=== PATIENT | female | born 1995 | race Caucasian/White ===

== ENCOUNTER 2023-06-28 09:59 | Outpatient (OUT) | payer MEDICAID, SELFPAY ==
[2023-06-28 10:36] LABS: HCG Quantitative <1 mIU/mL
== END 2023-06-28 10:00 | disposition home or self-care (01) ==
LOC: LAB 10:03
PROVIDERS: Visit Provider Obstetrics & Gynecology
DX: N92.6 Irregular menstruation, unspecified (principal)
CPT/HCPCS: 36415; 84702

== ENCOUNTER 2023-07-07 07:45 | Outpatient (OUT) | payer MEDICAID, SELFPAY ==
--- NOTE | 2023-07-07 07:49 | US_ITS ---
The [address] [address] Patient Name: KEVEN GUTIERREZ MRN: [id number] date: 1995 Sex: F Assigned Patient Location: [place] Current Patient Location: Accession/Order Number: [id number] Exam Date: 07/07/2023 08:00 Report Date: 07/07/2023 09:12 At the request of: MUKESH OLIVARES Procedure: US pelvis w/ transvaginal EXAMINATION: US pelvis w/ transvaginal HISTORY: Pelvic Pain In Female R10.2 COMPARISON: No relevant comparison available. TECHNIQUE: Transabdominal and/or transvaginal sonographic examination was performed as indicated by examination type. FINDINGS: UTERUS: Normal size and appearance. Uterus size: 8.1 x 4.4 x 4.0 cm ENDOMETRIUM: 3 mm hyperechoic focus within fundal aspect endometrium, likely dystrophic calcification. Otherwise normal thickness and echogenicity of endometrium. Endometrial thickness: 9 mm RIGHT OVARY: Contains a 2.5 cm benign-appearing cyst. Duplex Doppler demonstrates normal waveform and flow; resistive index 0.6. Ovary size: 4.5 x 2.7 x 2.4 cm LEFT OVARY: Normal size and appearance. Duplex Doppler demonstrates normal waveform and flow; resistive index 0.6. Ovary size: 2.9 x 2.4 x 2.2 cm CUL-DE-SAC: Unremarkable. No significant free fluid. BLADDER: Unremarkable. OTHER: None. US/US pelvis w/ transvaginal IMPRESSION: 1. The right ovary contains a 2.5 cm benign-appearing cysts which may contribute to patient's symptoms. No other acute or suspicious findings. Electronically authenticated by: CAROLYN SOW Date: 07/07/2023 09:12
== END 2023-07-07 07:46 | disposition home or self-care (01) ==
LOC: US 07:45
PROVIDERS: Visit Provider Obstetrics & Gynecology
DX: R10.2 Pelvic and perineal pain (principal); N83.201 Unspecified ovarian cyst, right side
CPT/HCPCS: 76830; 76856

== ENCOUNTER 2023-08-16 20:43 | Outpatient (REF) | payer MEDICAID, SELFPAY ==
[2023-08-25 22:06] LABS: Age Gdln ACOG Testing Note (.); HPV Aptima Negative (Negative); IGP, rfx Aptima HPV ASCU Note (.)
== END 2023-08-16 20:44 | disposition home or self-care (01) ==
LOC: LAB 20:43
PROVIDERS: Visit Provider Physician Assistant
DX: Z12.4 Encounter for screening for malignant neoplasm of cervix (principal)
CPT/HCPCS: G0145

== ENCOUNTER 2023-09-07 10:32 | Outpatient (OUT) | payer MEDICAID, SELFPAY ==
--- NOTE | 2023-09-07 10:43 | US_ITS ---
[address] [address] Patient Name: KEVEN GUTIERREZ MRN: [id number] date: 1995 Sex: F Assigned Patient Location: [place] Current Patient Location: Accession/Order Number: [id number] Exam Date: 09/07/2023 10:44 Report Date: 09/08/2023 10:04 At the request of: MUKESH OLIVARES Procedure: US OB transvaginal EXAMINATION: US OB transvaginal HISTORY: Missed Menses N92.6 COMPARISON: No relevant comparison available. FINDINGS: Roblero intrauterine gestation Gestational sac: 1.74 cm, 6 weeks 1 day CRL: 4.8 mm, 6 weeks 1 day Yolk sac: 1.4 mm Heart rate: 113 beats minute Cervix: Closed 3.8 cm The uterus is normal, anteverted The ovaries are normal. Right corpus luteal cyst Clinical age: Unknown Ultrasound age: 6 weeks 1 day Ultrasound GET: 05/01/2024 US/US OB transvaginal IMPRESSION: Viable roblero intrauterine gestation measuring 6 weeks 1 day Electronically authenticated by: SHAHEEN RAMOS Date: 09/08/2023 10:04
== END 2023-09-07 10:33 | disposition home or self-care (01) ==
LOC: US 10:33
PROVIDERS: Visit Provider Obstetrics & Gynecology
DX: Z34.91 Encounter for supervision of normal pregnancy, unspecified, first trimester (principal); Z3A.01 Less than 8 weeks gestation of pregnancy
CPT/HCPCS: 36415; 76817; 84702

== ENCOUNTER 2023-10-20 10:15 | Outpatient (OUT) | payer MEDICAID, SELFPAY ==
[2023-10-20 11:11] LABS: HCG Quantitative 21 mIU/mL
== END 2023-10-20 10:16 | disposition home or self-care (01) ==
LOC: LAB 10:18
PROVIDERS: Visit Provider Obstetrics & Gynecology
DX: N92.6 Irregular menstruation, unspecified (principal); O03.9 Complete or unspecified spontaneous abortion without complication
CPT/HCPCS: 36415; 84702

== ENCOUNTER 2023-10-27 10:10 | Outpatient (RCR) | payer MEDICAID, SELFPAY ==
[2023-10-27 12:33] LABS: HCG Quantitative 10 mIU/mL
[2023-11-01 13:16] LABS: HCG Quantitative 6 mIU/mL
== END 2023-11-20 08:03 | disposition home or self-care (01) ==
LOC: LAB 10:10
PROVIDERS: Visit Provider Obstetrics & Gynecology
DX: O03.9 Complete or unspecified spontaneous abortion without complication (principal); N92.6 Irregular menstruation, unspecified
CPT/HCPCS: 36415; 84702

== ENCOUNTER 2024-01-06 10:56 | Outpatient (OUT) | payer MEDICAID, SELFPAY ==
--- NOTE | 2024-01-06 10:58 | US_ITS ---
The [address] [address] Patient Name: KEVEN GUTIERREZ MRN: [id number] date: 1995 Sex: F Assigned Patient Location: [place] Current Patient Location: Accession/Order Number: [id number] Exam Date: 01/06/2024 11:18 Report Date: 01/06/2024 12:38 At the request of: MUKESH OLIVARES Procedure: US pelvis w/ transvaginal EXAMINATION: US pelvis w/ transvaginal HISTORY: pelvic pain in female R10.2 COMPARISON: Ultrasound pelvis 07/07/2023 TECHNIQUE: Transabdominal and/or transvaginal sonographic examination was performed as indicated by examination type. FINDINGS: UTERUS: Normal size and appearance. Uterus size: 7.1 x 4.2 x 5.0 cm ENDOMETRIUM: Normal homogeneous appearance. Endometrial thickness: 4 mm RIGHT OVARY: Contains a 4.3 cm anechoic, thin-walled, benign-appearing cyst. Duplex Doppler demonstrates normal waveform and flow; resistive index 0.68. Ovary size: 4.3 x 3.6 x 4.6 cm LEFT OVARY: Normal size and appearance. Duplex Doppler demonstrates normal waveform and flow; resistive index 0.48. Ovary size: 2.3 x 1.1 x 2.4 cm CUL-DE-SAC: Unremarkable. No significant free fluid. BLADDER: Unremarkable. OTHER: None. US/US pelvis w/ transvaginal IMPRESSION: 1. Right ovary contains a large 4.3 cm benign-appearing cyst. This is larger than seen on patient's 07/07/2023 study and may represent enlargement of previously seen cyst or a new cyst since that time. Consider follow-up ultrasound evaluation in 6 weeks to document regression. Electronically authenticated by: CAROLYN SOW Date: 01/06/2024 12:38
--- OUTSIDE RECORDS SUMMARY | 2024-01-06 11:14 | XMS_ITS | CCD ---
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 Glucose [Mass/Vol] 78 mg/dL Normal 70-100 [facility] Comment on above: Result Comment: [facility] [place] Glucose Reference Range is dependent on time and content of last meal. Glucose of more than 200 mg/dL in a nonstressed, ambulatory subject supports the diagnosis of Diabetes Mellitus. ADA recommended reference range Performed By: #### C BC, TSH3 wRFLX, A1C WTH eA, LIPID, CMP #### [facility] [address] [place] [address] [place] Potassium [Moles/Vol] 4.2 mmol/L Normal 3.5-5.1 [facility] Comment on above: Performed By: #### C BC, TSH3 wRFLX, A1C WTH eA, LIPID, CMP #### [facility] [address] [place] [address] [place] Protein [Mass/Vol] 6.6 g/dL Normal 6.4-8.9 [facility] Comment on above: Performed By: #### C BC, TSH3 wRFLX, A1C WTH eA, LIPID, CMP #### [facility] [address] [place] [address] [place] Sodium [Moles/Vol] 141 mmol/L Normal 136-145 [facility] Comment on above: Performed By: #### C BC, TSH3 wRFLX, A1C WTH eA, LIPID, CMP #### [facility] [address] [place] [address] [place] Urea nitrogen [Mass/Vol] 21 mg/dL Normal 7-25 [facility] Comment on above: Performed By: #### C BC, TSH3 wRFLX, A1C WTH eA, LIPID, CMP #### [facility] [address] [place] [address] [place] Creatinine [Mass/volume] in Serum or PlasmaOrdered By: Elean Gudimella on 10-17-2023 Creatinine [Mass/Vol] 0.66 mg/dL 0.60-1.20 [facility] Eosinophils Auto (Bld) [#/Vo l]Ordered By: Elena Gudimella on 10-17-2023 Eosinophils (Bld) [#/Vol] 0.1 10*3/uL 0.0-0.45 [facility] Eosinophils/100 WBC Auto (Bl d)Ordered By: Elena Burger on 10-17-2023 Eosinophils/100 WBC (Bld) 2.8 % . [facility] Erythrocyte distribution wid th Auto (RBC) [Ratio]Ordered By: Elenajason Brownmichelle on 10-17-2023 Erythrocyte distribution width (RBC) [Ratio] 13.3 % 11.9-15.3 [facility] Globulin Calc (S) [Mass/Vol] Ordered By: Elena Brownmichelle on 10-17-2023 Globulin (S) [Mass/Vol] 2.1 g/dL [facility] Glucose [Mass/volume] in Ser um or PlasmaOrdered By: Elena Gumichelle on 10-17-2023 Glucose [Mass/Vol] 78 mg/dL 70-100 [facility] Comment on above: ADA recommended refe rence rangeRandom Glucose Reference Range is dependent on time and content of last meal. Glucose of more than 200 mg/dL in a nonstressed, ambulatory subject supports the diagnosis of Diabetes Mellitus. Hematocrit Auto (Bld) [Volum e fraction]Ordered By: Elenajason Brown on 10-17-2023 Hematocrit (Bld) [Volume fraction] 37.1 % 34.0-46.4 [facility] Hemoglobin [Mass/volume] in BloodOrdered By: Elena Malcom on 10-17-2023 Hemoglobin (Bld) [Mass/Vol] 12.1 g/dL 11.8-15.4 [facility] Leukocytes [#/volume] correc addie for nucleated erythrocytes in Blood by Automated counOrdered By: Kevinmichelle on 10-17-2023 WBC corrected for nucl RBC Auto (Bld) [#/Vol] 5.3 10*3/uL 3.8-11.6 [facility] Lipid Panelon 10-17-2023 Cholesterol [Mass/Vol] 155 mg/dL Normal 140-200 [facility] Comment on above: Result Comment: Chol less than 200 mg/dl low risk Chol 201-239 mg/dl borderline risk Chol 240 mg/dl and greater high risk Performed By: #### C BC, TSH3 wRFLX, A1C WTH eA, LIPID, CMP #### [facility] [address] [place] [address] [place] Cholesterol in HDL [Mass/Vol] 77 mg/dL Normal 23-92 [facility] Comment on above: Result Comment: HDL CHOL ATP-III CLASSIFICATION Cardiovascular Risk HDL > or equal to 60 mg/dL LOW HDL < 40 mg/dL HIGH Performed By: #### C BC, TSH3 wRFLX, A1C WTH eA, LIPID, CMP #### [facility] [address] [place] [address] [place] Cholesterol.total/[place] sterol in HDL [Mass ratio] 2.0 {ratio} Normal <5.0 [facility] Comment on above: Performed By: #### C BC, TSH3 wRFLX, A1C WTH eA, LIPID, CMP #### [facility] [address] LDL Cholesterol,Calculated 72 mg/dL Normal 0-100 [facility] Comment on above: Result Comment: LDL ATP III CLASSIFICATION LDL less than 100 mg/dL Optimal LDL 100-129 mg/dL Near or above optimal LDL 130-159 mg/dL Borderline high LDL 160-189 mg/dL High LDL greater than 189 mg/dL Very high Performed By: #### C BC, TSH3 wRFLX, A1C WTH eA, LIPID, CMP #### [facility] [address] [place] [id number] [place] Triglyceride w/Reflex 31 mg/dL Normal 0-149 [facility] Comment on above: Result Comment: TRIG ATP III CLASSIFICATION TRIG less than 150 mg/dL Normal TRIG 150-199 mg/dL Borderline high TRIG 200-500 mg/dL High TRIG greater than 500 mg/dL Very high Standard traceable to the Center for Disease Conrtrol and Prevention (CDC) test method. Performed By: #### C BC, TSH3 wRFLX, A1C WTH eA, LIPID, CMP #### [facility] [address] [place] [id number] [place] VLDL CHOLESTEROL 6 mg/dL Normal [facility] Comment on above: Performed By: #### C BC, TSH3 wRFLX, A1C WTH eA, LIPID, CMP #### [facility] [address] Lymphocytes Auto (Bld) [#/Vo l]Ordered By: Elena Gudimella on 10-17-2023 Lymphocytes (Bld) [#/Vol] 1.6 10*3/uL 1.00-4.8 [facility] Lymphocytes/100 WBC Auto (Bl d)Ordered By: Elena Gudimella on 10-17-2023 Lymphocytes/100 WBC (Bld) 30.9 % . [facility] MCH Auto (RBC) [Entitic mass ]Ordered By: Elena Gudimella on 10-17-2023 MCH (RBC) [Entitic mass] 27.7 pg 24.7-34.3 [facility] MCHC Auto (RBC) [Mass/Vol]Or dered By: Elena Gudimella on 10-17-2023 MCHC (RBC) [Mass/Vol] 32.7 g/dL 32.0-35.0 [facility] MCV Auto (RBC) [Entitic vol] Ordered By: Elena Gudimella on 10-17-2023 MCV (RBC) [Entitic vol] 84.6 fL 80-100 [facility] Monocytes Auto (Bld) [#/Vol] Ordered By: Elena Gudimella on 10-17-2023 Monocytes (Bld) [#/Vol] 0.4 10*3/uL 0.0-0.8 [facility] Monocytes/100 WBC Auto (Bld) Ordered By: Elena Gudimella on 10-17-2023 Monocytes/100 WBC (Bld) 7.8 % . [facility] Neutrophils Auto (Bld) [#/Vo l]Ordered By: Elena Gudimella on 10-17-2023 Neutrophils (Bld) [#/Vol] 3.1 10*3/uL 1.8-7.7 [facility] Neutrophils/100 WBC Auto (Bl d)Ordered By: Elena Gudimella on 10-17-2023 Neutrophils/100 WBC (Bld) 58.0 % . [facility] No Panel InformationOrdered By: Elena Gudimella on 10-17-2023 Estimated GFR (CKD-EPI) > 60.0 mL/Min [facility] Creatinine Clearance (Chem N/A [facility] Nucleated erythrocytes [Pres ence] in Blood by Automated countOrdered By: Elena Gudimella on 10-17-2023 Nucleated RBC Auto Ql (Bld) 0.1 /100{WBC} 0-0.5 [facility] Platelet mean volume Auto (B ld) [Entitic vol]Ordered By: Elena Gudimella on 10-17-2023 Platelet mean volume (Bld) [Entitic vol] 9.5 fL 6.3-10.7 [facility] Platelets Auto (Bld) [#/Vol] Ordered By: Elena Gudimella on 10-17-2023 Platelets (Bld) [#/Vol] 146 10*3/uL 150-450 [facility] Potassium [Moles/volume] in Serum or PlasmaOrdered By: Elena Gudimella on 10-17-2023 Potassium [Moles/Vol] 4.2 mmol/L 3.5-5.1 [facility] Protein [Mass/volume] in Ser um or PlasmaOrdered By: Elena Gudimella on 10-17-2023 Protein [Mass/Vol] 6.6 g/dL 6.4-8.9 [facility] RBC Auto (Bld) [#/Vol]Ordere d By: Elena Gudimella on 10-17-2023 RBC (Bld) [#/Vol] 4.38 10*6/uL 3.60-5.00 [facility] Serum or plasma albumin/glob ulin mass ratioOrdered By: Elena Gudimella on 10-17-2023 Albumin/Globulin [Mass ratio] 2.1 {ratio} [facility] Serum or plasma anion gap de terminationOrdered By: Elena Gudimella on 10-17-2023 Anion gap [Moles/Vol] 10.5 mmol/L 6.0-15.0 [facility] Serum or plasma high density lipoprotein (HDL) cholesterol measurementOrdered By: Elena Gudimella on 11-27-2023 Cholesterol in HDL [Mass/Vol] 77 mg/dL 23-92 [facility] Comment on above: HDL CHOL ATP-III CLA SSIFICATION Cardiovascular RiskHDL > or equal to 60 mg/dL LOWHDL < 40 mg/dL HIGH Serum or plasma total choles terol/high density lipoprotein (HDL) cholesterol mass ratOrdered By: Malcom on 10-17-2023 Cholesterol.total/[place] sterol in HDL [Mass ratio] 2.0 {ratio} <5.0 [facility] Sodium [Moles/volume] in Ser um or PlasmaOrdered By: on 10-17-2023 Sodium [Moles/Vol] 141 mmol/L 136-145 [facility] Thyroid Stim Hormone w/Rflxo n 10-17-2023 Thyroid Stim Hormone w/Rflx 0.68 u[iU]/mL Normal 0.45-5.33 [facility] Comment on above: Result Comment: PERF ORMED BY: [place] [address] PATHOLOGIST RECONDITIONER SERG WARD M.D. Performed By: #### C BC, TSH3 wRFLX, A1C WTH eA, LIPID, CMP #### [address] Thyrotropin [Units/volume] i n Serum or PlasmaOrdered By: on 10-17-2023 TSH Qn 0.68 m[IU]/L 0.45-5.33 [facility] Triglyceride [Mass/volume] i n Serum or PlasmaOrdered By: on 10-17-2023 Triglyceride [Mass/Vol] 31 mg/dL 0-149 [facility] Comment on above: TRIG ATP III CLASSIF ICATIONTRIG less than 150 mg/dL NormalTRIG 150-199 mg/dL Borderline highTRIG 200-500 mg/dL High TRIG greater than 500 mg/dL Very highStandard traceable to the Center for Disease Conrtrol and Prevention (CDC) test method. Urea nitrogen [Mass/volume] in Serum or PlasmaOrdered By: on 10-17-2023 Urea nitrogen [Mass/Vol] 21 mg/dL 7-25 [facility] WBC Auto (Bld) [#/Vol]Ordere d By: Elena Burger on 10-17-2023 WBC (Bld) [#/Vol] 5.3 10*3/uL 3.8-11.6 [facility] Physician Orderon 10-14-2023 Physician Order [id number] Normal [facility] Ambulatory Visit Summaryon 0 05-26-2023 Ambulatory Visit Summary PAULA WHITAKER :1995 Visit Date:05/26/2023 Ambulatory Visit Instructions Your Diagnosis Encounter for annual physical exam Nonsmoker BMI 26.0-26.9,adult Seizures Hypothyroidism, Hypothyroidism Screening for endocrine, metabolic, and immunity disorder Encounter for screening for diseases of the blood and blood-forming organs and certain disorders involving the immune mechanism Encounter for screening for other metabolic disorders Your Care Team Attending Physician - Elena Burger MD Primary Care Physician - Khushboo PENNINGTON MD This Is Your Medications List levothyroxine (levothyroxine 50 mcg (0.05 mg) Tab) Procedures Performed none. Discharge Vitals Heart Rate (Peripheral) 78 Blood Pressure 110/70 Height 157 cm Height 62 in Weight 64.4 kg Weight 141.68 lb BMI 26.13 Medications What How Much When Why Instructions Unchanged levothyroxine (levothyroxine 50 mcg (0.05 mg) Tab) 1 Tablets By Mouth Every day Hypothyroidism on empty stomach Pickup at [facility] Pharmacy Information [facility]: [address], [place] [id number] [phone] Allergies Lexapro (Unknown) Problems Ongoing - Any problem that you are currently receiving treatment for. High risk medications (not anticoagulants) long-term use History of intentional self-harm Hypothyroidism Influenza vaccination declined Overweight Screening for endocrine, metabolic, and immunity disorder Seizures Normal [facility] Family Medicine Office/Clini c Noteon 05-26-2023 Family Medicine Office/Clinic Note Chief Complaint annual physical HPI Staff Pt here for annual physical. 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[place], gets paps done there due at this time last blood work 2020 focal seizures sees neurology every 6 months no seizure in 1 year affects left side of body not on any meds at this time Review of Systems PHQ Score Initial Depression Screen Score: 0 Negative except as above Physical Exam Vitals & Measurements HR: 78(Peripheral) BP: 110/70 SpO2: 95% HT: 62 in HT: 157 cm WT: 64.4 kg WT: 141.68 lb BMI: 26.13 Gen: No acute distress, sitting comfortably in chair Cardio: RRR, no murmur/rubs/gallops Resp: CTAB, no wheezing/rales/rhonchi Psych: Pleasant, normal mood, normal affect Neuro: CN II-XII intact, normal gait Assessment/Plan 1. Encounter for annual physical exam (Z00.00: Encounter for general adult medical examination without abnormal findings) patient to call baggage screener for pap smear CBC, CMP, A1c, lipid panel, TSH ordered Ordered: CBC w/ Auto Diff Comprehensive Metabolic Panel HgbA1c Lipid Panel TSH With T4fr Reflex 2. Hypothyroidism (E03.9: Hypothyroidism, unspecified) cont levothyroxine, refilled today repeat TSH ordered Ordered: levothyroxine, 50 microgram = 1 tab(s), Oral, Daily, on empty stomach, # 90 tab(s), Refills(s) 3, Pharmacy: [facility], 157, cm, 05/26/23 10:09:00 EDT, Height/Length Dosing, 64.4, kg, 05/26/23 10:09:00 EDT, Weight Dosing TSH With T4fr Reflex 3. Seizures (R56.9: Unspecified convulsions) sees neurology, defer mgmt to them 4. Nonsmoker (Z78.9: Other specified health status) stable 5. BMI 26.0-26.9,adult (Z68.26: Body mass index [BMI] 26.0-26.9, adult) The standard range for ages 18 and older is >=18.5 and < 25 kg/m2. Your BMI today was above this range, this falls in the overweight to obese category and there are medical benefits to weight loss. We can offer counselling, referral, and/or medical support in addressing this problem. Your BMI and weight management will be followed at subsequent visits. 6. Screening for endocrine, metabolic, and immunity disorder (Z13.29: Encounter for screening for other suspected endocrine disorder) CBC, CMP, A1c, lipid panel, TSH ordered Ordered: CBC w/ Auto Diff Comprehensive Metabolic Panel HgbA1c Lipid Panel TSH With T4fr Reflex 7. Overweight (E66.3: Overweight) increase whole foods, decrease processed foods exercise at least 2.5 hours weekly Follow-up With When Contact Information Elena Burger MD, FAM, MED In [address] [place] [phone] Business (1) Additional Instructions: Problem List/Past Medical History Ongoing High risk medications (not anticoagulants) long-term use History of intentional self-harm Hypothyroidism Influenza vaccination declined Overweight Screening for endocrine, metabolic, and immunity disorder Seizures Historical No qualifying data Procedure/Surgical History none. Medications levothyroxine 50 mcg (0.05 mg) Tab, 50 mcg= 1 tab(s), Oral, Daily, 3 refills Allergies Lexapro (Unknown) Social History Alcohol - Low Risk, 05/23/2019 Substance Abuse - Denies Substance Abuse, 05/23/2019 Current, Marijuana, IV drug use: No. Drug use interferes with work/home: No. Ready to change: No. Household substance abuse concerns: Yes., 01/23/2020 Tobacco - Denies Tobacco Use, 07/23/2021 Never (less than 100 in lifetime) Tobacco Use:. Never Smokeless Tobacco Use:. Household tobacco concerns: No., 05/26/2023 Family History Bipolar: Mother. Immunizations Vaccine Date Status Comments influenza virus vaccine, inactivated - Not Given Postpone due to refusal influenza virus vaccine, live, trivalent - Not Given Patient Refuses human papillomavirus vaccine 07/15/2009 Recorded human papillomavirus vaccine 10/25/2007 Recorded human papillomavirus vaccine 08/25/2007 Recorded meningococcal conjugate vaccine 08/25/2007 Recorded tetanus toxoid 08/25/2007 Recorded measles/mumps/rubella virus vaccine 03/22/2000 Recorded poliovirus vaccine, inactivated 03/22/2000 Recorded diphtheria/pertussis, acel/tetanus ped 03/22/2000 Recorded measles/mumps/rubella virus vaccine 01/11/1996 Recorded hepatitis B pediatric vaccine 1995 Recorded haemophilus b conj (PRP-OMP) vaccine 1995 Recorded poliovirus vaccine, inactivated 1995 Recorded diphtheria/pertussis, acel/tetanus ped 1995 Recorded hepatitis B pediatric vaccine 1995 Recorded haemophilus b conj (PRP-OMP) vaccine 1995 Recorded poliovirus vaccine, inactivated 1995 Recorded diphtheria/pertussis, acel/tetanus ped 1995 Recorded hepatitis B pediatric vaccine 1995 Recorded haemophilus b conj (PRP-OMP) vaccine 1995 (more content not included)... Normal [facility] Comment on above: Result Comment: Elec tronically Signed By: Elena Burger MD\.br\Date and Time Signed: 05/26/23 11:11 EDT Consultation Noteon 04-03-20 Consultation Note [id number]: 127 Normal [facility] Consultation Noteon 02-03-20 Consultation Note [id number]:1 27 [facility] CBC AUTO DIFFon 09-08-2022 BASO # 0.0 103/ul Normal 0.0-0.1 [facility] Comment on above: Performed By: #### G LU1HR #### [facility] [address] [place] [address] Dr. Christa Han Basophils/100 WBC (Bld) 0.2 % Normal 0.2-2.0 [facility] Comment on above: Performed By: #### G LU1HR #### [facility] [address] [place] [address] [address] Christa Han EO # 0.1 103/ul Normal 0.0-0.7 [facility] Comment on above: Performed By: #### G LU1HR #### [facility] [address] [place] [address] Dr. Christa Han Eosinophils/100 WBC (Bld) 3.0 % Normal 0.9-7.0 [facility] Comment on above: Performed By: #### G LU1HR #### [facility] [address] [place] [address] Dr. Christa Han Erythrocyte distribution width (RBC) [Ratio] 14.1 % Normal 11.0-15.0 [facility] Comment on above: Performed By: #### G LU1HR #### [facility] [address] [place] [address] Dr. Christa Han Hematocrit (Bld) [Volume fraction] 39.2 % Normal 36.0-48.0 [facility] Comment on above: Performed By: #### G LU1HR #### [facility] [address] [place] [address] Dr. Christa Han Hemoglobin (Bld) [Mass/Vol] 12.5 g/dL Normal 12.0-16.0 [facility] Comment on above: Performed By: #### G LU1HR #### [facility] [address] [place] [address] Dr. Christa Han IG # 0.00 10e3/ul Normal 0.00-0.03 [facility] Comment on above: Performed By: #### G LU1HR #### [facility] [address] [place] [address] Dr. Christa Han IG % 0.0 % Normal 0.0-0.5 [facility] Comment on above: Performed By: #### G LU1HR #### [facility] [address] [place] [address] Dr. Christa Han LYMPH # 1.8 103/ul Normal 1.2-3.8 [facility] Comment on above: Performed By: #### G LU1HR #### [facility] [address] [place] [address] Dr. Christa Han Lymphocytes/100 WBC (Bld) 42.0 % Normal 20.5-60.0 [facility] Comment on above: Performed By: #### G LU1HR #### [facility] [address] [place] [address] Dr. Christa Han MANUAL DIFF REQ NO Normal [facility] Comment on above: Performed By: #### G LU1HR #### [facility] [address] [place] [address] Dr. Christa Han MCH (RBC) [Entitic mass] 26.7 pg Normal 26.7-34.0 [facility] Comment on above: Performed By: #### G LU1HR #### [facility] [address] [place] [address] Dr. Christa Han MCHC (RBC) [Mass/Vol] 31.9 g/dL Normal 29.9-35.2 [facility] Comment on above: Performed By: #### G LU1HR #### [facility] [address] [place] [address] Dr. Christa Han MCV (RBC) [Entitic vol] 83.8 fL Normal 81.0-99.0 [facility] Comment on above: Performed By: #### G LU1HR #### [facility] [address] [place] [address] Dr. Christa Han MONO # 0.3 103/ul Normal 0.3-0.8 [facility] Comment on above: Performed By: #### G LU1HR #### [facility] [address] [place] [address] Dr. Christa Han Monocytes/100 WBC (Bld) 7.0 % Normal 1.7-12.0 [facility] Comment on above: Performed By: #### G LU1HR #### [facility] [address] [place] [address] Dr. Christa Han NEUT # 2.1 103/ul Normal 1.4-6.5 [facility] Comment on above: Performed By: #### G LU1HR #### [facility] [address] [place] [address] Dr. Christa Han Neutrophils/100 WBC (Bld) 47.8 % Normal 43.0-75.0 [facility] Comment on above: Performed By: #### G LU1HR #### [facility] [address] [place] [address] Dr. Christa Han Platelet mean volume (Bld) [Entitic vol] 11.7 fL Normal 9.5-13.5 [facility] Comment on above: Performed By: #### G LU1HR #### [facility] [address] [place] [address] Dr. Christa Han PLT 172 103/ul Normal 150-450 [facility] Comment on above: Performed By: #### G LU1HR #### [facility] [address] [address] [address] Christa Han RBC 4.68 106/ul Normal 4.20-5.40 [facility] Comment on above: Performed By: #### G LU1HR #### [facility] [address] [address] [address] Christa Han WBC 4.3 103/ul Normal 4.0-11.0 [facility] Comment on above: Performed By: #### G LU1HR #### [facility] [address] [place] [address] Dr. Christa Han PREG QUANT HCGon 09-08-2022 HCG QUANT 1 mIU/mL Normal [facility] Comment on above: Performed By: #### G LU1HR #### [facility] [address] [place] [address] Dr. Christa Han HCG RANGE SEE BELOW Normal [facility] Comment on above: Result Comment: 5-50 0.2-1 WEEK 50-500 1-2 WEEKS 100-5,000 2-3 WEEKS 500-10,000 3-4 WEEKS 1,000-50,000 4-5 WEEKS 10,000-100,000 5-6 WEEKS 15,000-200,000 6-8 WEEKS 10,000-100,000 2-3 MONTHS Performed By: #### G LU1HR #### [facility] [address] [place] [address] Dr. Christa Han [facility] SARS-CoV-2 (COVID-19) RNA TRISTEN+probe Ql (Unsp spec) Not detected Normal NOT DETECTED [facility] Comment on above: Result Comment: This test is not yet approved or cleared by the [place] FDA. When there are no FDA-approved or cleared tests available, and other criteria are met, FDA can make tests available under an emergency access mechanism called an Emergency Use Authorization (EUA). The EUA for this test is supported by the [place] of Health and Human Service's (HHS's) declaration that circumstances exist to justify the emergency use of in vitro diagnostics for the detection and/or diagnosis of the virus that causes COVID-19. This EUA will remain in effect (meaning this test can be used) for the duration of the COVID-19 declaration justifying emergency of IVDs, unless it is terminated or revoked by FDA (after which the test may no longer be used). When diagnostic testing is negative, the possibility of a false negative should be considered in the context of a patient's recent exposures and the presence of clinical signs and symptoms consistent with SARS-CoV-2. Performed By: #### C [facility] #### [facility] [address] [place] [address] Dr. Christa Han XR KUB 1 VIEWon 08-17-2022 XR KUB 1 VIEW EXAMINATION: XR KUB 1 VIEW HISTORY: Pelvic and perineal pain COMPARISON: 08/29/2022 FINDINGS: BOWEL GAS PATTERN: No abnormal dilation or deviation. Large amount of stool throughout the colon CALCIFICATIONS: None significant. OTHER: IUD identified projected over the left pelvis IMPRESSION: IUD in the pelvis Large amount of stool Electronically authenticated by: SHAHEEN RAMOS Date: 2022-08-17 18:14 Normal [facility] US PELVIS AND TRANSVAGon US PELVIS AND TRANSVAG EXAMINATION: US P AGUSTIN AND TRANSVAG HISTORY: Pelvic and perineal pain for several weeks; 3 months ; IUD COMPARISON: No relevant comparison available. TECHNIQUE: Transabdominal and transvaginal sonographic examination. FINDINGS: UTERUS: Normal size and appearance. Uterus size: 6.4 x 5.1 x 2.9 cm ENDOMETRIUM: Small echogenic focus within the fundal endometrium, likely dystrophic calcification. Normal thickness and homogeneous echotexture of the endometrium. Endometrial thickness: 2 mm RIGHT OVARY: Normal size and appearance. Duplex Doppler demonstrates normal waveform and flow; resistive index 0.5. Ovary size: 3.0 x 2.1 x 2.6 cm LEFT OVARY: Normal size and appearance. Duplex Doppler demonstrates normal waveform and flow; resistive index 0.6. Ovary size: 3.0 x 2.3 x 2.3 cm CUL-DE-SAC: Unremarkable. No significant free fluid. BLADDER: Unremarkable. OTHER: None. IMPRESSION: 1. Normal pelvic ultrasound. 2. No IUD within endometrial cavity. Electronically authenticated by: CAROLYN SOW Date: 2022-07-30 16:54 Normal [facility] PAP ACOG PANEL 2: 21 to 29on 07-12-2022 . . Normal [facility] Comment on above: Performed By: #### G LU1HR #### [facility] [address] [address] [address] Christa Han Age Gdln ACOG Testing - Normal [facility] Comment on above: Performed By: #### G LU1HR #### [facility] [address] [place] [address] Dr. Christa Han DIAGNOSIS: Comment [facility] Comment on above: Result Comment: NEGA TIVE FOR INTRAEPITHELIAL LESION OR MALIGNANCY. CELLULAR CHANGES ASSOCIATED WITH INFLAMMATION ARE PRESENT. PREDOMINANCE OF COCCOBACILLI CONSISTENT WITH SHIFT IN VAGINAL MICHELLE IS PRESENT. THIS SPECIMEN WAS RESCREENED PART OF OUR STATION MECHANIC APPRENTICE PROGRAM. Performed By: #### G LU1HR #### [facility] [address] [place] [address] Dr. Christa Han Methodology: Comment Normal [facility] Comment on above: Result Comment: This liquid based ThinPrep(R) pap test was screened with the use of an image guided system. Performed By: #### G LU1HR #### [facility] [address] [place] [address] Dr. Christa Han Note: Comment Normal [facility] Comment on above: Result Comment: The Pap smear is a screening test designed to aid in the detection of premalignant and malignant conditions of the uterine cervix. It is not a diagnostic procedure and should not be used as the sole means of detecting cervical cancer. Both false-positive and false-negative reports do occur. . Performed By: #### G LU1HR #### [facility] [address] [place] [address] Dr. Christa Han Performed by: Comment Normal [facility] Comment on above: Result Comment: Josseline Koroma, Command And Control Officer (ASCP) Performed By: #### G LU1HR #### [facility] [address] [place] [address] Dr. Christa Han QC reviewed by: Comment Normal [facility] Comment on above: Result Comment: Madhavi Callejas, Command And Control Officer (ASCP) Performed By: #### G LU1HR #### [facility] [address] [place] [address] Dr. Christa Han Reflex Criteria: Comment Normal [facility] Comment on above: Result Comment: The HPV DNA reflex criteria were not met with this specimen result therefore, no HPV testing was performed. . Performed By: #### G LU1HR #### [facility] [address] [place] [address] Dr. Christa Han Specimen adequacy: Comment Normal [facility] Comment on above: Result Comment: Sati sfactory for evaluation. Endocervical and/or squamous metaplastic cells (endocervical component) are present. Performed By: #### G LU1HR #### [facility] [address] [place] [address] Dr. Christa Han CBC AUTO DIFFon 04-28-2022 BASO # 0.0 103/ul Normal 0.0-0.1 [facility] Comment on above: Performed By: #### C BC #### [facility] [address] [place] [address] Dr. Christa Han Basophils/100 WBC (Bld) 0.3 % Normal 0.2-2.0 [facility] Comment on above: Performed By: #### C BC #### [facility] [address] [place] [address] Dr. Christa Han EO # 0.0 103/ul Normal 0.0-0.7 [facility] Comment on above: Performed By: #### C BC #### [facility] [address] [place] [address] Dr. Christa Han Eosinophils/100 WBC (Bld) 0.1 % Critically low 0.9-7.0 [facility] Comment on above: Performed By: #### C BC #### [facility] [address] [place] [address] Dr. Christa Han Erythrocyte distribution width (RBC) [Ratio] 13.5 % Normal 11.0-15.0 [facility] Comment on above: Performed By: #### C BC #### [facility] [address] [place] [address] Dr. Christa Han Hematocrit (Bld) [Volume fraction] 29.3 % Critically low 36.0-48.0 [facility] Comment on above: Performed By: #### C BC #### [facility] [address] [place] [address] Dr. Christa Han Hemoglobin (Bld) [Mass/Vol] 9.7 g/dL Critically low 12.0-16.0 [facility] Comment on above: Performed By: #### C BC #### [facility] [address] [place] [address] Dr. Christa Han IG # 0.09 10e3/ul Critically high 0.00-0.03 [facility] Comment on above: Performed By: #### C BC #### [facility] [address] [place] [address] Dr. Christa Han IG % 0.7 % Critically high 0.0-0.5 [facility] Comment on above: Performed By: #### C BC #### [facility] [address] [place] [address] Dr. Christa Han LYMPH # 1.1 103/ul Critically low 1.2-3.8 [facility] Comment on above: Performed By: #### C BC #### [facility] [address] [place] [address] Dr. Christa Han Lymphocytes/100 WBC (Bld) 8.3 % Critically low 20.5-60.0 [facility] Comment on above: Performed By: #### C BC #### [facility] [address] [place] [address] Dr. Christa Han MANUAL DIFF REQ NO Normal [facility] Comment on above: Performed By: #### C BC #### [facility] [address] [address] [address] Christa Han MCH (RBC) [Entitic mass] 27.6 pg Normal 26.7-34.0 [facility] Comment on above: Performed By: #### C BC #### [facility] [address] [place] [address] Dr. Christa Han MCHC (RBC) [Mass/Vol] 33.1 g/dL Normal 29.9-35.2 [facility] Comment on above: Performed By: #### C BC #### [facility] [address] [place] [address] Dr. Christa Han MCV (RBC) [Entitic vol] 83.2 fL Normal 81.0-99.0 [facility] Comment on above: Performed By: #### C BC #### [facility] [address] [place] [address] Dr. Christa Han MONO # 0.9 103/ul Critically high 0.3-0.8 [facility] Comment on above: Performed By: #### C BC #### [facility] [address] [place] [address] Dr. Christa Han Monocytes/100 WBC (Bld) 6.8 % Normal 1.7-12.0 [facility] Comment on above: Performed By: #### C BC #### [facility] [address] [place] [address] Dr. Christa Han NEUT # 11.5 103/ul Critically high 1.4-6.5 [facility] Comment on above: Performed By: #### C BC #### [facility] [address] [place] [address] Dr. Christa Han Neutrophils/100 WBC (Bld) 83.8 % Critically high 43.0-75.0 [facility] Comment on above: Performed By: #### C BC #### [facility] [address] [place] [address] Dr. Christa Han Platelet mean volume (Bld) [Entitic vol] 10.9 fL Normal 9.5-13.5 [facility] Comment on above: Performed By: #### C BC #### [facility] [address] [address] [address] Christa Han PLT 129 103/ul Critically low 150-450 [facility] Comment on above: Performed By: #### C BC #### [facility] [address] [place] [address] Dr. Christa Han RBC 3.52 106/ul Critically low 4.20-5.40 [facility] Comment on above: Performed By: #### C BC #### [facility] [address] [place] [address] Dr. Christa Han WBC 13.8 103/ul Critically high 4.0-11.0 [facility] Comment on above: Performed By: #### C BC #### [facility] [address] [place] [address] Dr. Christa Han CBC AUTO DIFFon 04-27-2022 BASO # 0.1 103/ul Normal 0.0-0.1 [facility] Comment on above: Performed By: #### C BC #### [facility] [address] [place] [address] Dr. Christa Han Basophils/100 WBC (Bld) 0.5 % Normal 0.2-2.0 [facility] Comment on above: Performed By: #### C BC #### [facility] [address] [place] [address] Dr. Christa Han EO # 0.1 103/ul Normal 0.0-0.7 [facility] Comment on above: Performed By: #### C BC #### [facility] [address] [place] [address] Dr. Christa Han Eosinophils/100 WBC (Bld) 0.8 % Critically low 0.9-7.0 [facility] Comment on above: Performed By: #### C BC #### [facility] [address] [place] [address] Dr. Christa Han Erythrocyte distribution width (RBC) [Ratio] 13.5 % Normal 11.0-15.0 [facility] Comment on above: Performed By: #### C BC #### [facility] [address] [place] [address] Dr. Christa Han Hematocrit (Bld) [Volume fraction] 32.2 % Critically low 36.0-48.0 [facility] Comment on above: Performed By: #### C BC #### [facility] [address] [place] [address] Dr. Christa Han Hemoglobin (Bld) [Mass/Vol] 10.5 g/dL Critically low 12.0-16.0 [facility] Comment on above: Performed By: #### C BC #### [facility] [address] [place] [address] Dr. Christa Han IG # 0.15 10e3/ul Critically high 0.00-0.03 [facility] Comment on above: Performed By: #### C BC #### [facility] [address] [place] [address] Dr. Christa Han IG % 1.6 % Critically high 0.0-0.5 [facility] Comment on above: Performed By: #### C BC #### [facility] [address] [place] [address] Dr. Christa Han LYMPH # 1.8 103/ul Normal 1.2-3.8 [facility] Comment on above: Performed By: #### C BC #### [facility] [address] [place] [address] Dr. Christa Han Lymphocytes/100 WBC (Bld) 18.3 % Critically low 20.5-60.0 [facility] Comment on above: Performed By: #### C BC #### [facility] [address] [place] [address] Dr. Christa Han MANUAL DIFF REQ NO Normal [facility] Comment on above: Performed By: #### C BC #### [facility] [address] [place] [address] Dr. Christa Han MCH (RBC) [Entitic mass] 27.2 pg Normal 26.7-34.0 [facility] Comment on above: Performed By: #### C BC #### [facility] [address] [address] [address] Christa Han MCHC (RBC) [Mass/Vol] 32.6 g/dL Normal 29.9-35.2 [facility] Comment on above: Performed By: #### C BC #### [facility] [address] [address] [address] Christa Han MCV (RBC) [Entitic vol] 83.4 fL Normal 81.0-99.0 [facility] Comment on above: Performed By: #### C BC #### [facility] [address] [address] [address] Christa Han MONO # 0.8 103/ul Normal 0.3-0.8 [facility] Comment on above: Performed By: #### C BC #### [facility] [address] [place] [address] Dr. Christa Han Monocytes/100 WBC (Bld) 7.8 % Normal 1.7-12.0 [facility] Comment on above: Performed By: #### C BC #### [facility] [address] [place] [address] Dr. Chritsa Han NEUT # 6.8 103/ul Critically high 1.4-6.5 [facility] Comment on above: Performed By: #### C BC #### [facility] [address] [place] [address] Dr. Christa Han Neutrophils/100 WBC (Bld) 71.0 % Normal 43.0-75.0 [facility] Comment on above: Performed By: #### C BC #### [facility] [address] [place] [address] Dr. Christa Han Platelet mean volume (Bld) [Entitic vol] 11.4 fL Normal 9.5-13.5 [facility] Comment on above: Performed By: #### C BC #### [facility] [address] [place] [address] Dr. Christa Han PLT 147 103/ul Critically low 150-450 [facility] Comment on above: Performed By: #### C BC #### [facility] [address] [address] [address] Christa Hna RBC 3.86 106/ul Critically low 4.20-5.40 [facility] Comment on above: Performed By: #### C BC #### [facility] [address] [place] [address] Dr. Christa Han WBC 9.6 103/ul Normal 4.0-11.0 [facility] Comment on above: Performed By: #### C BC #### [facility] [address] [place] [address] Dr. Christa Han Covid-19 PCR ([facility])on SARS-CoV-2 (COVID-19) RNA TRISTEN+probe Ql (Unsp spec) Not detected Normal NOT DETECTED [facility] Comment on above: Result Comment: When diagnostic testing is negative, the possibility of a false negative should be considered in the context of a patient's recent exposures and the presence of clinical signs and symptoms consistent with SARS-CoV-2. This test is not yet approved or cleared by the [place] FDA. When there are no FDA-approved or cleared tests available, and other criteria are met, FDA can make tests available under an emergency access mechanism called an Emergency Use Authorization (EUA). The EUA for this test is supported by the [place] of Health and Human Service's declaration that circumstances exist to justify the emergency use of in vitro diagnostics for the detection and/or diagnosis of the virus that causes COVID-19. This EUA will remain in effect for the duration of the COVID-19 declaration justifying emergency of IVDs, unless it is terminated or revoked by the FDA (after which the test may no longer be used). Performed By: #### G LU1HR #### [facility] [address] [place] [address] Dr. Christa Han DRUG SCREEN RAPID (URINE)on 04-27-2022 AMP Negative Normal NEGATIVE [facility] Comment on above: Performed By: #### D RUGRPD #### [facility] [address] [place] [address] Dr. Christa Han BAR Negative Normal NEGATIVE [facility] Comment on above: Performed By: #### D RUGRPD #### [facility] [address] [place] [address] Dr. Christa Han BUP Negative Normal NEGATIVE [facility] Comment on above: Performed By: #### D RUGRPD #### [facility] [address] [place] [address] Dr. Christa Han BZO Negative Normal NEGATIVE [facility] Comment on above: Performed By: #### D RUGRPD #### [facility] [address] [place] [address] Dr. Christa Han SAMMI Negative Normal NEGATIVE [facility] Comment on above: Performed By: #### D RUGRPD #### [facility] [address] [place] [address] Dr. Christa Han CUT-OFFS SEE BELOW Normal [facility] Comment on above: Result Comment: AMP (Amphetamine): 500ng/mL, BAR (Barbituates): 200 ng/mL, BZO (Benzodiazepines): 150 ng/mL, BUP (Buprenorphine): 10 ng/mL, SAMMI (Cocaine): 150 ng/mL, mAMP (Methamphetamine): 500 ng/mL, MTD (Methadone): 200 ng/mL, OPI (Opiates): 100 ng/mL, OXY (Oxycodone): 100 ng/mL, PCP (Phencyclidine): 25 ng/mL, PPX (Propoxyphene): 300 ng/mL, THC (Cannabinoids): 50 ng/mL, TCA (Trycyclic Antidepressants): 300 ng/mL Performed By: #### D RUGRPD #### [facility] [address] [place] [address] Dr. Christa Han DRUG CUT HEADER DRUG CLASS TEST SYST EM CUT-OFF CONCENTRATIONS ARE FOLLOWS: Normal [facility] Comment on above: Performed By: #### D RUGRPD #### [facility] [address] [place] [address] Dr. Christa Han mAMP Negative Normal NEGATIVE [facility] Comment on above: Performed By: #### D RUGRPD #### [facility] [address] [place] [address] Dr. Christa Han MTD Negative Normal NEGATIVE [facility] Comment on above: Performed By: #### D RUGRPD #### [facility] [address] [place] [address] Dr. Christa Han OPI Negative Normal NEGATIVE [facility] Comment on above: Performed By: #### D RUGRPD #### [facility] [address] [address] [address] Christa Han OXY Negative Normal NEGATIVE [facility] Comment on above: Performed By: #### D RUGRPD #### [facility] [address] [place] [address] Dr. Christa Han PCP Negative Normal NEGATIVE [facility] Comment on above: Performed By: #### D RUGRPD #### [facility] [address] [place] [address] Dr. Christa Han PPX Negative Normal NEGATIVE [facility] Comment on above: Performed By: #### D RUGRPD #### [facility] [address] [place] [address] Dr. Christa Han TCA Negative Normal NEGATIVE [facility] Comment on above: Performed By: #### D RUGRPD #### [facility] [address] [place] [address] Dr. Christa Han THC Positive Abnormal NEGATIVE [facility] Comment on above: Performed By: #### D RUGRPD #### [facility] [address] [place] [address] Dr. Christa Han TYPE AND SCREENon 04-27-2022 TYPE AND SCREEN Negative Normal [facility] Comment on above: Performed By: #### C T/NGNA #### [facility] [address] [place] [address] Dr. Christa Han US PREG BIOPHY W NON STRESSo n 04-26-2022 US PREG BIOPHY W NON STRESS EXAMINATION: US PREG BIOPHY W NON STRESS HISTORY: Hypothyroidism COMPARISON: No relevant comparison available. TECHNIQUE: Ultrasound biophysical profile was performed in the radiology department. FINDINGS: BREATHING MOVEMENTS: 2.0 GROSS BODY MOVEMENTS: 2.0 TONE: 2.0 QUALITATIVE AMNIOTIC FLUID VOLUME: 2.0 PRESENTATION: CEPHALIC HEART RATE: 129.8 bpm H.B./min AMNIOTIC FLUID VOLUME: 8.0 cm cm GESTATIONAL AGE: 39 weeks 0 days CONCLUSION: Total biophysical profile score: 8.0 Electronically authenticated by: SHAHEEN RAMOS Date: 2022-04-26 13:34 Normal [facility] US PREG BIOPHY W NON STRESSo n 04-22-2022 US PREG BIOPHY W NON STRESS EXAMINATION: US PREG BIOPHY W NON STRESS HISTORY: Hypothyroidism COMPARISON: Ultrasound biophysical 04/15/2022 TECHNIQUE: Ultrasound biophysical profile was performed. FINDINGS: BREATHING MOVEMENTS: 2.0 GROSS BODY MOVEMENTS: 2.0 TONE: 2.0 QUALITATIVE AMNIOTIC FLUID VOLUME: 2.0 PRESENTATION: Cephalic HEART RATE: 125.6 bpm bpm. AMNIOTIC FLUID VOLUME: 7.3 cm (deepest pocket 2.8 cm) GESTATIONAL AGE: 38 weeks 3 days CONCLUSION: 1. Total biophysical profile score 8.0. 2. Amniotic fluid volume is within normal limits, but approaching the lower limits of normal. Electronically authenticated by: CAROLYN SOW Date: 2022-04-22 17:08 Normal [facility] US PREG GROWTHon 04-22-2022 US PREG GROWTH EXAMINATION: US PREG GROWTH HISTORY: Hypothyroidism COMPARISON: Ultrasound biophysical 04/15/2022 FINDINGS: Heart Rate: 125.6 bpm Number: 1.0 Position: Cephalic Amniotic Fluid Volume: 7.3 cm Maximum Vertical Pocket: 2.8 cm BIOMETRY: BPD: 9.2 cm cm; 37 weeks 2 days; 47% HC: 32.4 cmcm; 36 weeks 4 days; 5% AC: 30.5 cm cm; 34 weeks 3 days; <3% FL: 7.3 cm cm; 37 weeks 3 days;; 29% EFW: 2766.5 grams; 19% FL/AC: 24.0 FL/BPD: 79.5 HC/AC: 1.1 GESTATIONAL AGE: Age by EDC: 38 weeks 3 days GET by EDC: 05/03/2022 Age by US: 36 weeks, 3 days GET by US: 05/17/2022 IMPRESSION: 1. Single live intrauterine with growth detailed above. 2. Amniotic fluid index is within normal limits, approaches the lower limits of normal. 3. Estimated weight is at 19 to percentile. Abdominal circumference is less than 3rd percentile. Electronically authenticated by: CAROLYN SOW Date: 2022-04-22 17:06 Normal [facility] US PREG BIOPHY W NON STRESSo n 04-15-2022 US PREG BIOPHY W NON STRESS EXAMINATION: US PREG BIOPHY W NON STRESS HISTORY: Hypothyroidism COMPARISON: No relevant comparison available. TECHNIQUE: Ultrasound biophysical profile was performed in the radiology department. FINDINGS: BREATHING MOVEMENTS: 2 GROSS BODY MOVEMENTS: 2 TONE: 2 QUALITATIVE AMNIOTIC FLUID VOLUME: 2 PRESENTATION: CEPHALIC HEART RATE: 133.0 bpm H.B./min AMNIOTIC FLUID VOLUME: 9.0 cm cm GESTATIONAL AGE: 37 weeks 3 days CONCLUSION: Total biophysical profile score: 8 Electronically authenticated by: SHAHEEN RAMOS Date: 2022-04-15 14:23 Normal [facility] CHLAMYDIA/GONOCOCCUS TRISTEN ( AB/URINE/PAPon 04-08-2022 Chlamydia trachomatis, TRISTEN Negative Normal Negative [facility] Comment on above: Performed By: #### C T/NGNA #### [facility] [address] [address] [address] Christa Han Neisseria gonorrhoeae, TRISTEN Negative Normal Negative [facility] Comment on above: Performed By: #### C T/NGNA #### [facility] [address] [address] [address] Christa Han US PREG BIOPHY W NON STRESSo n 04-08-2022 US PREG BIOPHY W NON STRESS EXAMINATION: US PREG BIOPHY W NON STRESS HISTORY: Hypothyroidism COMPARISON: Ultrasound biophysical 04/01/2022 TECHNIQUE: Ultrasound biophysical profile was performed. FINDINGS: BREATHING MOVEMENTS: 2.0 GROSS BODY MOVEMENTS: 2.0 TONE: 2.0 QUALITATIVE AMNIOTIC FLUID VOLUME: 2.0 PRESENTATION: Cephalic HEART RATE: 137.8 bpm bpm. AMNIOTIC FLUID VOLUME: 10.1 cm GESTATIONAL AGE: 36 weeks 3 days CONCLUSION: Total biophysical profile score 8.0. Electronically authenticated by: CAROLYN SOW Date: 2022-04-08 14:16 Normal [facility] GROUP B STREP CULTUREon 03-21 S. agalactiae Ag Ql (Unsp spec) Culture Observations: NEGATIVE FOR GROUP B STREPTOCOCCUS. Normal [facility] Comment on above: Performed By: #### C T/NGNA #### [facility] [address] [address] [address] Christa Han US PREG BIOPHY W NON STRESSo n 04-01-2022 US PREG BIOPHY W NON STRESS EXAMINATION: US PREG BIOPHY W NON STRESS HISTORY: Hypothyroidism COMPARISON: Ultrasound biophysical 03/25/2022 TECHNIQUE: Ultrasound biophysical profile was performed. FINDINGS: BREATHING MOVEMENTS: 2.0 GROSS BODY MOVEMENTS: 2.0 TONE: 2.0 QUALITATIVE AMNIOTIC FLUID VOLUME: 2.0 PRESENTATION: Cephalic HEART RATE: 134.3 bpm bpm. AMNIOTIC FLUID VOLUME: 9.0 cm GESTATIONAL AGE: 35 weeks 3 days CONCLUSION: Total biophysical profile score 8.0. Electronically authenticated by: CAROLYN SOW Date: 2022-04-01 13:31 Normal [facility] US PREG AMNIOTIC FLUID VOLUM Kyler 03-29-2022 US PREG AMNIOTIC FLUID VOLUME EXAMINATION: US PREG AMNIOTIC FLUID VOLUME HISTORY: Hypothyroidism COMPARISON: Ultrasound growth 03/25/2022 TECHNIQUE: Limited sonographic examination for amniotic fluid volume FINDINGS: Presentation: Cephalic RAMOS: 8.3 cm (between fifth and 95th percentile) Heart rate: 117 bpm Gestational age: 35 weeks, 0 days GET: 05/03/2022 IMPRESSION: 1. Normal amniotic fluid volume, but near the lower limits of normal (5th percentile is 7.9 cm). Electronically authenticated by: CAROLYN SOW Date: 2022-03-29 13:32 Normal [facility] TSHon 03-25-2022 TSH 1.336 uIU/mL Normal 0.358-3.740 [facility] Comment on above: Performed By: #### G LU1HR #### [facility] [address] [address] [address] Christa Han TSH RANGE SEE BELOW Normal [facility] Comment on above: Result Comment: <0.3 4 UIU/ml HYPERTHYROID 0.34-5.60 UIU/ml EUTHYROID >5.60 UIU/ml HYPOTHYROID Performed By: #### G LU1HR #### [facility] [address] [place] [address] Dr. Christa Han US PREG BIOPHY W NON STRESSo n 03-25-2022 US PREG BIOPHY W NON STRESS EXAMINATION: US PREG BIOPHY W NON STRESS HISTORY: Hypothyroidism EXAMINATION: US PREG BIOPHY W NON STRESS HISTORY: Hypothyroidism COMPARISON: No relevant comparison available. TECHNIQUE: Ultrasound biophysical profile was performed in the radiology department. FINDINGS: BREATHING MOVEMENTS: 2.0 GROSS BODY MOVEMENTS: 2.0 TONE: 2.0 QUALITATIVE AMNIOTIC FLUID VOLUME: 2.0 PRESENTATION: CEPHALIC HEART RATE: 133.0 bpm H.B./min AMNIOTIC FLUID VOLUME: 9.8 cm cm GESTATIONAL AGE: 34 weeks 3 days CONCLUSION: Total biophysical profile score: 8.0 Electronically authenticated by: SHAHEEN RAMOS Date: 2022-03-25 16:41 Normal [facility] US PREG GROWTHon 03-25-2022 US PREG GROWTH EXAMINATION: US PREG GROWTH HISTORY: Hypothyroidism COMPARISON: No relevant comparison available. FINDINGS: Heart Rate: 133.0 bpm Amniotic Fluid Volume: 9.8 cm Number: 1.0 Position: Cephalic presentation, longitudinal lie Maximum Vertical Pocket: 1.0 cm cm 3.6 cm cm 2.7 cm cm 2.5 cm cm BIOMETRY: BPD: 8.3 cm cm; 33 weeks 2 days; 20% HC: 30.3 cmcm; 33 weeks 5 days, 7% AC: 27.6 cm cm; 31 weeks 5 days, less than 3% FL: 6.6 cm cm; 34 weeks 1 days; 32.3 % % EFW: 2044.9 grams, 4 lbs. 8 oz., 9% FL/AC: 24.0 FL/BPD: 79.9 HC/AC: 1.1 GESTATIONAL AGE: Age by EDC: 34 weeks 3 days GET by EDC: 05/03/2022 Age by US: 33 weeks 2 days GET by US: 05/11/2022 IMPRESSION: Abdominal circumference less than the 3rd percentile, otherwise normal interval growth. Electronically authenticated by: SHAHEEN RAMOS Date: 2022-03-25 16:42 Normal [facility] CHLAMYDIA/GONOCOCCUS TRISTEN (SW AB/URINE/PAPon 02-15-2022 Chlamydia trachomatis, TRISTEN Negative Normal Negative [facility] Comment on above: Performed By: #### C T/NGNA #### [facility] [address] [place] [address] Dr. Christa Han Neisseria gonorrhoeae, TRISTEN Negative Normal Negative [facility] Comment on above: Performed By: #### C T/NGNA #### [facility] [address] [place] [address] Dr. Christa Han VAGINITIS/VAGINOSIS DNA PROB Kyler 02-14-2022 Alpa species Negative Normal Negative [facility] Comment on above: Performed By: #### G LU1HR #### [facility] [address] [place] [address] Dr. Christa Han Gardnerella vaginalis Negative Normal Negative [facility] Comment on above: Performed By: #### G LU1HR #### [facility] [address] [place] [address] Dr. Christa Han Trichomonas vaginalis Negative Normal Negative [facility] Comment on above: Performed By: #### G LU1HR #### [facility] [address] [place] [address] Dr. Christa Han GLUCOSE - 1HRon 02-01-2022 Glucose [Mass/Vol] 105 mg/dL Normal 74-106 [facility] Comment on above: Performed By: #### G LU1HR #### [facility] [address] [place] [address] Dr. Christa Han HEMOGRAM AND PLATELon 2021 Hematocrit (Bld) [Volume fraction] 34.4 % Critically low 36.0-48.0 [facility] Comment on above: Performed By: #### C T/NGNA #### [facility] [address] [place] [address] Dr. Christa Han Hemoglobin (Bld) [Mass/Vol] 11.1 g/dL Critically low 12.0-16.0 [facility] Comment on above: Performed By: #### C T/NGNA #### [facility] [address] [place] [address] Dr. Christa Han MCH (RBC) [Entitic mass] 28.2 pg Normal 26.7-34.0 [facility] Comment on above: Performed By: #### C T/NGNA #### [facility] [address] [place] [address] Dr. Christa Han MCHC (RBC) [Mass/Vol] 32.3 g/dL Normal 29.9-35.2 [facility] Comment on above: Performed By: #### C T/NGNA #### [facility] [address] [place] [address] Dr. Christa Han MCV (RBC) [Entitic vol] 87.5 fL Normal 81.0-99.0 [facility] Comment on above: Performed By: #### C T/NGNA #### [facility] [address] [place] [address] Dr. Christa Han PLT 142 103/ul Critically low 150-450 [facility] Comment on above: Performed By: #### C T/NGNA #### [facility] [address] [place] [address] Dr. Christa Han RBC 3.93 106/ul Critically low 4.20-5.40 [facility] Comment on above: Performed By: #### C T/NGNA #### [facility] [address] [place] [address] Dr. Christa Han WBC 9.3 103/ul Normal 4.0-11.0 [facility] Comment on above: Performed By: #### C T/NGNA #### [facility] [address] [place] [address] Dr. Christa Han TSHon 02-01-2022 TSH 1.218 uIU/mL Normal 0.470-4.680 [facility] Comment on above: Performed By: #### T SH #### [facility] [address] [place] [address] Dr. Christa Han TSH RANGE SEE BELOW Normal [facility] Comment on above: Result Comment: <0.3 4 UIU/ml HYPERTHYROID 0.34-5.60 UIU/ml EUTHYROID >5.60 UIU/ml HYPOTHYROID Performed By: #### T SH #### [facility] [address] [place] [address] Dr. Christa Han TSHon 12-02-2021 TSH 0.851 uIU/mL Normal 0.470-4.680 [facility] Comment on above: Performed By: #### T SH #### [facility] [address] [address] [address] Christa Han TSH RANGE SEE BELOW Normal [facility] Comment on above: Result Comment: <0.3 4 UIU/ml HYPERTHYROID 0.34-5.60 UIU/ml EUTHYROID >5.60 UIU/ml HYPOTHYROID Performed By: #### T SH #### [facility] [address] [address] [address] Christa Han LONNY BOX TEST PT SEND OUTo n 11-04-2021 SENT TO REF LAB 11/04/2021 Normal [facility] Comment on above: Performed By: #### N BOX #### [facility] [address] [place] [address] Dr. Christa Han CNOVon 09-08-2021 CNOV Office Visit (EXPLOR ) -------- PAULA WHITAKER ([id number]) 1995 F Date Time Provider Department 09/08/21 5:50 PM ESTELLE SIMS During your visit today, we recorded the following information about you: Temperature Pulse Blood pressure Last Period 98.7 degrees 66/minute 128/58 07/27/21 Estelle Sims APRN.RAIL CAR UNLOADER 09/08/2021 7:10 PM Signed Please follow up with TRADE MARKER as soon as possible Estelle Sims APRN.CNP 09/08/2021 7:52 PM Signed This note was created using NoteWriter. Subjective Paula Whitaker is a 26 year old female. The history is provided by the patient. No manager corporate communications was used. LMP 07/27/2021. Not on control. Took 2 at home tests which were both positives. Would like confirmation. Unplanned , but accepting of results. Good support system. Overall feeling well. No history of previous pregnancies. Review of Systems Constitutional: Negative. Neurological: Negative. Psychiatric/Behavioral: Negative. Objective BP 128/58 (BP Site: Right Arm, BP Position: Sitting, BP Cuff Size: Regular Adult) Pulse 66 Temp 37.1 ?C (98.7 ?F) (Temporal) LMP 07/27/2021 SpO2 100% Physical Exam Vitals and nursing note reviewed. Constitutional: Appearance: Normal appearance. Neurological: General: No focal deficit present. Mental Status: She is alert and oriented to person, place, and time. Psychiatric: Mood and Affect: Mood normal. Behavior: Behavior normal. Assessment and Plan ASSESSMENT/PLAN: 1. Encounter for test, result unknown - ICD9: V72.40, ICD10: Z32.00 - Urine positive - Discussed results with patient - Will f/u with her baggage screener tomorrow. - HCG QUAL UR B/O Estelle Sims APRN.RAIL CAR UNLOADER Referring Provider: SELF [200] Allergies As of Date: 09/08/2021 (No Known Allergies) Date Reviewed: 09/08/2021 Reviewed by: Nanda Campbell Ma - Fully Assessed Reason for Visit: Amenorrhea [276] Cmt: LMP 07/27/2021 Primary Visit Diagnosis:Encounter for test, result unknown [Z32.00] Order(s):HCG QUAL UR B/O [[id number]] Order #: [id number] Prescriptions as of 09/08/2021 - levothyroxine (SYNTHROID) 50 mcg tablet Take 50 mcg by mouth once daily. Problem List As Of Date: 09/08/2021 (None) Other instructions from your clinician: Please follow up with TRADE MARKER as soon as possible Encounter Status:Closed by ESTELLE SIMS on 09/08/21 Normal [facility] No Panel Informationon 09-08 status Positive neg - pos [facility] Quality Check Yes [facility] ALLIED HEALTHon 06-10-2017 ALLIED HEALTH HNO ID: [id number]: Angelo (Opal) Opal BolañosService: RadiologyAuthor Type: TechnicianType: Allied HealthFiled: 06/10/2017 5:11 PMNote Text: Radiology Service Progress NotePATIENT NAME: Paula WhitakerMRN: [id number] OF SERVICE: June 10, 2017TIME: 4:53 PMPATIENT IDENTITY VERIFICATION COMPLETED USING TWO (2) METHODS: Patientconfirmed name verbally and Date of .PATIENT GENDER DATA: Female. status: : NoBreastfeeding status: NO.PATIENT RELEVANT IMPLANT DATA REVIEWED: YesRADIOLOGY DEPARTMENT: MR; Exam(s) Completed: Head: Routine BrainSeizurePERIPHERAL IV DATA: Not applicableSIGNED BY: Magdalena Dodd-Andrea Lagos 2016 4:53 PM [facility] MRI BRAIN WO IVCONon 017 MRI BRAIN WO IVCON * * *Final Report* * *DATE OF EXAM: Jun 10 2017 5:11PM [facility] 0294 - MRI BRAIN WO IVCON / REASON: epilepsy * * * * Physician Interpretation * * * * COMPARISONS: None.HISTORY: Seizures.TECHNIQUE: MRI brain without contrast.RESULT: MRI BRAIN: No structural or anatomical or migrational abnormality is identified with well-maintained gutiérrez-white distinction. Bilateral mesial temporal lobes are symmetrical and normal in their architecture without findings that would suggest mesial temporal lobe sclerosis. Normal sulci, gyri, ventricles, CSF spaces, brain and gutiérrez white. No hemorrhage, acute infarct, mass effect or collections. Normal bones, sinuses, mastoids and skull base. Patent flow voids.IMPRESSION: Normal brain MR.License Inspector: MARIA TERESA Transcribe Date/Time: Jun 10 2017 5:34PDictated by : CHRYSTAL ALAN MDThis examination was interpreted and the report reviewed and electronically signed by: CHRYSTAL ALAN MD on Jun 10 2017 5:38PM EST Normal [facility] Vital Signs Date Time Vital Sign Value Performing Clinician Facility 05-26-2023 10:07-0400 Blood Pressure Location Elena Gudimella [facility] 05-26-2023 10:07-0400 Diastolic blood pressure 70 mm[Hg] Elena Gudimella [facility] 05-26-2023 10:07-0400 Heart rate 78 /min Elena Gudimella [facility] 05-26-2023 10:07-0400 SaO2% (BldA) [Mass fraction] 95 % Elena Gudimella [facility] 05-26-2023 10:07-0400 Systolic blood pressure 110 mm[Hg] Elena Gudimella [facility] 09-01-2022 11:18-0400 Blood Pressure Location Elena Gudimella [facility] 09-01-2022 11:18-0400 Diastolic blood pressure 64 mm[Hg] Elena Gudimella [facility] 09-01-2022 11:18-0400 Heart rate 68 /min Elena Gudimella [facility] 09-01-2022 11:18-0400 SaO2% (BldA) [Mass fraction] 98 % Elena Gudimella [facility] 09-01-2022 11:18-0400 Systolic blood pressure 112 mm[Hg] Elena Gudimella [facility] 06-10-2022 19:32-0400 Body height 160.02 cm [facility] 06-10-2022 19:32-0400 Body temperature 98 [degF] [facility] 06-10-2022 19:32-0400 Body weight 69.53 kg [facility] 06-10-2022 19:32-0400 Diastolic blood pressure 57 mm[Hg] [facility] 06-10-2022 19:32-0400 Heart rate 65 /min [facility] 06-10-2022 19:32-0400 Respiratory rate 16 /min [facility] 06-10-2022 19:32-0400 SaO2% (BldA) [Mass fraction] 99 % [facility] 06-10-2022 19:32-0400 Systolic blood pressure 114 mm[Hg] [facility] 09-08-2021 18:57-0400 Body temperature 98.71 [degF] Estelle Yvantypka TRACTOR MECHANIC HELPER.RAIL CAR UNLOADER Work Phone: [facility] 09-08-2021 18:57-0400 Diastolic blood pressure 58 mm[Hg] Estelle Yvantypka TRACTOR MECHANIC HELPER.RAIL CAR UNLOADER Work Phone: [facility] 09-08-2021 18:57-0400 Heart rate 66 /min Estelle Yvantypka TRACTOR MECHANIC HELPER.RAIL CAR UNLOADER Work Phone: [facility] 09-08-2021 18:57-0400 SaO2% (BldA) [Mass fraction] 100 % Estelle Yvantypbrown TRACTOR MECHANIC HELPER.RAIL CAR UNLOADER Work Phone: [facility] 09-08-2021 18:57-0400 Systolic blood pressure 128 mm[Hg] Estelle Yvantypka TRACTOR MECHANIC HELPER.RAIL CAR UNLOADER Work Phone: [facility] Encounters Encounter Date Encounter Type Care Provider Facility Start: 12-22-2023 End: 12-22-2023 ambulatory MUKESH MARSHALL Not Available Start: 10-20-2023 End: 10-20-2023 ambulatory MUKESH MARSHALL Not Available Start: 10-17-2023 End: 10-17-2023 ambulatory Elena Burger Facility:[facility] Start: 10-17-2023 End: 10-17-2023 ambulatory MD Elena Burger Work Phone: [facility] Work Phone: Start: 10-17-2023 End: 10-17-2023 Patient encounter procedure MD Elena Burger Work Phone: [facility] Work Phone: Start: 05-26-2023 End: 05-27-2023 ambulatory Elena Burger Facility:[facility] Start: 05-26-2023 End: 05-26-2023 Patient encounter procedure Elena Gudimella [facility] Start: 05-26-2023 End: 05-26-2023 Well adult monitoring check done Elena Gudimella [facility] Start: 09-08-2022 Encounter for preprocedural laboratory examination DR MUKESH JONES [facility] Start: 09-08-2022 End: 09-08-[address] MUKESH JONES Facility:[facility] Start: 09-06-2022 End: 09-07-[address] MUKESH JONES Facility:[facility] Start: 09-06-2022 End: 09-07-2022 Encounter for preprocedural laboratory examination DR MUKESH JONES Facility:[facility] Start: 09-01-2022 End: 09-01-2022 Patient encounter procedure Elena Gudimella [facility] Start: 08-17-2022 End: 08-18-[address] MUKESH JONES Facility:[facility] Start: 07-30-2022 End: 07-31-[address] MUKESH JONES Facility:[facility] Start: 07-06-2022 End: 07-06-[address] MUKESH JONES Facility:[facility] Start: 06-10-2022 End: 06-10-2022 Emergency department patient visit [facility] Start: 05-07-2022 End: 05-12-2022 ambulatory NONE LISTED REQUEST Facility:[facility] Start: 05-03-2022 End: 05-03-[address] NONE LISTED REQUEST Facility:[facility] Start: 04-27-2022 End: 04-29-2022 Evaluation and management of inpatient DR NONE LISTED REQUEST Facility:[facility] Start: 04-26-2022 End: 04-26-[address] HIRA RIHC Facility:[facility] Start: 04-22-2022 End: 04-22-[address] MUKESH JONES Facility:[facility] Start: 04-19-2022 End: 04-19-[address] HIRA RICH Facility:[facility] Start: 04-15-2022 End: 04-15-[address] NONE LISTED REQUEST Facility:[facility] Start: 04-12-2022 End: 04-12-[address] NONE LISTED REQUEST Facility:[facility] Start: 04-08-2022 End: 04-08-[address] NONE LISTED REQUEST Facility:[facility] Start: 04-05-2022 End: 04-05-[address] NONE LISTED REQUEST Facility:[facility] Start: 04-05-2022 End: 04-05-[address] NONE LISTED REQUEST Facility:[facility] Start: 04-01-2022 End: 04-01-[address] NONE LISTED REQUEST Facility:[facility] Start: 03-29-2022 End: 03-29-[address] HIRA RICH Facility:[facility] Start: 03-25-2022 End: 03-26-[address] MUKESH JONES Facility:[facility] Start: 03-22-2022 End: 03-22-[address] MUKESH JONES Facility:[facility] Start: 02-11-2022 End: 02-11-[address] MUKESH JONES Facility:[facility] Start: 02-01-2022 End: 02-02-[address] MUKESH JONES Facility:[facility] Start: 12-02-2021 End: 12-03-[address] MUKESH JONES Facility:[facility] Start: 11-04-2021 End: 11-05-[address] HIRA RICH Facility:[facility] Start: 09-30-[address] MUKESH JONES Facility :[facility] Start: 09-08-2021 End: 09-08-2021 Patient encounter procedure Estelle Sims APRN.RAIL CAR UNLOADER Work Phone: [facility] Comment on above: Encounter for pregna ncy test, result unknown (Primary Dx) Start: 06-10-2017 Ambulatory [facility] Procedures Date Procedure Procedure Detail Performing Clinician Start: 09-01-2022 Vaccine refused by patient Elena Burger Start: 04-27-2022 Division of Female Perineum, External Approach NONE LISTED REQUEST Start: 04-27-2022 Drainage of Amniotic Fluid, Therapeutic from Products of Conception, Via Natural or Artificial Opening NONE LISTED REQUEST Start: 04-27-2022 Extraction of Produc ts of Conception, Vacuum, Via Natural or Artificial Opening NONE LISTED REQUEST Start: 04-27-2022 Introduction of Othe r Hormone into Peripheral Vein, Percutaneous Approach NONE LISTED REQUEST Start: 09-08-2021 Urine test visual color cmprsn meths Estelle Sims TRACTOR MECHANIC HELPER.RAIL CAR UNLOADER Work Phone: Plan of Treatment Date Care Activity Detail Author Start: 10-17-2023 [facility] Start: 06-10-2022 [facility] Work Phone: Start: 07-22-2021 Influenza vaccination INFLUENZA (#1) [facility] Start: 2016 PAP TESTING PAP TESTING [facility] Start: 2014 Urine microalbumin profile DTAP,TDAP,TD (1 - Tdap) [facility] Start: 2013 HEPATITIS C SCREENING HEPATITIS C SCREENING [facility] Start: 2013 HIV SCREENING HIV SCREENING [facility] Start: 2007 Adult depression screening assessment DEPRESSION SCREENING [facility] Start: 2007 COVID-19 VACCINE (1) COVID-19 VACCINE (1) [facility] Start: 2006 HPV VACCINE (1 - 2-dose series) HPV VACCINE (1 - 2-dose series) [facility] Bilirubin measurement, urine [facility] Work Phone: Choriogonadotropin ( test) [Presence] in Urine [facility] Work Phone: Color of Urine [facility] Work Phone: Detection of hemoglobin [facility] Work Phone: Glucose [Mass/volume ] in Urine by Test strip [facility] Work Phone: Glucose measurement estimated from glycated hemoglobin [facility] Measurement of keton es in urine using dipstick [facility] Work Phone: Patient referral [facility] Work Phone: Protein measurement, urine [facility] Work Phone: Urinalysis, specific gravity measurement [facility] Work Phone: Urine dipstick for nitrite [facility] Work Phone: Urine dipstick for s pecific gravity [facility] Work Phone: Urine pH test [facility] Work Phone: Urobilinogen concent ration, test strip measurement [facility] Work Phone: Immunizations Immunization Date Immunization Notes Care Provider Margarita han 07-15-2009 HPV, unspecified formulation Elena Gudimella [facility] 10-25-2007 HPV, unspecified formulation Elena Gudimella [facility] 08-25-2007 HPV, unspecified formulation Elena Gudimella [facility] 08-25-2007 meningococcal ACWY vaccine, unspecified formulation Elena Gudimella [facility] 08-25-2007 tetanus toxoid, unspecified formulation Elena Gudimella [facility] 03-22-2000 diphtheria, tetanus toxoids and acellular pertussis vaccine Elena Gudimella [facility] 03-22-2000 measles, mumps and rubella virus vaccine Elena Gudimella [facility] 03-22-2000 poliovirus vaccine, unspecified formulation Elena Gudimella [facility] 01-11-1996 measles, mumps and rubella virus vaccine Elena Gudimella [facility] 1995 diphtheria, tetanus toxoids and acellular pertussis vaccine Elena Gudimella [facility] 1995 haemophilus influenz ae type b vaccine, PRP-OMP conjugate Elena Gudimella [facility] 1995 hepatitis B vaccine, pediatric or pediatric/adolescent dosage Elena Gudimella [facility] 1995 poliovirus vaccine, unspecified formulation Elena Gudimella [facility] 1995 diphtheria, tetanus toxoids and acellular pertussis vaccine Elena Gudimella [facility] 1995 haemophilus influenz ae type b vaccine, PRP-OMP conjugate Elena Gudimella [facility] 1995 hepatitis B vaccine, pediatric or pediatric/adolescent dosage Elena Gudimella [facility] 1995 poliovirus vaccine, unspecified formulation Elena Gudimella [facility] 1995 diphtheria, tetanus toxoids and acellular pertussis vaccine Elena Gudimella [facility] 1995 haemophilus influenz ae type b vaccine, PRP-OMP conjugate Elena Gudimella [facility] 1995 hepatitis B vaccine, pediatric or pediatric/adolescent dosage Elena Gudimella [facility] 1995 poliovirus vaccine, unspecified formulation Elena Gudimella [facility] NEGATED: Highlighted row has not occurred!09-01-2022 influenza virus vaccine, unspecified formulation Elena Gudimella [facility] NEGATED: Highlighted row has not occurred!01-23-2020 influenza virus vaccine, live, attenuated, for intranasal use Elena Gudimella [facility] Payers Date Payer Category Payer Medicaid [id number] 2021 Medicaid [employer] [place] [employer] [id number] 2021-Present Medicaid [id number] 1995 Unknown [id number] 2.16.840.1.781915.3.579.2.593 1995 Unknown [id number] 2.16.840.1.277294.3.579.2.593 1995 Unknown [id number] 2.16.840.1.486878.3.579.2.593 1995 Unknown [id number] 2.16.840.1.115964.3.579.2.593 1995 Unknown [id number] 2.16.840.1.644444.3.579.2.593 1995 Unknown [id number] 2.16.840.1.994101.3.579.2.593 1995 Unknown [id number] 2.16.840.1.619241.3.579.2.593 1995 Unknown [id number] 2.16.840.1.475562.3.579.2.593 1995 Unknown [id number] 2.16.840.1.315249.3.579.2.593 1995 Unknown [id number] 2.16.840.1.472801.3.579.2.593 1995 Unknown [id number] 2.16.840.1.921141.3.579.2.593 1995 Unknown [id number] 2.16.840.1.095471.3.579.2.593 1995 Unknown [id number] 2.16.840.1.516396.3.579.2.593 1995 Unknown [id number] 2.16.840.1.272222.3.579.2.593 1995 Unknown [id number] 2.16.840.1.478770.3.579.2.593 1995 Unknown [id number] 2.16.840.1.937950.3.579.2.593 1995 Unknown [id number] 2.16.840.1.354070.3.579.2.593 1995 Unknown [id number] 2.16.840.1.701027.3.579.2.593 1995 Unknown [id number] 2.16.840.1.453196.3.579.2.593 1995 Unknown [id number] 2.16.840.1.266859.3.579.2.593 1995 Unknown [id number] 2.16.840.1.358684.3.579.2.593 1995 Unknown [id number] 2.16.840.1.479820.3.579.2.593 1995 Unknown [id number] 2.16.840.1.865774.3.579.2.593 1995 Unknown [id number] 2.16.840.1.415918.3.579.2.593 1995 Unknown [id number] 2.16.840.1.947738.3.579.2.593 1995 Unknown [id number] 2.16.840.1.706441.3.579.2.727 1995 Unknown [id number] 2.16.840.1.930704.3.579.2.1259 1995 Unknown [id number] 2.16.840.1.151053.3.579.2.1259 1959 Medicaid [id number] Self-pay [id number] 1959 Unknown [id number] Unknown [id number] 2.16.840.1.613868.3.579.2.593 Unknown [id number] 2.16.840.1.391822.3.579.2.531 Social History Date Type Detail Facility Tobacco smoking stat [facility] Unknown if ever smoked [facility] Start: 1995 Sex Assigned At Not [facility] file [facility] Exposure to SARS-CoV -2 (event) Not sure [facility] Start: 06-10-2022 End: 06-10-2022 Tobacco smoking status DCIS Never smoked tobacco (finding) [facility] Comment on above: denies Start: 1995 Sex Assigned At Female F [facility] Tobacco smoking status Never [facility] Comment on above: denies Sex Assigned At Female [facility] Functional Status Date Assessment Result Facility 05-26-2023 Functional Status N[facility]A [facility] [facility] 09-01-2022 Functional Status N/A [facility] Clinical Notes 09-08-2021 to 05-26-2023 LaboratoryLaboratoryVotypEstelle dasilva, TRACTOR MECHANIC HELPER.RAIL CAR UNLOADER - 09/08/2021 7:50 PM EDTPatient Instructions Note Date & Type Note Facility 05-26-2023 Evaluation + Plan note Future Scheduled [id number] 05/26/23TSH With T4fr Reflex 05/26/23CBC w/ Auto Diff 05/26/23Comprehensive Metabolic Panel 09/01/22Comprehensive Metabolic Panel 05/26/23Lipid Panel 09/01/22Lipid Panel 05/26/23Thyroid Stimulating Hormone 09/01/22 [facility] 05-11-2023 Hospital Discharge instructions Follow Up Care 05/11/2023 09:10:44 With:Elena Burger MD, [facility], [facility] Address: [address] [place] [phone] Business (1) When:Within 1 Year(s) [facility] 09-08-2022 Note OPERATIVE NOTE OPERATION DATE: 09/08/2022 PROCEDURE: Hysteroscopy D AND C with diagnostic laparoscopy for removal of retained IUD in the abdomen. PREOPERATIVE DIAGNOSIS: Retained IUD, potentially IUD migration. POSTOPERATIVE DIAGNOSIS: Retained IUD including migration of IUD. SURGEON: Mukesh Jones D.O. PROMOTIONS TEAM LEADER: JUDD Muller URINE OUTPUT: Yellow and clear. BLOOD LOSS: 5 mL. ANESTHESIA: General. SPECIMEN: None. FINDINGS: Normal appearing uterine cavity. Normal appearing ovaries, uterus and tubes. Evidence of the IUD within the omental tissue. PROCEDURE: The patient was taken back to the Operating Room where she was prepped and draped in normal sterile fashion after being placed under general anesthesia without difficulty. She was also placed in the dorsal lithotomy position. A weighted speculum was placed in the patient's vagina. The anterior lip of the cervix was identified and grasped with a single tooth tenaculum. The patient's uterus was then sounded roughly to [ ] cm. The patient was then gently dilated using Hegar dilators. The hysteroscope was passed through the patient's cervix into the uterus. Both ostia were identified. Normal appearing endometrium. No gross evidence of polyps, fibroids or malignancy. The hysteroscope was then removed from the patient's uterus. At that point, gentle curettage was performed until a gritty texture was noted. The endometrial curettings were sent out to pathology. The single tooth tenaculum was then removed from the patient's anterior lip of the cervix where excellent hemostasis was noted. All instruments were removed from the patient's vagina. The patient tolerated the procedure well. Sponge, lap and needle counts were correct times two. The patient was taken to the Recovery Room in stable condition. The patient was taken back to the Operating Room where she was placed in dorsal lithotomy position after given general anesthesia. The patient was prepped and draped in normal sterile fashion. A sponge stick was placed into the patient's vagina. Attention was turned to the patient's abdomen, where a small umbilical incision was made. The fascia was tented using Dickson clamps and the fascia was entered sharply. Confirmation of intra-abdominal placement of the 10 mm port was confirmed under direct visualization using a laparoscope. The patient's abdomen was then insufflated using CO2 gas with approximately 4 liters. A second port was placed left laterally, this was done under direct visualization with a 5 mm port. Survey of the patient's abdomen demonstrated normal liver and gallbladder. Survey of the patient's pelvic anatomy demonstrated normal appearing ovaries and tubes as well as normal appearing uterus. No endometrial implants could be noted, no evidence of any pelvic disease was seen, normal appearing pelvic cavity. All instruments were removed from the patient's abdomen. The patient's abdomen was desufflated of CO2 gas. The patient tolerated the procedure well. Sponge stick was removed from the patient's vagina. The patient's infraumbilical fascia was closed using #0 Vicryl on a GI needle. The patient's skin was closed laterally and infraumbilically using 4-0 Vicryl. The patient tolerated the procedure well. Sponge, lap and needle counts were correct x 2. The patient was taken to Recovery Room in stable condition. [facility] 09-01-2022 Evaluation + Plan note Future Scheduled TestsComprehensive Metabolic Panel 09/01/22Lipid Panel 09/01/22Thyroid Stimulating Hormone 09/01/22 [facility] [place] 09-01-2022 Hospital Discharge instructions Patient Education 09/01/2022 11:26:58 BMI for Adults BMI for Adults Body mass index (BMI) is a number that is calculated from a person's weight and height. BMI may help to estimate how much of a person's weight is composed of fat. BMI can help identify those who may be at higher risk for certain medical problems. How is BMI used with adults? BMI is used as a screening tool to identify possible weight problems. It is used to check whether a person is obese, overweight, healthy weight, or underweight. How is BMI calculated? BMI measures your weight and compares it to your height. This can be done either in [place] ([place] or metric measurements. Note that charts are available to help you find your BMI quickly and easily without having to do these calculations yourself. To calculate your BMI in [place] measurements, your health care provider will: 1.Measure your weight in pounds (lb). 2.Multiply the number of pounds by 703. For example, for a person who weighs 180 lb, multiply that number by 703, which equals 126,540. 3.Measure your height in inches (in). Then multiply that number by itself to get a measurement called inches squared. For example, for a person who is 70 in tall, the inches squared measurement is 70 in x 70 in, which equals 4900 inches squared. 4.Divide the total from Step 2 (number of lb x 703) by the total from Step 3 (inches squared): 126,540 4900 = 25.8. This is your BMI. To calculate your BMI in metric measurements, your health care provider will: 1.Measure your weight in kilograms (kg). 2.Measure your height in meters (m). Then multiply that number by itself to get a measurement called meters squared. For example, for a person who is 1.75 m tall, the meters squared measurement is 1.75 m x 1.75 m, which is equal to 3.1 meters squared. 3.Divide the number of kilograms (your weight) by the meters squared number. In this example: 70 3.1 = 22.6. This is your BMI. How is BMI interpreted? To interpret your results, your health care provider will use BMI charts to identify whether you are underweight, normal weight, overweight, or obese. The following guidelines will be used: Underweight: BMI less than 18.5. Normal weight: BMI between 18.5 and 24.9. Overweight: BMI between 25 and 29.9. Obese: BMI of 30 and above. Please note: Weight includes both fat and muscle, so someone with a muscular build, such as an athlete, may have a BMI that is higher than 24.9. In cases like these, BMI is not an accurate measure of body fat. To determine if excess body fat is the cause of a BMI of 25 or higher, further assessments may need to be done by a health care provider. BMI is usually interpreted in the same way for men and women. Why is BMI a useful tool? BMI is useful in two ways: Identifying a weight problem that may be related to a medical condition, or that may increase the risk for medical problems. Promoting lifestyle and diet changes in order to reach a healthy weight. Summary Body mass index (BMI) is a number that is calculated from a person's weight and height. BMI may help to estimate how much of a person's weight is composed of fat. BMI can help identify those who may be at higher risk for certain medical problems. BMI can be measured using [place] measurements or metric measurements. To interpret your results, your health care provider will use BMI charts to identify whether you are underweight, normal weight, overweight, or obese. This information is not intended to replace advice given to you by your health care provider. Make sure you discuss any questions you have with your health care provider. Document Released: 07/19/2005 Document Revised: 10/20/2018 Document Reviewed: 09/20/2018 [employer] Patient Education 2020 [employer]. Follow Up Care 08/18/2022 08:40:58 With:Jennyfer BECKWITH, Elena, [facility], [facility] Address: [address] [place] [phone] Business (1) When:Within 1 Year(s) [facility] [place] 09-08-2021 Note HNO ID: [id number] Author: Estelle Sims APRN.RAIL CAR UNLOADER Service: ? Author Type: Nurse Practitioner Type: Progress Notes Filed: 09/08/2021 7:52 PM Note Text: This note was created using NoteWriter. Subjective Paula Whitaker is a 26 year old female. The history is provided by the patient. No manager corporate communications was used. LMP 07/27/2021. Not on control. Took 2 at home tests which were both positives. Would like confirmation. Unplanned , but accepting of results. Good support system. Overall feeling well. No history of previous pregnancies. Review of Systems Constitutional: Negative. Neurological: Negative. Psychiatric/Behavioral: Negative. Objective BP 128/58 (BP Site: Right Arm, BP Position: Sitting, BP Cuff Size: Regular Adult) Pulse 66 Temp 37.1 ?C (98.7 ?F) (Temporal) LMP 07/27/2021 SpO2 100% Physical Exam Vitals and nursing note reviewed. Constitutional: Appearance: Normal appearance. Neurological: General: No focal deficit present. Mental Status: She is alert and oriented to person, place, and time. Psychiatric: Mood and Affect: Mood normal. Behavior: Behavior normal. Assessment and Plan ASSESSMENT/PLAN: 1. Encounter for test, result unknown - ICD9: V72.40, ICD10: Z32.00 - Urine positive - Discussed results with patient - Will f/u with her baggage screener tomorrow. - HCG QUAL UR B/O Estelle Sims APRN.[facility] 09-08-2021 History of Present illness Narrative This note was created using Codekkoriter. Subjective Paula Whitaker is a 26 year old female. The history is provided by the patient. No manager corporate communications was used. LMP 07/27/2021. Not on control. Took 2 at home tests which were both positives. Would like confirmation. Unplanned , but accepting of results. Good support system. Overall feeling well. No history of previous pregnancies. Review of Systems Constitutional: Negative. Neurological: Negative. Psychiatric/Behavioral: Negative. Objective BP 128/58 (BP Site: Right Arm, BP Position: Sitting, BP Cuff Size: Regular Adult) Pulse 66 Temp 37.1 C (98.7 F) (Temporal) LMP 07/27/2021 SpO2 100% Physical Exam Vitals and nursing note reviewed. Constitutional: Appearance: Normal appearance. Neurological: General: No focal deficit present. Mental Status: She is alert and oriented to person, place, and time. Psychiatric: Mood and Affect: Mood normal. Behavior: Behavior normal. Assessment and Plan ASSESSMENT/PLAN: 1. Encounter for test, result unknown - ICD9: V72.40, ICD10: Z32.00 - Urine positive - Discussed results with patient - Will f/u with her baggage screener tomorrow. - HCG QUAL UR B/O Estelle Sims APRN.CNP documented in this encounter [facility] 09-08-2021 Instructions Estelle Sims APRN.CNP - 09/08/2021 7:10 PM EDT Please follow up with TRADE MARKER as soon as possible documented in this encounter [facility] Evaluation note Diagnosis Encounter for test, result unknown- Primary [facility] noteNo assessment information availableSt[facility] Work Phone: Hospital course Narrative No data available for this section [facility] Progress note No data available for this section [facility] Summary Purpose Family History No Family History Records Found Relationship Condition Age at Onset Recorded Date/T abrahan Not Specified No pertinent family history Unknown Advance Directives No Advanced Directives Records Found Advance Directive Response Recorded Date/ Time Advance Directives No September 5:46pm Advance Directive Response Recorded Date/ Time Advance Directives No September 4:46pm Chief Complaint and Reason for Visit Chief Complaint FB from Vagina Chief Complaint E03.9 Z13.29 Z00.00 Additional Source Comments INFORMATION SOURCE (unrecogn ized section and content) DATE CREATED AUTHOR 05/17/2018 [facility] DATE CREATED AUTHOR AUTHOR'S ORGANIZ ATION 09/10/2021 [facility] DATE CREATED AUTHOR AUTHOR'S ORGANIZ ATION 09/22/2022 [facility] DATE CREATED AUTHOR AUTHOR'S ORGANIZ ATION 10/26/2023 [facility] DATE CREATED AUTHOR AUTHOR'S ORGANIZ ATION 10/31/2023 [facility] DATE CREATED AUTHOR AUTHOR'S ORGANIZ ATION 12/23/2023 [facility] EPIC Source Comments (unrecognize d section and content) In the event this informatio n is protected by the Federal Confidentiality of Alcohol and Drug Abuse Patient Records regulations: The Federal rules restrict any use of the information to criminally investigate or prosecute any alcohol or drug abuse patient.[facility] Reason for Visit (unrecogniz ed section and content) Reason Comments Amenorrhea LMP 07/27/2021 Care Teams (unrecognized sec tion and content) Team Status: Inactive Member Role Status Dates NON STAFF Primary Care Provider Active Nadja Bhat APRN Emergency Provider Active Team Status: Active Member Role Status Dates NON STAFF Primary Care Provider Active Team Status: Active Member Role Status Dates Elena Burger MD Primary Care Provider Active Team Status: Inactive Member Role Status Dates Elena Burger MD Primary Care Provider, Attending Provider Active Goals (unrecognized section and content) Goals may be documented in a n alternate section No data available for this section No data available for this sectionGoals may be documented in an alternate section FOR RECORDS PERTAINING TO PATIENTS WHO ARE OR HAVE BEEN ENROLLED IN A CHEMICAL DEPENDENCY/SUBSTANCEABUSE PROGRAM, SOME INFORMATION MAY BE OMITTED. This clinical summary was aggregated from multiple sources. Caution should be exercised in using it in the provision of clinical care. This summary normalizes information from multiple sources, and as a consequence, information in this document may materially change the coding, format and clinical context of patient data. In addition, data may be omitted in some cases. CLINICAL DECISIONS SHOULD BE BASED ON THE PRIMARY CLINICAL RECORDS. [employer] provides no warranty or guarantee of the accuracy or completeness of information in this document.
== END 2024-01-06 10:57 | disposition home or self-care (01) ==
LOC: US 10:56
PROVIDERS: Visit Provider Obstetrics & Gynecology
DX: R10.2 Pelvic and perineal pain (principal); N83.291 Other ovarian cyst, right side
CPT/HCPCS: 76830; 76856

== ENCOUNTER 2024-02-22 11:05 | Outpatient (OUT) | payer MEDICAID, SELFPAY ==
--- NOTE | 2024-02-22 11:08 | US_ITS ---
[address] [address] Patient Name: KEVEN GUTIERREZ MRN: [id number] date: 1995 Sex: F Assigned Patient Location: US Current Patient Location: Accession/Order Number: [id number] Exam Date: 02/22/2024 11:09 Report Date: 02/22/2024 12:51 At the request of: MUKESH OLIVARES Procedure: US pelvis w/ transvaginal EXAMINATION: US pelvis w/ transvaginal HISTORY: right ovarian cyst N83.201 COMPARISON: Ultrasound pelvis 01/06/2024 TECHNIQUE: Transabdominal and/or transvaginal sonographic examination was performed as indicated by examination type. FINDINGS: UTERUS: Normal size and appearance. Uterus size: 7.2 x 3.2 x 4.7 cm ENDOMETRIUM: Normal homogeneous appearance. Endometrial thickness: 3 mm RIGHT OVARY: Normal size and appearance. Duplex Doppler demonstrates normal waveform and flow; resistive index 0.6. Ovary size: 3.5 x 2.2 x 2.2 cm LEFT OVARY: Normal size and appearance, and contains several follicles. Duplex Doppler demonstrates normal waveform and flow; resistive index 0.6. Ovary size: 2.9 x 1.9 x 2.5 cm CUL-DE-SAC: Unremarkable. No significant free fluid. BLADDER: Unremarkable. OTHER: None. US/US pelvis w/ transvaginal IMPRESSION: 1. Normal appearance of uterus and ovaries. 2. Resolution of previously seen large right ovarian cyst. Electronically authenticated by: CAROLYN SOW Date: 02/22/2024 12:51
== END 2024-02-22 11:06 | disposition home or self-care (01) ==
LOC: US 11:05
PROVIDERS: Visit Provider Obstetrics & Gynecology
DX: N83.201 Unspecified ovarian cyst, right side (principal)
CPT/HCPCS: 76830; 76856

== ENCOUNTER 2024-08-14 19:26 | Outpatient (REF) | payer MEDICAID, SELFPAY ==
--- OUTSIDE RECORDS SUMMARY | 2024-08-14 19:31 | XMS_ITS | CCD ---
Author Organization [facility] Care Team Providers Care Design Verification Engineer Name Role Phone SIMON ELIOT Liu Unavailable Unavailable Khushboo Pennington Primary Care Provider NON STAFF Primary Care Provider UnavailCONNER Zavaleta Emergency Provider [phone] Khushboo PENNINGTON Primary Care Physician [phone] REQUEST, NONE LISTED Primary Care Unavaila ble MARSHALL, DR MAYORGA Consulting Unavailable MARSHALL, DR MAYORGA Admitting Unavailable MARSHALL, DR MAYORGA Attending Unavailable MARSHALL, DR MAYORGA Attending Unavailable MARSHALL, DR MAYORGA Consulting Unavailable MARSHALL, DR MAYORGA Admitting Unavailable REQUEST, DR HERNANDEZ LISTED Primary Care Unavaila ble KARASIK, DR INIGUEZ Consulting Unavailable KARASIK, DR INIGUEZ Admitting Unavailable KARASIK, DR INIGUEZ Attending Unavailable WEST, DR SHAHEEN Lazo Consulting Unavailable MARSHALL, DR MAYORGA Consulting Unavailable MARSHALL, DR MAYORGA Attending Unavailable MARSHALL, DR MAYORGA Consulting Unavailable REQUEST, DR HERNANDEZ LISTED Primary Care [...] DR HERNANDEZ LISTED Primary Care Unavaila ble WEST, DR SHAHEEN Lazo Consulting Unavailable MARSHALL, [...] CAROLYN Torres Consulting Unavailable KARASIK, DR INIGUEZ Consulting Unavailable [...] Unava ilable GEMBUS, UYEN Consulting Unavailable REQUEST, NONE LISTED Primary Care Unavaila ble KARASIJunior, DR INIGUEZ Consulting Unavailable MARSHALL, DR MAYORGA [...] DR NONE LISTED Primary Care Unavaila ble ZIEBEMIR, DR CAROLYN Torres Consulting Unavailable MD Jennyfer Elena Primary Care Provider MD Jennyfer Elena Attending Provider Elena Burger Attending Unavailable Kevinmelmichelle, Elena Primary Care Unavailable Kevinmelmichelle, Elena Admitting Unavailable MARSHALL, MUKESH Attending Unavailable LOWMAXIM Lopez Attending Unavailable MARSHALL, MUKESH Attending Unavailable MAXIM WATERS Referring Unavailable Gudimella, Elena Admitting Unavailable Gudimelmichelle, Elena Attending Unavailable Jennyfer, Elena Attending Unavailable Jennyfer, Elena Attending Unavailable Kevinmelmichelle, Elena Admitting Unavailable Allergies Allergy Classification Reported Allergen(s) Allergy Type Date of Onset Reaction(s) Facility (5 sources) Escitalopram; Translations: [escitalopram] Drug Allergy Unknown (qualifier value) [facility] (1 source) Amitriptyline Drug Allergy [facility] (1 source) LORazepam Drug Allergy [facility] (1 source) LORazepam Drug Allergy [facility] Medications Current Medications Medication Drug Class(es) Dates Sig (Normalized) Sig (Original) Norethindrone-Ethin Estradiol (4 sources) Estrogen Start: 06-23-2020 take [id number] ug by mouth once daily Norethindrone-Ethi n Estradiol (Nortrel 1/35 (21)) 1-35 mg-mcg (21) tablet Active 1 - 35 TAB PO Daily June 22, 2020 11:00pm Start: 06-23-2020 take [id number] 2857 ug by mouth once daily Norethindrone-Ethin [...] tablet Discontinued 1 TAB PO Q6H 8 September 17, 2019 June 23, 2020 7:38am cephalexin 500 mg oral capsule (2 sources) Cephalosporin Antibacterial Start: 06-06-2020 End: 06-23-2020 take 1 capsule by mouth twice daily Cephalexin (Keflex) 500 mg capsule Discontinued 500 MG PO Twice daily 20 June 05, 2020 11:00pm June 23, 2020 7:38am levothyroxine sodium 0.05 mg oral tablet (9 sources) l-Thyroxine Start: 11-24-2023 take 1 tablet by mouth once daily levothyroxine 50 mcg (0.05 mg) Tab 50 microgram = 1 tab(s), Oral, Daily, on empty stomach, # 30 tab(s), Refills(s) 11, Pharmacy: [facility], 157, cm, 05/26/23 10:09:00 EDT, Height/Length Dosing, 64.4, kg, 05/26/23 10:09:00 EDT, Weight Dosing Start Date: 11/24/23 Status: Ordered Start: 05-26-2023 take 1 tablet by dennis th once daily levothyroxine 50 mcg (0.05 mg) Tab 50 microgram = 1 tab(s), Oral, Daily, on empty stomach, # 90 tab(s), Refills(s) 3, Pharmacy: [facility], 157, cm, 05/26/23 10:09:00 EDT, Height/Length Dosing, 64.4, kg, 05/26/23 10:09:00 EDT, Weight Dosing Start Date: 05/26/23 Status: Ordered Start: 08-18-2022 take 1 tablet by dennis th once daily levothyroxine 50 mcg (0.05 mg) Tab 50 microgram = 1 tab(s), Oral, Daily, on empty stomach, # 90 tab(s), Refills(s) 0, Pharmacy: [facility], 157, cm, 07/23/21 13:06:00 EDT, Height/Length [...] traffic, initial encounter] 02-03-2020 Episodic Epilepsy; convulsions (9 sources) Seizure; Translations: [Unspecified convulsions] Onset: 09-01-2022 [...] Chronic Other nutritional; endocrine; and metabolic disorders (7 sources) Overweight; Translations: [Overweight] Onset: 09-01-2022 Episodic Other nutritional; endocrine; and metabolic disorders (5 sources) Overweight in adulthood with body mass index of 25 or more but less than 30; Translations: [Body mass index (BMI) 27.0-27.9, adult] Onset: 09-01-2022 Episodic Other screening for suspected conditions (not mental disorders or infectious disease) (20 sources) Patient encounter status; Translations: [Encounter for test, result unknown] Onset: 11-04-2021 Episodic Suicide and intentional self-inflicted injury (4 sources) H/O: deliberate self harm 05-23-2019 Episodic Thyroid disorders (12 sources) Hypothyroidism; Translations: [Hypothyroidism, unspecified] Onset: 03-25-2022 Chronic Thyroid disorders (2 sources) Disorder of thyroid gland; Translations: [Disorder of thyroid, unspecified] 06-23-2020 Episodic Unclassified (1 source) Unknown / UNK(Unknown) Onset: 06-10-2017 Unclassified (4 sources) Drug therapy finding 01-23-2020 Unclassified (4 sources) Influenza vaccination declined 09-01-2022 Unclassified (1 source) CONTACT W/AND (SUSP) EXPOS COVID-19; Translations: [CONTACT W/AND (SUSP) EXPOS COVID-19] Onset: 09-08-2022 Unclassified (5 sources) Patient encounter status 05-26-2023 Unclassified (1 source) [...] 05-13-2022 Episodic Other aftercare (1 source) Other shelter (current) drug therapy; Translations: [OTH 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 CURRENT DRUG THERAPY] Onset: 05-13-2022 Episodic Other [...] OTH DZ NS AND SENSE ORGANS] Onset: 05-13-2022 Episodic Other and delivery including normal (9 [...] Test Name Value Interpretation Reference Range Facility Ambulatory Visit Summaryon 0 08-09-2024 Ambulatory Visit Summary Ambulatory Visit Summary PAULA WHITAKER :1995 Visit Date:08/09/2024 Ambulatory Visit Instructions Your Diagnosis Annual physical exam Seizures Hypothyroidism BMI 26.0-26.9,adult Screening for endocrine, metabolic, and immunity disorder Non-smoker Overweight Your Care Team Attending Physician - Elena Burger MD Primary Care Physician - ADITI BECKWITH, Khushboo Caal This Is Your Medications List Contact prescribing physician if questions or concerns levothyroxine (levothyroxine 50 mcg (0.05 mg) Tab) Procedures Performed none. Discharge Vitals Heart Rate (Peripheral) 73 Blood Pressure 110/68 Height 157 cm Height 62 in Weight 64.5 kg Weight 141.9 lb BMI 26.17 What to do next You Need to Schedule the Following Appointments Follow Up with Elena Burger MD, [facility], MED When: In 1 year Where: [address] [place] [phone] [facility] (1) Medications What How Much When Why Instructions Unchanged levothyroxine (levothyroxine 50 mcg (0.05 mg) Tab) 1 Tablets By Mouth Every day Hypothyroidism on empty stomach Contact prescribing physician if questions or concerns Medications and Immunizations Administered Not Given influenza virus vaccine, inactivated, Postpone due to refusal Allergies Lexapro (Unknown) Problems Ongoing - Any problem that you are currently receiving treatment for. Annual physical exam BMI 26.0-26.9,adult High risk medications (not anticoagulants) long-term use History of intentional self-harm Hypothyroidism Influenza vaccination declined Overweight Screening for endocrine, metabolic, and immunity disorder Seizures Patient Survey You may receive a survey via text or e-mail asking about your office visit. Please share your experience with us by completing your survey. We appreciate your feedback and thank you for choosing us for your care. Normal [facility] CHEMISTRYOrdered By: SYSTEM SYSTEM on 08-09-2024 Albumin [Mass/Vol] 4.2 g/dL Normal 3.3 - 5.0 gm/dL [facility] Albumin/Globulin [Mass ratio] 2.0 {ratio} Normal 1.1 - 2.2 [facility] ALP [Catalytic activity/Vol] 61 [iU]/d Normal 21 - 98 Int._Unit/L [facility] ALT No additional P-5'-P [Catalytic activity/Vol] 10 [iU]/d Normal 6 - 46 Int._Unit/L [facility] Anion gap [Moles/Vol] 8 mmol/L Normal 6 - 16 mEq/L [facility] AST [Catalytic activity/Vol] 12 [iU]/d Normal 5 - 43 Int._Unit/L [facility] Bilirubin [Mass/Vol] 0.4 mg/dL Normal 0.0 - 1 .1 mg/dL [facility] Calcium [Mass/Vol] 8.9 mg/dL Normal 8.9 - 11. 1 mg/dL [facility] Chloride [Moles/Vol] 108 mmol/L Normal 101 - 1 11 mmol/L [facility] Cholesterol [Mass/Vol] 144 mg/dL Normal 120 - 200 mg/dL [facility] Cholesterol in HDL [Mass/Vol] 66 mg/dL Invalid Interpretation Code [facility] Comment on above: Result Comment: '>= 60 LOW RISK' '<= 40 HIGH RISK' Cholesterol in LDL [Mass/Vol] 73 mg/dL Normal <=129mg/dL [facility] Cholesterol in VLDL [Mass/Vol] 6 mg/dL Low 7 - 40 mg/dL [facility] CO2 [Moles/Vol] 26 mmol/L Normal 21 - 31 mmol/L [facility] Creatinine [Mass/Vol] 0.6 mg/dL Normal 0.5 - 1.3 mg/dL [facility] eGFR 124 mL/min/1.73 m2 Normal >=59mL/mi n/ 1.73 m2 [facility] Globulin (S) [Mass/Vol] 2.1 g/dL Normal 1.4 - 4.0 gm/dL [facility] Glucose [Mass/Vol] 87 mg/dL Normal 55 - 199 mg/dL [facility] Potassium [Moles/Vol] 4.2 mmol/L Normal 3.5 - 5.3 mmol/L [facility] Protein [Mass/Vol] 6.3 g/dL Normal 6.0 - 7.8 gm/dL [facility] Sodium [Moles/Vol] 138 mmol/L Normal 135 - 145 mmol/L [facility] Triglyceride [Mass/Vol] 28 mg/dL Normal <=149mg/dL [facility] TSH Qn 1.55 m[IU]/L Normal 0.34 - 5.60 mcIU/mL [facility] Urea nitrogen [Mass/Vol] 15 mg/dL Normal 5 - 21 mg/dL [facility] Urea nitrogen/Creatinine [Mass ratio] 25 mg/mg High 10 - 20 [facility] CHEMISTRYOrdered By: Phyllis Dutton on 08-09-2024 HbA1c (Bld) [Mass fraction] 5.2 % Normal <=5.9% [facility] CMPon 08-09-2024 Albumin [Mass/Vol] 4.2 g/dL Normal 3.3-5.0 [facility] Comment on above: Performed By: #### 2 [id number] #### [facility] [address] [place] [address] Albumin/Globulin (S) [Mass conc ratio] 2.0 Normal 1.1-2.2 [facility] Comment on above: Performed By: #### 2 [id number] #### [facility] [address] [place] [address] ALP [Catalytic activity/Vol] 61 Int._Unit/L Normal 21-98 [facility] Comment on above: Performed By: #### 2 [id number] #### [facility] [address] [place] [address] ALT No additional P-5'-P [Catalytic activity/Vol] 10 Int._Unit/L Normal 6-46 [facility] Comment on above: Performed By: #### 2 [id number] #### [facility] [address] [place] [address] Anion gap [Moles/Vol] 8 mmol/L Normal 6-16 [facility] Comment on above: Performed By: #### 2 [id number] #### [facility] [address] [place] [address] AST [Catalytic activity/Vol] 12 Int._Unit/L Normal 5-43 [facility] Comment on above: Performed By: #### 2 [id number] #### [facility] [address] [place] [address] Bilirubin [Mass/Vol] 0.4 mg/dL Normal 0.0-1.1 [facility] Comment on above: Performed By: #### 2 [id number] #### [facility] [address] [place] [address] Calcium [Mass/Vol] 8.9 mg/dL Normal 8.9-11.1 [facility] Comment on above: Performed By: #### 2 [id number] #### [facility] [address] [place] [address] Chloride [Moles/Vol] 108 mmol/L Normal 101-111 [facility] Comment on above: Performed By: #### 2 [id number] #### [facility] [address] [place] [address] CO2 [Moles/Vol] 26 mmol/L Normal 21-31 [facility] Comment on above: Performed By: #### 2 [id number] #### [facility] [address] [place] [address] Creatinine [Mass/Vol] 0.6 mg/dL Normal 0.5-1.3 [facility] Comment on above: Performed By: #### 2 [id number] #### [facility] [address] [place] [address] Globulin (S) [Mass/Vol] 2.1 g/dL Normal 1.4-4.0 [facility] Comment on above: Performed By: #### 2 [id number] #### [facility] [address] [place] [address] Glucose [Mass/Vol] 87 mg/dL Normal 55-199 [facility] Comment on above: Performed By: #### 2 [id number] #### [facility] [address] [place] [address] Potassium [Moles/Vol] 4.2 mmol/L Normal 3.5-5.3 [facility] Comment on above: Performed By: #### 2 [id number] #### [facility] [address] [place] [address] Protein [Mass/Vol] 6.3 g/dL Normal 6.0-7.8 [facility] Comment on above: Performed By: #### 2 [id number] #### [facility] [address] [place] [address] Sodium [Moles/Vol] 138 mmol/L Normal 135-145 [facility] Comment on above: Performed By: #### 2 [id number] #### [facility] [address] [place] [address] Urea nitrogen [Mass/Vol] 15 mg/dL Normal 5-21 [facility] Comment on above: Performed By: #### 2 [id number] #### [facility] [address] [place] [address] Urea nitrogen/Creatinine [Mass ratio] 25 No Units High 10-20 [facility] Comment on above: Performed By: #### 2 [id number] #### [facility] [address] [place] [address] Family Medicine Office/Clini c Noteon 08-09-2024 Family Medicine Office/Clinic Note Family Medicine Office/Clinic Note Chief Complaint yearly wellness HPI Staff Patient here today for yearly. questions/concerns: labs, thyroid concerns has not been taking her levothyroxine, refills: none Health Maintenance: Pap: 10/09/19 Last Labs: 10/17/23 History of Present Illness The patient is a 29-year-old female who presents for an annual physical, wants to talk about her thyroid because she has not been taking her levothyroxine. She discontinued her levothyroxine medication in 05/2024, after being on it since the age of 15. She reports feeling better since stopping the medication and denies any worsening of dry skin or brittle hair. She is currently fasting in preparation for blood work. She attempted to resume the medication for a week but experienced adverse effects. Her last visit was in 05/2023. Laboratory Studies Last TSH on 10/17/2023 was 0.68. Review of Systems PHQ Score Initial Depression Screen Score: 0 SCORE Negative except as above Physical Exam Vitals & Measurements HR: 73(Peripheral) BP: 110/68 SpO2: 98% HT: 62 in HT: 157 cm WT: 64.5 kg WT: 141.9 lb BMI: 26.17 Gen: No acute distress, sitting comfortably in chair Cardio: RRR, no murmur/rubs/gallops Resp: CTAB, no wheezing/rales/rhonchi Psych: Pleasant, normal mood, normal affect Neuro: CN II-XII intact, normal gait Assessment/Plan 1. Annual physical exam (Z00.00: Encounter for general adult medical examination without abnormal findings) immunizations utd declines flu shot CMP, A1c, lipid panel, TSH Ordered: Comprehensive Metabolic Panel HgbA1c Lipid Panel TSH With T4fr Reflex 2. Seizures (R56.9: Unspecified convulsions) stable sees neurology every 6 months not on any meds at this time 3. Hypothyroidism (E03.9: Hypothyroidism, unspecified) repeat TSH ordered TSH in 2022 was 0.68 patient stopped taking levothyroxine x2 months Ordered: TSH With T4fr Reflex 4. BMI 26.0-26.9,adult (Z68.26: Body mass index [BMI] [...] management will be followed at subsequent visits. 5. Screening for endocrine, metabolic, and immunity disorder (Z13.29: Encounter for screening for other suspected endocrine disorder) CMP, a1c, lipid panel, TSH ordered Ordered: Comprehensive Metabolic Panel HgbA1c Lipid Panel 6. Non-smoker (Z78.9: Other specified health status) stable Ordered: Body Mass Index (BMI) documented 3008F Current tobacco non-user 1036F Depression Screening Negative 3352F Most recent diastolic blood pressure <80 mm Hg 3078F Systolic BP <130 mm Hg (Most Recent) 3074F 7. Overweight (E66.3: Overweight) increase whole foods, decrease processed foods exercise at least 2.5 hours weekly Follow-up With When Contact Information Elena Burger MD, [facility], MED In [address] [place] [phone] Business (1) Additional Instructions: Problem List/Past Medical History Ongoing Annual physical exam BMI 26.0-26.9,adult High risk medications (not anticoagulants) long-term use History of intentional self-harm Hypothyroidism Influenza vaccination declined Overweight Screening for endocrine, metabolic, and immunity disorder Seizures Historical No qualifying data Procedure/Surgical History none. Medications levothyroxine 50 mcg (0.05 mg) Tab, 50 mcg= 1 tab(s), Oral, Daily, 11 refills, Not taking Allergies Lexapro (Unknown) Social History Alcohol - Low Risk, 05/23/2019 Substance Abuse - Denies Substance Abuse, 05/23/2019 Current, Marijuana, IV drug use: No. Drug use interferes with work/home: No. Ready to change: No. Household substance abuse concerns: Yes., 01/23/2020 Tobacco - Denies Tobacco Use, 07/23/2021 Never (less than 100 in lifetime) Tobacco Use:. Never Smokeless Tobacco Use:. Cigarettes, Household tobacco concerns: No., 08/09/2024 Family History Bipolar: Mother. Immunizations Vaccine Date Status Comments influenza virus vaccine, inactivated - Not Given Postpone due to refusal influenza virus vaccine, inactivated - Not Given [...] vaccine 01/11/1996 Recorded hepatitis B pediatric vaccine 06/22 (more content not included)... Normal [facility] Comment on above: Result Comment: Elec tronically Signed By: Elena Burger MD\.br\Date and Time Signed: 08/09/24 08:29 EDT [id number] 08-09-2024 HbA1c (Bld) [Mass fraction] 5.2 % Normal <=5.9 [facility] Comment on above: Performed By: #### 7 [id number] #### [facility] [address] [place] [address] Lipid Panelon 08-09-2024 Cholesterol [Mass/Vol] 144 mg/dL Normal 120-200 [facility] Comment on above: Performed By: #### 2 [id number] #### [facility] [address] [place] [address] Cholesterol in HDL [Mass/Vol] 66 mg/dL Invalid Interpretation Code [facility] Comment on above: Result Comment: '>= 60 LOW RISK' '<= 40 HIGH RISK' Performed By: #### 2 [id number] #### [facility] [address] [place] [address] Cholesterol in LDL [Mass/Vol] 73 mg/dL Normal <=129 [facility] Comment on above: Performed By: #### 2 [id number] #### [facility] [address] [place] [address] Cholesterol in VLDL [Mass/Vol] 6 mg/dL Low 7-40 [facility] Comment on above: Performed By: #### 2 [id number] #### [facility] [address] [place] [address] Triglyceride [Mass/Vol] 28 mg/dL Normal <=149 [facility] Comment on above: Performed By: #### 2 [id number] #### [facility] [address] [place] [address] TSH With T4fr Reflexon 08-09 TSH Qn 1.55 m[IU]/L Normal 0.34-5.60 [facility] Comment on above: Performed By: #### 1 [id number] #### [facility] [address] [place] [address] eGFRon 08-09-2024 eGFR 124 mL/min/1.73 m2 Normal >=59 [facility] Comment on above: Performed By: #### 1 [id number] #### [facility] [address] [place] [address] Lab Reportson 10-28-2023 Lab Reports [id number]#1.00TIF F Normal [facility] Reports [id number]#1.00TIFF Normal [facility] Report[facility] 10-26-2023 Lab Reports [id number]#1.00TIF F Normal [facility] A1C with Estimated Average G luon 10-17-2023 Glucose [Mass/Vol] 111 mg/dL Normal [facility] Comment on above: Result Comment: PERF ORMED BY: [place] [address] PATHOLOGIST MANAGER CREATIVE SERVICES SERG WARD M.D. Performed By: #### C BC, TSH3 wRFLX, A1C WTH eA, LIPID, CMP #### [facility] [address] HbA1c (Bld) [Mass fraction] 5.5 % Normal 4.3-5.6 [facility] Comment on above: Result Comment: Incr eased risk for diabetes: 5.7 - 6.4 diabetes: >6.4 glycemic control for adults with diabetes: <7.0 Performed By: #### C BC, TSH3 wRFLX, A1C WTH eA, LIPID, CMP #### [facility] [address] Alanine aminotransferase [En zymatic activity/volume] in Serum or PlasmaOrdered By: Elena Gudimella on 10-17-2023 ALT [Catalytic activity/Vol] 10 U/L 7-52 [facility] Albumin [Mass/volume] in Ser um or Plasma by Bromocresol green (BCG) dye binding methoOrdered By: Elena Gudimella on 10-17-2023 Albumin BCG dye [Mass/Vol] 4.5 g/dL 3.5-5.7 [facility] Alkaline phosphatase [Enzyma tic activity/volume] in Serum or PlasmaOrdered By: Elena Gudimella on 10-17-2023 ALP [Catalytic activity/Vol] 62 U/L 34-104 [facility] Aspartate aminotransferase [ Enzymatic activity/volume] in Serum or PlasmaOrdered By: Elena Gudimella on 10-17-2023 AST [Catalytic activity/Vol] 13 U/L 13-39 [facility] Basophils Auto (Bld) [#/Vol] Ordered By: Elena Gudimella on 10-17-2023 Basophils (Bld) [#/Vol] 0.0 10*3/uL 0.0-0.2 [facility] Basophils/100 WBC Auto (Bld) Ordered By: Elena Gudimella on 10-17-2023 Basophils/100 WBC (Bld) 0.5 % . [facility] Bilirubin.total [Mass/volume ] in Serum or PlasmaOrdered By: Elenajason Brown on 10-17-2023 Bilirubin [Mass/Vol] 0.5 mg/dL 0.3-1.0 [place] Calcium [Mass/volume] in Ser um or PlasmaOrdered By: Elenajason Brownmichelle on 10-17-2023 Calcium [Mass/Vol] 9.3 mg/dL 8.6-10.3 [facility] Carbon dioxide, total [Moles /volume] in Serum or PlasmaOrdered By: Elena Gumichelle on 10-17-2023 CO2 [Moles/Vol] 27.7 mmol/L 21.0-31.0 [facility] Chloride [Moles/volume] in S vitor or PlasmaOrdered By: Elena العراقي10-17-2023 Chloride [Moles/Vol] 107 mmol/L 98-107 [place] Cholesterol [Mass/volume] in Serum or PlasmaOrdered By: Elena Brown on 10-17-2023 Cholesterol [Mass/Vol] 155 mg/dL 140-[address] [facility] Comment on above: Chol less than 200 m g/dl low riskChol 201-239 mg/dl borderline riskChol 240 mg/dl and greater high risk Cholesterol in LDL Calc [Mas s/Vol]Ordered By: Elena Brownmichelle 10-17-2023 Cholesterol in LDL [Mass/Vol] 72 mg/dL 0-100 [facility] Comment on above: LDL ATP III CLASSIFI CATIONLDL less than 100 mg/dL OptimalLDL 100-129 mg/dL Near or above optimalLDL 130-159 mg/dL Borderline highLDL 160-189 mg/dL HighLDL greater than 189 mg/dL Very high Cholesterol in VLDL Calc [Ma ss/Vol]Ordered By: Elena Brown on 10-17-2023 Cholesterol in VLDL [Mass/Vol] 6 mg/dL [facility] Complete Blood Count Auto Di ffon 10-17-2023 Basophils (Bld) [#/Vol] 0.0 10*3/uL Normal 0.0-0.2 [facility] Comment on above: Result Comment: PERF ORMED BY: [place] [address] PATHOLOGIST MANAGER [employer] SERG WARD M.D. Performed By: #### C BC, TSH3 wRFLX, A1C WTH eA, LIPID, CMP #### [place] [address] [place] Basophils/100 WBC (Bld) 0.5 % Normal . [facility] Comment on above: Performed By: #### C BC, TSH3 wRFLX, A1C WTH eA, LIPID, CMP #### [place] [address] [place] Eosinophils (Bld) [#/Vol] 0.1 10*3/uL Normal 0.0-0.45 [facility] Comment on above: Performed By: #### C BC, TSH3 wRFLX, A1C WTH eA, LIPID, CMP #### [address] Eosinophils/100 WBC (Bld) 2.8 % Normal . [facility] Comment on above: Performed By: #### C BC, TSH3 wRFLX, A1C WTH eA, LIPID, CMP #### [address] Erythrocyte distribution width (RBC) [Ratio] 13.3 % Normal 11.9-15.3 [facility] Comment on above: Performed By: #### C BC, TSH3 wRFLX, A1C WTH eA, LIPID, CMP #### [address] Hematocrit (Bld) [Volume fraction] 37.1 % Normal 34.0-46.4 [facility] [place] Comment on above: Performed By: #### C BC, TSH3 wRFLX, A1C WTH eA, LIPID, CMP #### [address] Hemoglobin (Bld) [Mass/Vol] 12.1 g/dL Normal 11.8-15.4 [facility] [place] Comment on above: Performed By: #### C BC, TSH3 wRFLX, A1C WTH eA, LIPID, CMP #### [place] [address] [place] Lymphocytes (Bld) [#/Vol] 1.6 10*3/uL Normal 1.00-4.8 [facility] [place] Comment on above: Performed By: #### C BC, TSH3 wRFLX, A1C WTH eA, LIPID, CMP #### [place] [address] [place] Lymphocytes/100 WBC (Bld) 30.9 % Normal . [facility] [place] Comment on above: Performed By: #### C BC, TSH3 wRFLX, A1C WTH eA, LIPID, CMP #### [address] MCH (RBC) [Entitic mass] 27.7 pg Normal 24.7-34.3 [facility] [place] Comment on above: Performed By: #### C BC, TSH3 wRFLX, A1C WTH eA, LIPID, CMP #### [address] MCV (RBC) [Entitic vol] 84.6 fL Normal 80-100 [facility] [place] Comment on above: Performed By: #### C BC, TSH3 wRFLX, A1C WTH eA, LIPID, CMP #### [address] Mean Corpuscular HGB Conc 32.7 g/dL Normal 32.0-35.0 [facility] [place] Comment on above: Performed By: #### C BC, TSH3 wRFLX, A1C WTH eA, LIPID, CMP #### [place] [address] [place] Monocytes (Bld) [#/Vol] 0.4 10*3/uL Normal 0.0-0.8 [facility] [place] Comment on above: Performed By: #### C BC, TSH3 wRFLX, A1C WTH eA, LIPID, CMP #### [place] [address] [place] Monocytes/100 WBC (Bld) 7.8 % Normal . [facility] [place] Comment on above: Performed By: #### C BC, TSH3 wRFLX, A1C WTH eA, LIPID, CMP #### [facility] [address] [place] [address] [place] Neutrophils (Bld) [#/Vol] 3.1 10*3/uL Normal 1.8-7.7 [facility] [place] Comment on above: Performed By: #### C BC, TSH3 wRFLX, A1C WTH eA, LIPID, CMP #### [facility] [address] Neutrophils/100 WBC (Bld) 58.0 % Normal . [facility] [place] Comment on above: Performed By: #### C BC, TSH3 wRFLX, A1C WTH eA, LIPID, CMP #### [facility] [address] NRBC% 0.1 /100{WBC} Normal 0-0.5 [facility] [place] Comment on above: Performed By: #### C BC, TSH3 wRFLX, A1C WTH eA, LIPID, CMP #### [facility] [address] [place] [address] [place] Platelet mean volume (Bld) [Entitic vol] 9.5 fL Normal 6.3-10.7 [facility] [place] Comment on above: Performed By: #### C BC, TSH3 wRFLX, A1C WTH eA, LIPID, CMP #### [facility] [address] [place] [address] [place] Platelets (Bld) [#/Vol] 146 10*3/uL Low 150-450 [facility] [place] Comment on above: Performed By: #### C BC, TSH3 wRFLX, A1C WTH eA, LIPID, CMP #### [facility] [address] [place] [address] [place] RBC (Bld) [#/Vol] 4.38 10*6/uL Normal 3.60-5.00 [facility] Comment on above: Performed By: #### C BC, TSH3 wRFLX, A1C WTH eA, LIPID, CMP #### [facility] [address] WBC (Bld) [#/Vol] 5.3 10*3/uL Normal 3.8-11.6 [facility] Comment on above: Performed By: #### C BC, TSH3 wRFLX, A1C WTH eA, LIPID, CMP #### [facility] [address] Comprehensive Metabolic Pane tc 10-17-2023 Albumin [Mass/Vol] 4.5 g/dL Normal 3.5-5.7 [facility] Comment on above: Performed By: #### C BC, TSH3 wRFLX, A1C WTH eA, LIPID, CMP #### [facility] [address] Albumin/Globulin [Mass ratio] 2.1 {ratio} Normal [facility] [place] Comment on above: Performed By: #### C BC, TSH3 wRFLX, A1C WTH eA, LIPID, CMP #### [facility] [address] [place] [address] ALP [Catalytic activity/Vol] 62 U/L Normal 34-104 [facility] [place] Comment on above: Performed By: #### C BC, TSH3 wRFLX, A1C WTH eA, LIPID, CMP #### [address] ALT [Catalytic activity/Vol] 10 U/L Normal 7-52 [facility] [place] Comment on above: Performed By: #### C BC, TSH3 wRFLX, A1C WTH eA, LIPID, CMP #### [facility] [address] Anion gap [Moles/Vol] 10.5 mmol/L Normal 6.0-15.[address] [facility] Comment on above: Performed By: #### C BC, TSH3 wRFLX, A1C WTH eA, LIPID, CMP #### [address] AST [Catalytic activity/Vol] 13 U/L Normal 13-39 [facility] [place] Comment on above: Performed By: #### C BC, TSH3 wRFLX, A1C WTH eA, LIPID, CMP #### [facility] [address] [place] [address] [place] Bilirubin [Mass/Vol] 0.5 mg/dL Normal 0.3-1.0 [place] Comment on above: Performed By: #### C BC, TSH3 wRFLX, A1C WTH eA, LIPID, CMP #### [facility] [address] Calcium [Mass/Vol] 9.3 mg/dL Normal 8.6-10.3 [facility] Comment on above: Performed By: #### C BC, TSH3 wRFLX, A1C WTH eA, LIPID, CMP #### [facility] [address] Chloride [Moles/Vol] 107 mmol/L Normal 98-107 [place] Comment on above: Performed By: #### C BC, TSH3 wRFLX, A1C WTH eA, LIPID, CMP #### [facility] [address] [place] [address] [place] CO2 [Moles/Vol] 27.7 mmol/L Normal 21.0-31.0 [facility] Comment on above: Performed By: #### C BC, TSH3 wRFLX, A1C WTH eA, LIPID, CMP #### [address] Creatinine [Mass/Vol] 0.66 mg/dL Normal 0.60-1.20 [facility] Comment on above: Performed By: #### C BC, TSH3 wRFLX, A1C WTH eA, LIPID, CMP #### [facility] [address] [place] [address] [place] GFR/1.73 sq M.predicted MDRD (S/P/Bld) [Vol rate/Area] mL/min/{1.73_m2} [facility] Comment on above: Performed By: #### C BC, TSH3 wRFLX, A1C WTH eA, LIPID, CMP #### [facility] [address] [place] [address] [place] Globulin (S) [Mass/Vol] 2.1 g/dL Normal [facility] [place] Comment on above: Performed By: #### C BC, TSH3 wRFLX, A1C WTH eA, LIPID, CMP #### [facility] [address] Glucose [Mass/Vol] 78 mg/dL Normal 70-100 [facility] Comment on above: Result Comment: [facility] Glucose Reference Range is dependent on time and content of last meal. Glucose of more than 200 mg/dL in a nonstressed, ambulatory subject supports the diagnosis of Diabetes Mellitus. ADA recommended reference range Performed By: #### C BC, TSH3 wRFLX, A1C WTH eA, LIPID, CMP #### [facility] [address] Potassium [Moles/Vol] 4.2 mmol/L Normal 3.5-5.1 [facility] Comment on above: Performed By: #### C BC, TSH3 wRFLX, A1C WTH eA, LIPID, CMP #### [facility] [address] [place] [address] [place] Protein [Mass/Vol] 6.6 g/dL Normal 6.4-8.9 [facility] Comment on above: Performed By: #### C BC, TSH3 wRFLX, A1C WTH eA, LIPID, CMP #### [facility] [address] [place] [address] [place] Sodium [Moles/Vol] 141 mmol/L Normal 136-145 [facility] Comment on above: Performed By: #### C BC, TSH3 wRFLX, A1C WTH eA, LIPID, CMP #### [facility] [address] [place] [address] [place] Urea nitrogen [Mass/Vol] 21 mg/dL Normal 7-25 [facility] [place] Comment on above: Performed By: #### C BC, TSH3 wRFLX, A1C WTH eA, LIPID, CMP #### [facility] [address] [place] [address] [place] Creatinine [Mass/volume] in Serum or PlasmaOrdered By: Elena Burger on 10-17-2023 Creatinine [Mass/Vol] 0.66 mg/dL 0.60-1.20 [facility] Eosinophils Auto (Bld) [#/Vo l]Ordered By: on 10-17-2023 Eosinophils (Bld) [#/Vol] 0.1 10*3/uL 0.0-0.45 [facility] [place] Eosinophils/100 WBC Auto (Bl d)Ordered By: on 10-17-2023 Eosinophils/100 WBC (Bld) 2.8 % . [facility] [place] Erythrocyte distribution wid th Auto (RBC) [Ratio]Ordered By: on 10-17-2023 Erythrocyte distribution width (RBC) [Ratio] 13.3 % 11.9-15.3 [facility] [place] Globulin Calc (S) [Mass/Vol] Ordered By: on 10-17-2023 Globulin (S) [Mass/Vol] 2.1 g/dL [facility] [place] Glucose [Mass/volume] in Ser um or PlasmaOrdered By: on 10-17-2023 Glucose [Mass/Vol] 78 mg/dL 70-100 [facility] Comment on above: ADA recommended refe rence rangeRandom Glucose Reference Range is dependent on time and content of last meal. Glucose of more than 200 mg/dL in a nonstressed, ambulatory subject supports the diagnosis of Diabetes Mellitus. Hematocrit Auto (Bld) [Volum e fraction]Ordered By: on 10-17-2023 Hematocrit (Bld) [Volume fraction] 37.1 % 34.0-46.4 [facility] [place] Hemoglobin [Mass/volume] in BloodOrdered By: on 10-17-2023 Hemoglobin (Bld) [Mass/Vol] 12.1 g/dL 11.8-15.4 [facility] [place] Leukocytes [#/volume] correc addie for nucleated erythrocytes in Blood by Automated counOrdered By: on 10-17-2023 WBC corrected for nucl RBC Auto (Bld) [#/Vol] 5.3 10*3/uL 3.8-11.6 [facility] [place] Lipid Panelon 10-17-2023 Cholesterol [Mass/Vol] 155 mg/dL Normal 140-[address] [facility] Comment on above: Result Comment: Chol less than 200 mg/dl low risk Chol 201-239 mg/dl borderline risk Chol 240 mg/dl and greater high risk Performed By: #### C BC, TSH3 wRFLX, A1C WTH eA, LIPID, CMP #### [facility] [address] [place] [id number] [place] Cholesterol in HDL [Mass/Vol] 77 mg/dL Normal 23-92 [facility] [place] Comment on above: Result Comment: HDL CHOL ATP-III CLASSIFICATION Cardiovascular Risk HDL > or equal to 60 mg/dL LOW HDL < 40 mg/dL HIGH Performed By: #### C BC, TSH3 wRFLX, A1C WT eA, LIPID, CMP #### [facility] [address] [place] [address] [place] Cholesterol.total/Chol esterol in HDL [Mass ratio] 2.0 {ratio} Normal <5.0 [facility] [place] Comment on above: Performed By: #### C BC, TSH3 wRFLX, A1C WT eA, LIPID, CMP #### [facility] [address] [place] [id number] [place] LDL Cholesterol,Calculated 72 mg/dL Normal 0-100 [facility] [place] Comment on above: Result Comment: LDL ATP III CLASSIFICATION LDL less than 100 mg/dL Optimal LDL 100-129 mg/dL Near or above optimal LDL 130-159 mg/dL Borderline high LDL 160-189 mg/dL High LDL greater than 189 mg/dL Very high Performed By: #### C BC, TSH3 wRFLX, A1C WT eA, LIPID, CMP #### [facility] [address] [place] [address] [place] Triglyceride w/Reflex 31 mg/dL Normal 0-149 [facility] Comment on above: Result Comment: TRIG ATP III CLASSIFICATION TRIG less than 150 mg/dL Normal TRIG 150-199 mg/dL Borderline high TRIG 200-500 mg/dL High TRIG greater than 500 mg/dL Very high Standard traceable to the Center for Disease Conrtrol and Prevention (CDC) test method. Performed By: #### C BC, TSH3 wRFLX, A1C WTH eA, LIPID, CMP #### [facility] [address] [place] [address] [place] VLDL CHOLESTEROL 6 mg/dL Normal [facility] Comment on above: Performed By: #### C BC, TSH3 wRFLX, A1C WTH eA, LIPID, CMP #### [facility] [address] [place] [id number] [place] Lymphocytes Auto (Bld) [#/Vo l]Ordered By: Elena Gudimella on 10-17-2023 Lymphocytes (Bld) [#/Vol] 1.6 10*3/uL 1.00-4.8 [facility] [place] Lymphocytes/100 WBC Auto (Bl d)Ordered By: Elena Gudimella on 10-17-2023 Lymphocytes/100 WBC (Bld) 30.9 % . [facility] [place] MCH Auto (RBC) [Entitic mass ]Ordered By: Elena Gudimella on 10-17-2023 MCH (RBC) [Entitic mass] 27.7 pg 24.7-34.3 [facility] [place] MCHC Auto (RBC) [Mass/Vol]Or dered By: Elena Gudimella on 10-17-2023 MCHC (RBC) [Mass/Vol] 32.7 g/dL 32.0-35.0 [facility] MCV Auto (RBC) [Entitic vol] Ordered By: Elena Gudimella on 10-17-2023 MCV (RBC) [Entitic vol] 84.6 fL 80-100 [facility] [place] Monocytes Auto (Bld) [#/Vol] Ordered By: Elena Gudimella on 10-17-2023 Monocytes (Bld) [#/Vol] 0.4 10*3/uL 0.0-0.8 [facility] [place] Monocytes/100 WBC Auto (Bld) Ordered By: Elena Gudimella on 10-17-2023 Monocytes/100 WBC (Bld) 7.8 % . [facility] [place] Neutrophils Auto (Bld) [#/Vo l]Ordered By: Elena Gudimella on 10-17-2023 Neutrophils (Bld) [#/Vol] 3.1 10*3/uL 1.8-7.7 [facility] [place] Neutrophils/100 WBC Auto (Bl d)Ordered By: Elena Gudimella on 10-17-2023 Neutrophils/100 WBC (Bld) 58.0 % . [facility] [place] No Panel InformationOrdered By: Elena Gudimella on 10-17-2023 Estimated GFR (CKD-EPI) > 60.0 mL/Min [facility] [place] [facility] Creatinine Clearance (Chem N/A [facility] [place] Nucleated erythrocytes [Pres ence] in Blood by Automated countOrdered By: Elena Gudimella on 10-17-2023 Nucleated RBC Auto Ql (Bld) 0.1 /100{WBC} 0-0.5 [facility] [place] Platelet mean volume Auto (B ld) [Entitic vol]Ordered By: Elena Gudimella on 10-17-2023 Platelet mean volume (Bld) [Entitic vol] 9.5 fL 6.3-10.7 [facility] [place] Platelets Auto (Bld) [#/Vol] Ordered By: Elena Gudimella on 10-17-2023 Platelets (Bld) [#/Vol] 146 10*3/uL 150-450 [facility] [place] Potassium [Moles/volume] in Serum or PlasmaOrdered By: Elena Gudimella on 10-17-2023 Potassium [Moles/Vol] 4.2 mmol/L 3.5-5.1 [facility] Protein [Mass/volume] in Ser um or PlasmaOrdered By: Elena Gudimella on 10-17-2023 Protein [Mass/Vol] 6.6 g/dL 6.4-8.9 [facility] RBC Auto (Bld) [#/Vol]Ordere d By: Elena Gudimella on 10-17-2023 RBC (Bld) [#/Vol] 4.38 10*6/uL 3.60-5.00 [facility] Serum or plasma albumin/glob ulin mass ratioOrdered By: Elena Gudimella on 10-17-2023 Albumin/Globulin [Mass ratio] 2.1 {ratio} [facility] [place] Serum or plasma anion gap de terminationOrdered By: Elena Gudimella on 10-17-2023 Anion gap [Moles/Vol] 10.5 mmol/L 6.0-15.[address] [facility] Serum or plasma high density lipoprotein (HDL) cholesterol measurementOrdered By: Elena Malcom on 10-17-2023 Cholesterol in HDL [Mass/Vol] 77 mg/dL 23-92 [facility] [place] Comment on above: HDL CHOL ATP-III CLA SSIFICATION Cardiovascular RiskHDL > or equal to 60 mg/dL LOWHDL < 40 mg/dL HIGH Serum or plasma total choles terol/high density lipoprotein (HDL) cholesterol mass ratOrdered By: Elena Gu on 10-17-2023 Cholesterol.total/Chol esterol in HDL [Mass ratio] 2.0 {ratio} <5.0 [facility] [place] Sodium [Moles/volume] in Ser um or PlasmaOrdered By: Malcom on 10-17-2023 Sodium [Moles/Vol] 141 mmol/L 136-145 [facility] Thyroid Stim Hormone w/Rflxo n 10-17-2023 Thyroid Stim Hormone w/Rflx 0.68 u[iU]/mL Normal 0.45-5.33 [facility] [place] Comment on above: Result Comment: PERF ORMED BY: [place] [address] PATHOLOGIST [employer] SERG WARD M.D. Performed By: #### C BC, TSH3 wRFLX, A1C WTH eA, LIPID, CMP #### [facility] [address] [place] [address] Thyrotropin [Units/volume] i n Serum or PlasmaOrdered By: Malcom on 10-17-2023 TSH Qn 0.68 m[IU]/L 0.45-5.33 [facility] [place] Triglyceride [Mass/volume] i n Serum or PlasmaOrdered By: Malcom on 10-17-2023 Triglyceride [Mass/Vol] 31 mg/dL 0-149 [facility] [place] Comment on above: TRIG ATP III CLASSIF ICATIONTRIG less than 150 mg/dL NormalTRIG 150-199 mg/dL Borderline highTRIG 200-500 mg/dL High TRIG greater than 500 mg/dL Very highStandard traceable to the Center for Disease Conrtrol and Prevention (CDC) test method. Urea nitrogen [Mass/volume] in Serum or PlasmaOrdered By: Elena Malcommel on 10-17-2023 Urea nitrogen [Mass/Vol] 21 mg/dL 06-14 [facility] [place] WBC Auto (Bld) [#/Vol]Ordere d By: Elena Gudimel on 10-17-2023 WBC (Bld) [#/Vol] 5.3 10*3/uL 3.8-11.6 [facility] Physician Orderon 10-14-2023 Physician Order [id number] Normal [facility] CBC AUTO DIFFon 09-08-2022 BASO # 0.0 103/ul Normal 0.0-0.1 [facility] Comment on above: Performed By: #### G LU1HR #### [facility] [address] [address] [address] Christa Han Basophils/100 WBC (Bld) 0.2 % Normal 0.2-2.0 [facility] Comment on above: Performed By: #### G LU1HR #### [facility] [address] [place] [address] Dr. Christa Han EO # 0.1 103/ul Normal 0.0-0.7 [facility] Comment on above: Performed By: #### G LU1HR #### [facility] [address] [place] [address] [address] Christa Han Eosinophils/100 WBC (Bld) 3.0 % Normal 0.9-7.0 [facility] Comment on above: Performed By: #### G LU1HR #### [facility] [address] [place] [address] Dr. Christa Han Erythrocyte distribution width (RBC) [Ratio] 14.1 % Normal 11.0-15.0 [facility] Comment on above: Performed By: #### G LU1HR #### [facility] [address] [place] [address] Dr. Christa Han Hematocrit (Bld) [Volume fraction] 39.2 % Normal 36.0-48.0 [facility] Comment on above: Performed By: #### G LU1HR #### [facility] [address] [place] [address] Dr. Christa Han Hemoglobin (Bld) [Mass/Vol] 12.5 g/dL Normal 12.0-16.0 [facility] Comment on above: Performed By: #### G LU1HR #### [facility] [address] [place] [address] Dr. Christa Han IG # 0.00 10e3/ul Normal 0.00-0.03 [facility] Comment on above: Performed By: #### G LU1HR #### [facility] [address] [place] [address] Dr. Christa Han IG % 0.0 % Normal 0.0-0.5 [facility] Comment on above: Performed By: #### G LU1HR #### [facility] [address] [place] [address] Dr. Christa Han LYMPH # 1.8 103/ul Normal 1.2-3.8 [facility] Comment on above: Performed By: #### G LU1HR #### [facility] [address] [place] [address] Dr. Christa Han Lymphocytes/100 WBC (Bld) 42.0 % Normal 20.5-60.0 [facility] Comment on above: Performed By: #### G LU1HR #### [facility] [address] [place] [address] Dr. Christa Han MANUAL DIFF REQ NO Normal [facility] Comment on above: Performed By: #### G LU1HR #### [facility] [address] [place] [address] Dr. Christa Han MCH (RBC) [Entitic mass] 26.7 pg Normal 26.7-34.0 [facility] Comment on above: Performed By: #### G LU1HR #### [facility] [address] [place] [address] Dr. Christa Han MCHC (RBC) [Mass/Vol] 31.9 g/dL Normal 29.9-35.2 [facility] Comment on above: Performed By: #### G LU1HR #### [facility] [address] [place] [address] Dr. Christa Han MCV (RBC) [Entitic vol] 83.8 fL Normal 81.0-99.0 [facility] Comment on above: Performed By: #### G LU1HR #### [facility] [address] [address] [address] Christa Han MONO # 0.3 103/ul Normal 0.3-0.8 [facility] Comment on above: Performed By: #### G LU1HR #### [facility] [address] [place] [address] Dr. Christa Han Monocytes/100 WBC (Bld) 7.0 % Normal 1.7-12.0 [facility] Comment on above: Performed By: #### G LU1HR #### [facility] [address] [place] [address] Dr. Christa Han NEUT # 2.1 103/ul Normal 1.4-6.5 [facility] Comment on above: Performed By: #### G LU1HR #### [facility] [address] [place] [address] Dr. Christa Han Neutrophils/100 WBC (Bld) 47.8 % Normal 43.0-75.0 [facility] Comment on above: Performed By: #### G LU1HR #### [facility] [address] [place] [address] Dr. Christa Han Platelet mean volume (Bld) [Entitic vol] 11.7 fL Normal 9.5-13.5 [facility] Comment on above: Performed By: #### G LU1HR #### [facility] [address] [address] [address] Christa Han PLT 172 103/ul Normal 150-450 [facility] Comment on above: Performed By: #### G LU1HR #### [facility] [address] [address] [address] Christa Han RBC 4.68 106/ul Normal 4.20-5.40 [facility] Comment on above: Performed By: #### G LU1HR #### [facility] [address] [place] [address] Dr. Christa Han WBC 4.3 103/ul Normal 4.0-11.0 [facility] Comment on above: Performed By: #### G LU1HR #### [facility] [address] [place] [address] Dr. Christa Han PREG QUANT HCGon 09-08-2022 HCG QUANT 1 mIU/mL Normal [facility] Comment on above: Performed By: #### G LU1HR #### [facility] [address] [place] [address] Dr. Christa Han HCG RANGE SEE BELOW Normal [facility] Comment on above: Result Comment: 5-50 0.2-1 WEEK 50-500 1-2 WEEKS 100-5,000 2-3 WEEKS 500-10,000 3-4 WEEKS 1,000-50,000 4-5 WEEKS 10,000-100,000 5-6 WEEKS 15,000-200,000 6-8 WEEKS 10,000-100,000 2-3 MONTHS Performed By: #### G LU1HR #### [facility] [address] [place] [address] Dr. Christa Han [facility] SARS-CoV-2 (COVID-19) RNA TRISTEN+probe Ql (Unsp spec) Not detected Normal NOT DETECTED [facility] Comment on above: Result Comment: This test is not yet approved or cleared by the [place] FDA. When there are no FDA-approved or cleared tests available, and other criteria are met, FDA can make tests available under an emergency access mechanism called an Emergency Use Authorization (EUA). The EUA for this test is supported by the [place] of Health and Human Service's (HHS's) declaration [...] consistent with SARS-CoV-2. Performed By: #### [facility] #### [facility] [address] [place] [address] Dr. Christa Han XR KUB 1 VIEWon [...] by: SHAHEEN RAMOS Date: 2022-08-17 18:14 Normal [facility] US PELVIS AND TRANSVAGon US PELVIS [...] by: CAROLYN SOW Date: 2022-07-30 16:54 Normal [facility] PAP ACOG PANEL 2: 21 to 29on 07-12-2022 . . Normal [facility] Comment on above: Performed By: #### G LU1HR #### [facility] [address] [place] [address] Dr. Christa Han Age Gdln ACOG Testing 21- [facility] [facility] Comment on above: Performed By: #### G LU1HR #### [facility] [address] [place] [address] Dr. Christa Han DIAGNOSIS: Comment [facility] Comment on above: Result Comment: NEGA TIVE FOR INTRAEPITHELIAL LESION OR MALIGNANCY. CELLULAR CHANGES ASSOCIATED WITH INFLAMMATION ARE PRESENT. PREDOMINANCE OF COCCOBACILLI CONSISTENT WITH SHIFT IN VAGINAL MICHELLE IS PRESENT. THIS SPECIMEN WAS RESCREENED PART OF OUR CLASSROOM COORDINATOR PROGRAM. Performed By: #### G LU1HR #### [facility] [address] [place] [address] Dr. Christa Han Methodology: Comment [facility] Comment on above: Result Comment: This liquid based ThinPrep(R) pap test was screened with the use of an image guided system. Performed By: #### G LU1HR #### [facility] [address] [place] [address] Dr. Christa Hna Note: Comment [facility] Comment on above: Result Comment: The Pap smear is a screening test designed to aid in the detection of premalignant and malignant conditions of the uterine cervix. It is not a diagnostic procedure and should not be used as the sole means of detecting cervical cancer. Both false-positive and false-negative reports do occur. . Performed By: #### G LU1HR #### [facility] [address] [place] [address] Dr. Christa Han Performed by: Comment Normal [facility] Comment on above: Result Comment: Josseline Koroma Applied Technologist (ASCP) Performed By: #### G LU1HR #### [facility] [address] [place] [address] Dr. Christa Han QC reviewed by: Comment Normal [facility] Comment on above: Result Comment: Madhavi Callejas, Applied Technologist (ASCP) Performed By: #### G LU1HR #### [facility] [address] [place] [address] Dr. Christa Han Reflex Criteria: Comment Normal [facility] Comment on above: Result Comment: The HPV DNA reflex criteria were not met with this specimen result therefore, no HPV testing was performed. . Performed By: #### G LU1HR #### [facility] [address] [place] [address] Dr. Christa Han Specimen adequacy: Comment Normal [facility] Comment on above: Result Comment: Sati sfactory for evaluation. Endocervical and/or squamous metaplastic cells (endocervical component) are present. Performed By: #### G LU1HR #### [facility] [address] [place] [address] Dr. Christa Han CBC AUTO DIFFon 04-28-2022 BASO # 0.0 103/ul Normal 0.0-0.1 [facility] Comment on above: Performed By: #### C BC #### [facility] [address] [place] [address] Dr. Christa Han Basophils/100 WBC (Bld) 0.3 % Normal 0.2-2.0 [facility] Comment on above: Performed By: #### C BC #### [facility] [address] [place] [address] Dr. Christa Han EO # 0.0 103/ul Normal 0.0-0.7 [facility] Comment on above: Performed By: #### C BC #### [facility] [address] [place] [address] Dr. Christa Han Eosinophils/100 WBC (Bld) 0.1 % Critically low 0.9-7.0 [facility] Comment on above: Performed By: #### C BC #### [facility] [address] [place] [address] Dr. Christa Han Erythrocyte distribution width (RBC) [Ratio] 13.5 % Normal 11.0-15.0 [facility] Comment on above: Performed By: #### C BC #### [facility] [address] [address] [address] Christa Han Hematocrit (Bld) [Volume fraction] 29.3 % Critically low 36.0-48.0 [facility] Comment on above: Performed By: #### C BC #### [facility] [address] [address] [address] Christa Han Hemoglobin (Bld) [Mass/Vol] 9.7 g/dL Critically low 12.0-16.0 [facility] Comment on above: Performed By: #### C BC #### [facility] [address] [address] [address] Christa Han IG # 0.09 10e3/ul Critically high 0.00-0.03 [facility] Comment on above: Performed By: #### C BC #### [facility] [address] [place] [address] Dr. Christa Han IG % 0.7 % Critically high 0.0-0.[address] [facility] Comment on above: Performed By: #### C BC #### [facility] [address] [address] [address] Christa Han LYMPH # 1.1 103/ul Critically low 1.2-3.8 [facility] Comment on above: Performed By: #### C BC #### [facility] [address] [place] [address] Dr. Christa Han Lymphocytes/100 WBC (Bld) 8.3 % Critically low 20.5-60.0 [facility] Comment on above: Performed By: #### C BC #### [facility] [address] [place] [address] Dr. Christa Han MANUAL DIFF REQ NO Normal [facility] Comment on above: Performed By: #### C BC #### [facility] [address] [address] [address] Christa Han MCH (RBC) [Entitic mass] 27.6 pg Normal 26.7-34.0 [facility] Comment on above: Performed By: #### C BC #### [facility] [address] [place] [address] Dr. Christa Han MCHC (RBC) [Mass/Vol] 33.1 g/dL Normal 29.9-35.2 [facility] Comment on above: Performed By: #### C BC #### [facility] [address] [address] [address] Christa Han MCV (RBC) [Entitic vol] 83.2 fL Normal 81.0-99.0 [facility] Comment on above: Performed By: #### C BC #### [facility] [address] [address] [address] Christa Han MONO # 0.9 103/ul Critically high 0.3-0.8 [facility] Comment on above: Performed By: #### C BC #### [facility] [address] [place] [address] Dr. Christa Han Monocytes/100 WBC (Bld) 6.8 % Normal 1.7-12.0 [facility] Comment on above: Performed By: #### C BC #### [facility] [address] [place] [address] Dr. Christa Han NEUT # 11.5 103/ul Critically high 1.4-6.[address] [facility] Comment on above: Performed By: #### C BC #### [facility] [address] [place] [address] Dr. Christa Han Neutrophils/100 WBC (Bld) 83.8 % Critically high 43.0-75.0 [facility] Comment on above: Performed By: #### C BC #### [facility] [address] [address] [address] Christa Han Platelet mean volume (Bld) [Entitic vol] 10.9 fL Normal 9.5-13.5 [facility] Comment on above: Performed By: #### C BC #### [facility] [address] [place] [address] Dr. Christa Han PLT 129 103/ul Critically low 150-450 [facility] Comment on above: Performed By: #### C BC #### [facility] [address] [address] [address] Christa Han RBC 3.52 106/ul Critically low 4.20-5.40 [facility] Comment on above: Performed By: #### C BC #### [facility] [address] [address] [address] Christa Han WBC 13.8 103/ul Critically high 4.0-11.0 [facility] Comment on above: Performed By: #### C BC #### [facility] [address] [place] [address] Dr. Christa Han CBC AUTO DIFFon 04-27-2022 BASO # 0.1 103/ul Normal 0.0-0.1 [facility] Comment on above: Performed By: #### C BC #### [facility] [address] [place] [address] Dr. Christa Han Basophils/100 WBC (Bld) 0.5 % Normal 0.2-2.0 [facility] Comment on above: Performed By: #### C BC #### [facility] [address] [place] [address] Dr. Christa Han EO # 0.1 103/ul Normal 0.0-0.7 [facility] Comment on above: Performed By: #### C BC #### [facility] [address] [place] [address] Dr. Christa Han Eosinophils/100 WBC (Bld) 0.8 % Critically low 0.9-7.0 [facility] Comment on above: Performed By: #### C BC #### [facility] [address] [place] [address] Dr. Christa Han Erythrocyte distribution width (RBC) [Ratio] 13.5 % Normal 11.0-15.0 [facility] Comment on above: Performed By: #### C BC #### [facility] [address] [place] [address] Dr. Christa Han Hematocrit (Bld) [Volume fraction] 32.2 % Critically low 36.0-48.0 [facility] Comment on above: Performed By: #### C BC #### [facility] [address] [address] [address] Christa Han Hemoglobin (Bld) [Mass/Vol] 10.5 g/dL Critically low 12.0-16.0 [facility] Comment on above: Performed By: #### C BC #### [facility] [address] [place] [address] Dr. Christa Han IG # 0.15 10e3/ul Critically high 0.00-0.03 [facility] Comment on above: Performed By: #### C BC #### [facility] [address] [place] [address] Dr. Christa Han IG % 1.6 % Critically high 0.0-0.5 [facility] Comment on above: Performed By: #### C BC #### [facility] [address] [place] [address] Dr. Christa Han LYMPH # 1.8 103/ul Normal 1.2-3.8 [facility] Comment on above: Performed By: #### C BC #### [facility] [address] [place] [address] Dr. Christa Han Lymphocytes/100 WBC (Bld) 18.3 % Critically low 20.5-60.0 [facility] Comment on above: Performed By: #### C BC #### [facility] [address] [place] [address] Dr. Christa Han MANUAL DIFF REQ NO Normal [facility] Comment on above: Performed By: #### C BC #### [facility] [address] [place] [address] Dr. Christa Han MCH (RBC) [Entitic mass] 27.2 pg Normal 26.7-34.0 [facility] Comment on above: Performed By: #### C BC #### [facility] [address] [place] [address] Dr. Christa Han MCHC (RBC) [Mass/Vol] 32.6 g/dL Normal 29.9-35.2 [facility] Comment on above: Performed By: #### C BC #### [facility] [address] [place] [address] Dr. Christa Han MCV (RBC) [Entitic vol] 83.4 fL Normal 81.0-99.0 [facility] Comment on above: Performed By: #### C BC #### [facility] [address] [place] [address] Dr. Christa Han MONO # 0.8 103/ul Normal 0.3-0.8 [facility] Comment on above: Performed By: #### C BC #### [facility] [address] [place] [address] Dr. Christa Han Monocytes/100 WBC (Bld) 7.8 % Normal 1.7-12.0 [facility] Comment on above: Performed By: #### C BC #### [facility] [address] [place] [address] Dr. Christa Han NEUT # 6.8 103/ul Critically high 1.4-6.5 [facility] Comment on above: Performed By: #### C BC #### [facility] [address] [place] [address] Dr. Christa Han Neutrophils/100 WBC (Bld) 71.0 % Normal 43.0-75.0 [facility] Comment on above: Performed By: #### C BC #### [facility] [address] [place] [address] Dr. Christa Han Platelet mean volume (Bld) [Entitic vol] 11.4 fL Normal 9.5-13.5 [facility] Comment on above: Performed By: #### C BC #### [facility] [address] [place] [address] Dr. Christa Han PLT 147 103/ul Critically low 150-450 [facility] Comment on above: Performed By: #### C BC #### [facility] [address] [place] [address] Dr. Christa Han RBC 3.86 106/ul Critically low 4.20-5.40 [facility] Comment on above: Performed By: #### C BC #### [facility] [address] [place] [address] Dr. Christa Han WBC 9.6 103/ul Normal 4.0-11.0 [facility] Comment on above: Performed By: #### C BC #### [facility] [address] [place] [address] Dr. Christa Han Covid-19 PCR ([facility])on SARS-CoV-2 (COVID-19) RNA TRISTEN+probe Ql (Unsp spec) Not detected Normal NOT DETECTED [facility] Comment on above: Result Comment: When [...] for this test is supported by the [place] of [employer] and Human Service's declaration that [...] used). Performed By: #### G LU1HR #### [facility] [address] [place] [address] Dr. Christa Han DRUG SCREEN RAPID (URINE)on 04-27-2022 AMP Negative Normal NEGATIVE [facility] Comment on above: Performed By: #### D RUGRPD #### [facility] [address] [place] [address] Dr. Christa Han BAR Negative Normal NEGATIVE [facility] Comment on above: Performed By: #### D RUGRPD #### [facility] [address] [place] [address] Dr. Christa Han BUP Negative Normal NEGATIVE [facility] Comment on above: Performed By: #### D RUGRPD #### [facility] [address] [place] [address] Dr. Christa Han BZO Negative Normal NEGATIVE [facility] Comment on above: Performed By: #### D RUGRPD #### [facility] [address] [place] [address] Dr. Christa Han SAMMI Negative Normal NEGATIVE [facility] Comment on above: Performed By: #### D RUGRPD #### [facility] [address] [place] [address] Dr. Christa Han CUT-OFFS SEE BELOW Normal [facility] Comment on above: Result Comment: AMP [...] ng/mL Performed By: #### D RUGRPD #### [facility] [address] [place] [address] Dr. Christa Han DRUG CUT HEADER DRUG CLASS TEST SYST EM CUT-OFF CONCENTRATIONS ARE FOLLOWS: Normal [facility] Comment on above: Performed By: #### D RUGRPD #### [facility] [address] [place] [address] Dr. Christa Han mAMP Negative Normal NEGATIVE [facility] Comment on above: Performed By: #### D RUGRPD #### [facility] [address] [place] [address] Dr. Christa Han MTD Negative Normal NEGATIVE [facility] Comment on above: Performed By: #### D RUGRPD #### [facility] [address] [place] [address] Dr. Christa Han OPI Negative Normal NEGATIVE [facility] Comment on above: Performed By: #### D RUGRPD #### [facility] [address] [place] [address] Dr. Christa Han OXY Negative Normal NEGATIVE [facility] Comment on above: Performed By: #### D RUGRPD #### [facility] [address] [place] [address] Dr. Christa Han PCP Negative Normal NEGATIVE [facility] Comment on above: Performed By: #### D RUGRPD #### [facility] [address] [place] [address] Dr. Christa Han PPX Negative Normal NEGATIVE [facility] Comment on above: Performed By: #### D RUGRPD #### [facility] [address] [address] [address] Christa Han TCA Negative Normal NEGATIVE [facility] Comment on above: Performed By: #### D RUGRPD #### [facility] [address] [place] [address] Dr. Christa Han THC Positive Abnormal NEGATIVE [facility] Comment on above: Performed By: #### D RUGRPD #### [facility] [address] [place] [address] Dr. Christa Han TYPE AND SCREENon 04-27-2022 TYPE AND SCREEN Negative Normal [facility] Comment on above: Performed By: #### C T/NGNA #### [facility] [address] [place] [address] Dr. Christa Han US PREG BIOPHY W [...] by: SHAHEEN RAMOS Date: 2022-04-26 13:34 Normal [facility] US PREG BIOPHY W NON STRESSo [...] by: CAROLYN SOW Date: 2022-04-22 17:08 Normal [facility] US PREG GROWTHon 04-22-2022 US PREG [...] by: CAROLYN SOW Date: 2022-04-22 17:06 Normal [facility] US PREG BIOPHY W NON STRESSo [...] SHAHEEN RAMOS Date: 2022-04-15 14:23 Normal [facility] CHLAMYDIA/GONOCOCCUS TRISTEN (SW AB/URINE/PAPon 04-08-2022 Chlamydia trachomatis, TRISTEN Negative Normal Negative [facility] Comment on above: Performed By: #### C T/NGNA #### [facility] [address] [place] [address] Dr. Christa Han Neisseria gonorrhoeae, TRISTEN Negative Normal Negative [facility] Comment on above: Performed By: #### C T/NGNA #### [facility] [address] [place] [address] Dr. Christa Han US PREG BIOPHY W [...] CAROLYN SOW Date: 2022-04-08 14:16 Normal [facility] GROUP B STREP CULTUREon 03-21 S. agalactiae Ag Ql (Unsp spec) Culture Observations: NEGATIVE FOR GROUP B STREPTOCOCCUS. Normal [facility] Comment on above: Performed By: #### C T/NGNA #### [facility] [address] [place] [address] Dr. Christa Han US PREG BIOPHY W [...] by: CAROLYN SOW Date: 2022-04-01 13:31 Normal [facility] US PREG AMNIOTIC FLUID VOLUM Kyler [...] by: CAROLYN SOW Date: 2022-03-29 13:32 Normal [facility] TSHon 03-25-2022 TSH 1.336 uIU/mL Normal 0.358-3.740 [facility] Comment on above: Performed By: #### G LU1HR #### [facility] [address] [place] [address] Dr. Christa Han TSH RANGE SEE BELOW Normal [facility] Comment on above: Result Comment: <0.3 4 UIU/ml HYPERTHYROID 0.34-5.60 UIU/ml EUTHYROID >5.60 UIU/ml HYPOTHYROID Performed By: #### G LU1HR #### [facility] [address] [place] [address] Dr. Christa Han US PREG BIOPHY W [...] SHAHEEN RAMOS Date: 2022-03-25 16:41 Normal [facility] US PREG GROWTHon 03-25-2022 US PREG [...] by: SHAHEEN RAMOS Date: 2022-03-25 16:42 Normal [facility] CHLAMYDIA/GONOCOCCUS TRISTEN (SW AB/URINE/PAPon 02-15-2022 Chlamydia trachomatis, TRISTEN Negative Normal Negative [facility] Comment on above: Performed By: #### C T/NGNA #### [facility] [address] [place] [address] Dr. Christa Han Neisseria gonorrhoeae, TRISTEN Negative Normal Negative [facility] Comment on above: Performed By: #### C T/NGNA #### [facility] [address] [place] [address] Dr. Christa Han VAGINITIS/VAGINOSIS DNA PROB Kyler 02-14-2022 Alpa species Negative Normal Negative [facility] Comment on above: Performed By: #### G LU1HR #### [facility] [address] [place] [address] Dr. Christa Han Gardnerella vaginalis Negative Normal Negative [facility] Comment on above: Performed By: #### G LU1HR #### [facility] [address] [place] [address] Dr. Christa Han Trichomonas vaginalis Negative Normal Negative [facility] Comment on above: Performed By: #### G LU1HR #### [facility] [address] [place] [address] Dr. Christa Han GLUCOSE - 1HRon 02-01-2022 Glucose [Mass/Vol] 105 mg/dL Normal 74-106 [facility] Comment on above: Performed By: #### G LU1HR #### [facility] [address] [place] [address] Dr. Christa Han HEMOGRAM AND PLATELon 2021 Hematocrit (Bld) [Volume fraction] 34.4 % Critically low 36.0-48.0 [facility] Comment on above: Performed By: #### C T/NGNA #### [facility] [address] [place] [address] Dr. Christa Han Hemoglobin (Bld) [Mass/Vol] 11.1 g/dL Critically low 12.0-16.0 [facility] Comment on above: Performed By: #### C T/NGNA #### [facility] [address] [place] [address] Dr. Christa Han MCH (RBC) [Entitic mass] 28.2 pg Normal 26.7-34.0 [facility] Comment on above: Performed By: #### C T/NGNA #### [facility] [address] [place] [address] Dr. Christa Han MCHC (RBC) [Mass/Vol] 32.3 g/dL Normal 29.9-35.2 [facility] Comment on above: Performed By: #### C T/NGNA #### [facility] [address] [place] [address] Dr. Christa Han MCV (RBC) [Entitic vol] 87.5 fL Normal 81.0-99.0 [facility] Comment on above: Performed By: #### C T/NGNA #### [facility] [address] [place] [address] Dr. Christa Han PLT 142 103/ul Critically low 150-450 [facility] Comment on above: Performed By: #### C T/NGNA #### [facility] [address] [address] [address] Christa Han RBC 3.93 106/ul Critically low 4.20-5.[address] [facility] Comment on above: Performed By: #### C T/NGNA #### [facility] [address] [place] [address] Dr. Christa Han WBC 9.3 103/ul Normal 4.0-11.0 [facility] Comment on above: Performed By: #### C T/NGNA #### [facility] [address] [place] [address] Dr. Christa Han TSHon 02-01-2022 TSH 1.218 uIU/mL Normal 0.470-4.680 [facility] Comment on above: Performed By: #### T SH #### [facility] [address] [place] [address] Dr. Christa Han TSH RANGE SEE BELOW Normal [facility] Comment on above: Result Comment: <0.3 4 UIU/ml HYPERTHYROID 0.34-5.60 UIU/ml EUTHYROID >5.60 UIU/ml HYPOTHYROID Performed By: #### T SH #### [facility] [address] [place] [address] Dr. Christa Han TSHon 12-02-2021 TSH 0.851 uIU/mL Normal 0.470-4.680 [facility] Comment on above: Performed By: #### T SH #### [facility] [address] [place] [address] Dr. Christa Han TSH RANGE SEE BELOW Normal [facility] Comment on above: Result Comment: <0.3 4 UIU/ml HYPERTHYROID 0.34-5.60 UIU/ml EUTHYROID >5.60 UIU/ml HYPOTHYROID Performed By: #### T SH #### [facility] [address] [address] [address] Christa MUKHERJEE BOX TEST PT SEND OUTo n 11-04-2021 SENT TO REF LAB 11/04/2021 Normal [facility] Comment on above: Performed By: #### N BOX #### [facility] [address] [address] [address] Christa STONERon 09-08-2021 [place] Office Visit (EXPLOR ) -------- PAULA WHITAKER ([id number]) 1995 F Date Time Provider Department 09/08/21 5:50 PM ESTELLE SIMS During your visit today, we recorded the following information about you: Temperature Pulse Blood pressure Last Period 98.7 degrees 66/minute 128/58 07/27/21 Estelle Sims APRN.[employer] DEVELOPER 09/08/2021 7:10 PM Signed Please follow up with EFFICIENCY MANAGER as soon as possible Estelle Sims APRN.ANABEL 09/08/2021 7:52 PM Signed This note was created using NoteWriter. Subjective Paula Whitaker is a 26 year old female. The history is provided by the patient. No parts interpreter was used. LMP 07/27/2021. Not on control. [...] with patient - Will f/u with her manufactured buildings repairer tomorrow. - HCG QUAL UR B/O Estelle Sims APRN.NET MVC DEVELOPER Referring Provider: SELF [[id number]] Allergies As of Date: 09/08/2021 (No Known Allergies) Date Reviewed: 09/08/2021 Reviewed by: Nanda Campbell Ma - Fully Assessed Reason for Visit: Amenorrhea [276] Cmt: LMP 07/27/2021 Primary Visit Diagnosis:Encounter for test, result unknown [Z32.00] Order(s):HCG QUAL UR B/O [[id number]] Order #: [id number] Prescriptions as of 09/08/2021 - levothyroxine (SYNTHROID) 50 mcg tablet Take 50 mcg by mouth once daily. Problem List As Of Date: 09/08/2021 (None) Other instructions from your clinician: Please follow up with EFFICIENCY MANAGER as soon as possible Encounter Status:Closed by ESTELLE SIMS on 09/08/21 Normal [facility] No Panel Informationon 09-08 status Positive neg - pos [facility] Quality Check Yes [facility] ALLIED HEALTHon 06-10-2017 ALLIED HEALTH HNO ID: [id number]: Angelo (Tech) Mingo Bolañose: RadiologyAuthor Type: TechnicianType: Allied HealthFiled: 06/10/2017 5:11 PMNote Text: Radiology Service Progress NotePATIENT NAME: Paula WhitakerMRN: [id number] OF SERVICE: June 10, 2017TIME: 4:53 PMPATIENT IDENTITY VERIFICATION COMPLETED USING TWO (2) METHODS: Patientconfirmed name verbally and Date of .PATIENT GENDER DATA: Female. status: : NoBreastfeeding status: NO.PATIENT RELEVANT IMPLANT DATA REVIEWED: YesRADIOLOGY DEPARTMENT: MR; Exam(s) Completed: Head: Routine BrainSeizurePERIPHERAL IV DATA: Not applicableSIGNED BY: Magdalena Fountain Mri-Andrea Lagos 2016 4:53 PM [facility] MRI BRAIN WO IVCONon 017 MRI BRAIN WO IVCON * * *Final Report* * *DATE OF EXAM: Jun 10 2017 5:11PM [facility] 0294 - MRI BRAIN WO IVCON / [...] skull base. Patent flow voids.IMPRESSION: Normal brain MR.School Director: MARIA TERESA Transcribe Date/Time: Jun 10 2017 5:34PDictated by : CHRYSTAL ALAN MDThis examination was interpreted and the report reviewed and electronically signed by: CHRYSTAL ALAN MD on Jun 10 2017 5:38PM EST Normal [facility] Vital Signs Date Time Vital Sign Value Performing Clinician Facility 08-09-2024 07:57-0400 Blood Pressure Location Elena Gudimella [facility] 08-09-2024 07:57-0400 Diastolic blood pressure 68 mm[Hg] Elena Gudimella [facility] 08-09-2024 07:57-0400 Heart rate 73 /min Elena Gudimella [facility] 08-09-2024 07:57-0400 SaO2% (BldA) [Mass fraction] 98 % Elena Gudimella [facility] 08-09-2024 07:57-0400 Systolic blood pressure 110 mm[Hg] Elena Gudimella [facility] 05-26-2023 10:07-0400 Blood Pressure Location Elena Gudimella [facility] 05-26-2023 10:07-0400 Diastolic blood pressure 70 mm[Hg] Elena Gudimella [facility] 05-26-2023 10:07-0400 Heart rate 78 /min Elena Gudimella [facility] 05-26-2023 10:07-0400 SaO2% (BldA) [Mass fraction] 95 % Elena Gudimella [facility] 05-26-2023 10:07-0400 Systolic blood pressure 110 mm[Hg] Elena Gudimella [facility] 09-01-2022 11:18-0400 Blood Pressure Location Elena Gudimella [facility] 09-01-2022 11:18-0400 Diastolic blood pressure 64 mm[Hg] Elena Gudimella [facility] 09-01-2022 11:18-0400 Heart rate 68 /min Elena Gudimella [facility] 09-01-2022 11:18-0400 SaO2% (BldA) [Mass fraction] 98 % Elena Gudimella [facility] 09-01-2022 11:18-0400 Systolic blood pressure 112 mm[Hg] Elena Gudimella [facility] 06-10-2022 19:32-0400 Body height 160.02 cm [facility] 06-10-2022 19:32-0400 Body temperature 98 [degF] [facility] 06-10-2022 19:32-0400 Body weight 69.53 kg [facility] 06-10-2022 19:32-0400 Diastolic blood pressure 57 mm[Hg] [facility] 06-10-2022 19:32-0400 Heart rate 65 /min [facility] 06-10-2022 19:32-0400 Respiratory rate 16 /min [facility] 06-10-2022 19:32-0400 SaO2% (BldA) [Mass fraction] 99 % [facility] 06-10-2022 19:32-0400 Systolic blood pressure 114 mm[Hg] [facility] 09-08-2021 18:57-0400 Body temperature 98.71 [degF] Estelle Votypka CHIEF ORDER DISPATCHER.NET MVC DEVELOPER Work Phone: [facility] 09-08-2021 18:57-0400 Diastolic blood pressure 58 mm[Hg] Estelle Votypka CHIEF ORDER DISPATCHER.NET MVC DEVELOPER Work Phone: [facility] 09-08-2021 18:57-0400 Heart rate 66 /min Estelle Votypka CHIEF ORDER DISPATCHER.NET MVC DEVELOPER Work Phone: [facility] 09-08-2021 18:57-0400 SaO2% (BldA) [Mass fraction] 100 % Estelle Votypka CHIEF ORDER DISPATCHER.NET MVC DEVELOPER Work Phone: [facility] 09-08-2021 18:57-0400 Systolic blood pressure 128 mm[Hg] Estelle Votypka CHIEF ORDER DISPATCHER.NET MVC DEVELOPER Work Phone: [facility] Encounters Encounter Date Encounter Type Care Provider Facility Start: 08-09-2024 End: 08-09-2024 Lab Drop off Elena Gudimella [facility] Start: 08-09-2024 End: 08-09-2024 ambulatory Elena Gudimella Facility:[facility] Start: 08-09-2024 End: 08-09-2024 Patient encounter procedure Elena Gudimella [facility] Start: 08-09-2024 End: 08-09-2024 Well adult monitoring check done Elena Gudimella [facility] Start: 03-27-2024 End: 03-27-2024 ambulatory MAXIM LOWE Not Available Start: 03-21-2024 End: 03-21-2024 ambulatory MAXIM LOWE Not Available Start: 12-22-2023 End: 12-22-2023 ambulatory MUKESH MARSHALL Not Available Start: 10-20-2023 End: 10-20-2023 ambulatory MUKESH MARSHALL Not Available Start: 10-17-2023 End: 10-17-2023 ambulatory Elena Gudimella Facility:[facility] Start: 10-17-2023 End: 10-17-2023 ambulatory MD Elena Burger Work Phone: [facility] Work Phone: Start: 10-17-2023 End: 10-17-2023 Patient encounter procedure MD Elena Burger Work Phone: [facility] Work Phone: Start: 05-26-2023 End: 05-26-2023 Patient encounter procedure Elena Gudimella [facility] Start: 05-26-2023 End: 05-26-2023 Well adult monitoring check done Elena Gudimella [facility] Start: 09-08-2022 Encounter for preprocedural laboratory examination DR MUKESH JONES [facility] Start: 09-08-2022 End: 09-08-[address] MUKESH JONES Facility:[facility] Start: 09-06-2022 End: 09-07-[address] MUKESH JONES Facility:[facility] Start: 09-06-2022 End: 09-07-2022 Encounter for preprocedural laboratory examination DR MUKESH JONES Facility:[facility] Start: 09-01-2022 End: 09-01-2022 Patient encounter procedure Elena Gudimella [facility] Start: 08-17-2022 End: 08-18-[address] MUKESH JONES Facility:[facility] Start: 07-30-2022 End: 07-31-[address] MUKESH JONES Facility:[facility] Start: 07-06-2022 End: 07-06-[address] MUKESH JONES Facility:[facility] Start: 06-10-2022 End: 06-10-2022 Emergency department patient visit [facility] Start: 05-07-2022 End: 05-12-[address] NONE LISTED REQUEST Facility:[facility] Start: 05-03-2022 End: 05-03-[address] NONE LISTED REQUEST Facility:[facility] Start: 04-27-2022 End: 04-29-2022 Evaluation and management of inpatient DR NONE LISTED REQUEST Facility:[facility] Start: 04-26-2022 End: 04-26-[address] HIRA RICH Facility:[facility] Start: 04-22-2022 End: 04-22-[address] [...] REQUEST Facility:[facility] Start: 04-05-2022 End: 04-05-2022 ambulatory NONE LISTED REQUEST Facility:[facility] Start: 04-01-2022 End: 04-01-2022 ambulatory NONE LISTED REQUEST Facility:[facility] Start: 03-29-2022 End: [...] End: 09-08-2021 Patient encounter procedure Estelle Sims APRN.NET MVC DEVELOPER Work Phone: [facility] Comment on above: Encounter for pregna ncy test, result unknown (Primary Dx) Start: 06-10-2017 [facility]ulatory [facility] Procedures Date Procedure Procedure Detail [...] test visual color cmprsn meths Estelle Sims APRN.NET MVC DEVELOPER Work Phone: Plan of Treatment Date Care Activity Detail Author Start: 10-17-2023 [facility] Start: 06-10-2022 [facility] Work Phone: Start: 07-22-2021 Influenza vaccination INFLUENZA (#1) [facility] Start: 2016 PAP TESTING PAP TESTING [facility] Start: 2014 Urine microalbumin profile DTAP,TDAP,TD (1 - Tdap) [facility] Start: 2013 HEPATITIS C SCREENING HEPATITIS C SCREENING [facility] Start: 2013 HIV SCREENING HIV SCREENING [facility] Start: 2007 Adult depression screening assessment DEPRESSION SCREENING [facility] Start: 2007 COVID-19 VACCINE (1) COVID-19 VACCINE (1) [facility] Start: 2006 HPV VACCINE (1 - 2-dose series) HPV VACCINE (1 - 2-dose series) [facility] Bilirubin measurement, urine [facility] Work Phone: Choriogonadotropin ( test) [Presence] in Urine [facility] Work Phone: Color of Urine [facility] Work Phone: Detection of hemoglobin [facility] Work Phone: Glucose [Mass/volume ] in Urine by Test strip [facility] Work Phone: Glucose measurement estimated from glycated hemoglobin [facility] Measurement of keton es in urine using dipstick [facility] Work Phone: Patient referral [facility] Work Phone: Protein measurement, urine F [facility] Work Phone: Urinalysis, specific gravity measurement [facility] Work Phone: Urine dipstick for nitrite F [facility] Work Phone: Urine dipstick for s pecific gravity [facility] Work Phone: Urine pH test [facility] Work Phone: Urobilinogen concent ration, test strip measurement [facility] Work Phone: Immunizations Immunization Date Immunization Notes Care Provider Margarita han 07-15-2009 HPV, unspecified formulation Elena Gudimella [facility] 10-25-2007 HPV, unspecified formulation Elena Gudimella [facility] 08-25-2007 HPV, unspecified formulation Elena Gudimella [facility] 08-25-2007 meningococcal ACWY vaccine, unspecified formulation Elena Gudimella [facility] 08-25-2007 tetanus toxoid, unspecified formulation Elena Gudimella [facility] 03-22-2000 diphtheria, tetanus toxoids and acellular pertussis vaccine Elena Gudimella [facility] 03-22-2000 measles, mumps and rubella virus vaccine Elena Gudimella [facility] 03-22-2000 poliovirus vaccine, unspecified formulation Elena Gudimella [facility] 01-11-1996 measles, mumps and rubella virus vaccine Elena Gudimella [facility] 1995 diphtheria, tetanus toxoids and acellular pertussis vaccine Elena Gudimella [facility] 1995 haemophilus influenz ae type b vaccine, PRP-OMP conjugate Elena Gudimella [facility] 1995 hepatitis B vaccine, pediatric or pediatric/adolescent dosage Elena Gudimella [facility] 1995 poliovirus vaccine, unspecified formulation Elena Gudimella [facility] 1995 diphtheria, tetanus toxoids and acellular pertussis vaccine Elena Gudimella [facility] 1995 haemophilus influenz ae type b vaccine, PRP-OMP conjugate Elena Gudimella [facility] 1995 hepatitis B vaccine, pediatric or pediatric/adolescent dosage Elena Gudimella [facility] 1995 poliovirus vaccine, unspecified formulation Elena Gudimella [facility] 1995 diphtheria, tetanus toxoids and acellular pertussis vaccine Elena Gudimella [facility] 1995 haemophilus influenz ae type b vaccine, PRP-OMP conjugate Elena Gudimella [facility] 1995 hepatitis B vaccine, pediatric or pediatric/adolescent dosage Elena Gudimella [facility] 1995 poliovirus vaccine, unspecified formulation Elena Gudimella [facility] NEGATED: Highlighted row has not occurred!08-09-2024 influenza virus vaccine, unspecified formulation Elena Gudimella [facility] NEGATED: Highlighted row has not occurred!09-01-2022 influenza virus vaccine, unspecified formulation Elena Gudimella [facility] NEGATED: Highlighted row has not occurred!01-23-2020 influenza virus vaccine, live, attenuated, for intranasal use Elena Kevinmoniquemichelle [facility] Payers Date Payer Category Payer Medicaid [id number] 2021 Medicaid [employer] [id number] 2021-Present Medicaid [id number] 1995 Unknown [id number] 2.16.840.1.426187.3.579.2.593 1995 Unknown [id number] 2.16.840.1.124053.3.579.2.593 1995 Unknown [id number] 2.16.840.1.335686.3.579.2.593 1995 Unknown [id number] 2.16.840.1.049890.3.579.2.593 1995 Unknown [id number] 2.16.840.1.773291.3.579.2.593 1995 Unknown [id number] 2.16.840.1.055331.3.579.2.593 1995 Unknown [id number] 2.16.840.1.361861.3.579.2.593 1995 Unknown [id number] 2.16.840.1.719344.3.579.2.593 1995 Unknown [id number] 2.16.840.1.223433.3.579.2.593 1995 Unknown [id number] 2.16.840.1.713590.3.579.2.593 1995 Unknown [id number] 2.16.840.1.589554.3.579.2.593 1995 Unknown [id number] 2.16.840.1.826087.3.579.2.593 1995 Unknown [id number] 2.16.840.1.568667.3.579.2.593 1995 Unknown [id number] 2.16.840.1.420024.3.579.2.593 1995 Unknown [id number] 2.16.840.1.526114.3.579.2.593 1995 Unknown [id number] 2.16.840.1.404276.3.579.2.593 1995 Unknown [id number] 2.16.840.1.662560.3.579.2.593 1995 Unknown [id number] 2.16.840.1.894901.3.579.2.593 1995 Unknown [id number] 2.16.840.1.285237.3.579.2.593 1995 Unknown [id number] 2.16.840.1.196725.3.579.2.593 1995 Unknown [id number] 2.16.840.1.732480.3.579.2.593 1995 Unknown [id number]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
== END 2024-08-14 19:27 | disposition home or self-care (01) ==
LOC: LAB 19:26
PROVIDERS: Visit Provider Obstetrics & Gynecology
DX: Z01.419 Encounter for gynecological examination (general) (routine) without abnormal findings (principal)
CPT/HCPCS: 88175

== ENCOUNTER 2024-08-16 10:47 | Outpatient (OUT) | payer MEDICAID, SELFPAY ==
--- NOTE | 2024-08-16 10:51 | US_ITS ---
[address] [address] Patient Name: KEVEN GUTIERREZ MRN: [id number] date: 1995 Sex: F Assigned Patient Location: Current Patient Location: Accession/Order Number: [id number] Exam Date: 08/16/2024 10:55 Report Date: 08/16/2024 12:07 At the request of: MUKESH OLIVARES Procedure: US pelvis w/ transvaginal EXAMINATION: US pelvis w/ transvaginal HISTORY: Pelvic Pain COMPARISON: Ultrasound pelvis 02/22/2024 TECHNIQUE: Transabdominal and/or transvaginal sonographic examination was performed as indicated by examination type. FINDINGS: UTERUS: Normal size and appearance. Uterus size: 7.7 x 3.9 x 3.7 cm ENDOMETRIUM: Normal homogeneous appearance. Endometrial thickness: 7 mm RIGHT OVARY: Contains several different size follicles. Duplex Doppler demonstrates normal waveform and flow; resistive index 0.5. Ovary size: 3.5 x 2.6 x 2.0 cm LEFT OVARY: Contains several different size follicles. Duplex Doppler demonstrates normal waveform and flow; resistive index 0.6. Ovary size: 2.8 x 2.8 x 2.2 cm CUL-DE-SAC: Unremarkable. No significant free fluid. BLADDER: Unremarkable. OTHER: None. US/US pelvis w/ transvaginal IMPRESSION: 1. Normal pelvic ultrasound. No suspicious findings. Electronically authenticated by: CAROLYN SOW Date: 08/16/2024 12:07
--- OUTSIDE RECORDS SUMMARY | 2024-08-16 11:08 | XMS_ITS | CCD ---
Author Organization [facility] Care Team Providers Care Independent Insurance Adjuster Name Role Phone SIMON ELIOT Liu Unavailable Unavailable Khushboo Pennington Primary Care Provider [phone] NON STAFF Primary Care Provider UnavailCONNER Zavaleta Emergency Provider Khushboo PENNINGTON Primary Care Physician REQUEST, NONE LISTED Primary Care Unavaila ble [...] MARSHALL, DR MAYORGA Consulting Unavailable MARSHALL, DR MYAORGA Admitting Unavailable MARSHALL, DR MAYORGA Attending Unavailable [...] Translations: [escitalopram] Drug Allergy Unknown (qualifier value) [facility] [place] (1 source) Amitriptyline Drug Allergy [facility] (1 source) LORazepam Drug Allergy [facility] (1 source) LORazepam Drug Allergy [facility] Medications Current Medications Medication Drug Class(es) Dates Sig (Normalized) Sig (Original) Norethindrone-Ethin Estradiol (4 sources) Estrogen Start: 06-23-2020 take [id number] ug by mouth once daily Norethindrone-Ethi n Estradiol (Nortrel 1/35 (21)) 1-35 mg-mcg (21) tablet Active 1 - 35 TAB PO Daily June 22, 2020 11:00pm Start: 06-23-2020 take [id number] 2857 ug by mouth once daily Norethindrone-Ethin [...] stomach, # 30 tab(s), Refills(s) 11, Pharmacy: [facility], 157, cm, 05/26/23 10:09:00 EDT, Height/Length Dosing, 64.4, kg, 05/26/23 10:09:00 EDT, Weight Dosing Start Date: 11/24/23 Status: Ordered Start: 05-26-2023 take 1 tablet by dennis th once daily levothyroxine 50 mcg (0.05 mg) Tab 50 microgram = 1 tab(s), Oral, Daily, on empty stomach, # 90 tab(s), Refills(s) 3, Pharmacy: [facility], 157, cm, 05/26/23 10:09:00 EDT, Height/Length Dosing, 64.4, kg, 05/26/23 10:09:00 EDT, Weight Dosing Start Date: 05/26/23 Status: Ordered Start: 08-18-2022 take 1 tablet by dennis th once daily levothyroxine 50 mcg (0.05 mg) Tab 50 microgram = 1 tab(s), Oral, Daily, on empty stomach, # 90 tab(s), Refills(s) 0, Pharmacy: [facility], 157, cm, 07/23/21 13:06:00 EDT, Height/Length [...] 05-13-2022 Episodic Other aftercare (1 source) Other group home (current) drug therapy; Translations: [[employer] CURRENT DRUG THERAPY] Onset: 05-13-2022 Episodic Other [...] Appointments Follow Up with Elena Burger MD, [facility], MED When: In 1 year Where: [address] [place] [phone] [facility] (1) Medications What How Much When [...] for choosing us for your care. Normal [facility] CHEMISTRYOrdered By: SYSTEM SYSTEM on 08-09-2024 [...] (Bld) [Mass fraction] 5.2 % Normal <=5.9% [facility] ChemAutoSS CMPon 08-09-2024 Albumin [Mass/Vol] 4.2 g/dL Normal 3.3-5.0 [facility] Comment on above: Performed By: #### 2 [id number] #### [facility] [address] [place] [address] Albumin/Globulin (S) [Mass conc ratio] 2.0 Normal 1.1-2.2 [facility] Comment on above: Performed By: #### 2 [id number] #### [facility] [address] [place] [address] ALP [Catalytic activity/Vol] 61 Int._Unit/L Normal 21-98 [facility] Comment on above: Performed By: #### 2 [id number] #### [facility] [address] [place] [address] ALT No additional P-5'-P [Catalytic activity/Vol] 10 Int._Unit/L Normal 6-46 [facility] Comment on above: Performed By: #### 2 [id number] #### [facility] [address] [place] [address] Anion gap [Moles/Vol] 8 mmol/L Normal 6-16 [facility] Comment on above: Performed By: #### 2 [id number] #### [facility] [address] [place] [address] AST [Catalytic activity/Vol] 12 Int._Unit/L Normal 5-43 [facility] Comment on above: Performed By: #### 2 [id number] #### [facility] [address] [place] [address] Bilirubin [Mass/Vol] 0.4 mg/dL Normal 0.0-1.1 [facility] Comment on above: Performed By: #### 2 [id number] #### [facility] [address] [place] [address] Calcium [Mass/Vol] 8.9 mg/dL Normal 8.9-11.1 [facility] Comment on above: Performed By: #### 2 [id number] #### [facility] [address] [place] [address] Chloride [Moles/Vol] 108 mmol/L Normal 101-111 [facility] Comment on above: Performed By: #### 2 [id number] #### [facility] [address] [place] [address] CO2 [Moles/Vol] 26 mmol/L Normal 21-31 [facility] Comment on above: Performed By: #### 2 [id number] #### [facility] [address] [place] [address] Creatinine [Mass/Vol] 0.6 mg/dL Normal 0.5-1.3 [facility] Comment on above: Performed By: #### 2 [id number] #### [facility] [address] [place] [address] Globulin (S) [Mass/Vol] 2.1 g/dL Normal 1.4-4.0 [facility] Comment on above: Performed By: #### 2 [id number] #### [facility] [address] [place] [address] Glucose [Mass/Vol] 87 mg/dL Normal 55-199 [facility] Comment on above: Performed By: #### 2 [id number] #### [facility] [address] [place] [address] Potassium [Moles/Vol] 4.2 mmol/L Normal 3.5-5.3 [facility] Comment on above: Performed By: #### 2 [id number] #### [facility] [address] [place] [address] Protein [Mass/Vol] 6.3 g/dL Normal 6.0-7.8 [facility] Comment on above: Performed By: #### 2 [id number] #### [facility] [address] [place] [address] Sodium [Moles/Vol] 138 mmol/L Normal 135-145 [facility] Comment on above: Performed By: #### 2 [id number] #### [facility] [address] [place] [address] Urea nitrogen [Mass/Vol] 15 mg/dL Normal 5-21 [facility] Comment on above: Performed By: #### 2 895396 #### [facility] [address] [place] [address] Urea nitrogen/Creatinine [Mass ratio] 25 No Units High 10-20 [facility] Comment on above: Performed By: #### 2 [id number] #### [facility] [address] [place] [address] Family Medicine Office/Clini c Noteon 08-09-2024 Family [...] Burger MD, FAM, MED In [address] [place] [phone] Business (1) Additional Instructions: Problem List/Past Medical [...] vaccine 06/22 (more content not included)... Normal [facility] Comment on above: Result Comment: Elec tronically Signed By: Elena Burger MD\.br\Date and Time Signed: 08/09/24 08:29 EDT [id number] 08-09-2024 HbA1c (Bld) [Mass fraction] 5.2 % Normal <=5.9 [facility] Comment on above: Performed By: #### 7 [id number] #### [facility] [address] [place] [address] Lipid Panelon 08-09-2024 Cholesterol [Mass/Vol] 144 mg/dL Normal 120-200 [facility] Comment on above: Performed By: #### 2 [id number] #### [facility] [address] [place] [address] Cholesterol in HDL [Mass/Vol] 66 mg/dL Invalid Interpretation Code [facility] Comment on above: Result Comment: '>= 60 LOW RISK' '<= 40 HIGH RISK' Performed By: #### 2 [id number] #### [facility] [address] [place] [address] Cholesterol in LDL [Mass/Vol] 73 mg/dL Normal <=129 [facility] Comment on above: Performed By: #### 2 [id number] #### [facility] [address] [place] [address] Cholesterol in VLDL [Mass/Vol] 6 mg/dL Low 7-40 [facility] Comment on above: Performed By: #### 2 [id number] #### [facility] [address] [place] [address] Triglyceride [Mass/Vol] 28 mg/dL Normal <=149 [facility] Comment on above: Performed By: #### 2 [id number] #### [facility] [address] [place] [address] TSH With T4fr Reflexon 08-09 TSH Qn 1.55 m[IU]/L Normal 0.34-5.60 [facility] Comment on above: Performed By: #### 1 [id number] #### [facility] [address] [place] [address] eGFRon 08-09-2024 eGFR 124 mL/min/1.73 m2 Normal >=59 [facility] Comment on above: Performed By: #### 1 [id number] #### [facility] [address] [place] [address] Lab Reportson 10-28-2023 Lab Reports [id number] F Normal [facility] Reports [id number] Normal [facility] Reportson 10-26-2023 Lab Reports [id number]#[id number] F Normal [facility] A1C with Estimated Average G luon 10-17-2023 Glucose [Mass/Vol] 111 mg/dL Normal [facility] Comment on above: Result Comment: PERF ORMED BY: [place] [address] PATHOLOGIST CHEMISTRY DEPARTMENT CHAIR SERG WARD M.D. Performed By: #### C BC, TSH3 wRFLX, A1C WTH eA, LIPID, CMP #### [facility] [address] HbA1c (Bld) [Mass fraction] 5.5 % Normal 4.3-5.[address] [facility] Comment on above: Result Comment: Incr eased risk for diabetes: 5.7 - 6.4 diabetes: >6.4 glycemic control for adults with diabetes: <7.0 Performed By: #### C BC, TSH3 wRFLX, A1C WTH eA, LIPID, CMP #### [facility] [address] Alanine aminotransferase [En zymatic activity/volume] in Serum or PlasmaOrdered By: Elena Gudimella on 10-17-2023 ALT [Catalytic activity/Vol] 10 U/L 7-[address] [facility] Albumin [Mass/volume] in Ser um or Plasma by Bromocresol green (BCG) dye binding methoOrdered By: Elena Gudimella on 10-17-2023 Albumin BCG dye [Mass/Vol] 4.5 g/dL 3.5-5.[address] [facility] Alkaline phosphatase [Enzyma tic activity/volume] in Serum or PlasmaOrdered By: Elena Gudimella on 10-17-2023 ALP [Catalytic activity/Vol] 62 U/L 34-[address] [facility] Aspartate aminotransferase [ Enzymatic activity/volume] in Serum or PlasmaOrdered By: Elena Gudimella on 10-17-2023 AST [Catalytic activity/Vol] 13 U/L 13-[address] [facility] Basophils Auto (Bld) [#/Vol] Ordered By: Elena Gudimella on 10-17-2023 Basophils (Bld) [#/Vol] 0.0 10*3/uL 0.0-0.[address] [facility] Basophils/100 WBC Auto (Bld) Ordered By: Elena Gudimella on 10-17-2023 Basophils/100 WBC (Bld) 0.5 % . [facility] Bilirubin.total [Mass/volume ] in Serum or PlasmaOrdered By: Elenajason Brown on 10-17-2023 Bilirubin [Mass/Vol] 0.5 mg/dL 0.3-1.0 [facility] Calcium [Mass/volume] in Ser um or PlasmaOrdered By: Elenajason Brownmichelle on 10-17-2023 Calcium [Mass/Vol] 9.3 mg/dL 8.6-10.3 [facility] Carbon dioxide, total [Moles /volume] in Serum or PlasmaOrdered By: Elena Gumichelle on 10-17-2023 CO2 [Moles/Vol] 27.7 mmol/L 21.0-31.0 [facility] Chloride [Moles/volume] in S vitor or PlasmaOrdered By: Elena العراقي10-17-2023 Chloride [Moles/Vol] 107 mmol/L 98-107 [facility] Cholesterol [Mass/volume] in Serum or PlasmaOrdered By: Elena Brown on 10-17-2023 Cholesterol [Mass/Vol] 155 mg/dL 140-200 [facility] Comment on above: Chol less than 200 m g/dl low riskChol 201-239 mg/dl borderline riskChol 240 mg/dl and greater high risk Cholesterol in LDL Calc [Mas s/Vol]Ordered By: Elena Brownmichelle 10-17-2023 Cholesterol in LDL [Mass/Vol] 72 mg/dL 0-[address] [facility] Comment on above: LDL ATP III CLASSIFI CATIONLDL less than 100 mg/dL OptimalLDL 100-129 mg/dL Near or above optimalLDL 130-159 mg/dL Borderline highLDL 160-189 mg/dL HighLDL greater than 189 mg/dL Very high Cholesterol in VLDL Calc [Ma ss/Vol]Ordered By: Elena Brown on 10-17-2023 Cholesterol in VLDL [Mass/Vol] 6 mg/dL [facility] Complete Blood Count Auto Di ffon 10-17-2023 Basophils (Bld) [#/Vol] 0.0 10*3/uL Normal 0.0-0.[address] [facility] Comment on above: Result Comment: PERF ORMED BY: [place] [address] PATHOLOGIST CHEMISTRY DEPARTMENT CHAIR SERG WARD M.D. Performed By: #### C BC, TSH3 wRFLX, A1C WTH eA, LIPID, CMP #### [place] [address] [place] Basophils/100 WBC (Bld) 0.5 % Normal . [facility] Comment on above: Performed By: #### C BC, TSH3 wRFLX, A1C WTH eA, LIPID, CMP #### [place] [address] [place] Eosinophils (Bld) [#/Vol] 0.1 10*3/uL Normal 0.0-0.[address] [facility] Comment on above: Performed By: #### C BC, TSH3 wRFLX, A1C WTH eA, LIPID, CMP #### [address] Eosinophils/100 WBC (Bld) 2.8 % Normal . [facility] Comment on above: Performed By: #### C BC, TSH3 wRFLX, A1C WTH eA, LIPID, CMP #### [address] Erythrocyte distribution width (RBC) [Ratio] 13.3 % Normal 11.9-15.[address] [facility] Comment on above: Performed By: #### C BC, TSH3 wRFLX, A1C WTH eA, LIPID, CMP #### [address] Hematocrit (Bld) [Volume fraction] 37.1 % Normal 34.0-46.[address] [facility] Comment on above: Performed By: #### C BC, TSH3 wRFLX, A1C WTH eA, LIPID, CMP #### [address] Hemoglobin (Bld) [Mass/Vol] 12.1 g/dL Normal 11.8-15.[address] [facility] Comment on above: Performed By: #### C BC, TSH3 wRFLX, A1C WTH eA, LIPID, CMP #### [place] [address] [place] Lymphocytes (Bld) [#/Vol] 1.6 10*3/uL Normal 1.00-4.[address] [facility] Comment on above: Performed By: #### C BC, TSH3 wRFLX, A1C WTH eA, LIPID, CMP #### [place] [address] [place] Lymphocytes/100 WBC (Bld) 30.9 % Normal . [facility] Comment on above: Performed By: #### C BC, TSH3 wRFLX, A1C WTH eA, LIPID, CMP #### [address] MCH (RBC) [Entitic mass] 27.7 pg Normal 24.7-34.[address] [facility] Comment on above: Performed By: #### C BC, TSH3 wRFLX, A1C WTH eA, LIPID, CMP #### [address] MCV (RBC) [Entitic vol] 84.6 fL Normal 80-[address] [facility] Comment on above: Performed By: #### C BC, TSH3 wRFLX, A1C WTH eA, LIPID, CMP #### [address] Mean Corpuscular HGB Conc 32.7 g/dL Normal 32.0-35.[address] [facility] Comment on above: Performed By: #### C BC, TSH3 wRFLX, A1C WTH eA, LIPID, CMP #### [place] [address] [place] Monocytes (Bld) [#/Vol] 0.4 10*3/uL Normal 0.0-0.[address] [facility] Comment on above: Performed By: #### C BC, TSH3 wRFLX, A1C WTH eA, LIPID, CMP #### [place] [address] [place] Monocytes/100 WBC (Bld) 7.8 % Normal . [facility] Comment on above: Performed By: #### C BC, TSH3 wRFLX, A1C WTH eA, LIPID, CMP #### [facility] [address] [place] [address] [place] Neutrophils (Bld) [#/Vol] 3.1 10*3/uL Normal 1.8-7.[address] [facility] Comment on above: Performed By: #### C BC, TSH3 wRFLX, A1C WTH eA, LIPID, CMP #### [facility] [address] Neutrophils/100 WBC (Bld) 58.0 % Normal . [facility] Comment on above: Performed By: #### C BC, TSH3 wRFLX, A1C WTH eA, LIPID, CMP #### [facility] [address] NRBC% 0.1 /100{WBC} Normal 0-0.[address] [facility] Comment on above: Performed By: #### C BC, TSH3 wRFLX, A1C WTH eA, LIPID, CMP #### [facility] [address] [place] [address] [place] Platelet mean volume (Bld) [Entitic vol] 9.5 fL Normal 6.3-10.[address] [facility] Comment on above: Performed By: #### C BC, TSH3 wRFLX, A1C WTH eA, LIPID, CMP #### [facility] [address] [place] [address] [place] Platelets (Bld) [#/Vol] 146 10*3/uL Low 150-[address] [facility] Comment on above: Performed By: #### C BC, TSH3 wRFLX, A1C WTH eA, LIPID, CMP #### [facility] [address] [place] [address] [place] RBC (Bld) [#/Vol] 4.38 10*6/uL Normal 3.60-5.00 [facility] Comment on above: Performed By: #### C BC, TSH3 wRFLX, A1C WTH eA, LIPID, CMP #### [facility] [address] WBC (Bld) [#/Vol] 5.3 10*3/uL Normal 3.8-11.6 [facility] Comment on above: Performed By: #### C BC, TSH3 wRFLX, A1C WTH eA, LIPID, CMP #### [facility] [address] Comprehensive Metabolic Pane tc 10-17-2023 Albumin [Mass/Vol] 4.5 g/dL Normal 3.5-5.7 [facility] Comment on above: Performed By: #### C BC, TSH3 wRFLX, A1C WTH eA, LIPID, CMP #### [facility] [address] Albumin/Globulin [Mass ratio] 2.1 {ratio} Normal [facility] Comment on above: Performed By: #### C BC, TSH3 wRFLX, A1C WTH eA, LIPID, CMP #### [facility] [address] [place] [address] ALP [Catalytic activity/Vol] 62 U/L Normal 34-[address] [facility] Comment on above: Performed By: #### C BC, TSH3 wRFLX, A1C WTH eA, LIPID, CMP #### [address] ALT [Catalytic activity/Vol] 10 U/L Normal 7-[address] [facility] Comment on above: Performed By: #### C BC, TSH3 wRFLX, A1C WTH eA, LIPID, CMP #### [facility] [address] Anion gap [Moles/Vol] 10.5 mmol/L Normal 6.0-15.0 [facility] Comment on above: Performed By: #### C BC, TSH3 wRFLX, A1C WTH eA, LIPID, CMP #### [address] AST [Catalytic activity/Vol] 13 U/L Normal 13-[address] [facility] Comment on above: Performed By: #### C BC, TSH3 wRFLX, A1C WTH eA, LIPID, CMP #### [facility] [address] [place] [address] [place] Bilirubin [Mass/Vol] 0.5 mg/dL Normal 0.3-1.0 [facility] Comment on above: Performed By: #### C BC, TSH3 wRFLX, A1C WTH eA, LIPID, CMP #### [facility] [address] Calcium [Mass/Vol] 9.3 mg/dL Normal 8.6-10.3 [facility] Comment on above: Performed By: #### C BC, TSH3 wRFLX, A1C WTH eA, LIPID, CMP #### [facility] [address] Chloride [Moles/Vol] 107 mmol/L Normal 98-107 [facility] Comment on above: Performed By: #### C BC, TSH3 wRFLX, A1C WTH eA, LIPID, CMP #### [facility] [address] [place] [address] [place] CO2 [Moles/Vol] 27.7 mmol/L Normal 21.0-31.0 [facility] Comment on above: Performed By: #### C BC, TSH3 wRFLX, A1C WTH eA, LIPID, CMP #### [address] Creatinine [Mass/Vol] 0.66 mg/dL Normal 0.60-1.20 [facility] Comment on above: Performed By: #### C BC, TSH3 wRFLX, A1C WTH eA, LIPID, CMP #### [facility] [address] [place] [address] [place] GFR/1.73 sq M.predicted MDRD (S/P/Bld) [Vol rate/Area] mL/min/{1.73_m2} [facility] Comment on above: Performed By: #### C BC, TSH3 wRFLX, A1C WTH eA, LIPID, CMP #### [facility] [address] [place] [address] [place] Globulin (S) [Mass/Vol] 2.1 g/dL Normal [facility] Comment on above: Performed By: #### C BC, TSH3 wRFLX, A1C WTH eA, LIPID, CMP #### [facility] [address] Glucose [Mass/Vol] 78 mg/dL Normal 70-100 [facility] Comment on above: Result Comment: [facility] Glucose Reference Range is dependent on time and content of last meal. Glucose of more than 200 mg/dL in a nonstressed, ambulatory subject supports the diagnosis of Diabetes Mellitus. ADA recommended reference range Performed By: #### C BC, TSH3 wRFLX, A1C WTH eA, LIPID, CMP #### [facility] [address] Potassium [Moles/Vol] 4.2 mmol/L Normal 3.5-5.1 [facility] Comment on above: Performed By: #### C BC, TSH3 wRFLX, A1C WTH eA, LIPID, CMP #### [facility] [address] [place] [address] [place] Protein [Mass/Vol] 6.6 g/dL Normal 6.4-8.9 [facility] Comment on above: Performed By: #### C BC, TSH3 wRFLX, A1C WTH eA, LIPID, CMP #### [facility] [address] [place] [address] [place] Sodium [Moles/Vol] 141 mmol/L Normal 136-145 [facility] Comment on above: Performed By: #### C BC, TSH3 wRFLX, A1C WTH eA, LIPID, CMP #### [facility] [address] [place] [address] [place] Urea nitrogen [Mass/Vol] 21 mg/dL Normal 7-[address] [facility] Comment on above: Performed By: #### C BC, TSH3 wRFLX, A1C WTH eA, LIPID, CMP #### [facility] [address] [place] [address] [place] Creatinine [Mass/volume] in Serum or PlasmaOrdered By: Elena Burger on 10-17-2023 Creatinine [Mass/Vol] 0.66 mg/dL 0.60-1.20 [facility] Eosinophils Auto (Bld) [#/Vo l]Ordered By: on 10-17-2023 Eosinophils (Bld) [#/Vol] 0.1 10*3/uL 0.0-0.[address] [facility] Eosinophils/100 WBC Auto (Bl d)Ordered By: on 10-17-2023 Eosinophils/100 WBC (Bld) 2.8 % . [facility] Erythrocyte distribution wid th Auto (RBC) [Ratio]Ordered By: on 10-17-2023 Erythrocyte distribution width (RBC) [Ratio] 13.3 % 11.9-15.[address] [facility] Globulin Calc (S) [Mass/Vol] Ordered By: on 10-17-2023 Globulin (S) [Mass/Vol] 2.1 g/dL [facility] Glucose [Mass/volume] in Ser um or PlasmaOrdered By: on 10-17-2023 Glucose [Mass/Vol] 78 mg/dL 70-100 [facility] Comment on above: ADA recommended refe rence rangeRandom Glucose Reference Range is dependent on time and content of last meal. Glucose of more than 200 mg/dL in a nonstressed, ambulatory subject supports the diagnosis of Diabetes Mellitus. Hematocrit Auto (Bld) [Volum e fraction]Ordered By: on 10-17-2023 Hematocrit (Bld) [Volume fraction] 37.1 % 34.0-46.[address] [facility] Hemoglobin [Mass/volume] in BloodOrdered By: on 10-17-2023 Hemoglobin (Bld) [Mass/Vol] 12.1 g/dL 11.8-15.[address] [facility] Leukocytes [#/volume] correc addie for nucleated erythrocytes in Blood by Automated counOrdered By: on 10-17-2023 WBC corrected for nucl RBC Auto (Bld) [#/Vol] 5.3 10*3/uL 3.8-11.[address] [facility] Lipid Panelon 10-17-2023 Cholesterol [Mass/Vol] 155 mg/dL Normal 140-200 [facility] Comment on above: Result Comment: Chol less than 200 mg/dl low risk Chol 201-239 mg/dl borderline risk Chol 240 mg/dl and greater high risk Performed By: #### C BC, TSH3 wRFLX, A1C WTH eA, LIPID, CMP #### [facility] [address] [place] [id number] [place] Cholesterol in HDL [Mass/Vol] 77 mg/dL Normal 23-[address] [facility] Comment on above: Result Comment: HDL CHOL ATP-III CLASSIFICATION Cardiovascular Risk HDL > or equal to 60 mg/dL LOW HDL < 40 mg/dL HIGH Performed By: #### C BC, TSH3 wRFLX, A1C WT eA, LIPID, CMP #### [facility] [address] [place] [address] [place] Cholesterol.total/Chol esterol in HDL [Mass ratio] 2.0 {ratio} Normal <5.[address] [facility] Comment on above: Performed By: #### C BC, TSH3 wRFLX, A1C WT eA, LIPID, CMP #### [facility] [address] [place] [id number] [place] LDL Cholesterol,Calculated 72 mg/dL Normal 0-[address] [facility] Comment on above: Result Comment: LDL ATP III CLASSIFICATION LDL less than 100 mg/dL Optimal LDL 100-129 mg/dL Near or above optimal LDL 130-159 mg/dL Borderline high LDL 160-189 mg/dL High LDL greater than 189 mg/dL Very high Performed By: #### C BC, TSH3 wRFLX, A1C WT eA, LIPID, CMP #### [facility] [address] [place] [address] [place] Triglyceride w/Reflex 31 mg/dL Normal 0-149 [facility] Comment on above: Result Comment: TRIG ATP III CLASSIFICATION TRIG less than 150 mg/dL Normal TRIG 150-199 mg/dL Borderline high TRIG 200-500 mg/dL High TRIG greater than 500 mg/dL Very high Standard traceable to the Center for Disease Conrtrol and Prevention (CDC) test method. Performed By: #### C BC, TSH3 wRFLX, A1C WTH eA, LIPID, CMP #### [facility] [address] [place] [address] [place] VLDL CHOLESTEROL 6 mg/dL Normal [facility] Comment on above: Performed By: #### C BC, TSH3 wRFLX, A1C WTH eA, LIPID, CMP #### [facility] [address] [place] [id number] [place] Lymphocytes Auto (Bld) [#/Vo l]Ordered By: Elena Gudimella on 10-17-2023 Lymphocytes (Bld) [#/Vol] 1.6 10*3/uL 1.00-4.[address] [facility] Lymphocytes/100 WBC Auto (Bl d)Ordered By: Elena Gudimella on 10-17-2023 Lymphocytes/100 WBC (Bld) 30.9 % . [facility] MCH Auto (RBC) [Entitic mass ]Ordered By: Elena Gudimella on 10-17-2023 MCH (RBC) [Entitic mass] 27.7 pg 24.7-34.[address] [facility] MCHC Auto (RBC) [Mass/Vol]Or dered By: Elena Gudimella on 10-17-2023 MCHC (RBC) [Mass/Vol] 32.7 g/dL 32.0-35.0 [facility] MCV Auto (RBC) [Entitic vol] Ordered By: Elena Gudimella on 10-17-2023 MCV (RBC) [Entitic vol] 84.6 fL 80-[address] [facility] Monocytes Auto (Bld) [#/Vol] Ordered By: Elena Gudimella on 10-17-2023 Monocytes (Bld) [#/Vol] 0.4 10*3/uL 0.0-0.[address] [facility] Monocytes/100 WBC Auto (Bld) Ordered By: Elena Gudimella on 10-17-2023 Monocytes/100 WBC (Bld) 7.8 % . [facility] Neutrophils Auto (Bld) [#/Vo l]Ordered By: Elena Gudimella on 10-17-2023 Neutrophils (Bld) [#/Vol] 3.1 10*3/uL 1.8-7.[address] [facility] Neutrophils/100 WBC Auto (Bl d)Ordered By: Elena Gudimella on 10-17-2023 Neutrophils/100 WBC (Bld) 58.0 % . [facility] No Panel InformationOrdered By: Elena Gudimella on 10-17-2023 Estimated GFR (CKD-EPI) > 60.0 mL/Min [facility] Creatinine Clearance (Chem N/A [facility] Nucleated erythrocytes [Pres ence] in Blood by Automated countOrdered By: Elena Gudimella on 10-17-2023 Nucleated RBC Auto Ql (Bld) 0.1 /100{WBC} 0-0.[address] [facility] Platelet mean volume Auto (B ld) [Entitic vol]Ordered By: Elena Gudimella on 10-17-2023 Platelet mean volume (Bld) [Entitic vol] 9.5 fL 6.3-10.[address] [facility] Platelets Auto (Bld) [#/Vol] Ordered By: Elena Gudimella on 10-17-2023 Platelets (Bld) [#/Vol] 146 10*3/uL 150-[address] [facility] Potassium [Moles/volume] in Serum or PlasmaOrdered By: Elena Gudimella on 10-17-2023 Potassium [Moles/Vol] 4.2 mmol/L 3.5-5.1 [facility] Protein [Mass/volume] in Ser um or PlasmaOrdered By: Elena Gudimella on 10-17-2023 Protein [Mass/Vol] 6.6 g/dL 6.4-8.9 [facility] RBC Auto (Bld) [#/Vol]Ordere d By: Elena Gudimella on 10-17-2023 RBC (Bld) [#/Vol] 4.38 10*6/uL 3.60-5.00 [facility] Serum or plasma albumin/glob ulin mass ratioOrdered By: Elena Gudimella on 10-17-2023 Albumin/Globulin [Mass ratio] 2.1 {ratio} [facility] Serum or plasma anion gap de terminationOrdered By: Elena Gudimella on 10-17-2023 Anion gap [Moles/Vol] 10.5 mmol/L 6.0-15.0 [facility] Serum or plasma high density lipoprotein (HDL) cholesterol measurementOrdered By: Elena Malcom on 10-17-2023 Cholesterol in HDL [Mass/Vol] 77 mg/dL 23-[address] [facility] Comment on above: HDL CHOL ATP-III CLA SSIFICATION Cardiovascular RiskHDL > or equal to 60 mg/dL LOWHDL < 40 mg/dL HIGH Serum or plasma total choles terol/high density lipoprotein (HDL) cholesterol mass ratOrdered By: Elena Gu on 10-17-2023 Cholesterol.total/Chol esterol in HDL [Mass ratio] 2.0 {ratio} <5.[address] [facility] Sodium [Moles/volume] in Ser um or PlasmaOrdered By: Malcom on 10-17-2023 Sodium [Moles/Vol] 141 mmol/L 136-145 [facility] Thyroid Stim Hormone w/Rflxo n 10-17-2023 Thyroid Stim Hormone w/Rflx 0.68 u[iU]/mL Normal 0.45-5.[address] [facility] Comment on above: Result Comment: PERF ORMED BY: [place] [address] PATHOLOGIST CHEMISTRY DEPARTMENT CHAIR SERG WARD M.D. Performed By: #### C BC, TSH3 wRFLX, A1C WTH eA, LIPID, CMP #### [facility] [address] [place] [address] Thyrotropin [Units/volume] i n Serum or PlasmaOrdered By: Malcom on 10-17-2023 TSH Qn 0.68 m[IU]/L 0.45-5.[address] [facility] Triglyceride [Mass/volume] i n Serum or PlasmaOrdered By: Malcom on 10-17-2023 Triglyceride [Mass/Vol] 31 mg/dL 0-[address] [facility] Comment on above: TRIG ATP III CLASSIF ICATIONTRIG less than 150 mg/dL NormalTRIG 150-199 mg/dL Borderline highTRIG 200-500 mg/dL High TRIG greater than 500 mg/dL Very highStandard traceable to the Center for Disease Conrtrol and Prevention (CDC) test method. Urea nitrogen [Mass/volume] in Serum or PlasmaOrdered By: Elena Malcommel on 10-17-2023 Urea nitrogen [Mass/Vol] 21 mg/dL 06-[address] [facility] WBC Auto (Bld) [#/Vol]Ordere d By: Elena Gudimel on 10-17-2023 WBC (Bld) [#/Vol] 5.3 10*3/uL 3.8-11.6 [facility] Physician Orderon 10-14-2023 Physician Order [id number] Normal [facility] CBC AUTO DIFFon 09-08-2022 BASO # 0.0 103/ul Normal 0.0-0.1 [facility] Comment on above: Performed By: #### G LU1HR #### [facility] [address] [address] [address] Christa Han Basophils/100 WBC (Bld) 0.2 % Normal 0.2-2.0 [facility] Comment on above: Performed By: #### G LU1HR #### [facility] [address] [place] [address] Dr. Christa Han EO # 0.1 103/ul Normal 0.0-0.7 [facility] Comment on above: Performed By: #### G LU1HR #### [facility] [address] [address] [address] Christa Han Eosinophils/100 WBC (Bld) 3.0 % Normal 0.9-7.0 [facility] Comment on above: Performed By: #### G LU1HR #### [facility] [address] [place] [address] Dr. Christa Han Erythrocyte distribution width (RBC) [Ratio] 14.1 % Normal 11.0-15.0 [facility] Comment on above: Performed By: #### G LU1HR #### [facility] [address] [place] [address] Dr. Christa Han Hematocrit (Bld) [Volume fraction] 39.2 % Normal 36.0-48.0 [facility] Comment on above: Performed By: #### G LU1HR #### [facility] [address] [place] [address] Dr. Christa Han Hemoglobin (Bld) [Mass/Vol] 12.5 g/dL Normal 12.0-16.0 [facility] Comment on above: Performed By: #### G LU1HR #### [facility] [address] [place] [address] Dr. Christa Han IG # 0.00 10e3/ul Normal 0.00-0.03 [facility] Comment on above: Performed By: #### G LU1HR #### [facility] [address] [place] [address] Dr. Christa Han IG % 0.0 % Normal 0.0-0.5 [facility] Comment on above: Performed By: #### G LU1HR #### [facility] [address] [place] [address] Dr. Christa Han LYMPH # 1.8 103/ul Normal 1.2-3.8 [facility] Comment on above: Performed By: #### G LU1HR #### [facility] [address] [place] [address] Dr. Christa Han Lymphocytes/100 WBC (Bld) 42.0 % Normal 20.5-60.0 [facility] Comment on above: Performed By: #### G LU1HR #### [facility] [address] [place] [address] Dr. Christa Han MANUAL DIFF REQ NO Normal [facility] Comment on above: Performed By: #### G LU1HR #### [facility] [address] [place] [address] Dr. Christa Han MCH (RBC) [Entitic mass] 26.7 pg Normal 26.7-34.0 [facility] Comment on above: Performed By: #### G LU1HR #### [facility] [address] [place] [address] Dr. Christa Han MCHC (RBC) [Mass/Vol] 31.9 g/dL Normal 29.9-35.2 [facility] Comment on above: Performed By: #### G LU1HR #### [facility] [address] [place] [address] Dr. Christa Han MCV (RBC) [Entitic vol] 83.8 fL Normal 81.0-99.0 [facility] Comment on above: Performed By: #### G LU1HR #### [facility] [address] [address] [address] Christa Han MONO # 0.3 103/ul Normal 0.3-0.8 [facility] Comment on above: Performed By: #### G LU1HR #### [facility] [address] [place] [address] Dr. Christa Han Monocytes/100 WBC (Bld) 7.0 % Normal 1.7-12.0 [facility] Comment on above: Performed By: #### G LU1HR #### [facility] [address] [place] [address] Dr. Christa Han NEUT # 2.1 103/ul Normal 1.4-6.5 [facility] Comment on above: Performed By: #### G LU1HR #### [facility] [address] [place] [address] Dr. Christa Han Neutrophils/100 WBC (Bld) 47.8 % Normal 43.0-75.0 [facility] Comment on above: Performed By: #### G LU1HR #### [facility] [address] [place] [address] Dr. Christa Han Platelet mean volume (Bld) [Entitic vol] 11.7 fL Normal 9.5-13.5 [facility] Comment on above: Performed By: #### G LU1HR #### [facility] [address] [address] [address] Christa Han PLT 172 103/ul Normal 150-450 [facility] Comment on above: Performed By: #### G LU1HR #### [facility] [address] [address] [address] Christa Han RBC 4.68 106/ul Normal 4.20-5.40 [facility] Comment on above: Performed By: #### G LU1HR #### [facility] [address] [place] [address] Dr. Christa Han WBC 4.3 103/ul Normal 4.0-11.0 [facility] Comment on above: Performed By: #### G LU1HR #### [facility] [address] [place] [address] Dr. Christa Han PREG QUANT HCGon 09-08-2022 HCG QUANT 1 mIU/mL Normal [facility] Comment on above: Performed By: #### G LU1HR #### [facility] [address] [place] [address] Dr. Christa Han HCG RANGE SEE BELOW Normal [facility] Comment on above: Result Comment: 5-50 0.2-1 WEEK 50-500 1-2 WEEKS 100-5,000 2-3 WEEKS 500-10,000 3-4 WEEKS 1,000-50,000 4-5 WEEKS 10,000-100,000 5-6 WEEKS 15,000-200,000 6-8 WEEKS 10,000-100,000 2-3 MONTHS Performed By: #### G LU1HR #### [facility] [address] [place] [address] Dr. Christa Han [facility] 08-21 SARS-CoV-2 (COVID-19) RNA TRISTEN+probe Ql (Unsp spec) Not detected Normal NOT DETECTED [facility] Comment on above: Result Comment: This test is not yet approved or cleared by the [place] FDA. When there are no FDA-approved or cleared tests available, and other criteria are met, FDA can make tests available under an emergency access mechanism called an Emergency Use Authorization (EUA). The EUA for this test is supported by the [place] of Health and Human Service's (HHS's) declaration [...] consistent with SARS-CoV-2. Performed By: #### C [facility] #### [facility] [address] [place] [address] Dr. Christa Han XR KUB 1 VIEWon [...] by: SHAHEEN RAMOS Date: 2022-08-17 18:14 Normal [facility] US PELVIS AND TRANSVAGon US PELVIS [...] by: CAROLYN SOW Date: 2022-07-30 16:54 Normal [facility] PAP ACOG PANEL 2: 21 to 29on 07-12-2022 . . Normal [facility] Comment on above: Performed By: #### G LU1HR #### [facility] [address] [place] [address] Dr. Christa Han Age Gdln ACOG Testing 21- [facility] Comment on above: Performed By: #### G LU1HR #### [facility] [address] [place] [address] Dr. Christa Han DIAGNOSIS: Comment [facility] Comment on above: Result Comment: NEGA TIVE FOR INTRAEPITHELIAL LESION OR MALIGNANCY. CELLULAR CHANGES ASSOCIATED WITH INFLAMMATION ARE PRESENT. PREDOMINANCE OF COCCOBACILLI CONSISTENT WITH SHIFT IN VAGINAL MICHELLE IS PRESENT. THIS SPECIMEN WAS RESCREENED PART OF OUR REEFER ENGINEER PROGRAM. Performed By: #### G LU1HR #### [facility] [address] [place] [address] Dr. Christa Han Methodology: Comment [facility] Comment on above: Result Comment: This liquid based ThinPrep(R) pap test was screened with the use of an image guided system. Performed By: #### G LU1HR #### [facility] [address] [place] [address] Dr. Christa Han Note: Comment [facility] Comment on above: Result Comment: The Pap smear is a screening test designed to aid in the detection of premalignant and malignant conditions of the uterine cervix. It is not a diagnostic procedure and should not be used as the sole means of detecting cervical cancer. Both false-positive and false-negative reports do occur. . Performed By: #### G LU1HR #### [facility] [address] [place] [address] Dr. Christa Han Performed by: Comment Normal [facility] Comment on above: Result Comment: Josseline Koroma Cryptography Teacher (ASCP) Performed By: #### G LU1HR #### [facility] [address] [place] [address] Dr. Christa Han QC reviewed by: Comment Normal [facility] Comment on above: Result Comment: Madhavi Callejas, Cryptography Teacher (ASCP) Performed By: #### G LU1HR #### [facility] [address] [place] [address] Dr. Christa Han Reflex Criteria: Comment Normal [facility] Comment on above: Result Comment: The HPV DNA reflex criteria were not met with this specimen result therefore, no HPV testing was performed. . Performed By: #### G LU1HR #### [facility] [address] [place] [address] Dr. Christa Han Specimen adequacy: Comment Normal [facility] Comment on above: Result Comment: Sati sfactory for evaluation. Endocervical and/or squamous metaplastic cells (endocervical component) are present. Performed By: #### G LU1HR #### [facility] [address] [place] [address] Dr. Christa Han CBC AUTO DIFFon 04-28-2022 BASO # 0.0 103/ul Normal 0.0-0.1 [facility] Comment on above: Performed By: #### C BC #### [facility] [address] [place] [address] Dr. Christa Han Basophils/100 WBC (Bld) 0.3 % Normal 0.2-2.0 [facility] Comment on above: Performed By: #### C BC #### [facility] [address] [place] [address] Dr. Christa Han EO # 0.0 103/ul Normal 0.0-0.7 [facility] Comment on above: Performed By: #### C BC #### [facility] [address] [place] [address] Dr. Christa Han Eosinophils/100 WBC (Bld) 0.1 % Critically low 0.9-7.0 [facility] Comment on above: Performed By: #### C BC #### [facility] [address] [place] [address] Dr. Christa Han Erythrocyte distribution width (RBC) [Ratio] 13.5 % Normal 11.0-15.0 [facility] Comment on above: Performed By: #### C BC #### [facility] [address] [address] [address] Christa Han Hematocrit (Bld) [Volume fraction] 29.3 % Critically low 36.0-48.0 [facility] Comment on above: Performed By: #### C BC #### [facility] [address] [address] [address] Christa Han Hemoglobin (Bld) [Mass/Vol] 9.7 g/dL Critically low 12.0-16.0 [facility] Comment on above: Performed By: #### C BC #### [facility] [address] [address] [address] Christa Han IG # 0.09 10e3/ul Critically high 0.00-0.03 [facility] Comment on above: Performed By: #### C BC #### [facility] [address] [place] [address] Dr. Christa Han IG % 0.7 % Critically high 0.0-0.5 [facility] Comment on above: Performed By: #### C BC #### [facility] [address] [address] [address] Christa Han LYMPH # 1.1 103/ul Critically low 1.2-3.8 [facility] Comment on above: Performed By: #### C BC #### [facility] [address] [place] [address] Dr. Christa Han Lymphocytes/100 WBC (Bld) 8.3 % Critically low 20.5-60.0 [facility] Comment on above: Performed By: #### C BC #### [facility] [address] [place] [address] Dr. Christa Han MANUAL DIFF REQ NO Normal [facility] Comment on above: Performed By: #### C BC #### [facility] [address] [address] [address] Christa Han MCH (RBC) [Entitic mass] 27.6 pg Normal 26.7-34.0 [facility] Comment on above: Performed By: #### C BC #### [facility] [address] [place] [address] Dr. Chirsta Han MCHC (RBC) [Mass/Vol] 33.1 g/dL Normal 29.9-35.2 [facility] Comment on above: Performed By: #### C BC #### [facility] [address] [address] [address] Christa Han MCV (RBC) [Entitic vol] 83.2 fL Normal 81.0-99.0 [facility] Comment on above: Performed By: #### C BC #### [facility] [address] [address] [address] Christa Han MONO # 0.9 103/ul Critically high 0.3-0.[address] [facility] Comment on above: Performed By: #### C BC #### [facility] [address] [place] [address] Dr. Christa Han Monocytes/100 WBC (Bld) 6.8 % Normal 1.7-12.0 [facility] Comment on above: Performed By: #### C BC #### [facility] [address] [place] [address] Dr. Christa Han NEUT # 11.5 103/ul Critically high 1.4-6.5 [facility] Comment on above: Performed By: #### C BC #### [facility] [address] [place] [address] Dr. Christa Han Neutrophils/100 WBC (Bld) 83.8 % Critically high 43.0-75.0 [facility] Comment on above: Performed By: #### C BC #### [facility] [address] [address] [address] Christa Han Platelet mean volume (Bld) [Entitic vol] 10.9 fL Normal 9.5-13.5 [facility] Comment on above: Performed By: #### C BC #### [facility] [address] [place] [address] Dr. Christa Han PLT 129 103/ul Critically low 150-450 [facility] Comment on above: Performed By: #### C BC #### [facility] [address] [address] [address] Christa Han RBC 3.52 106/ul Critically low 4.20-5.[address] [facility] Comment on above: Performed By: #### C BC #### [facility] [address] [address] [address] Christa Han WBC 13.8 103/ul Critically high 4.0-11.0 [facility] Comment on above: Performed By: #### C BC #### [facility] [address] [place] [address] Dr. Christa Han CBC AUTO DIFFon 04-27-2022 BASO # 0.1 103/ul Normal 0.0-0.1 [facility] Comment on above: Performed By: #### C BC #### [facility] [address] [place] [address] Dr. Christa Han Basophils/100 WBC (Bld) 0.5 % Normal 0.2-2.0 [facility] Comment on above: Performed By: #### C BC #### [facility] [address] [place] [address] Dr. Christa Han EO # 0.1 103/ul Normal 0.0-0.7 [facility] Comment on above: Performed By: #### C BC #### [facility] [address] [place] [address] Dr. Christa Han Eosinophils/100 WBC (Bld) 0.8 % Critically low 0.9-7.0 [facility] Comment on above: Performed By: #### C BC #### [facility] [address] [place] [address] Dr. Christa Han Erythrocyte distribution width (RBC) [Ratio] 13.5 % Normal 11.0-15.0 [facility] Comment on above: Performed By: #### C BC #### [facility] [address] [place] [address] Dr. Christa Han Hematocrit (Bld) [Volume fraction] 32.2 % Critically low 36.0-48.0 [facility] Comment on above: Performed By: #### C BC #### [facility] [address] [address] [address] Christa Han Hemoglobin (Bld) [Mass/Vol] 10.5 g/dL Critically low 12.0-16.0 [facility] Comment on above: Performed By: #### C BC #### [facility] [address] [place] [address] Dr. Christa Han IG # 0.15 10e3/ul Critically high 0.00-0.03 [facility] Comment on above: Performed By: #### C BC #### [facility] [address] [place] [address] Dr. Christa Han IG % 1.6 % Critically high 0.0-0.[address] [facility] Comment on above: Performed By: #### C BC #### [facility] [address] [place] [address] Dr. Christa Han LYMPH # 1.8 103/ul Normal 1.2-3.8 [facility] Comment on above: Performed By: #### C BC #### [facility] [address] [place] [address] Dr. Christa Han Lymphocytes/100 WBC (Bld) 18.3 % Critically low 20.5-60.0 [facility] Comment on above: Performed By: #### C BC #### [facility] [address] [place] [address] Dr. Christa Han MANUAL DIFF REQ NO Normal [facility] Comment on above: Performed By: #### C BC #### [facility] [address] [place] [address] Dr. Christa Han MCH (RBC) [Entitic mass] 27.2 pg Normal 26.7-34.0 [facility] Comment on above: Performed By: #### C BC #### [facility] [address] [place] [address] Dr. Christa Han MCHC (RBC) [Mass/Vol] 32.6 g/dL Normal 29.9-35.2 [facility] Comment on above: Performed By: #### C BC #### [facility] [address] [place] [address] Dr. Christa Han MCV (RBC) [Entitic vol] 83.4 fL Normal 81.0-99.0 [facility] Comment on above: Performed By: #### C BC #### [facility] [address] [place] [address] Dr. Christa Han MONO # 0.8 103/ul Normal 0.3-0.8 [facility] Comment on above: Performed By: #### C BC #### [facility] [address] [place] [address] Dr. Christa aHn Monocytes/100 WBC (Bld) 7.8 % Normal 1.7-12.0 [facility] Comment on above: Performed By: #### C BC #### [facility] [address] [place] [address] Dr. Christa Han NEUT # 6.8 103/ul Critically high 1.4-6.[address] [facility] Comment on above: Performed By: #### C BC #### [facility] [address] [place] [address] Dr. Christa Han Neutrophils/100 WBC (Bld) 71.0 % Normal 43.0-75.0 [facility] Comment on above: Performed By: #### C BC #### [facility] [address] [place] [address] Dr. Christa Han Platelet mean volume (Bld) [Entitic vol] 11.4 fL Normal 9.5-13.5 [facility] Comment on above: Performed By: #### C BC #### [facility] [address] [place] [address] Dr. Christa Han PLT 147 103/ul Critically low 150-450 [facility] Comment on above: Performed By: #### C BC #### [facility] [address] [place] [address] Dr. Christa Han RBC 3.86 106/ul Critically low 4.20-5.[address] [facility] Comment on above: Performed By: #### C BC #### [facility] [address] [place] [address] Dr. Christa Han WBC 9.6 103/ul Normal 4.0-11.0 [facility] Comment on above: Performed By: #### C BC #### [facility] [address] [place] [address] Dr. Christa Han Covid-19 PCR ([facility])on SARS-CoV-2 (COVID-19) RNA TRISTEN+probe Ql (Unsp spec) Not detected Normal NOT DETECTED [facility] Comment on above: Result Comment: When diagnostic [...] for this test is supported by the [place] of Health and Human Service's declaration that [...] used). Performed By: #### G LU1HR #### [facility] [address] [place] [address] Dr. Christa Han DRUG SCREEN RAPID (URINE)on 04-27-2022 AMP Negative Normal NEGATIVE [facility] Comment on above: Performed By: #### D RUGRPD #### [facility] [address] [place] [address] [place] [address] Dr. Christa Han BAR Negative Normal NEGATIVE [facility] Comment on above: Performed By: #### D RUGRPD #### [facility] [address] [place] [address] Dr. Christa Han BUP Negative Normal NEGATIVE [facility] Comment on above: Performed By: #### D RUGRPD #### [facility] [address] [place] [address] Dr. Christa Han BZO Negative Normal NEGATIVE [facility] Comment on above: Performed By: #### D RUGRPD #### [facility] [address] [place] [address] Dr. Christa Han SAMMI Negative Normal NEGATIVE [facility] Comment on above: Performed By: #### D RUGRPD #### [facility] [address] [place] [address] Dr. Christa Han CUT-OFFS SEE BELOW Normal [facility] Comment on above: Result Comment: AMP [...] ng/mL Performed By: #### D RUGRPD #### [facility] [address] [place] [address] Dr. Christa Han DRUG CUT HEADER DRUG CLASS TEST SYST EM CUT-OFF CONCENTRATIONS ARE FOLLOWS: Normal [facility] Comment on above: Performed By: #### D RUGRPD #### [facility] [address] [place] [address] Dr. Christa Han mAMP Negative Normal NEGATIVE [facility] Comment on above: Performed By: #### D RUGRPD #### [facility] [address] [place] [address] Dr. Christa Han MTD Negative Normal NEGATIVE [facility] Comment on above: Performed By: #### D RUGRPD #### [facility] [address] [place] [address] Dr. Christa Han OPI Negative Normal NEGATIVE [facility] Comment on above: Performed By: #### D RUGRPD #### [facility] [address] [place] [address] Dr. Christa Han OXY Negative Normal NEGATIVE [facility] Comment on above: Performed By: #### D RUGRPD #### [facility] [address] [place] [address] Dr. Christa Han PCP Negative Normal NEGATIVE [facility] Comment on above: Performed By: #### D RUGRPD #### [facility] [address] [place] [address] Dr. Christa Han PPX Negative Normal NEGATIVE [facility] Comment on above: Performed By: #### D RUGRPD #### [facility] [address] [address] [address] Christa Han TCA Negative Normal NEGATIVE [facility] Comment on above: Performed By: #### D RUGRPD #### [facility] [address] [place] [address] Dr. Christa Han THC Positive Abnormal NEGATIVE [facility] Comment on above: Performed By: #### D RUGRPD #### [facility] [address] [place] [address] Dr. Christa Han TYPE AND SCREENon 04-27-2022 TYPE AND SCREEN Negative Normal [facility] Comment on above: Performed By: #### C T/NGNA #### [facility] [address] [place] [address] Dr. Christa Han US PREG BIOPHY W [...] SHAHEEN RAMOS Date: 2022-04-26 13:34 Normal [facility] US PREG BIOPHY W NON STRESSo n [...] by: CAROLYN SOW Date: 2022-04-22 17:08 Normal [facility] US PREG GROWTHon 04-22-2022 US PREG [...] by: CAROLYN SOW Date: 2022-04-22 17:06 Normal [facility] US PREG BIOPHY W NON STRESSo [...] SHAHEEN RAMOS Date: 2022-04-15 14:23 Normal [facility] CHLAMYDIA/GONOCOCCUS TRISTEN (SW AB/URINE/PAPon 04-08-2022 Chlamydia trachomatis, TRISTEN Negative Normal Negative [facility] Comment on above: Performed By: #### C T/NGNA #### [facility] [address] [place] [address] Dr. Christa Han Neisseria gonorrhoeae, TRISTEN Negative Normal Negative [facility] Comment on above: Performed By: #### C T/NGNA #### [facility] [address] [place] [address] Dr. Christa Han US PREG BIOPHY W [...] CAROLYN SOW Date: 2022-04-08 14:16 Normal [facility] GROUP B STREP CULTUREon 03-21 S. agalactiae Ag Ql (Unsp spec) Culture Observations: NEGATIVE FOR GROUP B STREPTOCOCCUS. Normal [facility] Comment on above: Performed By: #### C T/NGNA #### [facility] [address] [place] [address] Dr. Christa Han US PREG BIOPHY W [...] by: CAROLYN SOW Date: 2022-04-01 13:31 Normal [facility] US PREG AMNIOTIC FLUID VOLUM Kyler [...] by: CAROLYN SOW Date: 2022-03-29 13:32 Normal [facility] TSHon 03-25-2022 TSH 1.336 uIU/mL Normal 0.358-3.740 [facility] Comment on above: Performed By: #### G LU1HR #### [facility] [address] [place] [address] Dr. Christa Han TSH RANGE SEE BELOW Normal [facility] Comment on above: Result Comment: <0.3 4 UIU/ml HYPERTHYROID 0.34-5.60 UIU/ml EUTHYROID >5.60 UIU/ml HYPOTHYROID Performed By: #### G LU1HR #### [facility] [address] [place] [address] Dr. Christa Han US PREG BIOPHY W [...] SHAHEEN RAMOS Date: 2022-03-25 16:41 Normal [facility] US PREG GROWTHon 03-25-2022 US PREG GROWTH [...] SHAHEEN RAMOS Date: 2022-03-25 16:42 Normal [facility] CHLAMYDIA/GONOCOCCUS TRISTEN (SW AB/URINE/PAPon 02-15-2022 Chlamydia trachomatis, TRISTEN Negative Normal Negative [facility] Comment on above: Performed By: #### C T/NGNA #### [facility] [address] [place] [address] Dr. Christa Han Neisseria gonorrhoeae, TRISTEN Negative Normal Negative [facility] Comment on above: Performed By: #### C T/NGNA #### [facility] [address] [place] [address] Dr. Chrisat Han VAGINITIS/VAGINOSIS DNA PROB Kyler 02-14-2022 Alpa species Negative Normal Negative [facility] Comment on above: Performed By: #### G LU1HR #### [facility] [address] [place] [address] Dr. Christa Han Gardnerella vaginalis Negative Normal Negative [facility] Comment on above: Performed By: #### G LU1HR #### [facility] [address] [place] [address] Dr. Christa Han Trichomonas vaginalis Negative Normal Negative [facility] Comment on above: Performed By: #### G LU1HR #### [facility] [address] [place] [address] Dr. Christa Han GLUCOSE - 1HRon 02-01-2022 Glucose [Mass/Vol] 105 mg/dL Normal 74-106 [facility] Comment on above: Performed By: #### G LU1HR #### [facility] [address] [place] [address] Dr. Christa Han HEMOGRAM AND PLATELon 2021 Hematocrit (Bld) [Volume fraction] 34.4 % Critically low 36.0-48.0 [facility] Comment on above: Performed By: #### C T/NGNA #### [facility] [address] [place] [address] Dr. Christa Han Hemoglobin (Bld) [Mass/Vol] 11.1 g/dL Critically low 12.0-16.0 [facility] Comment on above: Performed By: #### C T/NGNA #### [facility] [address] [place] [address] Dr. Christa Han MCH (RBC) [Entitic mass] 28.2 pg Normal 26.7-34.0 [facility] Comment on above: Performed By: #### C T/NGNA #### [facility] [address] [place] [address] Dr. Christa Han MCHC (RBC) [Mass/Vol] 32.3 g/dL Normal 29.9-35.2 [facility] Comment on above: Performed By: #### C T/NGNA #### [facility] [address] [place] [address] Dr. Christa Han MCV (RBC) [Entitic vol] 87.5 fL Normal 81.0-99.0 [facility] Comment on above: Performed By: #### C T/NGNA #### [facility] [address] [place] [address] Dr. Christa Han PLT 142 103/ul Critically low 150-450 [facility] Comment on above: Performed By: #### C T/NGNA #### [facility] [address] [address] [address] Christa Han RBC 3.93 106/ul Critically low 4.20-5.40 [facility] Comment on above: Performed By: #### C T/NGNA #### [facility] [address] [place] [address] Dr. Christa Han WBC 9.3 103/ul Normal 4.0-11.0 [facility] Comment on above: Performed By: #### C T/NGNA #### [facility] [address] [place] [address] Dr. Christa Han TSHon 02-01-2022 TSH 1.218 uIU/mL Normal 0.470-4.680 [facility] Comment on above: Performed By: #### T SH #### [facility] [address] [place] [address] Dr. Christa Han TSH RANGE SEE BELOW Normal [facility] Comment on above: Result Comment: <0.3 4 UIU/ml HYPERTHYROID 0.34-5.60 UIU/ml EUTHYROID >5.60 UIU/ml HYPOTHYROID Performed By: #### T SH #### [facility] [address] [place] [address] Dr. Christa Han TSHon 12-02-2021 TSH 0.851 uIU/mL Normal 0.470-4.680 [facility] Comment on above: Performed By: #### T SH #### [facility] [address] [place] [address] Dr. Christa Han TSH RANGE SEE BELOW Normal [facility] Comment on above: Result Comment: <0.3 4 UIU/ml HYPERTHYROID 0.34-5.60 UIU/ml EUTHYROID >5.60 UIU/ml HYPOTHYROID Performed By: #### T SH #### [facility] [address] [address] [address] Christa MUKHERJEE BOX TEST PT SEND OUTo n 11-04-2021 SENT TO REF LAB 11/04/[address] [facility] Comment on above: Performed By: #### N BOX #### [facility] [address] [address] [address] Christa STONERon 09-08-2021 [place] Office Visit (EXPLOR ) -------- PAULA WHITAKER ([id number]) 1995 F Date Time Provider Department 09/08/21 5:50 PM ESTELLE SIMS During your visit today, we recorded the following information about you: Temperature Pulse Blood pressure Last Period 98.7 degrees 66/minute 128/58 07/27/21 Estelle Sims APRN.AUTOMOTIVE PARTS COUNTER PERSON 09/08/2021 7:10 PM Signed Please follow up with BRASS BUFFER as soon as possible Estelle Sims APRN.ANABEL 09/08/2021 7:52 PM Signed This note was created using NoteWriter. Subjective Paula Whitaker is a 26 year old female. The history is provided by the patient. No language path was used. LMP 07/27/2021. Not on control. 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 - HCG QUAL UR B/O Estelle Sims APRN.AUTOMOTIVE PARTS COUNTER PERSON Referring Provider: SELF [200] Allergies As of Date: 09/08/2021 (No Known Allergies) Date Reviewed: 09/08/2021 Reviewed by: Nanda Campbell Ma - Fully Assessed Reason for Visit: Amenorrhea [276] Cmt: LMP 07/27/2021 Primary Visit Diagnosis:Encounter for test, result unknown [Z32.00] Order(s):HCG QUAL UR B/O [[id number]] Order #: [id number] Prescriptions as of 09/08/2021 - levothyroxine (SYNTHROID) 50 mcg tablet Take 50 mcg by mouth once daily. Problem List As Of Date: 09/08/2021 (None) Other instructions from your clinician: Please follow up with BRASS BUFFER as soon as possible Encounter Status:Closed by ESTELLE SIMS on 09/08/21 Normal [facility] No Panel Informationon 09-08 status Positive neg - pos [facility] Quality Check Yes [facility] ALLIED HEALTHon 06-10-2017 ALLIED HEALTH HNO ID: [id number]: Angelo (Tech) Mingo Bolañose: RadiologyAuthor Type: TechnicianType: Allied HealthFiled: 06/10/2017 5:11 PMNote Text: Radiology Service Progress NotePATIENT NAME: Paula WhitakerMRN: [id number] OF SERVICE: June 10, 2017TIME: 4:53 PMPATIENT IDENTITY VERIFICATION COMPLETED USING TWO (2) METHODS: Patientconfirmed name verbally and Date of .PATIENT GENDER DATA: Female. status: : NoBreastfeeding status: NO.PATIENT RELEVANT IMPLANT DATA REVIEWED: YesRADIOLOGY DEPARTMENT: MR; Exam(s) Completed: Head: Routine BrainSeizurePERIPHERAL IV DATA: Not applicableSIGNED BY: Magdalena Fountain Mri-Andrea Lagos 2016 4:53 PM [facility] MRI BRAIN WO IVCONon 017 MRI BRAIN WO IVCON * * *Final Report* * *DATE OF EXAM: Jun 10 2017 5:11PM [facility] 0294 - MRI BRAIN WO [...] skull base. Patent flow voids.IMPRESSION: Normal brain MR.Nutritional Services Host: MARIA TERESA Transcribe Date/Time: Jun 10 2017 5:34PDictated by : CHRYSTAL ALAN MDThis examination was interpreted and the report reviewed and electronically signed by: CHRYSTAL ALAN MD on Jun 10 2017 5:38PM EST Normal [facility] Vital Signs Date Time Vital Sign Value Performing Clinician Facility 08-09-2024 07:57-0400 Blood Pressure Location Elena Gudimella [facility] 08-09-2024 07:57-0400 Diastolic blood pressure 68 mm[Hg] Elena Gudimella [facility] 08-09-2024 07:57-0400 Heart rate 73 /min Elena Gudimella [facility] 08-09-2024 07:57-0400 SaO2% (BldA) [Mass fraction] 98 % Elena Gudimella [facility] 08-09-2024 07:57-0400 Systolic blood pressure 110 mm[Hg] Elena Gudimella [facility] 05-26-2023 10:07-0400 Blood Pressure Location Elena Gudimella [facility] 05-26-2023 10:07-0400 Diastolic blood pressure 70 mm[Hg] Elena Gudimella [facility] 05-26-2023 10:07-0400 Heart rate 78 /min Elena Gudimella [facility] 05-26-2023 10:07-0400 SaO2% (BldA) [Mass fraction] 95 % Elena Gudimella [facility] 05-26-2023 10:07-0400 Systolic blood pressure 110 mm[Hg] Elena Gudimella [facility] 09-01-2022 11:18-0400 Blood Pressure Location Elena Gudimella [facility] 09-01-2022 11:18-0400 Diastolic blood pressure 64 mm[Hg] Elena Gudimella [facility] 09-01-2022 11:18-0400 Heart rate 68 /min Elena Gudimella [facility] 09-01-2022 11:18-0400 SaO2% (BldA) [Mass fraction] 98 % Elena Gudimella [facility] 09-01-2022 11:18-0400 Systolic blood pressure 112 mm[Hg] Elena Gudimella [facility] 06-10-2022 19:32-0400 Body height 160.02 cm [facility] 06-10-2022 19:32-0400 Body temperature 98 [degF] [facility] 06-10-2022 19:32-0400 Body weight 69.53 kg [facility] 06-10-2022 19:32-0400 Diastolic blood pressure 57 mm[Hg] [facility] 06-10-2022 19:32-0400 Heart rate 65 /min [facility] 06-10-2022 19:32-0400 Respiratory rate 16 /min [facility] 06-10-2022 19:32-0400 SaO2% (BldA) [Mass fraction] 99 % [facility] 06-10-2022 19:32-0400 Systolic blood pressure 114 mm[Hg] [facility] 09-08-2021 18:57-0400 Body temperature 98.71 [degF] Estelle Votypka WAREHOUSE INSULATION WORKER.AUTOMOTIVE PARTS COUNTER PERSON Work Phone: [facility] 09-08-2021 18:57-0400 Diastolic blood pressure 58 mm[Hg] Estelle Votypka WAREHOUSE INSULATION WORKER.AUTOMOTIVE PARTS COUNTER PERSON Work Phone: [facility] 09-08-2021 18:57-0400 Heart rate 66 /min Estelle Votypka WAREHOUSE INSULATION WORKER.AUTOMOTIVE PARTS COUNTER PERSON Work Phone: [facility] 09-08-2021 18:57-0400 SaO2% (BldA) [Mass fraction] 100 % Estelle Votypka WAREHOUSE INSULATION WORKER.AUTOMOTIVE PARTS COUNTER PERSON Work Phone: [facility] 09-08-2021 18:57-0400 Systolic blood pressure 128 mm[Hg] Estelle Votypka WAREHOUSE INSULATION WORKER.AUTOMOTIVE PARTS COUNTER PERSON Work Phone: [facility] Encounters Encounter Date Encounter Type Care Provider Facility Start: 08-09-2024 End: 08-09-2024 Lab Drop off Elena Gudimella [facility] Start: 08-09-2024 End: 08-09-2024 ambulatory Elena Gudimella Facility:[facility] Start: 08-09-2024 End: 08-09-2024 Patient encounter procedure Elena Gudimella [facility] Start: 08-09-2024 End: 08-09-2024 Well adult monitoring check done Elena Gudimella [facility] Start: 03-27-2024 End: 03-27-2024 ambulatory MAXIM LOWE Not Available Start: 03-21-2024 End: 03-21-2024 ambulatory MAXIM LOWE Not Available Start: 12-22-2023 End: 12-22-2023 ambulatory MUKESH MARSHALL Not Available Start: 10-20-2023 End: 10-20-2023 ambulatory MUKESH MARSHALL Not Available Start: 10-17-2023 End: 10-17-2023 ambulatory Elena Gudimella Facility:[facility] Start: 10-17-2023 End: 10-17-2023 ambulatory MD Elena Burger Work Phone: [facility] Work Phone: Start: 10-17-2023 End: 10-17-2023 Patient encounter procedure MD Elena Burger Work Phone: [facility] [place] Work Phone: Start: 05-26-2023 End: 05-26-2023 Patient encounter procedure Elena Gudimella [facility] Start: 05-26-2023 End: 05-26-2023 Well adult monitoring check done Elena Gudimella [facility] Start: 09-08-2022 Encounter for preprocedural laboratory examination DR MUKESH JONES [facility] Start: 09-08-2022 End: 09-08-[address] MUKESH JONES Facility:[facility] Start: 09-06-2022 End: 09-07-[address] MUKESH JONES Facility:[facility] Start: 09-06-2022 End: 09-07-2022 Encounter for preprocedural laboratory examination DR MUKESH JONES Facility:[facility] Start: 09-01-2022 End: 09-01-2022 Patient encounter procedure Elena Gudimella [facility] Start: 08-17-2022 End: 08-18-[address] MUKESH JONES Facility:[facility] Start: 07-30-2022 End: 07-31-[address] MUKESH JONES Facility:[facility] Start: 07-06-2022 End: 07-06-[address] MUKESH JONES Facility:[facility] Start: 06-10-2022 End: 06-10-2022 Emergency department patient visit [facility] Start: 05-07-2022 End: 05-12-[address] [...] End: 09-08-2021 Patient encounter procedure Estelle Sims APRN.AUTOMOTIVE PARTS COUNTER PERSON Work Phone: [facility] Comment on above: Encounter for pregna ncy [...] test visual color cmprsn meths Estelle Sims APRN.AUTOMOTIVE PARTS COUNTER PERSON Work Phone: Plan of Treatment Date Care Activity Detail Author Start: 10-17-[address] [facility] Start: 06-10-2022 [facility] Work Phone: Start: 07-22-2021 Influenza vaccination INFLUENZA (#1) [facility] Start: 2016 PAP TESTING PAP TESTING [facility] Start: 2014 Urine microalbumin profile DTAP,TDAP,TD (1 - Tdap) [facility] Start: 2013 HEPATITIS C SCREENING HEPATITIS C SCREENING [facility] Start: 2013 HIV SCREENING HIV SCREENING [facility] Start: 2007 Adult depression screening assessment DEPRESSION SCREENING [facility] Start: 2007 COVID-19 VACCINE (1) COVID-19 VACCINE (1) [facility] Start: 2006 HPV VACCINE (1 - 2-dose series) HPV VACCINE (1 - 2-dose series) [facility] Bilirubin measurement, urine [facility] Work Phone: Choriogonadotropin ( test) [Presence] in Urine [facility] Work Phone: Color of Urine [facility] Work Phone: Detection of hemoglobin [facility] Work Phone: Glucose [Mass/volume ] in Urine by Test strip [facility] Work Phone: Glucose measurement estimated from glycated hemoglobin [facility] Measurement of keton es in urine using dipstick [facility] Work Phone: Patient referral [facility] Work Phone: Protein measurement, urine F [facility] Work Phone: Urinalysis, specific gravity measurement [facility] Work Phone: Urine dipstick for nitrite F [facility] Work Phone: Urine dipstick for s pecific gravity [facility] Work Phone: Urine pH test [facility] Work Phone: Urobilinogen concent ration, test strip measurement [facility] Work Phone: Immunizations Immunization Date Immunization Notes Care Provider Margarita han 07-15-2009 HPV, unspecified formulation Elena Gudimella [facility] 10-25-2007 HPV, unspecified formulation Elena Gudimella [facility] 08-25-2007 HPV, unspecified formulation Elena Gudimella [facility] 08-25-2007 meningococcal ACWY vaccine, unspecified formulation Elena Gudimella [facility] 08-25-2007 tetanus toxoid, unspecified formulation Elena Gudimella [facility] 03-22-2000 diphtheria, tetanus toxoids and acellular pertussis vaccine Elena Gudimella [facility] 03-22-2000 measles, mumps and rubella virus vaccine Elena Gudimella [facility] 03-22-2000 poliovirus vaccine, unspecified formulation Elena Gudimella [facility] 01-11-1996 measles, mumps and rubella virus vaccine Elena Gudimella [facility] 1995 diphtheria, tetanus toxoids and acellular pertussis vaccine Elena Gudimella [facility] 1995 haemophilus influenz ae type b vaccine, PRP-OMP conjugate Elena Gudimella [facility] 1995 hepatitis B vaccine, pediatric or pediatric/adolescent dosage Elean Gudimella [facility] 1995 poliovirus vaccine, unspecified formulation Elena Gudimella [facility] 1995 diphtheria, tetanus toxoids and acellular pertussis vaccine Elena Gudimella [facility] 1995 haemophilus influenz ae type b vaccine, PRP-OMP conjugate Elena Gudimella [facility] 1995 hepatitis B vaccine, pediatric or pediatric/adolescent dosage Elena Gudimella [facility] 1995 poliovirus vaccine, unspecified formulation Elnea Gudimella [facility] 1995 diphtheria, tetanus toxoids and acellular pertussis vaccine Elena Gudimella [facility] 1995 haemophilus influenz ae type b vaccine, PRP-OMP conjugate Elena Gudimella [facility] 1995 hepatitis B vaccine, pediatric or pediatric/adolescent dosage Elena Gudimella [facility] 1995 poliovirus vaccine, unspecified formulation Elena Gudimella [facility] NEGATED: Highlighted row has not occurred!08-09-2024 influenza virus vaccine, unspecified formulation Elena Gudimella [facility] NEGATED: Highlighted row has not occurred!09-01-2022 influenza virus vaccine, unspecified formulation Elena Gudimella [facility] NEGATED: Highlighted row has not occurred!01-23-2020 influenza virus vaccine, live, attenuated, for intranasal use Elena Kevinmoniquemichelle [facility] Payers Date Payer Category Payer Medicaid [id number] 2021 Medicaid [employer] [id number] 2021-Present Medicaid [id number] 1995 Unknown [id number] 1995 Unknown [id number] 1995 Unknown [id number] [id number] 1995 Unknown [id number] [id number] 1995 Unknown [id number] [id number] 1995 Unknown [id number] 2.16.840.1.128735.3.579.2.593 1995 Unknown [id number] 2.16.840.1.912484.3.579.2.593 1995 Unknown [id number] 2.16.840.1.167403.3.579.2.593 1995 Unknown [id number] 2.16.840.1.180381.3.579.2.593 1995 Unknown [id number] 2.16.840.1.906206.3.579.2.593 1995 Unknown [id number] 2.16.840.1.148617.3.579.2.593 1995 Unknown [id number] 2.16.840.1.168789.3.579.2.593 1995 Unknown [id number] 2.16.840.1.128242.3.579.2.593 1995 Unknown [id number] 2.16.840.1.866244.3.579.2.593 1995 Unknown [id number] 2.16.840.1.281989.3.579.2.593 1995 Unknown [id number] 2.16.840.1.800600.3.579.2.593 1995 Unknown [id number] 2.16.840.1.768665.3.579.2.593 1995 Unknown [id number] 2.16.840.1.807130.3.579.2.593 1995 Unknown [id number] 2.16.840.1.894060.3.579.2.593 1995 Unknown [id number] 2.16.840.1.623326.3.579.2.593 1995 Unknown [id number] 2.16.840.1.564300.3.579.2.593 1995 Unknown [id number] 2.16.840.1.717022.3.579.2.593 1995 Unknown [id number] 2.16.840.1.626748.3.579.2.593 1995 Unknown [id number] 2.16.840.1.784996.3.579.2.593 1995 Unknown [id number] 2.16.840.1.571785.3.579.2.593 1995 Unknown [id number] 2.16.840.1.265522.3.579.2.1259 1995 Unknown [id number] 2.16.840.1.445992.3.579.2.1259 1995 Unknown [id number] 2.16.840.1.308801.3.579.2.1259 1995 Unknown [id number] 2.16.840.1.847848.3.579.2.1259 1995 Unknown [id number] 2.16.840.1.991666.3.579.2.727 1995 Unknown [id number] 2.16.840.1.605600.3.579.2.727 1959 Medicaid [id number] Self-pay [id number] 1959 Unknown [id number] Unknown [id number] 2.16.840.1.599667.3.579.2.593 Unknown [id number] 2.16.840.1.576304.3.579.2.531 Social History Date Type Detail Facility Tobacco smoking stat [facility] Unknown if ever smoked [facility] Start: 1995 Sex Assigned At Not [facility] file [facility] Exposure to SARS-CoV -2 (event) Not sure [facility] Start: 06-10-2022 End: 08-09-2024 Tobacco smoking status MEIS Never smoked tobacco (finding) [facility] Comment on above: denies Start: 1995 Sex Assigned At Female F [facility] Tobacco smoking status Never [facility] Comment on above: denies Sex Assigned At Female [facility] Functional Status Date Assessment Result Facility 08-09-2024 Functional Status N/A [facility] 05-26-2023 Functional Status N/A [facility] 09-01-2022 Functional Status N/A [facility] Clinical Notes 09-08-2021 to 08-06-2024 LaboratoryLaboratoryLaboratoryVoEstelle reyes APRN.AUTOMOTIVE [employer]S COUNTER PERSON - 09/08/2021 7:50 PM EDTPatient Instructions Note Date & Type Note Facility 08-06-2024 Hospital Discharge instructions Follow Up Care 08/06/2024 10:01:24 With:Elena Burger MD, [facility], [facility] Address: [address] [place] [phone]- [phone] Business (1) When:Within 1 Year(s) [facility] 10-12-2023 Evaluation + Plan note Future Scheduled [id number] 10/12/23 [facility] 05-26-2023 Evaluation + Plan note Future Scheduled [id number] 05/26/23TSH With T4fr Reflex 05/26/23CBC w/ Auto Diff 05/26/23Comprehensive Metabolic Panel 09/01/22Comprehensive Metabolic Panel 05/26/23Lipid Panel 09/01/22Lipid Panel 05/26/23Thyroid Stimulating Hormone 09/01/22 [facility] 05-11-2023 Hospital Discharge instructions Follow Up Care 05/11/2023 09:10:44 With:Elena Burger MD, [facility], [facility] Address: [address] [place] [phone]- [phone] Business (1) When:Within 1 Year(s) [facility] 09-08-2022 Note OPERATIVE NOTE OPERATION DATE: 09/08/2022 PROCEDURE: Hysteroscopy D AND C with diagnostic laparoscopy for removal of retained IUD in the abdomen. PREOPERATIVE DIAGNOSIS: Retained IUD, potentially IUD migration. POSTOPERATIVE DIAGNOSIS: Retained IUD including migration of IUD. SURGEON: Mukesh Jones D.O. WEB SITE ADMIN: JUDD Muller URINE OUTPUT: Yellow and clear. [...] to Recovery Room in stable condition. [facility] 09-01-2022 Evaluation + Plan note Future Scheduled TestsComprehensive Metabolic Panel 09/01/22Lipid Panel 09/01/22Thyroid Stimulating Hormone 09/01/22 [facility] [place] 09-01-2022 Hospital Discharge instructions Patient Education 09/01/2022 [...] height. This can be done either in [place] ([place] or metric measurements. Note that charts are available to help you find your BMI quickly and easily without having to do these calculations yourself. To calculate your BMI in [place] ([place] measurements, your health care provider will: [...] medical problems. BMI can be measured using [place] measurements or metric measurements. To interpret your [...] 07/19/2005 Document Revised: 10/20/2018 Document Reviewed: 09/20/2018 [employer] Patient Education 2020 [employer] Follow Up Care 08/18/2022 08:40:58 With:Jennyfer BECKWITH, Elena, [facility], [facility] Address: [address] [place] [address] [phone]- [phone] Business (1) When:Within 1 Year(s) [facility] [place] 09-08-2021 Note HNO ID: [id number] Author: Estelle Sims APRN.AUTOMOTIVE [employer]S COUNTER PERSON Service: ? Author Type: Nurse Practitioner Type: Progress Notes Filed: 09/08/2021 7:52 PM Note Text: This note was created using [employer]. Subjective Paula Whitaker is a 26 year old female. The history is provided by the patient. No language path was used. LMP 07/27/2021. Not on control. 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 - HCG QUAL UR B/O Estelle Sims APRN.AUTOMOTIVE PARTS COUNTER PERSON [facility] 09-08-2021 History of Present illness Narrative This note was created using [employer]. Cody Whitaker is a 26 year old female. The history is provided by the patient. No language path was used. LMP 07/27/2021. Not on control. 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 - HCG QUAL UR B/O Estelle Sims APRN.AUTOMOTIVE PARTS COUNTER PERSON documented in this encounter [facility] 09-08-2021 Instructions Estelle Sims APRN.CNP - 09/08/2021 7:10 PM EDT Please follow up with BRASS BUFFER as soon as possible documented in this encounter [facility] Evaluation note Diagnosis Encounter for test, result unknown- Primary documented in this encounter [facility] noteNo assessment information available[facility] Work Phone: Hospital course Narrative No data available for this section [facility] Hospital Discharge instructions No data available for this section [facility] Progress note No data available for this section [facility] Summary Purpose Family History No Family [...] section and content) DATE CREATED AUTHOR 05/17/2018 [facility] DATE CREATED AUTHOR AUTHOR'S ORGANIZ ATION 09/10/2021 [facility] DATE CREATED AUTHOR AUTHOR'S ORGANIZ ATION 09/22/2022 [facility] DATE CREATED AUTHOR AUTHOR'S ORGANIZ ATION 10/26/2023 [facility] DATE CREATED AUTHOR AUTHOR'S ORGANIZ ATION 03/29/2024 [facility] DATE CREATED AUTHOR AUTHOR'S ORGANIZ ATION 08/11/2024 [facility] DATE CREATED AUTHOR AUTHOR'S ORGANIZ ATION 08/12/2024 [facility] Source Comments (unrecognize d section and content) In the event this informatio n is protected by the Federal Confidentiality of Alcohol and Drug Abuse Patient Records regulations: The Federal rules restrict any use of the information to criminally investigate or prosecute any alcohol or drug abuse patient.[facility] Reason for Visit (unrecogniz ed section and [...] BE BASED ON THE PRIMARY CLINICAL RECORDS. [facility] [employer] [facility]. provides no warranty or guarantee of the accuracy or completeness of information in this document.
== END 2024-08-16 10:48 | disposition home or self-care (01) ==
LOC: US 10:47
PROVIDERS: Visit Provider Obstetrics & Gynecology
DX: R10.2 Pelvic and perineal pain (principal)
CPT/HCPCS: 76830; 76856

== ENCOUNTER 2024-10-25 08:29 | Outpatient (OUT) | payer MEDICAID, SELFPAY | END 2024-10-25 08:30 | disposition home or self-care (01) | LOC: PST 08:31 | PROVIDERS: PCP Family Medicine; Visit Provider Obstetrics & Gynecology | DX: Z01.818 Encounter for other preprocedural examination (principal) ==

== ENCOUNTER 2024-11-02 08:27 | Day surgery (SDC) | payer MEDICAID, SELFPAY ==
[2024-10-25 09:24] VITALS: BP 107/73; PULSE 71; TEMP 36.4; O2SAT 98; BMI 26.7
[2024-11-02] VITALS (9 sets, daily range): BP systolic 97–118; BP diastolic 57–69; PULSE 61–89; TEMP 36.3–36.4; O2SAT 95–100; BMI 24.1; BMI 26.5
--- OUTSIDE RECORDS SUMMARY | 2024-11-02 08:31 | XMS_ITS | CCD ---
Author Organization [facility] Care Team Providers Care Erp Technical Lead Name Role Phone ELIOT MONTES Celeste Unavailable Unavailable Khushboo Pennington Primary Care Provider NON STAFF Primary Care Provider UnavailCONNER Zavaleta Emergency Provider [phone] Khushboo PENNINGTON Primary Care Physician [phone] REQUEST, NONE LISTED Primary Care Unavaila ble ROBERT, DR MAYORGA Consulting Unavailable ROBERT, DR MAYORGA Admitting Unavailable ROBERT, DR MAYORGA Attending Unavailable ROBERT, DR MAYORGA Attending Unavailable ROBERT, DR MAYORGA Consulting Unavailable ROBERT, DR MAYORGA Admitting Unavailable REQUEST, DR HERNANDEZ LISTED Primary Care Unavaila ble KARASIK, DR INIGUEZ Consulting Unavailable KARASIK, DR INIGUEZ Admitting Unavailable KARASIK, DR INIGUEZ Attending Unavailable WEST, DR SHAHEEN Lazo Consulting Unavailable ROBERT, DR MAYORGA Consulting Unavailable ROBERT, DR MAYORGA Attending Unavailable ROBERT, DR MAYORGA Consulting Unavailable REQUEST, DR DAVID LISTED Primary Care Unavaila ble ROBERT, DR MAYORGA Admitting Unavailable ZIEBER, DR WAI Torres Consulting Unavailable ROBERT, DR MAYORGA Attending Unavailable REQUEST, DR HERNANDEZ LISTED Primary Care Unavaila ble ROBERT, DR MAYORGA Admitting Unavailable WEST, DR SHAHEEN Lazo Consulting Unavailable ROBERT, DR MAYORGA Consulting Unavailable ROBERT, DR MAYORGA Admitting Unavailable ROBERT, DR MAYORGA Attending Unavailable REQUEST, NONE LISTED Primary Care Unavaila ble WEST, DR SHAHEEN Lazo Consulting Unavailable ROBERT, DR MAYORGA Consulting Unavailable ROBERT, DR MAYORGA Consulting Unavailable ROBERT, DR MAYORGA Admitting Unavailable ROBERT, DR MAYORGA Attending Unavailable REQUEST, DR HERNANDEZ LISTED Primary Care Unavaila ble KARASIK, DR INIGUEZ Consulting Unavailable KARASIK, DR INIGUEZ Admitting Unavailable KARASIK, DR INIGUEZ Attending Unavailable ROBERT, DR MAYORGA Attending Unavailable ROBERT, DR MAYORGA Consulting Unavailable ROBERT, DR MAYORGA Admitting Unavailable KARASIK, DR INIGUEZ Consulting Unavailable KARASIK, DR INIGUEZ Admitting Unavailable KARASIK, DR INIGUEZ Attending Unavailable REQUEST, DR NONE LISTED Primary Care Unavaila ble ROBERT, DR MAYORGA Consulting Unavailable REQUEST, DR NONE LISTED Primary Care Unavaila ble ROBERT, DR MAYORGA Attending Unavailable ROBERT, DR MAYORGA Admitting Unavailable ZIEBER, DR WAI Torres Consulting Unavailable KARASIK, DR INIGUEZ Consulting Unavailable KARASIK, DR INIGUEZ Admitting Unavailable KARASIK, DR INIGUEZ Attending Unavailable REQUEST, DR NONE LISTED Primary Care Unavaila ble WEST, DR SHAHEEN Lazo Consulting Unavailable REQUEST, NONE LISTED Primary Care Unavaila ble ROBERT, DR MAYORGA Consulting Unavailable ROBERT, DR MAYORGA Admitting Unavailable ROBERT, DR MAYORGA Attending Unavailable ZIEBER, DR WAI Torres Consulting Unavailable REQUEST, DR NONE LISTED Primary Care Unavaila ble KARASIK, DR INIGUEZ Consulting Unavailable KARASIK, DR INIGUEZ Admitting Unavailable KARASIK, DR INIGUEZ Attending Unavailable REQUEST, DR NONE LISTED Primary Care Unavaila ble ROBERT, DR MAYORGA Consulting Unavailable ROBERT, DR MAYORGA Admitting Unavailable ROBERT, DR MAYORGA Attending Unavailable ZIEBER, DR WAI Torres Consulting Unavailable KARASIK, DR INIGUEZ Attending Unavailable KARASIK, DR INIGUEZ Consulting Unavailable KARASIK, DR INIGUEZ Admitting Unavailable ROBERT, DR MAYORGA Attending Unavailable ROBERT, DR MAYORGA Consulting Unavailable ROBERT, DR MAYORGA Admitting Unavailable REQUEST, DR NONE LISTED Primary Care Unavaila ble ROBERT, DR MAYORGA Attending Unavailable ROBERT, DR MAYORGA Admitting Unavailable RBOERT, DR MAYORGA Consulting Unavailable REQUEST, DR NONE LISTED Primary Care Unavaila ble ROBERT, DR MAYORGA Admitting Unavailable ROBERT, DR MAYORGA Attending Unavailable REQUEST, NONE LISTED Primary Care Unavaila ble ROBERT, DR MAYORGA Attending Unavailable ROBERT, DR MAYORGA Admitting Unavailable ROBERT, DR MAYORGA Attending Unavailable ROBERT, DR MAYORGA Consulting Unavailable REQUEST, DR NONE LISTED Primary Care Unavaila ble ROBERT, DR MAYORGA Admitting Unavailable MIGUEL, CARON [place] Consulting Unava ilable UYEN SMILEY Consulting Unavailable REQUEST, DR NONE LISTED Primary Care Unavaila ble KARASIJunior, DR INIGUEZ Consulting Unavailable ROBERT, DR MAYORGA Attending Unavailable ROBERT, DR MAYORGA Admitting Unavailable ROBERT, DR MAYORGA Consulting Unavailable MCCORNAWAI ERICKSON Consulting Unavailable ROBERT, DR MAYROGA Procedure Practitioner Unavailab le ROBERT, DR MAYORGA Attending Unavailable ROBERT, DR MAYORGA Consulting Unavailable REQUEST, DR NONE LISTED Primary Care Unavaila ble ROBERT, DR MAYORGA Admitting Unavailable ROBERT, DR MAYORGA Attending Unavailable ROBERT, DR MAYORGA Admitting Unavailable ROBERT, DR MAYORGA Consulting Unavailable ROBERT, DR MAYORGA Admitting Unavailable REQUEST, DR NONE LISTED Primary Care Unavaila ble ROBERT, DR MAYORGA Attending Unavailable KARASIK, DR INIGUEZ Attending Unavailable KARASIK, DR INIGUEZ Consulting Unavailable KARASIK, DR INIGUEZ Admitting Unavailable REQUEST, DR NONE LISTED Primary Care Unavaila ble MAGI, DR WAI Torres Consulting Unavailable MD Jennyfer Elena Primary Care Provider MD Jennyfer Elena Attending Provider Jennyfer, Elena Admitting Unavailable Jennyfer, Elena Attending Unavailable Jennyfer, Elena Attending Unavailable Elena Burger Attending Unavailable Jennyfer, Elena Admitting Unavailable Jennyfer BECKWITH, Elena Primary Care Provider Wai Mclaughlin MD Unavailable MUKESH JONES Attending Unavailable MAXIM WATERS Attending Unavailable MUKESH JONES Attending Unavailable MAXIM WATERS Referring Unavailable MUKESH JONES Attending Unavailable MUKESH JONES Attending Unavailable Jony Gamboa Attending Unavailab Jony Rodriguez Admitting Unavailab le Jennyfer Elena Primary Care Unavailable Allergies Allergy Classification Reported Allergen(s) Allergy Type Date of Onset Reaction(s) Facility (6 sources) Escitalopram; Translations: [escitalopram] Drug Allergy 3 Unknown (qualifier value), Unknown [facility] [place] (1 source) Amitriptyline Drug Allergy [facility] (1 source) LORazepam Drug Allergy [facility] (1 source) LORazepam Drug Allergy [facility] (1 source) Amitriptyline Drug Allergy 4 [facility] Healthcare (1 source) Lorazepam Propensity to adverse reactions 1 [facility] Medications Current Medications Medication Drug Class(es) Dates Sig (Normalized) Sig (Original) Norethindrone-Ethin Estradiol (4 sources) Estrogen Start: 06-23-2020 take [id number] ug by mouth once daily Norethindrone-Ethi n Estradiol (Nortrel 1/35 (21)) 1-35 mg-mcg (21) tablet Active 1 - 35 TAB PO Daily June 22, 2020 11:00pm Start: 06-23-2020 take 0.7211531403716 2857 ug by mouth once daily Norethindrone-Ethin Estradiol (Nortrel 1/35 (21)) 1-35 mg-mcg (21) tablet Active 1 - 35 TAB PO Daily June 23, 2020 12:00am Start: 09-17-2019 End: 06-23-2020 Norethindrone-Ethin Estradio l (Alyacen 1/35 (28)) 1-35 mg-mcg tablet Discontinued TABLET September 16, 2019 11:00pm June 23, 2020 7:40am fluconazole 150 mg oral tablet (1 source) Azole Antifungal Start: 10-01-2024 End: 10-08-2024 take 1 tablet by mouth once, then take 1 tablet by mouth once fluconazole (Diflucan) 150 MG tablet Indications: Yeast infection Take 1 tablet (150 mg) by mouth 1 (one) time for 1 dose This is a 1 time dose, take single tablet by mouth. 1 tablet 1 10/01/2024 10/08/2024 Discontinued folic acid 1 mg oral tablet (2 [...] stomach, # 30 tab(s), Refills(s) 11, Pharmacy: [facility], 157, cm, 05/26/23 10:09:00 EDT, Height/Length Dosing, 64.4, kg, 05/26/23 10:09:00 EDT, Weight Dosing Start Date: 11/24/23 Status: Ordered Start: 05-26-2023 take 1 tablet by dennis th once daily levothyroxine 50 mcg (0.05 mg) Tab 50 microgram = 1 tab(s), Oral, Daily, on empty stomach, # 90 tab(s), Refills(s) 3, Pharmacy: [facility], 157, cm, 05/26/23 10:09:00 EDT, Height/Length Dosing, 64.4, kg, 05/26/23 10:09:00 EDT, Weight Dosing Start Date: 05/26/23 Status: Ordered Start: 08-18-2022 take 1 tablet by dennis th once daily levothyroxine 50 mcg (0.05 mg) Tab 50 microgram = 1 tab(s), Oral, Daily, on empty stomach, # 90 tab(s), Refills(s) 0, Pharmacy: [facility], 157, cm, 07/23/21 13:06:00 EDT, Height/Length [...] IU CONTRACPT DEVC INIT] Onset: 09-08-2022 Episodic Contraceptive and procreative management (1 source) Sterilization requested; Translations: [Encounter for sterilization] 10-08-2024 Episodic Disorders of teeth and jaw (2 [...] for test, result unknown] Onset: 11-04-2021 Episodic Residual codes; unclassified (1 source) Hypersomnia; Translations: [Hypersomnia, unspecified] Onset: 03-21-2024 03-27-2024 Chronic Suicide and intentional self-inflicted injury (4 sources) [...] Unclassified (5 sources) Patient encounter status 05-26-2023 Past or Other Problems Problem Classification Problem Date Documented Date Episodic/Chronic OB-related trauma to perineum and vulva (1 source) Second degree perineal laceration during delivery; Translations: [SECOND DEG PERINEAL LAC DUR DELIV] Onset: 05-13-2022 Episodic Other aftercare (1 source) 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 Discharge Vitals Heart Rate (Peripheral) 73 Blood Pressure 110/68 Height 157 cm Height 62 in Weight 64.5 kg Weight 141.9 lb BMI 26.17 What to do next You Need to Schedule the Following Appointments Follow Up with Elena Burger MD, [facility], MED When: In 1 year Where: [address] [place] [phone] Business (1) Medications What How Much When Why [...] for choosing us for your care. Normal [facility] CHEMISTRYOrdered By: SYSTEM SYSTEM on 08-09-2024 [...] (Bld) [Mass fraction] 5.2 % Normal <=5.9% [facility] ChemAutoSS CMPon 08-09-2024 Albumin [Mass/Vol] 4.2 g/dL Normal 3.3-5.[address] [facility] Comment on above: Performed By: #### 2 [id number] #### [facility] [address] [place] [address] Albumin/Globulin (S) [Mass conc ratio] 2.0 Normal 1.1-2.[address] [facility] Comment on above: Performed By: #### 2 [id number] #### [facility] [address] [place] [address] ALP [Catalytic activity/Vol] 61 Int._Unit/L Normal 21-[address] [facility] Comment on above: Performed By: #### 2 [id number] #### [facility] [address] [place] [address] ALT No additional P-5'-P [Catalytic activity/Vol] 10 Int._Unit/L Normal 6-[address] [facility] Comment on above: Performed By: #### 2 [id number] #### [facility] [address] [place] [address] Anion gap [Moles/Vol] 8 mmol/L Normal 6-16 [facility] Comment on above: Performed By: #### 2 [id number] #### [facility] [address] [place] [address] AST [Catalytic activity/Vol] 12 Int._Unit/L Normal 5-[address] [facility] Comment on above: Performed By: #### 2 [id number] #### [facility] [address] [place] [address] Bilirubin [Mass/Vol] 0.4 mg/dL Normal 0.0-1.1 [facility] Comment on above: Performed By: #### 2 [id number] #### [facility] [address] [place] [address] Calcium [Mass/Vol] 8.9 mg/dL Normal 8.9-11.[address] [facility] Comment on above: Performed By: #### 2 [id number] #### [facility] [address] [place] [address] Chloride [Moles/Vol] 108 mmol/L Normal 101-111 [facility] Comment on above: Performed By: #### 2 [id number] #### [facility] [address] [place] [address] CO2 [Moles/Vol] 26 mmol/L Normal 21-31 [facility] Comment on above: Performed By: #### 2 [id number] #### [facility] [address] [place] [address] Creatinine [Mass/Vol] 0.6 mg/dL Normal 0.5-1.3 [facility] Comment on above: Performed By: #### 2 [id number] #### [facility] [address] [place] [address] Globulin (S) [Mass/Vol] 2.1 g/dL Normal 1.4-4.[address] [facility] Comment on above: Performed By: #### 2 [id number] #### [facility] [address] [place] [address] Glucose [Mass/Vol] 87 mg/dL Normal 55-[address] [facility] Comment on above: Performed By: #### 2 [id number] #### [facility] [address] [place] [address] Potassium [Moles/Vol] 4.2 mmol/L Normal 3.5-5.3 [facility] Comment on above: Performed By: #### 2 [id number] #### [facility] [address] [place] [address] Protein [Mass/Vol] 6.3 g/dL Normal 6.0-7.[address] [facility] Comment on above: Performed By: #### 2 [id number] #### [facility] [address] [place] [address] Sodium [Moles/Vol] 138 mmol/L Normal 135-[address] [facility] Comment on above: Performed By: #### 2 [id number] #### [facility] [address] [place] [address] Urea nitrogen [Mass/Vol] 15 mg/dL Normal 5-[address] [facility] Comment on above: Performed By: #### 2 [id number] #### [facility] [address] [place] [address] Urea nitrogen/Creatinine [Mass ratio] 25 No Units High 10-[address] [facility] Comment on above: Performed By: #### 2 [id number] #### [facility] [address] [place] [address] Family Medicine Office/Clini c Noteon 08-09-2024 Family [...] Burger MD, FAM, MED In [address] [place] [phone] Business (1) Additional Instructions: Problem List/Past Medical [...] vaccine 06/22 (more content not included)... Normal [facility] Comment on above: Result Comment: Elec tronically Signed By: Elena Burger MD\.br\Date and Time Signed: 08/09/24 08:29 EDT [id number] 08-09-2024 HbA1c (Bld) [Mass fraction] 5.2 % Normal <=5.[address] [facility] Comment on above: Performed By: #### 7 [id number] #### [facility] [address] [place] [address] Lipid Panelon 08-09-2024 Cholesterol [Mass/Vol] 144 mg/dL Normal 120-200 [facility] Comment on above: Performed By: #### 2 [id number] #### [facility] [address] [place] [address] Cholesterol in HDL [Mass/Vol] 66 mg/dL Invalid Interpretation Code [facility] Comment on above: Result Comment: '>= 60 LOW RISK' '<= 40 HIGH RISK' Performed By: #### 2 [id number] #### [facility] [address] [place] [address] Cholesterol in LDL [Mass/Vol] 73 mg/dL Normal <=[address] [facility] Comment on above: Performed By: #### 2 [id number] #### [facility] [address] [place] [address] Cholesterol in VLDL [Mass/Vol] 6 mg/dL Low 7-[address] [facility] Comment on above: Performed By: #### 2 [id number] #### [facility] [address] [place] [address] Triglyceride [Mass/Vol] 28 mg/dL Normal <=[address] [facility] Comment on above: Performed By: #### 2 [id number] #### [facility] [address] [place] [address] TSH With T4fr Reflexon 08-09 TSH Qn 1.55 m[IU]/L Normal 0.34-5.[address] [facility] Comment on above: Performed By: #### 1 [id number] #### [facility] [address] [place] [address] eGFRon 08-09-2024 eGFR 124 mL/min/1.73 m2 Normal >=[address] [facility] Comment on above: Performed By: #### 1 [id number] #### [facility] [address] [place] [address] Lab Reportson 10-28-2023 Lab Reports [id number] F Normal [facility] Lab Reports [id number] Normal [facility] Lab Reportson 10-26-2023 Lab Reports [id number] F Normal [facility] Alanine aminotransferase [En zymatic activity/volume] in Serum or PlasmaOrdered By: Elena Gudimella on 10-17-2023 ALT [Catalytic activity/Vol] 10 U/L 7-52 [facility] Albumin [Mass/volume] in Ser um or Plasma by Bromocresol green (BCG) dye binding methoOrdered By: Elena Gudimella on 10-17-2023 Albumin BCG dye [Mass/Vol] 4.5 g/dL 3.5-5.7 [facility] Alkaline phosphatase [Enzyma tic activity/volume] in Serum or PlasmaOrdered By: Elena Gudimella on 10-17-2023 ALP [Catalytic activity/Vol] 62 U/L 34-104 [facility] Aspartate aminotransferase [ Enzymatic activity/volume] in Serum or PlasmaOrdered By: Elena Gudimella on 10-17-2023 AST [Catalytic activity/Vol] 13 U/L 13-39 [facility] Basophils Auto (Bld) [#/Vol] Ordered By: Eelna Gudimella on 10-17-2023 Basophils (Bld) [#/Vol] 0.0 10*3/uL 0.0-0.2 [facility] Basophils/100 WBC Auto (Bld) Ordered By: Elenajason Brown on 10-17-2023 Basophils/100 WBC (Bld) 0.5 % . [facility] Bilirubin.total [Mass/volume ] in Serum or PlasmaOrdered By: Elenajason Brownmichelle on 10-17-2023 Bilirubin [Mass/Vol] 0.5 mg/dL 0.3-1.[address] [facility] Calcium [Mass/volume] in Ser um or PlasmaOrdered By: Elenajason Brownmichelle on 10-17-2023 Calcium [Mass/Vol] 9.3 mg/dL 8.6-10.3 [facility] Carbon dioxide, total [Moles /volume] in Serum or PlasmaOrdered By: Elenajason Brownmichelle on 10-17-2023 CO2 [Moles/Vol] 27.7 mmol/L 21.0-31.0 [facility] Chloride [Moles/volume] in S vitor or PlasmaOrdered By: Elenajason Brown on 10-17-2023 Chloride [Moles/Vol] 107 mmol/L 98-[address] [facility] Cholesterol [Mass/volume] in Serum or PlasmaOrdered By: Elenajason Brown on 10-17-2023 Cholesterol [Mass/Vol] 155 mg/dL 140-200 [facility] Comment on above: Chol less than 200 m g/dl low riskChol 201-239 mg/dl borderline riskChol 240 mg/dl and greater high risk Cholesterol in LDL Calc [Mas s/Vol]Ordered By: Elena Kevin on 10-17-2023 Cholesterol in LDL [Mass/Vol] 72 mg/dL 0-100 [facility] Comment on above: LDL ATP III CLASSIFI CATIONLDL less than 100 mg/dL OptimalLDL 100-129 mg/dL Near or above optimalLDL 130-159 mg/dL Borderline highLDL 160-189 mg/dL HighLDL greater than 189 mg/dL Very high Cholesterol in VLDL Calc [Ma ss/Vol]Ordered By: Elena Kevinmichelle on 10-17-2023 Cholesterol in VLDL [Mass/Vol] 6 mg/dL [facility] Creatinine [Mass/volume] in Serum or PlasmaOrdered By: on 10-17-2023 Creatinine [Mass/Vol] 0.66 mg/dL 0.60-1.20 [facility] Eosinophils Auto (Bld) [#/Vo l]Ordered By: on 10-17-2023 Eosinophils (Bld) [#/Vol] 0.1 10*3/uL 0.0-0.45 [facility] Eosinophils/100 WBC Auto (Bl d)Ordered By: on 10-17-2023 Eosinophils/100 WBC (Bld) 2.8 % . [facility] Erythrocyte distribution wid th Auto (RBC) [Ratio]Ordered By: on 10-17-2023 Erythrocyte distribution width (RBC) [Ratio] 13.3 % 11.9-15.3 [facility] Globulin Calc (S) [Mass/Vol] Ordered By: 10-17-2023 Globulin (S) [Mass/Vol] 2.1 g/dL [facility] Glucose [Mass/volume] in Ser um or PlasmaOrdered By: 10-17-2023 Glucose [Mass/Vol] 78 mg/dL 70-100 [facility] Comment on above: ADA recommended refe rence rangeRandom Glucose Reference Range is dependent on time and content of last meal. Glucose of more than 200 mg/dL in a nonstressed, ambulatory subject supports the diagnosis of Diabetes Mellitus. Hematocrit Auto (Bld) [Volum e fraction]Ordered By: on 10-17-2023 Hematocrit (Bld) [Volume fraction] 37.1 % 34.0-46.4 [facility] Hemoglobin [Mass/volume] in BloodOrdered By: 10-17-2023 Hemoglobin (Bld) [Mass/Vol] 12.1 g/dL 11.8-15.4 [facility] Leukocytes [#/volume] correc addie for nucleated erythrocytes in Blood by Automated counOrdered By: 10-17-2023 WBC corrected for nucl RBC Auto (Bld) [#/Vol] 5.3 10*3/uL 3.8-11.6 [facility] Lymphocytes Auto (Bld) [#/Vo l]Ordered By: Elena Malcomdimella on 10-17-2023 Lymphocytes (Bld) [#/Vol] 1.6 10*3/uL 1.00-4.8 [facility] Lymphocytes/100 WBC Auto (Bl d)Ordered By: Elena Gudimella on 10-17-2023 Lymphocytes/100 WBC (Bld) 30.9 % . [facility] MCH Auto (RBC) [Entitic mass ]Ordered By: Elena Malcomdimella on 10-17-2023 MCH (RBC) [Entitic mass] 27.7 pg 24.7-34.3 [facility] MCHC Auto (RBC) [Mass/Vol]Or dered By: Elena Malcomdimella on 10-17-2023 MCHC (RBC) [Mass/Vol] 32.7 g/dL 32.0-35.0 [facility] MCV Auto (RBC) [Entitic vol] Ordered By: Elena Gudimella on 10-17-2023 MCV (RBC) [Entitic vol] 84.6 fL 80-100 [facility] Monocytes Auto (Bld) [#/Vol] Ordered By: Elena Gudimella on 10-17-2023 Monocytes (Bld) [#/Vol] 0.4 10*3/uL 0.0-0.8 [facility] Monocytes/100 WBC Auto (Bld) Ordered By: Elena Gudimella on 10-17-2023 Monocytes/100 WBC (Bld) 7.8 % . [facility] Neutrophils Auto (Bld) [#/Vo l]Ordered By: Elena Gudimella on 10-17-2023 Neutrophils (Bld) [#/Vol] 3.1 10*3/uL 1.8-7.7 [facility] Neutrophils/100 WBC Auto (Bl d)Ordered By: Elena Malcomdimella on 10-17-2023 Neutrophils/100 WBC (Bld) 58.0 % . [facility] No Panel InformationOrdered By: Elena Malcomdimella on 10-17-2023 Estimated GFR (CKD-EPI) > 60.0 mL/Min [facility] Creatinine Clearance (Chem N/A [facility] Nucleated erythrocytes [Pres ence] in Blood by Automated countOrdered By: Elena la on 10-17-2023 Nucleated RBC Auto Ql (Bld) 0.1 /100{WBC} 0-0.5 [facility] Platelet mean volume Auto (B ld) [Entitic vol]Ordered By: Elena dimella on 10-17-2023 Platelet mean volume (Bld) [Entitic vol] 9.5 fL 6.3-10.7 [facility] Platelets Auto (Bld) [#/Vol] Ordered By: Elenala on 10-17-2023 Platelets (Bld) [#/Vol] 146 10*3/uL 150-450 [facility] Potassium [Moles/volume] in Serum or PlasmaOrdered By: Elena on 10-17-2023 Potassium [Moles/Vol] 4.2 mmol/L 3.5-5.1 [facility] Protein [Mass/volume] in Ser um or PlasmaOrdered By: on 10-17-2023 Protein [Mass/Vol] 6.6 g/dL 6.4-8.9 [facility] RBC Auto (Bld) [#/Vol]Ordere d By: Elena on 10-17-2023 RBC (Bld) [#/Vol] 4.38 10*6/uL 3.60-5.00 [facility] Serum or plasma albumin/glob ulin mass ratioOrdered By: Elena Malcomdila on 10-17-2023 Albumin/Globulin [Mass ratio] 2.1 {ratio} [facility] Serum or plasma anion gap de terminationOrdered By: Elena Gudimella on 10-17-2023 Anion gap [Moles/Vol] 10.5 mmol/L 6.0-15.0 [facility] Serum or plasma high density lipoprotein (HDL) cholesterol measurementOrdered By: Elena Gudimella on 10-17-2023 Cholesterol in HDL [Mass/Vol] 77 mg/dL 23-92 [facility] Comment on above: HDL CHOL ATP-III CLA SSIFICATION Cardiovascular RiskHDL > or equal to 60 mg/dL LOWHDL < 40 mg/dL HIGH Serum or plasma total choles terol/high density lipoprotein (HDL) cholesterol mass ratOrdered By: Malcom on 10-17-2023 Cholesterol.total/Chol esterol in HDL [Mass ratio] 2.0 {ratio} <5.0 [facility] Sodium [Moles/volume] in Ser um or PlasmaOrdered By: on 10-17-2023 Sodium [Moles/Vol] 141 mmol/L 136-145 [facility] Thyrotropin [Units/volume] i n Serum or PlasmaOrdered By: on 10-17-2023 TSH Qn 0.68 m[IU]/L 0.45-5.33 [facility] Triglyceride [Mass/volume] i n Serum or PlasmaOrdered By: Malcom on 10-17-2023 Triglyceride [Mass/Vol] 31 mg/dL 0-149 [facility] Comment on above: TRIG ATP III CLASSIF ICATIONTRIG less than 150 mg/dL NormalTRIG 150-199 mg/dL Borderline highTRIG 200-500 mg/dL High TRIG greater than 500 mg/dL Very highStandard traceable to the Center for Disease Conrtrol and Prevention (CDC) test method. Urea nitrogen [Mass/volume] in Serum or PlasmaOrdered By: Malcom on 10-17-2023 Urea nitrogen [Mass/Vol] 21 mg/dL 7- [facility] WBC Auto (Bld) [#/Vol]Ordere d By: on 10-17-2023 WBC (Bld) [#/Vol] 5.3 10*3/uL 3.8-11.6 [facility] Physician Orderon 10-14-2023 Physician Order [id number] Normal [facility] CBC AUTO DIFFon 09-08-2022 BASO # 0.0 103/ul Normal 0.0-0.1 [facility] Comment on above: Performed By: #### G LU1HR #### [facility] [address] [place] [address] Dr. Christa Han Basophils/100 WBC (Bld) 0.2 % Normal 0.2-2.0 [facility] Comment on above: Performed By: #### G LU1HR #### [facility] [address] [place] [address] Dr. Christa Han EO # 0.1 103/ul Normal 0.0-0.7 [facility] Comment on above: Performed By: #### G LU1HR #### [facility] [address] [place] [address] Dr. Christa Han Eosinophils/100 WBC (Bld) 3.0 % Normal 0.9-7.0 [facility] Comment on above: Performed By: #### G LU1HR #### [facility] [address] [place] [address] Dr. Christa Han Erythrocyte distribution width (RBC) [Ratio] 14.1 % Normal 11.0-15.0 [facility] Comment on above: Performed By: #### G LU1HR #### [facility] [address] [place] [address] Dr. Christa Han Hematocrit (Bld) [Volume fraction] 39.2 % Normal 36.0-48.0 [facility] Comment on above: Performed By: #### G LU1HR #### [facility] [address] [place] [address] Dr. Christa Han Hemoglobin (Bld) [Mass/Vol] 12.5 g/dL Normal 12.0-16.0 [facility] Comment on above: Performed By: #### G LU1HR #### [facility] [address] [place] [address] Dr. Christa Han IG # 0.00 10e3/ul Normal 0.00-0.03 [facility] Comment on above: Performed By: #### G LU1HR #### [facility] [address] [address] [address] Christa Han IG % 0.0 % Normal 0.0-0.5 [facility] Comment on above: Performed By: #### G LU1HR #### [facility] [address] [place] [address] Dr. Christa Han LYMPH # 1.8 103/ul Normal 1.2-3.8 [facility] Comment on above: Performed By: #### G LU1HR #### [facility] [address] [place] [address] Dr. Christa Han Lymphocytes/100 WBC (Bld) 42.0 % Normal 20.5-60.0 [facility] Comment on above: Performed By: #### G LU1HR #### [facility] [address] [place] [address] Dr. Christa Han MANUAL DIFF REQ NO Normal [facility] Comment on above: Performed By: #### G LU1HR #### [facility] [address] [place] [address] Dr. Christa Han MCH (RBC) [Entitic mass] 26.7 pg Normal 26.7-34.0 [facility] Comment on above: Performed By: #### G LU1HR #### [facility] [address] [place] [address] Dr. Christa Han MCHC (RBC) [Mass/Vol] 31.9 g/dL Normal 29.9-35.2 [facility] Comment on above: Performed By: #### G LU1HR #### [facility] [address] [place] [address] Dr. Christa Han MCV (RBC) [Entitic vol] 83.8 fL Normal 81.0-99.0 [facility] Comment on above: Performed By: #### G LU1HR #### [facility] [address] [place] [address] Dr. Christa Han MONO # 0.3 103/ul Normal 0.3-0.8 [facility] Comment on above: Performed By: #### G LU1HR #### [facility] [address] [place] [address] Dr. Christa Han Monocytes/100 WBC (Bld) 7.0 % Normal 1.7-12.0 [facility] Comment on above: Performed By: #### G LU1HR #### [facility] [address] [place] [address] Dr. Christa Han NEUT # 2.1 103/ul Normal 1.4-6.5 [facility] Comment on above: Performed By: #### G LU1HR #### [facility] [address] [place] [address] Dr. Christa Han Neutrophils/100 WBC (Bld) 47.8 % Normal 43.0-75.0 [facility] Comment on above: Performed By: #### G LU1HR #### [facility] [address] [place] [address] Dr. Christa Han Platelet mean volume (Bld) [Entitic vol] 11.7 fL Normal 9.5-13.5 [facility] Comment on above: Performed By: #### G LU1HR #### [facility] [address] [place] [address] Dr. Christa Han PLT 172 103/ul Normal 150-450 [facility] Comment on above: Performed By: #### G LU1HR #### [facility] [address] [place] [address] Dr. Christa Han RBC 4.68 106/ul Normal 4.20-5.40 [facility] Comment on above: Performed By: #### G LU1HR #### [facility] [address] [place] [address] Dr. Christa Han WBC 4.3 103/ul Normal 4.0-11.0 [facility] Comment on above: Performed By: #### G LU1HR #### [facility] [address] [place] [address] Dr. Christa Han PREG QUANT HCGon 09-08-2022 HCG QUANT 1 mIU/mL Normal [facility] Comment on above: Performed By: #### G LU1HR #### [facility] [address] [place] [address] Dr. Christa Han HCG RANGE SEE BELOW Normal [facility] Comment on above: Result Comment: 5-50 0.2-1 WEEK 50-500 1-2 WEEKS 100-5,000 2-3 WEEKS 500-10,000 3-4 WEEKS 1,000-50,000 4-5 WEEKS 10,000-100,000 5-6 WEEKS 15,000-200,000 6-8 WEEKS 10,000-100,000 2-3 MONTHS Performed By: #### G LU1HR #### [facility] [address] [address] [address] Christa Han Covid-19 PCR ([facility])on 08-21 SARS-CoV-2 (COVID-19) RNA TRISTEN+probe Ql (Unsp spec) Not detected Normal NOT DETECTED [facility] Comment on above: Result Comment: This test is not yet approved or cleared by the [place] FDA. When there are no FDA-approved or cleared tests available, and other criteria are met, FDA can make tests available under an emergency access mechanism called an Emergency Use Authorization (EUA). The EUA for this test is supported by the [employer] of Health and Human Service's (HHS's) declaration [...] consistent with SARS-CoV-2. Performed By: #### C VDTBH #### [facility] [address] [address] [address] Christa Han XR KUB 1 VIEWon [...] SHAHEEN RAMOS Date: 2022-08-17 18:14 Normal [facility] US PELVIS AND TRANSVAGon US PELVIS [...] IUD within endometrial cavity. Electronically authenticated by: WAI SOW Date: 2022-07-30 16:54 Normal [facility] PAP ACOG PANEL 2: 21 to 29on 07-12-2022 . . Normal [facility] Comment on above: Performed By: #### G LU1HR #### [facility] [address] [address] [address] Christa Han Age Gdln ACOG Testing 21-29 Normal [facility] Comment on above: Performed By: #### G LU1HR #### [facility] [address] [id number] Christa Han DIAGNOSIS: Comment Normal [facility] Comment on above: Result Comment: NEGA TIVE FOR INTRAEPITHELIAL LESION OR MALIGNANCY. CELLULAR CHANGES ASSOCIATED WITH INFLAMMATION ARE PRESENT. PREDOMINANCE OF COCCOBACILLI CONSISTENT WITH SHIFT IN VAGINAL MICHELLE IS PRESENT. THIS SPECIMEN WAS RESCREENED PART OF OUR OPERATIONS LIAISON PROGRAM. Performed By: #### G LU1HR #### [facility] [address] [address] [address] Christa Han Methodology: Comment Normal [facility] Comment on above: Result Comment: This liquid based ThinPrep(R) pap test was screened with the use of an image guided system. Performed By: #### G LU1HR #### [facility] [address] [place] [address] Dr. Christa Han Note: Comment Normal [facility] Comment on above: Result Comment: The Pap smear is a screening test designed to aid in the detection of premalignant and malignant conditions of the uterine cervix. It is not a diagnostic procedure and should not be used as the sole means of detecting cervical cancer. Both false-positive and false-negative reports do occur. . Performed By: #### G LU1HR #### [facility] [address] [place] [address] Dr. Christa Han Performed by: Comment Normal [facility] Comment on above: Result Comment: Josseline Koroma, Informatics Manager (ASCP) Performed By: #### G LU1HR #### [facility] [address] [place] [address] Dr. Christa Han QC reviewed by: Comment Normal [facility] Comment on above: Result Comment: Madhavi Callejas, Informatics Manager (ASCP) Performed By: #### G LU1HR #### [facility] [address] [place] [address] Dr. Christa Han Reflex Criteria: Comment Normal [facility] Comment on above: Result Comment: The HPV DNA reflex criteria were not met with this specimen result therefore, no HPV testing was performed. . Performed By: #### G LU1HR #### [facility] [address] [place] [address] Dr. Christa Han Specimen adequacy: Comment Normal [facility] Comment on above: Result Comment: Sati sfactory for evaluation. Endocervical and/or squamous metaplastic cells (endocervical component) are present. Performed By: #### G LU1HR #### [facility] [address] [place] [address] Dr. Christa Han CBC AUTO DIFFon 04-28-2022 BASO # 0.0 103/ul Normal 0.0-0.1 [facility] Comment on above: Performed By: #### C BC #### [facility] [address] [place] [address] Dr. Christa Han Basophils/100 WBC (Bld) 0.3 % Normal 0.2-2.0 [facility] Comment on above: Performed By: #### C BC #### [facility] [address] [place] [address] Dr. Christa Han EO # 0.0 103/ul Normal 0.0-0.7 [facility] Comment on above: Performed By: #### C BC #### [facility] [address] [place] [address] Dr. Christa Han Eosinophils/100 WBC (Bld) 0.1 % Critically low 0.9-7.0 [facility] Comment on above: Performed By: #### C BC #### [facility] [address] [place] [address] Dr. Christa Han Erythrocyte distribution width (RBC) [Ratio] 13.5 % Normal 11.0-15.0 [facility] Comment on above: Performed By: #### C BC #### [facility] [address] [place] [address] Dr. Christa Han Hematocrit (Bld) [Volume fraction] 29.3 % Critically low 36.0-48.0 [facility] Comment on above: Performed By: #### C BC #### [facility] [address] [place] [address] Dr. Christa Han Hemoglobin (Bld) [Mass/Vol] 9.7 g/dL Critically low 12.0-16.0 [facility] Comment on above: Performed By: #### C BC #### [facility] [address] [place] [address] Dr. Christa Han IG # 0.09 10e3/ul Critically high 0.00-0.03 [facility] Comment on above: Performed By: #### C BC #### [facility] [address] [place] [address] Dr. Christa Han IG % 0.7 % Critically high 0.0-0.5 [facility] Comment on above: Performed By: #### C BC #### [facility] [address] [place] [address] Dr. Christa Han LYMPH # 1.1 103/ul Critically low 1.2-3.8 [facility] Comment on above: Performed By: #### C BC #### [facility] [address] [place] [address] Dr. Christa Han Lymphocytes/100 WBC (Bld) 8.3 % Critically low 20.5-60.0 [facility] Comment on above: Performed By: #### C BC #### [facility] [address] [place] [address] Dr. Christa Han MANUAL DIFF REQ NO Normal [facility] Comment on above: Performed By: #### C BC #### [facility] [address] [place] [address] Dr. Christa Han MCH (RBC) [Entitic mass] 27.6 pg Normal 26.7-34.0 [facility] Comment on above: Performed By: #### C BC #### [facility] [address] [place] [address] Dr. Christa Han MCHC (RBC) [Mass/Vol] 33.1 g/dL Normal 29.9-35.2 [facility] Comment on above: Performed By: #### C BC #### [facility] [address] [place] [address] Dr. Christa Han MCV (RBC) [Entitic vol] 83.2 fL Normal 81.0-99.0 [facility] Comment on above: Performed By: #### C BC #### [facility] [address] [place] [address] Dr. Christa Han MONO # 0.9 103/ul Critically high 0.3-0.8 [facility] Comment on above: Performed By: #### C BC #### [facility] [address] [place] [address] Dr. Christa Han Monocytes/100 WBC (Bld) 6.8 % Normal 1.7-12.0 [facility] Comment on above: Performed By: #### C BC #### [facility] [address] [place] [address] Dr. Christa Han NEUT # 11.5 103/ul Critically high 1.4-6.5 [facility] Comment on above: Performed By: #### C BC #### [facility] [address] [place] [address] Dr. Christa Han Neutrophils/100 WBC (Bld) 83.8 % Critically high 43.0-75.0 [facility] Comment on above: Performed By: #### C BC #### [facility] [address] [place] [address] Dr. Christa Han Platelet mean volume (Bld) [Entitic vol] 10.9 fL Normal 9.5-13.5 [facility] Comment on above: Performed By: #### C BC #### [facility] [address] [place] [address] Dr. Christa Han PLT 129 103/ul Critically low 150-450 [facility] Comment on above: Performed By: #### C BC #### [facility] [address] [place] [address] Dr. Christa Han RBC 3.52 106/ul Critically low 4.20-5.40 [facility] Comment on above: Performed By: #### C BC #### [facility] [address] [place] [address] Dr. Christa Han WBC 13.8 103/ul Critically high 4.0-11.0 [facility] Comment on above: Performed By: #### C BC #### [facility] [address] [place] [address] Dr. Christa Han CBC AUTO DIFFon 04-27-2022 BASO # 0.1 103/ul Normal 0.0-0.1 [facility] Comment on above: Performed By: #### C BC #### [facility] [address] [place] [address] Dr. Christa Han Basophils/100 WBC (Bld) 0.5 % Normal 0.2-2.0 [facility] Comment on above: Performed By: #### C BC #### [facility] [address] [place] [address] Dr. Christa Han EO # 0.1 103/ul Normal 0.0-0.7 [facility] Comment on above: Performed By: #### C BC #### [facility] [address] [place] [address] Dr. Christa Han Eosinophils/100 WBC (Bld) 0.8 % Critically low 0.9-7.0 [facility] Comment on above: Performed By: #### C BC #### [facility] [address] [place] [address] Dr. Christa Han Erythrocyte distribution width (RBC) [Ratio] 13.5 % Normal 11.0-15.0 [facility] Comment on above: Performed By: #### C BC #### [facility] [address] [place] [address] Dr. Christa Han Hematocrit (Bld) [Volume fraction] 32.2 % Critically low 36.0-48.0 [facility] Comment on above: Performed By: #### C BC #### [facility] [address] [place] [address] Dr. Christa Han Hemoglobin (Bld) [Mass/Vol] 10.5 g/dL Critically low 12.0-16.0 [facility] Comment on above: Performed By: #### C BC #### [facility] [address] [place] [address] Dr. Christa Han IG # 0.15 10e3/ul Critically high 0.00-0.03 [facility] Comment on above: Performed By: #### C BC #### [facility] [address] [place] [address] Dr. Christa Han IG % 1.6 % Critically high 0.0-0.5 [facility] Comment on above: Performed By: #### C BC #### [facility] [address] [place] [address] Dr. Christa Han LYMPH # 1.8 103/ul Normal 1.2-3.8 [facility] Comment on above: Performed By: #### C BC #### [facility] [address] [place] [address] Dr. Christa Han Lymphocytes/100 WBC (Bld) 18.3 % Critically low 20.5-60.0 [facility] Comment on above: Performed By: #### C BC #### [facility] [address] [place] [address] Dr. Christa Han MANUAL DIFF REQ NO Normal [facility] Comment on above: Performed By: #### C BC #### [facility] [address] [place] [address] Dr. Christa Han MCH (RBC) [Entitic mass] 27.2 pg Normal 26.7-34.0 [facility] Comment on above: Performed By: #### C BC #### [facility] [address] [place] [address] Dr. Christa Han MCHC (RBC) [Mass/Vol] 32.6 g/dL Normal 29.9-35.2 [facility] Comment on above: Performed By: #### C BC #### [facility] [address] [place] [address] Dr. Christa Han MCV (RBC) [Entitic vol] 83.4 fL Normal 81.0-99.0 [facility] Comment on above: Performed By: #### C BC #### [facility] [address] [place] [address] Dr. Christa Han MONO # 0.8 103/ul Normal 0.3-0.8 [facility] Comment on above: Performed By: #### C BC #### [facility] [address] [place] [address] Dr. Christa Han Monocytes/100 WBC (Bld) 7.8 % Normal 1.7-12.0 [facility] Comment on above: Performed By: #### C BC #### [facility] [address] [place] [address] Dr. Christa Han NEUT # 6.8 103/ul Critically high 1.4-6.5 [facility] Comment on above: Performed By: #### C BC #### [facility] [address] [place] [address] Dr. Christa Han Neutrophils/100 WBC (Bld) 71.0 % Normal 43.0-75.0 [facility] Comment on above: Performed By: #### C BC #### [facility] [address] [place] [address] Dr. Christa Han Platelet mean volume (Bld) [Entitic vol] 11.4 fL Normal 9.5-13.5 [facility] Comment on above: Performed By: #### C BC #### [facility] [address] [place] [address] Dr. Christa Han PLT 147 103/ul Critically low 150-450 [facility] Comment on above: Performed By: #### C BC #### [facility] [address] [place] [address] Dr. Christa Han RBC 3.86 106/ul Critically low 4.20-5.40 [facility] Comment on above: Performed By: #### C BC #### [facility] [address] [place] [address] Dr. Christa Han WBC 9.6 103/ul Normal 4.0-11.0 [facility] Comment on above: Performed By: #### C BC #### [facility] [address] [place] [address] Dr. Christa Han Covid-19 PCR ([facility])on SARS-CoV-2 (COVID-19) RNA TRISTEN+probe Ql (Unsp spec) Not detected Normal NOT DETECTED [facility] Comment on above: Result Comment: When [...] for this test is supported by the [employer] of Health and Human Service's declaration that [...] used). Performed By: #### G LU1HR #### [facility] [address] [place] [address] Dr. Christa Han DRUG SCREEN RAPID (URINE)on 04-27-2022 AMP Negative Normal NEGATIVE [facility] Comment on above: Performed By: #### D RUGRPD #### [facility] [address] [place] [address] Dr. Christa Han BAR Negative Normal NEGATIVE [facility] Comment on above: Performed By: #### D RUGRPD #### [facility] [address] [place] [address] Dr. Christa Han BUP Negative Normal NEGATIVE [facility] Comment on above: Performed By: #### D RUGRPD #### [facility] [address] [place] [address] Dr. Christa Han BZO Negative Normal NEGATIVE [facility] Comment on above: Performed By: #### D RUGRPD #### [facility] [address] [place] [address] Dr. Christa Han SAMMI Negative Normal NEGATIVE [facility] Comment on above: Performed By: #### D RUGRPD #### [facility] [address] [place] [address] Dr. Christa Han CUT-OFFS SEE BELOW Normal [facility] Comment on above: Result Comment: AMP [...] ng/mL Performed By: #### D RUGRPD #### [facility] [address] [place] [address] Dr. Christa Han DRUG CUT HEADER DRUG CLASS TEST SYST EM CUT-OFF CONCENTRATIONS ARE FOLLOWS: Normal [facility] Comment on above: Performed By: #### D RUGRPD #### [facility] [address] [place] [address] Dr. Christa Han mAMP Negative Normal NEGATIVE [facility] Comment on above: Performed By: #### D RUGRPD #### [facility] [address] [place] [address] Dr. Christa Han MTD Negative Normal NEGATIVE [facility] Comment on above: Performed By: #### D RUGRPD #### [facility] [address] [place] [address] Dr. Christa Han OPI Negative Normal NEGATIVE [facility] Comment on above: Performed By: #### D RUGRPD #### [facility] [address] [place] [address] Dr. Christa Han OXY Negative Normal NEGATIVE [facility] Comment on above: Performed By: #### D RUGRPD #### [facility] [address] [place] [address] Dr. Christa Han PCP Negative Normal NEGATIVE [facility] Comment on above: Performed By: #### D RUGRPD #### [facility] [address] [place] [address] Dr. Christa Han PPX Negative Normal NEGATIVE [facility] Comment on above: Performed By: #### D RUGRPD #### [facility] [address] [place] [address] Dr. Christa Han TCA Negative Normal NEGATIVE [facility] Comment on above: Performed By: #### D RUGRPD #### [facility] [address] [place], [place] [id number] Dr. Christa Han THC Positive Abnormal NEGATIVE [facility] Comment on above: Performed By: #### D RUGRPD #### [facility] [address] [place] [address] Dr. Christa Han TYPE AND SCREENon 04-27-2022 TYPE AND SCREEN Negative Normal [facility] Comment on above: Performed By: #### C T/NGNA #### [facility] [address] [place] [address] Dr. Christa Han US PREG BIOPHY W [...] by: SHAHEEN RAMOS Date: 2022-04-26 13:34 Normal [facility] US PREG BIOPHY W NON STRESSo [...] lower limits of normal. Electronically authenticated by: WAI SOW Date: 2022-04-22 17:08 Normal [facility] US PREG GROWTHon 04-22-2022 US PREG [...] less than 3rd percentile. Electronically authenticated by: WIA SOW Date: 2022-04-22 17:06 Normal [facility] US PREG BIOPHY W NON STRESSo [...] SHAHEEN RAMOS Date: 2022-04-15 14:23 Normal [facility] CHLAMYDIA/GONOCOCCUS TRISTEN (SW AB/URINE/PAPon 04-08-2022 Chlamydia trachomatis, TRISTEN Negative Normal Negative [facility] Comment on above: Performed By: #### C T/NGNA #### [facility] [address] [place] [address] Dr. Christa Han Neisseria gonorrhoeae, TRISTEN Negative Normal Negative [facility] Comment on above: Performed By: #### C T/NGNA #### [facility] [address] [place] [address] Dr. Christa Han US PREG BIOPHY W [...] biophysical profile score 8.0. Electronically authenticated by: WAI SOW Date: 2022-04-08 14:16 Normal [facility] GROUP B STREP CULTUREon 03-21 S. agalactiae Ag Ql (Unsp spec) Culture Observations: NEGATIVE FOR GROUP B STREPTOCOCCUS. Normal [facility] Comment on above: Performed By: #### C T/NGNA #### [facility] [address] [address] [address] Christa Han PREG BIOPHY W NON STRESSo n 04-01-2022 [...] biophysical profile score 8.0. Electronically authenticated by: WAI SOW Date: 2022-04-01 13:31 Normal [facility] US PREG AMNIOTIC FLUID VOLUM Kyler [...] percentile is 7.9 cm). Electronically authenticated by: WAI SOW Date: 2022-03-29 13:32 Normal [facility] TSHon 03-25-2022 TSH 1.336 uIU/mL Normal 0.358-3.740 [facility] Comment on above: Performed By: #### G LU1HR #### [facility] [address] [place] [address] Dr. Christa Han TSH RANGE SEE BELOW Normal [facility] Comment on above: Result Comment: <0.3 4 UIU/ml HYPERTHYROID 0.34-5.60 UIU/ml EUTHYROID >5.60 UIU/ml HYPOTHYROID Performed By: #### G LU1HR #### [facility] [address] [place] [address] Dr. Christa Han US PREG BIOPHY W [...] SHAHEEN RAMOS Date: 2022-03-25 16:41 Normal [facility] US PREG GROWTHon 03-25-2022 US PREG [...] SHAHEEN RAMOS Date: 2022-03-25 16:42 Normal [facility] CHLAMYDIA/GONOCOCCUS TRISTEN ( AB/URINE/PAPon 02-15-2022 Chlamydia trachomatis, TRISTEN Negative Normal Negative [facility] Comment on above: Performed By: #### C T/NGNA #### [facility] [address] [place] [address] Dr. Christa Han Neisseria gonorrhoeae, TRISTEN Negative Normal Negative [facility] Comment on above: Performed By: #### C T/NGNA #### [facility] [address] [place] [address] Dr. Christa Han VAGINITIS/VAGINOSIS DNA PROB Kyler 02-14-2022 Alpa species Negative Normal Negative [facility] Comment on above: Performed By: #### G LU1HR #### [facility] [address] [place] [address] Dr. Christa Han Gardnerella vaginalis Negative Normal Negative [facility] Comment on above: Performed By: #### G LU1HR #### [facility] [address] [place] [address] Dr. Christa Han Trichomonas vaginalis Negative Normal Negative [facility] Comment on above: Performed By: #### G LU1HR #### [facility] [address] [place] [address] Dr. Christa Han GLUCOSE - 1HRon 02-01-2022 Glucose [Mass/Vol] 105 mg/dL Normal 74-106 [facility] Comment on above: Performed By: #### G LU1HR #### [facility] [address] [place] [address] Dr. Christa Han HEMOGRAM AND PLATELon 2021 Hematocrit (Bld) [Volume fraction] 34.4 % Critically low 36.0-48.0 [facility] Comment on above: Performed By: #### C T/NGNA #### [facility] [address] [place] [address] Dr. Christa Han Hemoglobin (Bld) [Mass/Vol] 11.1 g/dL Critically low 12.0-16.0 [facility] Comment on above: Performed By: #### C T/NGNA #### [facility] [address] [place] [address] Dr. Christa Han MCH (RBC) [Entitic mass] 28.2 pg Normal 26.7-34.0 [facility] Comment on above: Performed By: #### C T/NGNA #### [facility] [address] [place] [address] Dr. Christa Han MCHC (RBC) [Mass/Vol] 32.3 g/dL Normal 29.9-35.2 [facility] Comment on above: Performed By: #### C T/NGNA #### [facility] [address] [place] [address] Dr. Christa Han MCV (RBC) [Entitic vol] 87.5 fL Normal 81.0-99.0 [facility] Comment on above: Performed By: #### C T/NGNA #### [facility] [address] [place] [address] Dr. Christa Han PLT 142 103/ul Critically low 150-450 [facility] Comment on above: Performed By: #### C T/NGNA #### [facility] [address] [place] [address] Dr. Christa Han RBC 3.93 106/ul Critically low 4.20-5.40 [facility] Comment on above: Performed By: #### C T/NGNA #### [facility] [address] [place] [address] Dr. Christa Han WBC 9.3 103/ul Normal 4.0-11.0 [facility] Comment on above: Performed By: #### C T/NGNA #### [facility] [address] [place] [address] Dr. Christa Han TSHon 02-01-2022 TSH 1.218 uIU/mL Normal 0.470-4.680 [facility] Comment on above: Performed By: #### T SH #### [facility] [address] [place] [address] Dr. Christa Han TSH RANGE SEE BELOW Normal [facility] Comment on above: Result Comment: <0.3 4 UIU/ml HYPERTHYROID 0.34-5.60 UIU/ml EUTHYROID >5.60 UIU/ml HYPOTHYROID Performed By: #### T SH #### [facility] [address] [place] [address] Dr. Christa Han TSHon 12-02-2021 TSH 0.851 uIU/mL Normal 0.470-4.680 [facility] Comment on above: Performed By: #### T SH #### [facility] [address] [place] [address] Dr. Christa Han TSH RANGE SEE BELOW Normal [facility] Comment on above: Result Comment: <0.3 4 UIU/ml HYPERTHYROID 0.34-5.60 UIU/ml EUTHYROID >5.60 UIU/ml HYPOTHYROID Performed By: #### T SH #### [facility] [address] [place] [address] Dr. Christa MUKHERJEE BOX TEST PT SEND OUTo n 11-04-2021 SENT TO REF LAB 11/04/2021 Normal [facility] Comment on above: Performed By: #### N BOX #### [facility] [address] [place] [address] Dr. Christa STONERon 09-08-2021 CNMENDEZ Office Visit (EXPLOR ) -------- PAULA WHITAKER ([id number]) 1995 F Date Time Provider Department 09/08/21 5:50 PM ESTELLE SIMS During your visit today, we recorded the following information about you: Temperature Pulse Blood pressure Last Period 98.7 degrees 66/minute 128/58 07/27/21 Estelle Sims APRN.ANABEL 09/08/2021 7:10 PM Signed Please follow up with EMERGENCY SPILL RESPONSE TECHNICIAN as soon as possible Estelle Sims APRN.ANABEL 09/08/2021 7:52 PM Signed This note was created using NoteWriter. Subjective Paula Whitaker is a 26 year old female. The history is provided by the patient. No language arts teacher was used. LMP 07/27/2021. Not on control. 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 - HCG QUAL UR B/O Estelle Sims APRN.CNP Referring Provider: SELF [200] Allergies As of Date: 09/08/2021 (No Known Allergies) Date Reviewed: 09/08/2021 Reviewed by: Nanda Campbell Ma - Fully Assessed Reason for Visit: Amenorrhea [276] Cmt: LMP 07/27/2021 Primary Visit Diagnosis:Encounter for test, result unknown [Z32.00] Order(s):HCG QUAL UR B/O [3241807] Order #: [id number] Prescriptions as of 09/08/2021 - levothyroxine (SYNTHROID) 50 mcg tablet Take 50 mcg by mouth once daily. Problem List As Of Date: 09/08/2021 (None) Other instructions from your clinician: Please follow up with EMERGENCY SPILL RESPONSE TECHNICIAN as soon as possible Encounter Status:Closed by ESTELLE SIMS on 09/08/21 Normal [facility] No Panel Informationon 09-08 status Positive neg - pos [facility] Quality Check Yes [facility] ALLIED HEALTHon 06-10-2017 ALLIED HEALTH HNO ID: [id number]: Angelo (Opal) Opal BolañosService: RadiologyAuthor Type: TechnicianType: Allied HealthFiled: 06/10/2017 5:11 PMNote Text: Radiology Service Progress NotePATIENT NAME: Paula WhitakerMRN: [id number] OF SERVICE: June 10, 2017TIME: 4:53 PMPATIENT IDENTITY VERIFICATION COMPLETED USING TWO (2) METHODS: Patientconfirmed name verbally and Date of .PATIENT GENDER DATA: Female. status: : NoBreastfeeding status: NO.PATIENT RELEVANT IMPLANT DATA REVIEWED: YesRADIOLOGY DEPARTMENT: MR; Exam(s) Completed: Head: Routine BrainSeizurePERIPHERAL IV DATA: Not applicableSIGNED BY: Magdalena Fountain Mri-Andrea Lagos 2016 4:53 PM [facility] MRI BRAIN WO IVCONon 017 MRI BRAIN WO IVCON * * *Final Report* * *DATE OF EXAM: Jun 10 2017 5:11PM [facility] 0294 - MRI BRAIN WO IVCON / [...] skull base. Patent flow voids.IMPRESSION: Normal brain MR.Ophthalmic Tech: MARIA TERESA Transcribe Date/Time: Jun 10 2017 5:34PDictated by : CHRYSTAL ALAN MDThis examination was interpreted and the report reviewed and electronically signed by: CHRYSTAL ALAN MD on Jun 10 2017 5:38PM [facility] Vital Signs Date Time Vital Sign Value Performing Clinician Facility 10-08-2024 10:46-0500 Body mass index (BMI) [Ratio] 26.54 kg/m2 [employer] Bridgeo DO Work Phone: [facility] 10-08-2024 10:46-0500 Body weight 65.83 kg Mukesh Robert DO Work Phone: [facility] 10-08-2024 10:46-0500 Diastolic blood pressure 64 mm[Hg] MukeshCompressuso DO Work Phone: [facility] 10-08-2024 10:46-0500 Systolic blood pressure 100 mm[Hg] Mukesh Robert DO Work Phone: [facility] 08-09-2024 07:57-0400 Blood Pressure Location Elena Gudimella [facility] 08-09-2024 07:57-0400 Diastolic blood pressure 68 mm[Hg] Elena Gudimella [facility] 08-09-2024 07:57-0400 Heart rate 73 /min Elena Gudimella [facility] 08-09-2024 07:57-0400 SaO2% (BldA) [Mass fraction] 98 % Elena Gudimella [facility] 08-09-2024 07:57-0400 Systolic blood pressure 110 mm[Hg] Elena Gudimella [facility] 05-26-2023 10:07-0400 Blood Pressure Location Elena Gudimella [facility] 05-26-2023 10:07-0400 Diastolic blood pressure 70 mm[Hg] Elena Gudimella [facility] 05-26-2023 10:07-0400 Heart rate 78 /min Elena Gudimella [facility] 05-26-2023 10:07-0400 SaO2% (BldA) [Mass fraction] 95 % Elena Gudimella [facility] 05-26-2023 10:07-0400 Systolic blood pressure 110 mm[Hg] Elena Gudimella [facility] 09-01-2022 11:18-0400 Blood Pressure Location Elena Gudimella [facility] 09-01-2022 11:18-0400 Diastolic blood pressure 64 mm[Hg] Elena Gudimella [facility] 09-01-2022 11:18-0400 Heart rate 68 /min Elena Gudimella [facility] 09-01-2022 11:18-0400 SaO2% (BldA) [Mass fraction] 98 % Elena Gudimella [facility] 09-01-2022 11:18-0400 Systolic blood pressure 112 mm[Hg] Elena Gudimella [facility] 06-10-2022 19:32-0400 Body height 160.02 cm [facility] 06-10-2022 19:32-0400 Body temperature 98 [degF] [facility] 06-10-2022 19:32-0400 Body weight 69.53 kg [facility] 06-10-2022 19:32-0400 Diastolic blood pressure 57 mm[Hg] [facility] 06-10-2022 19:32-0400 Heart rate 65 /min [facility] 06-10-2022 19:32-0400 Respiratory rate 16 /min [facility] 06-10-2022 19:32-0400 SaO2% (BldA) [Mass fraction] 99 % [facility] 06-10-2022 19:32-0400 Systolic blood pressure 114 mm[Hg] [facility] 09-08-2021 18:57-0400 Body temperature 98.71 [degF] Estelle Votypka MANNEQUIN DECORATOR.RETAIL PHARMACY MERCHANDISER Work Phone: [facility] 09-08-2021 18:57-0400 Diastolic blood pressure 58 mm[Hg] Estelle Votypka MANNEQUIN DECORATOR.RETAIL PHARMACY MERCHANDISER Work Phone: [facility] 09-08-2021 18:57-0400 Heart rate 66 /min Estelle Votypka MANNEQUIN DECORATOR.RETAIL PHARMACY MERCHANDISER Work Phone: [facility] 09-08-2021 18:57-0400 SaO2% (BldA) [Mass fraction] 100 % Estelle Votypka MANNEQUIN DECORATOR.RETAIL PHARMACY MERCHANDISER Work Phone: [facility] 09-08-2021 18:57-0400 Systolic blood pressure 128 mm[Hg] Estelle Votypka MANNEQUIN DECORATOR.RETAIL PHARMACY MERCHANDISER Work Phone: [facility] Encounters Encounter Date Encounter Type Care Provider Facility Start: 10-08-2024 End: 10-08-2024 Office outpatient visit 15 minutes Mukesh Jones DO Work Phone: [facility] Comment on above: Pre-op examination; Request for sterilization Start: 10-08-2024 End: 10-08-2024 Preprocedural examination done Mukesh Jones DO Work Phone: [facility] Start: 10-08-2024 End: 10-08-2024 ambulatory MUKESH ROBERT Not Available Start: 09-06-2024 ambulatory Jony Heredia acility:[facility] Start: 08-14-2024 End: 08-14-2024 ambulatory MUKESH ROBERT Not Available Start: 08-09-2024 End: 08-09-2024 Lab Drop off Elena Gudimella [facility] Start: 08-09-2024 End: 08-09-2024 ambulatory Elena Gudimella Facility:[facility] Start: 08-09-2024 End: 08-09-2024 Patient encounter procedure Elena Gudimella [facility] Start: 08-09-2024 End: 08-09-2024 Well adult monitoring check done Elena Gudimella [facility] Start: 03-27-2024 End: 03-27-2024 ambulatory MAXIM LOWE Not Available Start: 03-21-2024 End: 03-21-2024 ambulatory MAXIM LOWE Not Available Start: 12-22-2023 End: 12-22-2023 ambulatory MUKESH ROBERT Not Available Start: 10-20-2023 End: 10-20-2023 ambulatory MUKESH ROBERT Not Available Start: 10-17-2023 End: 10-17-2023 ambulatory MD Mauricioeti Kevinmella Work Phone: [facility] Work Phone: Start: 10-17-2023 End: 10-17-2023 Patient encounter procedure MD Mauricioeti Kevinmella Work Phone: [facility] [place] Work Phone: Start: 05-26-2023 End: 05-26-2023 Patient encounter procedure Elena Gudimella [facility] Start: 05-26-2023 End: 05-26-2023 Well adult monitoring check done Elena Kevinmella [facility] Start: 09-08-2022 Encounter for preprocedural laboratory examination DR MUKESH JONES [facility] Start: 09-08-2022 End: 09-08-[address] MUKESH JONES Facility:[facility] Start: 09-06-2022 End: 09-07-[address] MUKESH JONES Facility:[facility] Start: 09-06-2022 End: 09-07-2022 Encounter for preprocedural laboratory examination DR MUKESH JONES Facility:[facility] Start: 09-01-2022 End: 09-01-2022 Patient encounter procedure Elena Jennyfer [facility] Start: 08-17-2022 End: 08-18-[address] MUKESH JONES Facility:[facility] Start: 07-30-2022 End: 07-31-[address] MUKESH JONES Facility:[facility] Start: 07-06-2022 End: 07-06-[address] MUKESH JONES Facility:[facility] Start: 06-10-2022 End: 06-10-2022 Emergency department patient visit [facility] Start: 05-07-2022 End: 05-12-2022 ambulatory NONE LISTED REQUEST Facility:[facility] Start: 05-03-2022 End: 05-03-2022 ambulatory NONE LISTED REQUEST Facility:[facility] Start: 04-27-2022 End: 04-29-2022 Evaluation and management of inpatient NONE LISTED REQUEST Facility:[facility] Start: 04-26-2022 End: [...] End: 09-08-2021 Patient encounter procedure Estelle Sims MANNEQUIN DECORATOR.RETAIL PHARMACY MERCHANDISER Work Phone: [facility] Comment on above: Encounter for pregna ncy test, result unknown (Primary Dx) Start: 06-10-2017 Ambulatory [facility]IOT MONT[facility] Procedures Date Procedure Procedure Detail Performing Clinician Start: 09-01-2022 Vaccine refused by patient Elena Burger Start: 04-27-2022 Division of Female Perineum, External Approach DR NONE LISTED REQUEST Start: 04-27-2022 Drainage of [...] test visual color cmprsn meths Estelle Sims MANNEQUIN DECORATOR.RETAIL PHARMACY MERCHANDISER Work Phone: Plan of Treatment Date Care Activity Detail Author Start: 10-17-2023 [facility] Start: 06-10-2022 [facility] Work Phone: Start: 07-22-2021 Influenza vaccination INFLUENZA (#1) [facility] Start: 2016 PAP TESTING PAP TESTING [facility] Start: 2014 Urine microalbumin profile DTAP,TDAP,TD (1 - Tdap) [facility] Start: 2013 HEPATITIS C SCREENING HEPATITIS C SCREENING [facility] Start: 2013 HIV SCREENING HIV SCREENING [facility] Start: 2007 Adult depression screening assessment DEPRESSION SCREENING [facility] Start: 2007 COVID-19 VACCINE (1) COVID-19 VACCINE (1) [facility] Start: 2006 HPV VACCINE (1 - 2-dose series) HPV VACCINE (1 - 2-dose series) [facility] Bilirubin measurement, urine [facility] Work Phone: Choriogonadotropin ( test) [Presence] in Urine [facility] Work Phone: Color of Urine [facility] Work Phone: Detection of hemoglobin [facility] Work Phone: Glucose [Mass/volume ] in Urine by Test strip [facility] Work Phone: Glucose measurement estimated from glycated hemoglobin [facility] Measurement of keton es in urine using dipstick [facility] Work Phone: Patient referral [facility] Work Phone: Protein measurement, urine [facility] Work Phone: Urinalysis, specific gravity measurement [facility] Work Phone: Urine dipstick for nitrite [facility] Work Phone: Urine dipstick for s pecific gravity [facility] Work Phone: Urine pH test [facility] Work Phone: Urobilinogen concent ration, test strip measurement [facility] Work Phone: Immunizations Immunization Date Immunization Notes Care Provider Margarita han 07-15-2009 HPV, unspecified formulation Elena Gudimella [facility] 10-25-2007 HPV, unspecified formulation Elena Gudimella [facility] 08-25-2007 HPV, unspecified formulation Elena Gudimella [facility] 08-25-2007 meningococcal ACWY vaccine, unspecified formulation Elena Gudimella [facility] 08-25-2007 tetanus toxoid, unspecified formulation Elena Gudimella [facility] 03-22-2000 diphtheria, tetanus toxoids and acellular pertussis vaccine Elena Gudimella [facility] 03-22-2000 measles, mumps and rubella virus vaccine Elena Gudimella [facility] 03-22-2000 poliovirus vaccine, unspecified formulation Elena Gudimella [facility] 01-11-1996 measles, mumps and rubella virus vaccine Elena Gudimella [facility] 1995 diphtheria, tetanus toxoids and acellular pertussis vaccine Elena Gudimella [facility] 1995 haemophilus influenz ae type b vaccine, PRP-OMP conjugate Elena Gudimella [facility] 1995 hepatitis B vaccine, pediatric or pediatric/adolescent dosage Elena Gudimella [facility] 1995 poliovirus vaccine, unspecified formulation Elena Gudimella [facility] 1995 diphtheria, tetanus toxoids and acellular pertussis vaccine Elena Gudimella [facility] 1995 haemophilus influenz ae type b vaccine, PRP-OMP conjugate Elena Gudimella [facility] 1995 hepatitis B vaccine, pediatric or pediatric/adolescent dosage Elena Gudimella [facility] 1995 poliovirus vaccine, unspecified formulation Elena Gudimella [facility] 1995 diphtheria, tetanus toxoids and acellular pertussis vaccine Elena Gudimella [facility] 1995 haemophilus influenz ae type b vaccine, PRP-OMP conjugate Elena Gudimella [facility] 1995 hepatitis B vaccine, pediatric or pediatric/adolescent dosage Elena Gudimella [facility] 1995 poliovirus vaccine, unspecified formulation Elena Gudimella [facility] NEGATED: Highlighted row has not occurred!08-09-2024 influenza virus vaccine, unspecified formulation Elena Gudimella [facility] NEGATED: Highlighted row has not occurred!09-01-2022 influenza virus vaccine, unspecified formulation Elena Gudimella [facility] NEGATED: Highlighted row has not occurred!01-23-2020 influenza virus vaccine, live, attenuated, for intranasal use Elena Gudimella [facility] Payers Date Payer Category Payer Medicaid [facility] [id number] 2022 Medicaid [id number] 2021 Medicaid [employer] [id number] 2021-Present Medicaid [id number] 1995 Unknown [id number] 2..840.1.302610.3.579.2.593 1995 Unknown [id number] 2..840.1.766317.3.579.2.593 1995 Unknown [id number] 2.16.840.1.720545.3.579.2.593 1995 Unknown [id number] 2.16.840.1.274548.3.579.2.593 1995 Unknown [id number] 2.16.840.1.942088.3.579.2.593 1995 Unknown [id number] 2.16.840.1.615831.3.579.2.593 1995 Unknown [id number] 2.16.840.1.541225.3.579.2.593 1995 Unknown [id number] 2.16.840.1.722097.3.579.2.593 1995 Unknown [id number] 2.16.840.1.531742.3.579.2.593 1995 Unknown [id number] 2.16.840.1.308958.3.579.2.593 1995 Unknown [id number] 2.16.840.1.572737.3.579.2.593 1995 Unknown [id number] 2.16.840.1.124211.3.579.2.593 1995 Unknown [id number] 2.16.840.1.630228.3.579.2.593 1995 Unknown [id number] 2.16.840.1.396858.3.579.2.593 1995 Unknown [id number] 2.16.840.1.480470.3.579.2.593 1995 Unknown [id number] 2.16.840.1.009683.3.579.2.593 1995 Unknown [id number] 2.16.840.1.848805.3.579.2.593 1995 Unknown [id number] 2.16.840.1.825183.3.579.2.593 1995 Unknown [id number] 2.16.840.1.908355.3.579.2.593 1995 Unknown [id number] 2.16.840.1.113850.3.579.2.593 1995 Unknown [id number] 2.16.840.1.032902.3.579.2.593 1995 Unknown [id number] 2.16.840.1.936206.3.579.2.593 1995 Unknown [id number] 2.16.840.1.766023.3.579.2.593 1995 Unknown [id number] 2.16.840.1.532895.3.579.2.593 1995 Unknown [id number] 2.16.840.1.090227.3.579.2.593 1995 Unknown [id number] 2.16.840.1.009063.3.579.2.727 1995 Unknown [id number] 2.16.840.1.738675.3.579.2.727 1995 Unknown [id number] 2.16.840.1.029766.3.579.2.1259 1995 Unknown [id number] 2.16.840.1.579808.3.579.2.1259 1995 Unknown [id number] 2.16.840.1.523410.3.579.2.1259 1995 Unknown [id number] 2.16.840.1.024487.3.579.2.1259 1995 Unknown [id number] 2.16.840.1.589135.3.579.2.1259 1995 Unknown [id number] 2.16.840.1.854240.3.579.2.1259 1959 Medicaid [id number] 1959 Self-pay [id number] 1959 Unknown [id number] Unknown [id number] 2.16.840.1.281124.3.579.2.593 Unknown [id number] 2.16.840.1.720245.3.579.2.531 Social History Date Type Detail Facility Tobacco smoking stat us MTIS Unknown if ever smoked [facility] Start: 1995 Sex Assigned At Not on file [facility] Exposure to SARS-CoV -2 (event) Not sure [facility] Start: 06-10-2022 End: 07-06-2023 Tobacco smoking status NHIS Never smoked tobacco (finding) [facility] Comment on above: denies Start: 1995 Sex Assigned At Female F [facility] Tobacco smoking status Never [facility] [facility] Comment on above: denies Start: 03-21-2024 Sex Assigned At Female F [facility] Start: 07-06-2023 Tobacco use and exposure Smokeless tobacco non-user [facility] Start: 10-08-2024 Alcoholic beverage intake Current drinker of alcohol (finding) [facility] Start: 03-21-2024 History of Social function [facility] How often to you hav e a drink containing alcohol? Monthly or less [facility] How many standard drinks containing alcohol do you have on a typical day? 1 or 2 [facility] How often do you hav e 6 or more drinks on 1 occasion? Never [facility] Start: 07-06-2023 Alcohol Comment Caffeine: occa sional tea [facility] Start: 02-02-2023 Gender identity Identifies as female gender (finding) [facility] Start: 02-02-2023 Sexual orientation Choose not to dis close [facility] Functional Status Date Assessment Result Facility 08-09-2024 Functional Status N/A [facility] 05-26-2023 Functional Status N/A [facility] 09-01-2022 Functional Status N/A [facility] Clinical Notes 09-08-2021 to 10-08-2024 Mariia Welsh - 10/08/2024 10:40 AM ESTLaboratoryLaboratoryLaboratoryEstelle Sims APRN.CNP - 09/08/2021 7:50 PM EDTPatient Instructions Note Date & Type Note Facility 10-08-2024 History of Present illness Narrative Reason for Appointment: Patient ID: Paula Whitaker is a 29 y.o. female who presents for Pre-op Visit Patient presents today for Pre Op appointment. Patient is scheduled to undergo Da Silvano assisted Bilateral Laparoscopic Salpingectomy on 11/02/[address] Jones at [facility]. MEDICATIONS No current outpatient medications ALLERGIES Allergies Allergen Reactions Amitriptyline Hcl [Amitriptyline] Escitalopram Unknown Lorazepam Other Reaction(s): Seizure PROBLEMS Active Ambulatory Problems Diagnosis Date Noted Hypersomnia 03/21/2024 Insomnia 03/21/2024 Resolved Ambulatory Problems Diagnosis Date Noted No Resolved Ambulatory Problems Past Medical History: Diagnosis Date Anxiety Bipolar depression (CMS/HCC) Depression (CMS/HCC) Headache 05/31/2012 History of abnormal cervical Pap smear 11/22/2016 History of chlamydia History of HPV infection Hypothyroidism (CMS/HCC) Intrauterine device surveillance Nonsmoker Overweight (BMI 25.0-29.9) Papanicolaou smear 10/09/2019 PCOS (polycystic ovarian syndrome) Seizure disorder (CMS/HCC) Thyroid disease (CMS/HCC) HISTORY PAST MEDICAL HISTORY SOCIAL HISTORY Past Medical History: Diagnosis Date Anxiety Bipolar depression (CMS/HCC) Depression (CMS/HCC) Headache 05/31/2012 History of abnormal cervical Pap smear 11/22/2016 ASCUS HPV positive History of chlamydia History of HPV infection Hypothyroidism (CMS/HCC) Intrauterine device surveillance Nonsmoker Overweight (BMI 25.0-29.9) Papanicolaou smear 10/09/2019 PCOS (polycystic ovarian syndrome) Seizure disorder (CMS/HCC) Thyroid disease (CMS/HCC) Social History Tobacco Use Smoking status: Never Smokeless tobacco: Never Substance Use Topics Alcohol use: Yes Comment: Caffeine: occasional tea Drug use: Not on file FAMILY HISTORY Family History Problem Relation Name Age of Onset Asthma Mother Thyroid disease Other strong family history Ovarian cancer Other Depression Other Mental illness Other SURGICAL HISTORY Past Surgical History: Procedure Laterality Date COLPOSCOPY 11/29/2017 negaive, abnormal pap ascus hpv positive DILATION AND CURETTAGE IUD REMOVAL 2013 Mirena PAP SMEAR 04/07/2020 NILM REVIEW OF SYSTEMS Review of Systems: Review of Systems Constitutional: Negative. HENT: Negative. Eyes: Negative. Respiratory: Negative. Cardiovascular: Negative. Gastrointestinal: Negative. Genitourinary: Negative. Musculoskeletal: Negative. Skin: Negative. Neurological: Negative. All other systems reviewed and are negative. Hematological: Negative. Endocrine: Negative. Allergic/Immunologic: Negative. OBJECTIVE Objective: Physical Exam Constitutional: Appearance: Normal appearance. She is well-developed. Cardiovascular: Rate and Rhythm: Normal rate and regular rhythm. Pulmonary: Effort: Pulmonary effort is normal. Breath sounds: Normal breath sounds. Abdominal: General: Bowel sounds are normal. There is no distension. Palpations: Abdomen is soft. Tenderness: There is no abdominal tenderness. There is no guarding or rebound. Musculoskeletal: General: No swelling. Normal range of motion. Right lower leg: No edema. Left lower leg: No edema. Neurological: Mental Status: She is alert and oriented to person, place, and time. Skin: General: Skin is warm and dry. Psychiatric: Mood and Affect: Mood normal. Behavior: Behavior normal. Vitals and nursing note reviewed. Exam conducted with a welding teacher present. Vitals: Estimated body mass index is 25.81 kg/m as calculated from the following: Height as of 03/21/24: 5' 2 . Weight as of 08/14/24: 141 lb 1.9 oz. BP: No LMP recorded. ASSESSMENT & PLAN ICD-10-CM 1. Pre-op examination Z01.818 2. Request for sterilization Z30.2 Pre Op: Patient is doing well but has desire for sterilization. I have discussed conservative management vs. surgical management with the patient in detail and patient desires surgical management at this time. Patient has voiced understanding that a Bilateral Salpingectomy is considered to be permanent and patient will undergo Da Silvano assisted Bilateral Laparoscopic Salpingectomy on 11/02/2024. Surgical consents were signed, mmc was reviewed, and patient is to proceed to [facility] OR. Follow Up: Patient is to follow up between 1-2 weeks post op to assess proper healing and recovery from procedure. Documented by Jo Dillon LPN on behalf of: Mukesh Jones DO documented in this encounter [facility] 08-06-2024 Hospital Discharge instructions Follow Up Care 08/06/2024 10:01:24 With:Elena Burger MD, [facility], MED Address: [address] [place] [phone] Business (1) When:Within 1 Year(s) [facility] 10-12-2023 Evaluation + Plan note Future Scheduled [id number] 10/12/23 [facility] 05-26-2023 Evaluation + Plan note Future Scheduled [id number] 05/26/23TSH With T4fr Reflex 05/26/23CBC w/ Auto Diff 05/26/23Comprehensive Metabolic Panel 09/01/22Comprehensive Metabolic Panel 05/26/23Lipid Panel 09/01/22Lipid Panel 05/26/23Thyroid Stimulating Hormone 09/01/22 [facility] 05-11-2023 Hospital Discharge instructions Follow Up Care 05/11/2023 09:10:44 With:Elena Burger MD, [facility], [facility] Address: [address] [place] [phone] Business (1) When:Within 1 Year(s) [facility] 09-08-2022 Note OPERATIVE NOTE OPERATION DATE: 09/08/2022 PROCEDURE: Hysteroscopy D AND C with diagnostic laparoscopy for removal of retained IUD in the abdomen. PREOPERATIVE DIAGNOSIS: Retained IUD, potentially IUD migration. POSTOPERATIVE DIAGNOSIS: Retained IUD including migration of IUD. SURGEON: Mukesh Jones D.O. SETUP TECHNICIAN: JUDD Muller URINE OUTPUT: Yellow and clear. [...] to Recovery Room in stable condition. [facility] 09-01-2022 Evaluation + Plan note Future Scheduled TestsComprehensive Metabolic Panel 09/01/22Lipid Panel 09/01/22Thyroid Stimulating Hormone 09/01/22 [facility] [place] 09-01-2022 Hospital Discharge instructions Patient Education 09/01/2022 [...] height. This can be done either in [place] or metric measurements. Note that charts are available to help you find your BMI quickly and easily without having to do these calculations yourself. To calculate your BMI in [place] measurements, your health care provider will: [...] medical problems. BMI can be measured using [place] measurements or metric measurements. To interpret your [...] 07/19/2005 Document Revised: 10/20/2018 Document Reviewed: 09/20/2018 [employer] Patient Education 2020 [employer]. Follow Up Care 08/18/2022 08:40:58 With:Jennyfer BECKWITH, Elena, FAM, MED Address: [address] [place] [phone] Business (1) When:Within 1 Year(s) [facility] [place] 09-08-2021 Note HNO ID: [id number] Author: Estelle Sims APRN.[employer] Service: ? Author Type: Nurse Practitioner Type: Progress Notes Filed: 09/08/2021 7:52 PM Note Text: This note was created using NoteWriter. Subjective Paula Whitaker is a 26 year old female. The history is provided by the patient. No language arts teacher was used. LMP 07/27/2021. Not on control. 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 - HCG QUAL UR B/O Estelle Sims APRN.[employer] 09-08-2021 History of Present illness Narrative This note was created using NoteWriter. Subjective Paula Whitaker is a 26 year old female. The history is provided by the patient. No language arts teacher was used. LMP 07/27/2021. Not on control. 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 - HCG QUAL UR B/O Estelle Sims APRN.[employer] documented in this encounter [facility] 09-08-2021 Instructions Estelle Sims APRN.ANABEL - 09/08/2021 7:10 PM EDT Please follow up with EMERGENCY SPILL RESPONSE TECHNICIAN as soon as possible documented in this encounter [facility] Evaluation note Diagnosis Encounter for test, result unknown- Primary [facility] noteNo assessment information availableSt. [facility] Work Phone: Evaluation note* Diagnosis Pre-op examination Request for sterilization [facility] N[facility] No data available for this section [facility] Hospital Discharge instructions No data available for this section [facility] Progress note No data available for this section [facility] Summary Purpose Family History No Family [...] section and content) DATE CREATED AUTHOR 05/17/2018 [facility] DATE CREATED AUTHOR AUTHOR'S ORGANIZ ATION 09/10/2021 [facility] DATE CREATED AUTHOR AUTHOR'S ORGANIZ ATION 09/22/2022 [facility] DATE CREATED AUTHOR AUTHOR'S ORGANIZ ATION 08/11/2024 [facility] DATE CREATED AUTHOR AUTHOR'S ORGANIZ ATION 08/12/2024 [facility] DATE CREATED AUTHOR AUTHOR'S ORGANIZ ATION 10/10/2024 [facility] DATE CREATED AUTHOR AUTHOR'S ORGANIZ ATION 10/25/2024 [facility] Source Comments (unrecognize d section and content) In the event this informatio n is protected by the Federal Confidentiality of Alcohol and Drug Abuse Patient Records regulations: The Federal rules restrict any use of the information to criminally investigate or prosecute any alcohol or drug abuse patient.[facility] Reason for Visit (unrecogniz ed section and content) Reason Comments Amenorrhea LMP 07/27/2021 Reason Comments Pre-op Visit Care Teams (unrecognized sec tion and content) Team Status: Inactive Member Role Status Dates NON STAFF Primary Care Provider Active Nadja Bhat APRN Emergency Provider Active Team Status: Active Member Role Status Dates NON STAFF Primary Care Provider Active Team Status: Active Member Role Status Dates Elena Burger MD Primary Care Provider Active Team Status: Inactive Member Role Status Dates Elenajason Burger , MD Primary Care Provider, Attending Provider Active Erp Technical Lead Relationship Specialty Start Date End Date Elena Burger MD [address] [place] [id number] PCP - General 07/04/23 Wai Mclaughlin MD [address] [place] [address] Referring Physician Neurology 02/22/24 Goals (unrecognized section and content) Goals may [...] BE BASED ON THE PRIMARY CLINICAL RECORDS. [facility]. provides no warranty or guarantee of the accuracy or completeness of information in this document.
[2024-11-02 08:35] LABS: Basophils Percent Auto 0.2 % (0.2-2.0); Eosinophils Percent Auto 0.6 % (0.9-7.0); Hematocrit 40.5 % (36.0-48.0); Hemoglobin 13.1 g/dL (12.0-16.0); Immature Granulocytes Abs Auto 0.01 10^3/uL (0.00-0.03); Immature Granulocytes Pct Auto 0.2 % (0.0-0.5); Lymphocytes Absolute Auto 1.9 10^3/uL (1.2-3.8); Lymphocytes Percent Auto 39.3 % (20.5-60.0); Mean Corpuscular HGB Conc 32.3 g/dL (29.9-35.2); Mean Corpuscular Hemoglobin 27.8 pg (26.7-34.0); Mean Corpuscular Volume 85.8 fL (81.0-99.0); Mean Platelet Volume 11.2 fL (9.5-13.5); Monocytes Absolute Auto 0.4 10^3/uL (0.3-0.8); Monocytes Percent Auto 8.2 % (1.7-12.0); Neutrophils Absolute Auto 2.5 10^3/uL (1.4-6.5); Neutrophils Percent Auto 51.5 % (43.0-75.0); Platelet Count 146 10^3/uL (150-450); Red Blood Count 4.72 10^6/uL (4.20-5.40); White Blood Count 4.9 10^3/uL (4.0-11.0)
[2024-11-02] MEDS: LACTATED RINGER'S SOLUTION 1,000 ML 50 ML IV (09:01)
[2024-11-02 09:13] LABS: HCG Quantitative <1 mIU/mL
--- NOTE | 2024-11-02 11:30 | P.ON_ITS ---
Brief Operative Note Date of procedure: 11/02/24 Pre-op diagnosis general: Multiparity, desires permanent sterilization Post-op diagnosis: same as pre-op Procedure: NAME OF PROCEDURE: robotic assisted bilateral laparoscopic salpingectomy PROCEDURE: The patient was taken back to the Operating Room where she was given general anesthesia without difficulty. She was then prepped and draped in the normal sterile fashion after being placed in a dorsal lithotomy position. A wet sponge stick was placed into the patient's vagina. Attention was then turned to the patient's abdomen, where a scalpel was used to make a small infraumbilical incision. The S retractors were then used to dissect the underlying layers until the fascia could be seen. The fascia was then grasped with Dickson clamps and tented up. A knife was then used to make a small incision to the fascia. The muscle was identified, at that time two sutures of #0 Vicryl on a GI needle was then used and placed through the fascia. the peritoneum was then identified and entered bluntly. The 10-4 Afia was then placed into the patient's abdomen. This was confirmed with direct visualization of the bowel, using the laparoscope. The patient's abdomen was then insufflated using approximately 4 liters of CO2 gas. Survey of the patient's abdomen demonstrated ovaries were normal in appearance as well as both tubes and uterus. A second and third rt and lt lateral robotic ports which were 8 mm in size, was then placed after the skin incision was made under direct visualization . the robotic arms were engaged. The patient's tube on the patient's right side was identified and tented up using a grasper, the ligasure apparatus was then used to come across the mesosalpingx from the fimbriated end to the insertion site at the uterus, the tube was then amputated and removed in its entirety. This was done on the contralateral side. The tubes were the removed from the patients abdomen. Excellent hemostasis was noted. The lateral ports were then moved under direct visualization with excellent hemostasis. All instruments were removed from the patient's abdomen. The fascia was closed using the #0 Vicryl on GI needle. The skin was closed using 4-0 Vicryl subcuticularly. All instruments were removed from the patient's vagina as well. The patient was taken out of the dorsal lithotomy position and placed in the supine position and taken to recovery in s table condition. Sponge, lap and needle counts were correct x2. Anesthesia: GETA Surgeon: Grover Jones Box Spring Maker: Rosa Trevino Estimated blood loss (mL): 5 Pathology: other (tubes) Condition: stable Disposition: PACU Urinary Catheter Management Urinary Catheter Management Urethral: Cath placed during this visit: no
[2024-11-02] MEDS: 0.9 % SODIUM CHLORIDE 500 ML IV (11:49)
[2024-11-02] MEDS: MEPERIDINE HCL/PF 25 MG/ML VIAL IVP (12:13)
--- NOTE | 2024-11-02 12:25 | PC.NURSE ---
Shivering; anesthesia aware
--- NOTE | 2024-11-02 12:29 | PC.NURSE ---
Medicated as ordered for incisional pain and shivering; peripad dry
--- NOTE | 2024-11-02 12:35 | PC.NURSE ---
No shivering noted; peripad dry
[2024-11-02] MEDS: HYDROCODONE/ACET 5-325 MG TABLET 1 TAB PO (13:06)
--- NOTE | 2024-11-02 13:15 | PC.NURSE ---
Up to bathroom and voids clear yellow without difficulty
--- NOTE | 2024-11-02 13:16 | PC.NURSE ---
Medicated with oral pain medication as ordered
--- NOTE | 2024-11-02 13:45 | PC.NURSE ---
Umbilical dressing saturated with bloody drainage; dressing removed and pressure applied to umbilical surgical site with sterile 4x4's; no active bleeding noted after 5 mins of applying pressure; 4x4's applied to site and covered with opsite.
== END 2024-11-02 13:30 | disposition home or self-care (01) ==
PROVIDERS: PCP Family Medicine; Visit Provider Obstetrics & Gynecology
PROC: (CPT 840; principal; 2024-11-02 09:50)
DX: Z30.2 Encounter for sterilization (principal); R56.9 Unspecified convulsions; E03.9 Hypothyroidism, unspecified
CPT/HCPCS: 58661; 36415; 84702; 85025; 88302; J1100; J1885; J2175; J2250; J2405; J2704; J3010

== ENCOUNTER 2025-01-31 10:23 | Outpatient (OUT) | payer MEDICAID, SELFPAY ==
--- NOTE | 2025-01-31 10:27 | US_ITS ---
The [address] [address] Patient Name: KEVEN GUTIERREZ MRN: [id number] date: 1995 Sex: F Assigned Patient Location: US Current Patient Location: Accession/Order Number: [id number] Exam Date: 01/31/2025 11:18 Report Date: 01/31/2025 11:23 At the request of: MUKESH OLIVARES DO Procedure: US pelvis w/ transvaginal COMPLETE PELVIC ULTRASOUND INCLUDING TRANSVAGINAL IMAGING CLINICAL DATA: Dyspareunia. History of removal of tubes. COMPARISON: 08/16/2024 Real-time ultrasound evaluation the pelvis was performed utilizing both a transabdominal and transvaginal approach. TRANSABDOMINAL: Estimated uterine size is approximately 9.2 x 3.9 x 4.4 cm. No focal myometrial abnormalities are noted. The endometrial lining is estimated at 5 - 6 mm. The right ovary is identified however the left is not seen. TRANSVAGINAL: Transvaginal scans were performed to better evaluate the uterus and adnexa. By this approach, no focal myometrial abnormalities are identified. The endometrial lining is estimated at 9 - 10 mm., Both ovaries are visualized. The right measures 3.5 x 2.4 x 2.3 cm. There is a complex cystic area with debris and a slightly thickened wall within the right ovary. It measures 12 x 12 x 13 mm. The left ovary measures 2.3 x 1.5 x 1.6 cm. Tiny follicles are seen. There is documentation of bilateral ovarian blood flow. No free fluid is present. US/US pelvis w/ transvaginal IMPRESSION: DOMINANT COMPLICATED FOLLICLE ON THE RIGHT. NO OTHER SIGNIFICANT ABNORMALITIES. Impression dictated by: Amy Gann M.D.01/31/2025 11:23 AM Dictation Location: [place] [address] Electronically authenticated by: [id number] Y Date: 01/31/2025 11:23
--- OUTSIDE RECORDS SUMMARY | 2025-01-31 10:27 | XMS_ITS | CCD ---
Author Organization [facility] ion [facility] Care Team Providers Care Dynamicist Name Role Phone ELIOT MONTES Unavailable Unavailable Khushboo Pennington Primary Care Provider NON STAFF Primary Care Provider CONNER Humphrey Emergency Provider [phone] Khushboo PENNINGTON Primary Care Physician REQUEST, DR NONE LISTED Primary Care Unavaila ble ROBERT, DR MAYORGA Consulting Unavailable ROBERT, DR MAYORGA Admitting Unavailable ROBERT, DR MAYORGA Attending Unavailable ROBERT, DR MAYORGA Attending Unavailable ROBERT, DR MAYORGA Consulting Unavailable ROBERT, DR MAYORGA Admitting Unavailable REQUEST, NONE LISTED Primary Care Unavaila ble KARKASIAK, DR INIGUEZ Consulting Unavailable KARASIK, DR INIGUEZ Admitting Unavailable KARASIK, DR INIGUEZ Attending Unavailable WEST, DR SHAHEEN Lazo Consulting Unavailable ROBERT, DR MAYORGA Consulting Unavailable ROBERT, DR MAYORGA Attending Unavailable ROEBRT, DR MAYORGA Consulting Unavailable REQUEST, DR HERNANDEZ LISTED Primary Care Unavaila ble ROBERT, DR MAYORGA Admitting Unavailable ZIEBER, DR CAROLYN Torres Consulting Unavailable ROBERT, DR MAYORGA Attending Unavailable REQUEST, DR HERNANDEZ LISTED Primary Care Unavaila ble ROBERT, DR MAYORGA Admitting Unavailable RACHEL, DR SHAHEEN Lazo Consulting Unavailable ROBERT, DR MAYORGA Consulting Unavailable ROBERT, DR MAYORGA Admitting Unavailable ROBERT, DR MAYORGA Attending Unavailable REQUEST, NONE LISTED Primary Care Unavaila ble WEST, DR SHAHEEN Lazo Consulting Unavailable ROBERT, DR MAYORGA Consulting Unavailable ROBERT, DR MAYORGA Consulting Unavailable ROBERT, DR MAYORGA Admitting Unavailable ROBERT, DR MAYORGA Attending Unavailable REQUEST, DR NONE [...] ROBERT, DR MAYORGA Admitting Unavailable ZIEBER, DR CAROLYN [...] ROBERT, DR MAYORGA Attending Unavailable ZIEBER, DR CAROLYN Torres Consulting Unavailable REQUEST, DR NONE LISTED Primary Care Unavaila ble KARASIK, DR INIGUEZ Consulting Unavailable KARASIK, DR INIGUEZ Admitting Unavailable KARASIK, DR INIGUEZ Attending Unavailable REQUEST, DR NONE LISTED Primary Care Unavaila ble ROBERT, DR MAYORGA Consulting Unavailable ROBERT, DR MAYORGA Admitting Unavailable ROBERT, DR MAYORGA Attending Unavailable ZIEBER, DR CAROLYN Torres Consulting Unavailable KARASIK, DR INIGUEZ Attending Unavailable KARASIK, DR INIGUEZ Consulting Unavailable KARASIK, DR INIGUEZ Admitting Unavailable ROBERT, DR MAYORGA Attending Unavailable ROBERT, DR MAYORGA Consulting Unavailable ROBERT, DR MAYORGA Admitting Unavailable REQUEST, DR NONE LISTED Primary Care Unavaila ble ROBERT, DR MAYORGA Attending Unavailable ROBERT, DR MAYORGA Admitting Unavailable ROBERT, DR MAYORGA Consulting Unavailable REQUEST, NONE LISTED Primary Care Unavaila ble ROBERT, DR MAYORGA Admitting Unavailable ROBERT, DR MAYORGA Attending Unavailable REQUEST, DR NONE LISTED Primary Care Unavaila ble ROBERT, DR MAYORGA Attending Unavailable ROBERT, DR MAYORGA Admitting Unavailable ROBERT, DR MAYORGA Attending Unavailable ROBERT, DR MAYORGA Consulting Unavailable REQUEST, DR NONE LISTED Primary Care Unavaila ble ROBERT, DR MAYORGA Admitting Unavailable MIGUEL, CARON ONTIVEROS Consulting Unava ilable BALJIT, MARS Consulting Unavailable REQUEST, NONE LISTED Primary Care Unavaila ble KARGRANT, DR INIGUEZ Consulting Unavailable ROBERT, DR MAYORGA Attending Unavailable ROBERT, DR MAYORGA Admitting Unavailable ROBERT, DR MAYORGA Consulting Unavailable CAROLYN CHRISTIAN Consulting Unavailable ROBERT, DR MAYORGA Procedure Practitioner Unavailab le ROBERT, DR MAYORGA [...] LISTED Primary Care Unavaila ble MAGI, DR CAROLYN Torres Consulting Unavailable MD Jennyfer Elena Primary Care Provider [phone] MD Jennyfer Elena Attending Provider [phone] Kevnimelmichelle, Elena Admitting Unavailable Kevinmelmichelle, Elena Attending Unavailable Jennyfer, Elena Attending Unavailable Jennyfer BECKWITH, Elena Primary Care Provider Carolyn Mclaughlin MD Unavailable Elena Burger Primary Care Physician [phone] RUTH PANDEY Attending Unavailable RUTH PANDEY Attending Unavailable MAXIM WATERS Attending Unavailable MAXIM WATERS Referring Unavailable GROVER JONES Attending Unavailable ROBERT, GROVER Attending Unavailable RUTH PANDEY Attending Unavailable Jennyfer, Elena Admitting Unavailable Jennyfer, Elena Attending Unavailable Kevinmelmichelle, Elena Admitting Unavailable Kevinmelmichelle, Elena Attending Unavailable Jennyfer, Elena Attending Unavailable Jennyfer, Elena Referring Unavailable Jennyfer, Elena Attending Unavailable Grover Jones Attending Unavailable Grover Jones Admitting Unavailable Jony Gamboa Attending Unavailab Jony Rordiguez Admitting Unavailab Elena Turk Primary Care Unavailable Allergies Allergy Classification Reported Allergen(s) Allergy Type Date of Onset Reaction(s) Facility (20 sources) Escitalopram; Translations: [escitalopram] Drug Allergy 3 Unknown (qualifier value), Unknown [facility] (1 source) Amitriptyline Drug Allergy [facility] (1 source) LORazepam Drug Allergy [facility] (1 source) LORazepam Drug Allergy [facility] (15 sources) Amitriptyline Drug Allergy 4 [facility] Healthcare (15 sources) Lorazepam Propensity to adverse reactions 1 [facility] Medications Current Medications Medication Drug Class(es) Dates Sig (Normalized) Sig (Original) citalopram 20 mg oral tablet (5 sources) Serotonin Reuptake Inhibitor Start: 12-20-2024 End: 12-20-2025 take 1 tablet by mouth once daily citalopram (CeleXA) 20 MG tablet Indications: Depression, unspecified depression type (CMS/HCC) Take 1 tablet (20 mg) by mouth Daily 30 tablet 11 12/20/2024 12/20/2025 Active Norethindrone-Ethi n Estradiol (4 sources) Estrogen Start: 06-23-2020 take 0.97357878675599157 ug by mouth once daily Norethindrone-Ethi n Estradiol (Nortrel 1/35 (21)) 1-35 mg-mcg (21) tablet Active 1 - 35 TAB PO Daily June 22, 2020 11:00pm Start: 06-23-2020 take 0.3880242878822 2857 ug by mouth once daily Norethindrone-Ethin [...] September 17, 2019 June 23, 2020 7:38am Cenobamate (Xcopri) 14 x 12.5 MG & 14 x 25 MG tablet therapy pack (2 sources) Start: 03-21-2024 End: 08-14-2024 Cenobamate (Xcopri) 14 x 12.5 MG & 14 x 25 MG tablet therapy pack Indications: Seizure (CMS/HCC) Take 12.5 mg by mouth Daily Call when complete and we will send in next titration 14 each 03/21/2024 08/14/2024 Discontinued cephalexin 500 mg oral capsule (2 sources) Cephalosporin Antibacterial Start: 06-06-2020 End: 06-23-2020 take 1 capsule by mouth twice daily Cephalexin (Keflex) 500 mg capsule Discontinued 500 MG PO Twice daily 09 09June 05, 2020 11:00pm June 23, 2020 7:38am levothyroxine sodium 0.05 mg oral tablet (11 sources) l-Thyroxine Start: 11-24-2023 take 1 tablet by mouth once daily levothyroxine 50 mcg (0.05 mg) Tab 50 microgram = 1 tab(s), Oral, Daily, on empty stomach, # 30 tab(s), Refills(s) 11, Pharmacy: [facility], 157, cm, 05/26/23 10:09:00 EDT, Height/Length Dosing, 64.4, kg, 05/26/23 10:09:00 EDT, Weight Dosing Start Date: 11/24/23 Status: Ordered Start: 05-26-2023 take 1 tablet by dennis th once daily levothyroxine 50 mcg (0.05 mg) Tab 50 microgram = 1 tab(s), Oral, Daily, on empty stomach, # 90 tab(s), Refills(s) 3, Pharmacy: [facility], 157, cm, 05/26/23 10:09:00 EDT, Height/Length Dosing, 64.4, kg, 05/26/23 10:09:00 EDT, Weight Dosing Start Date: 05/26/23 Status: Ordered Start: 08-18-2022 take 1 tablet by dennis th once daily levothyroxine 50 mcg (0.05 mg) Tab 50 microgram = 1 tab(s), Oral, Daily, on empty stomach, # 90 tab(s), Refills(s) 0, Pharmacy: [facility], 157, cm, 07/23/21 13:06:00 EDT, Height/Length Dosing, 64, kg, 07/23/21 13:06:00 EDT, Weight Dosing Start Date: 08/18/22 Status: Ordered Start: 11-08-2017 End: 08-14-2024 take 50 ug by mouth once daily Levothyroxine Active 50 MCG PO Daily June 22, 2020 11:00pm Comment on above: Take 50 mcg by mouth once daily. norethindrone 0.35 mg oral tablet (2 sources) Start: 12-22-19 End: 08-14-20 take 1 tablet by mouth in the morning, then take 1 tablet by mouth once daily norethindrone (Micronor) 0.35 MG tablet Indications: Pelvic pain in female Take 1 tablet (0.35 mg) by mouth in the morning for 28 days. Take 1 tablet by mouth daily. 28 tablet 11 12/22/2023 08/14/2024 Discontinued 24 hr venlafaxine 75 mg extended release oral capsule (4 sources) Serotonin and Norepinephrine Reuptake Inhibitor Start: 09-17-20 End: 06-23-20 Venlafaxine Discontinued September 16, 2019 11:00pm June 23, 2020 7:38am Start: 11-08-2017 End: 09-17-2019 take 37.5 mg by mouth twice daily Venlafaxine Discontinued 37.5 MG PO Twice daily November 08, 2017 12:00am September 17, 2019 10:14am Problems Active Problems Problem Classification Problem Date Documented Date Episodic/Chronic Abdominal pain (7 sources) Pelvic and perineal pain; Translations: [Pain in female pelvis] Onset: 08-17-2022 Episodic Complication of device; implant [...] traffic, initial encounter] 02-03-2020 Episodic Epilepsy; convulsions (11 sources) Seizure; Translations: [Unspecified convulsions] Onset: 09-01-2022 11-08-2017 Episodic Immunizations and screening for infectious disease (2 sources) Encounter for screening for human papillomavirus (HPV); Translations: [Encounter for screening for infections with a predominantly sexual mode of transmission] Onset: 02-15-2022 Episodic Miscellaneous mental health disorders (2 sources) depression; Translations: [ depression] 01-03-2025 Episodic Mood disorders (4 sources) Depressive disorder; Translations: [Depression] 06-23-2020 Chronic Nonmalignant breast conditions (2 sources) Cellulitis of breast; Translations: [Mastitis without abscess] 06-06-2020 Episodic Other aftercare (2 sources) Surgical follow-up; Translations: [Encounter for follow-up examination after completed treatment for conditions other than malignant neoplasm] 11-08-2024 Episodic Other endocrine disorders (2 sources) Polycystic ovary syndrome; Translations: [Polycystic ovarian syndrome] 06-23-2020 Chronic Other endocrine disorders (1 source) Polycystic ovarian syndrome; Translations: [POLYCYSTIC OVARIAN SYNDROME] Onset: 09-21-2022 Chronic Other nutritional; endocrine; and metabolic disorders (10 sources) Overweight; Translations: [Overweight] Onset: 09-01-2022 Episodic Other nutritional; endocrine; and metabolic disorders (8 sources) Overweight in adulthood with body mass index of 25 or more but less than 30; Translations: [Body mass index (BMI) 27.0-27.9, adult] Onset: 09-01-2022 Episodic Other screening for suspected conditions (not mental disorders or infectious disease) (20 sources) Patient encounter status; Translations: [Encounter for test, result unknown] Onset: 11-04-2021 Episodic Residual codes; unclassified (15 sources) Hypersomnia; Translations: [Hypersomnia, unspecified] Onset: 03-21-2024 03-27-2024 Chronic Spondylosis; intervertebral disc disorders; other back problems (1 source) Low back pain; Translations: [Low back pain, unspecified] Onset: 11-23-2024 Episodic Suicide and intentional self-inflicted injury (6 sources) H/O: deliberate self harm 05-23-2019 Episodic Thyroid disorders (14 sources) Hypothyroidism; Translations: [Hypothyroidism, unspecified] Onset: 03-25-2022 Chronic Thyroid disorders (2 sources) Disorder of thyroid gland; Translations: [Disorder of thyroid, unspecified] 06-23-2020 Episodic Unclassified (1 source) Unknown / UNK(Unknown) Onset: 06-10-2017 Unclassified (6 sources) Drug therapy finding 01-23-2020 Unclassified (6 sources) Influenza vaccination declined 09-01-2022 Unclassified (1 source) CONTACT W/AND (SUSP) EXPOS COVID-19; Translations: [CONTACT W/AND (SUSP) EXPOS COVID-19] Onset: 09-08-2022 Unclassified (7 sources) Patient encounter status 05-26-2023 Past or Other Problems Problem Classification Problem Date Documented Date Episodic/Chronic OB-related trauma to perineum and vulva (1 source) Second degree perineal laceration during delivery; Translations: [SECOND DEG PERINEAL LAC DUR DELIV] Onset: 05-13-2022 Episodic Other aftercare (1 source) Other prison (current) drug therapy; Translations: [OTH STRATEGY CONSULTANT CURRENT DRUG THERAPY] Onset: 05-13-2022 Episodic Other [...] ] Onset: 03-26-2022 Episodic Residual codes; unclassified (15 sources) Insomnia; Translations: [Insomnia, unspecified] Onset: 03-21-2024 03-21-2024 Episodic Substance-related disorders (2 sources) Drug use complicating childbirth; Translations: [Cannabis use, unspecified, uncomplicated] Onset: 05-13-2022 Episodic Results Test Name Value Interpretation Reference Range Facility Nonvisit Note - PTon 025 Nonvisit Note - PT Nonvisit Note - PT Pt no showed to PT reassessment. [facility]K Normal [facility] Nonvisit Note - PTon 025 Nonvisit Note - PT Nonvisit Note - PT Pt cancelled reassessment and rescheduled to 01/07/25. [facility] Normal [facility] Nonvisit Note - PTon 025 Nonvisit Note - PT Nonvisit Note - PT Pt called to cancel as pt has another appointment at this time. Normal [facility] XR Spine Lumbosacral 2 or 3 Viewson 11-24-2024 XR Spine Lumbosacral 2 or 3 Views Exam Date/Time: 11/24/2024 10:51 EST Reason for Exam: Pain, Non Traumatic Report IMPRESSION: No acute osseous findings. EXAMINATION/TECHNIQUE: XR Spine Lumbosacral 2 or 3 Views HISTORY: Low back pain. COMPARISON: None RESULT: Counting reference of L4-L5 at the iliac crest. Alignment appears anatomic. No radiographic evidence for acute fracture. Vertebral body heights appear maintained. Disc spaces appear maintained. Visualized sacrum intact. SI joints unremarkable. Soft tissues unremarkable. No other significant abnormality. Ordering Provider: Elena Burger FINAL REPORT Dictated: 11/24/2024 12:40 pm Mars Shin MD Signed (Electronic Signature): 11/24/2024 12:40 pm Signed by: Mars Shin MD Transcribed by: CARMELA Technologist: BRANDIE Technical Comments Radiation Dose: anh [place] in mGy = . DAP = . Normal [facility] Medicine Office/Clini c Noteon 11-23-2024 Family Medicine Office/Clinic Note Family Medicine Office/Clinic Note Chief Complaint Lower back pain HPI Staff complaints of lower back pain x 4 weeks- has worsened and happening more frequently Onset: 1 month Characteristics: sharp OTC tried: Tylenol History of Present Illness PAULA WHITAKER is a 29 Years White Female presenting to clinic today with low back pain x1 month sharp pain, worsening happening more frequently as well cannot walk when it occurs does not go down the legs, does not radiate no falls, no injuries not aggravated or alleviated by anything lasts a few seconds and then it is gone happens every 2-3 days no numbness, tingling, weakness Review of Systems PHQ Score Initial Depression Screen Score: 0 SCORE Negative except as above Physical Exam Vitals & Measurements HR: 69(Peripheral) BP: 128/74 SpO2: 98% HT: 62 in HT: 157 cm WT: 66.4 kg WT: 146.387 lb BMI: 26.94 Gen: No acute distress, sitting comfortably in chair Psych: Pleasant, normal mood, normal affect Neuro: CN II-XII intact, normal gait Back: Full ROM, no tenderness, no paraspinal muscle spasms Assessment/Plan 1. Low back pain (M54.50: Low back pain, unspecified) xr lumbosacral spine ordered POC UA negative back exercises handout given Ordered: Urnls Dip Stick Auto w/o Microscopy POC 25864 XR Spine Lumbosacral 2 or 3 Views 2. BMI 26.0-26.9,adult (Z68.26: Body mass index [BMI] [...] management will be followed at subsequent visits. 3. Overweight (E66.3: Overweight) increase whole foods, decrease processed foods exercise at least 2.5 hours weekly 4. Nonsmoker (Z78.9: Other specified health status) stable Orders: levothyroxine, 50 microgram = 1 tab(s), Oral, Daily, on empty stomach, # 30 tab(s), Refills(s) 11, Pharmacy: [facility], 157, cm, 05/26/23 10:09:00 EDT, Height/Length Dosing, 64.4, kg, 05/26/23 10:09:00 EDT, Weight Dosing Follow-up With When Contact Information Elena Burger MD, FAM, MED Only if needed [address] [place] [phone] Additional Instructions: Patient Education Back Exercises Problem List/Past Medical History Ongoing Annual physical exam BMI 26.0-26.9,adult High risk medications (not anticoagulants) long-term use History of intentional self-harm Hypothyroidism Influenza vaccination declined Overweight Seizures Historical No qualifying data Procedure/Surgical History none. Medications No active medications Allergies Lexapro (Unknown) Social History Alcohol - Low Risk, 05/23/2019 Substance Abuse - Denies Substance Abuse, 05/23/2019 Current, Marijuana, IV drug use: No. Drug use interferes with work/home: No. Ready to change: No. Household substance abuse concerns: Yes., 01/23/2020 Tobacco - Denies Tobacco Use, 07/23/2021 Never (less than 100 in lifetime) Tobacco Use:. Never Smokeless Tobacco Use:. Cigarettes, Household tobacco concerns: No., 11/23/2024 Family History Bipolar: Mother. Immunizations Vaccine Date [...] 1995 Recorded diphtheria/pertussis, acel/tetanus ped 1995 Recorded Lab Results Ambulatory Point of Care Results Bilirubin Urine Dipstick: Negative (11/23/24 17:47:00) Blood Urine Dipstick: Negative (11/23/24 17:47:00) Glucose Urine Dipstick: Negative (11/23/24 17:47:00) Ketones Urine Dipstick: Negative (11/23/24 17:47:00) Leo (more content not included)... Normal [facility] Comment on above: Result Comment: Elec tronically Signed By: Elena Burger MD\.br\Date and Time Signed: 11/23/24 18:00 EST ALL CBC WITH AUTO DIFFon BASOPHILS ABSOLUTE AUTO 0 [facility] Healthcare Basophils/100 WBC (Bld) 0.2 % 0.2 - 2.0 % [facility] Eosinophils/100 WBC (Bld) 0.6 % Low 0.9 - 7.0 % [facility] Erythrocyte distribution width (RBC) [Ratio] 13 % 11.0 - 15.0 % [facility] Hematocrit (Bld) [Volume fraction] 40.5 % 36.0 - 48.0 % [facility] Hemoglobin (Bld) [Mass/Vol] 13.1 g/dL 12.0 - 16.0 g/dL [facility] IMMATURE GRANULOCYTES ABS AUTO 0.01 [facility] Immature granulocytes/100 WBC (Bld) 0.2 % 0.0 - 0.5 % [facility] Interpretation and review of laboratory results Abnormal [facility] LYMPHOCYTES ABSOLUTE AUTO 1.9 [facility] Lymphocytes/100 WBC (Bld) 39.3 % 20.5 - 60.0 % [facility] MCH (RBC) [Entitic mass] 27.8 pg 26.7 - 34.0 pg [facility] MCHC (RBC) [Mass/Vol] 32.3 g/dL 29.9 - 35.2 g/dL [facility] MCV (RBC) [Entitic vol] 85.8 fL 81.0 - 99.0 fL [facility] MONOCYTES ABSOLUTE AUTO 0.4 [facility] Monocytes/100 WBC (Bld) 8.2 % 1.7 - 12.0 % [facility] NEUTROPHILS ABSOLUTE AUTO 2.5 [facility] Neutrophils/100 WBC (Bld) 51.5 % 43.0 - 75.0 % [facility] Platelet mean volume (Bld) [Entitic vol] 11.2 fL 9.5 - 13.5 fL [facility] TBH EO # 0 [facility] TB PLT 146 Low [facility] TB RBC 4.72 [facility] WBC 4.9 [facility] Justin 11-02-2024 L ---- Specimen: [id number] Received: 11/05/24 Status: JULIANA Birch Num: [id number] Spec Type: Surgical Subm Dr: Grover Jones Tissues: A Fallopian Tube - Sterilization (BILAT FAL TUBES) Procedures: HE/2, Gross/Isadora L2 Age/ Patient Sex Location Account Attending Physician Paula Whitaker 29/F LAB[facility] [id number] Grover Jones SPEC NUM: [id number] RECD: 11/05/24 STATUS: JULIANA BIRCH NUM: [id number] DANIELLE: 11/02/[address] [facility] [address]: Grover Jones ENTERED: 11/05/[address] [facility] [address]: Caitlyn,Lab SPEC TYPE: Surgical DEPT: THEODORE LEIVA ENTERED BY: [id number] RECV BY: [id number] ORDERED: HE/2, Gross/Micro L2 ORDERED: HE/2, Gross/Micro L2 Pathological Diagnosis Bilateral fallopian tubes: Bilateral salpingectomy: -Intact bilateral fimbriated fallopian tubes without significant histopathological findings Clinical Information Request for sterilization Gross Description Part A is received in formalin labeled with the patients name, date of , and bilateral fallopian tubes are bilateral, unoriented fallopian tubes with fimbriated distal ends, 5 x 0.8 cm, and 5.5 x 0.8 cm. The serosa is gutiérrez-purple, smooth and glistening. Serial sections reveal pinpoint lumen within each segment. Cassettes: A1 Entirety of trisected fimbriated end and sales representative sales manager cross-sections of shorter fallopian tube A2 Entirety of trisected fimbriated and and sales representative sales manager cross-sections of longer fallopian tube (2, ss, [id number] A)PIA Specimen: [id number] Received: 11/05/24 Status: JULIANA Birch Num: [id number] Spec Type: Surgical Subm Dr: Grover Oscar: A Fallopian Tube - Sterilization (BILAT FAL TUBES) Procedures: HE/2, Fabiana/Isadora L2 Patient: Paula Whitaker [id number] (Continued) Specimen: [id number] Received: 11/05/24 (Continued) Signed (signature on file) Sheila Han MD 11/06/24 1633 Specimen: [id number] Received: 11/05/24 Status: JULIANA Birch Num: [id number] Spec Type: Surgical Subm Dr: Grover Robert Tissues: A Fallopian Tube - Sterilization (BILAT FAL TUBES) Procedures: HE/2, Gross/Micro L2 Patient: Paula Whitaker [id number] (Continued) Specimen: [id number] Received: 11/05/24 (Continued) Microscopic Description Microscopic examinations are performed supporting the above interpretation CPT Codes 94496 Specimen: [id number] Received: 11/05/24 Status: JULIANA Birch Num: [id number] Spec Type: Surgical Subm Dr: Grover Jones Tissues: A Fallopian Tube - Sterilization (BILAT FAL TUBES) Procedures: HE/2, Gross/Micro L2 Patient: Paula Whitaker [id number] (Continued) Signed (signature on file) Chin-Yousuf Han MD 11/06/24 1633 Normal [facility] IGP,APTIMA HPV,AGE GDLNon AGE GDLN ACOG TESTING Note . [facility] Comment on above: TESTS RESULT FLAG UN ITS REF RANGE LAB Clinician Provided Cytology Information Source.............Cervix;Endocervix No. of containers..01 ThinPrep Vial Age Algo ACOG Esme... FLAG LEGEND: L-Low Normal,H-High Normal,LL-Alert Low,HH-Alert High <-Panic Low,>-Panic High,A-Abnormal,AA-Critical Abnormal Performed at: 01 =G [facility] [place] [address] Rosenda Pederson MD, IGP, RFX APTIMA HPV ASCU Note . [facility] Comment on above: TESTS RESULT FLAG UN ITS REF RANGE LAB DIAGNOSIS: 02 NEGATIVE FOR INTRAEPITHELIAL LESION OR MALIGNANCY. Specimen adequacy: 02 Satisfactory for evaluation. Endocervical and/or squamous metaplastic cells (endocervical component) are present. Performed by: Martha White, Manager User Interface ([facility]) . 02 Note: Note 03 The Pap smear is a screening test designed to aid in the detection of premalignant and malignant conditions of the uterine cervix. It is not a diagnostic procedure and should not be used as the sole means of detecting cervical cancer. Both false-positive and false-negative reports do occur. Test Methodology: Note 03 This liquid based ThinPrep(R) pap test was screened with the use of an image guided system. . 02 The HPV DNA reflex criteria were not met with this specimen result therefore, no HPV testing was performed. FLAG LEGEND: L-Low Normal,H-High Normal,LL-Alert Low,HH-Alert High <-Panic Low,>-Panic High,A-Abnormal,AA-Critical Abnormal Performed at: 02 [facility] [address] [address] [place] [address] Miguel Hernandez MD, [address] [address] Rosenda Pederson MD, Performed at: =G - [facility] [id number] Commercial Litigation Associate: Rosenda Pederson MD, Phone: [phone] Performed at: [facility] [address] [address] [place], [place] [id number] Commercial Litigation Associate: Miguel Hernandez MD, Phone: [phone] BRUSH-SPATULA CERVIX ENDOCERVIX [facility] URETHRITIS/DISCHARGE PLUS VA GINITIS (HTRX)on 08-15-2024 ATOPOBIUM VAGINAE 26.170 Abnormal [facility] ATOPOBIUM VAGINAE Detected Abnormal [facility] BVAB 2,3 (BACTERIAL VAGINOSIS ASSOCIATED BACTERIA 2, 3); MOBILUNCUS SPP 22.614 Abnormal [facility] BVAB 2,3 (BACTERIAL VAGINOSIS ASSOCIATED BACTERIA 2, 3); MOBILUNCUS SPP Detected Abnormal [facility] TREVON ALBICANS, PARAPSILOSIS, TROPICALIS 0.000 [facility] TREVON ALBICANS, PARAPSILOSIS, TROPICALIS Not detected [facility] TREVON GLABRATA 0.000 [facility] TREVON GLABRATA Not detected [facility] TREVON KRUSEI 0.000 [facility] TREVON KRUSEI Not detected [facility] CHLAMYDIA TRACHOMATIS 0.000 [facility] CHLAMYDIA TRACHOMATIS Not detected [facility] GARDNERELLA VAGINALIS 0.000 [facility] GARDNERELLA VAGINALIS Not detected [facility] Interpretation and review of laboratory results Abnormal [facility] MEGASPHAERA (TYPES 1, 2) 0.000 [facility] MEGASPHAERA (TYPES 1, 2) Not detected [facility] MYCOPLASMA GENITALIUM 0.000 [facility] MYCOPLASMA GENITALIUM Not detected [facility] NEISSERIA GONORRHOEAE 0.000 [facility] NEISSERIA GONORRHOEAE Not detected [facility] TRICHOMONAS VAGINALIS 0.000 [facility] TRICHOMONAS VAGINALIS Not detected [facility] HCG ( test) Ql (U)o n 08-14-2024 Interpretation and review of laboratory results Normal [facility] Preg Test, Ur Negative [facility] Urinalysis macro (dipstick) panel (U)on 08-14-2024 Bilirubin, UA Negative Negative - 4(70) +++ mg/dL [facility] Blood, UA Negative Negative - 50 Jonah/mcL [facility] Clarity, UA Clear [facility] Color, UA Yellow [facility] Glucose, UA Negative Negative - 1999(110) ++++ mg/dL [facility] Interpretation and review of laboratory results Abnormal [facility] Ketones, UA Negative Negative - 160(16) ++++ mg/dL [facility] Leukocytes, UA Trace Negative - 500+++ Leo/mcL [facility] Nitrite, UA Negative Negative - Positive [facility] pH, UA 8.5 5 - 9 [facility] Protein, UA Negative Negative - 1999(20) ++++ mg/dL [facility] Spec Grav, UA 1.020 1 - 1.03 [facility] Urobilinogen, UA 0.2 0.2 - 12 mg/dL [facility] Ambulatory Visit Summaryon 0 08-09-2024 Ambulatory Visit [...] Appointments Follow Up with Elena Burger MD, FAM, MED When: In 1 year Where: [address] [place] [phone] Business (1) Medications What How Much When [...] us for your care. Normal [facility] CHEMISTRYOrdered By: SYSTEM SYSTEM on 08-09-2024 [...] (Bld) [Mass fraction] 5.2 % Normal <=5.9% [facility] ChemAutoSS CMPon 08-09-2024 Albumin [Mass/Vol] 4.2 g/dL Normal 3.3-5.0 [facility] Comment on above: Performed By: #### 2 [id number] #### [facility] [address] [place] [address] Albumin/Globulin (S) [Mass conc ratio] 2.0 Normal 1.1-2.2 [facility] Comment on above: Performed By: #### 2 [id number] #### [facility] [address] [place] [address] ALP [Catalytic activity/Vol] 61 Int._Unit/L Normal 21-98 [facility] Comment on above: Performed By: #### 2 [id number] #### [facility] [address] [place] [address] ALT No additional P-5'-P [Catalytic activity/Vol] 10 Int._Unit/L Normal 6-46 [facility] Comment on above: Performed By: #### 2 [id number] #### [facility] [address] [place] [address] Anion gap [Moles/Vol] 8 mmol/L Normal 6-16 [facility] Comment on above: Performed By: #### 2 [id number] #### [facility] [address] [place] [address] AST [Catalytic activity/Vol] 12 Int._Unit/L Normal 5-43 [facility] Comment on above: Performed By: #### 2 [id number] #### [facility] [address] [place] [address] Bilirubin [Mass/Vol] 0.4 mg/dL Normal 0.0-1.1 [facility] Comment on above: Performed By: #### 2 [id number] #### [facility] [address] [place] [address] Calcium [Mass/Vol] 8.9 mg/dL Normal 8.9-11.1 [facility] Comment on above: Performed By: #### 2 [id number] #### [facility] [address] [place] [address] Chloride [Moles/Vol] 108 mmol/L Normal 101-111 [facility] Comment on above: Performed By: #### 2 [id number] #### [facility] [address] [place] [address] CO2 [Moles/Vol] 26 mmol/L Normal 21-31 [facility] Comment on above: Performed By: #### 2 [id number] #### [facility] [address] [place] [address] Creatinine [Mass/Vol] 0.6 mg/dL Normal 0.5-1.3 [facility] Comment on above: Performed By: #### 2 [id number] #### [facility] [address] [place] [address] Globulin (S) [Mass/Vol] 2.1 g/dL Normal 1.4-4.0 [facility] Comment on above: Performed By: #### 2 [id number] #### [facility] [address] [place] [address] Glucose [Mass/Vol] 87 mg/dL Normal 55-199 [facility] Comment on above: Performed By: #### 2 [id number] #### [facility] [address] [place] [address] Potassium [Moles/Vol] 4.2 mmol/L Normal 3.5-5.3 [facility] Comment on above: Performed By: #### 2 [id number] #### [facility] [address] [place] [address] Protein [Mass/Vol] 6.3 g/dL Normal 6.0-7.8 [facility] Comment on above: Performed By: #### 2 [id number] #### [facility] [address] [place] [address] Sodium [Moles/Vol] 138 mmol/L Normal 135-145 [facility] Comment on above: Performed By: #### 2 650781 #### [facility] [address] [place] [address] Urea nitrogen [Mass/Vol] 15 mg/dL Normal 5-21 [facility] Comment on above: Performed By: #### 2 [id number] #### [facility] [address] [place] [address] Urea nitrogen/Creatinine [Mass ratio] 25 No Units High 10-20 [facility] Comment on above: Performed By: #### 2 [id number] #### [facility] [address] [place] [address] Family Medicine Office/Clini c Noteon 08-09-2024 Family [...] Burger MD, FAM, MED In [address] [place] [phone] Business (1) Additional Instructions: Problem List/Past Medical [...] (more content not included)... Normal [facility] Comment on above: Result Comment: Elec tronically Signed By: Elena Burger MD\.br\Date and Time Signed: 08/09/24 08:29 EDT [id number] 08-09-2024 HbA1c (Bld) [Mass fraction] 5.2 % Normal <=5.9 [facility] Comment on above: Performed By: #### 7 [id number] #### [facility] [address] [place] [address] Lipid Panelon 08-09-2024 Cholesterol [Mass/Vol] 144 mg/dL Normal 120-200 [facility] Comment on above: Performed By: #### 2 [id number] #### [facility] [address] [place] [address] Cholesterol in HDL [Mass/Vol] 66 mg/dL Invalid Interpretation Code [facility] Comment on above: Result Comment: '>= 60 LOW RISK' '<= 40 HIGH RISK' Performed By: #### 2 [id number] #### [facility] [address] [place] [address] Cholesterol in LDL [Mass/Vol] 73 mg/dL Normal <=129 [facility] Comment on above: Performed By: #### 2 [id number] #### [facility] [address] [place] [address] Cholesterol in VLDL [Mass/Vol] 6 mg/dL Low 7-40 [facility] Comment on above: Performed By: #### 2 [id number] #### [facility] [address] [place] [address] Triglyceride [Mass/Vol] 28 mg/dL Normal <=149 [facility] Comment on above: Performed By: #### 2 [id number] #### [facility] [address] [place] [address] TSH With T4fr Reflexon 08-09 TSH Qn 1.55 m[IU]/L Normal 0.34-5.60 [facility] Comment on above: Performed By: #### 1 [id number] #### [facility] [address] [place] [address] eGFRon 08-09-2024 eGFR 124 mL/min/1.73 m2 Normal >=59 [facility] Comment on above: Performed By: #### 1 [id number] #### [facility] [address] [place] [address] Lab Reportson 10-28-2023 Lab Reports [id number] F Normal [facility] Lab Reports [id number] Normal [facility] Lab Reportson 10-26-2023 Lab Reports [id number] F Normal [facility] Alanine aminotransferase [En zymatic activity/volume] in Serum or PlasmaOrdered By: Elena Gudimella on 10-17-2023 ALT [Catalytic activity/Vol] 10 U/L 7-52 [facility] Albumin [Mass/volume] in Ser um or Plasma by Bromocresol green (BCG) dye binding methoOrdered By: Elena Gudimella on 10-17-2023 Albumin BCG dye [Mass/Vol] 4.5 g/dL 3.5-5.7 [facility] Alkaline phosphatase [Enzyma tic activity/volume] in Serum or PlasmaOrdered By: Elena Gudimella on 10-17-2023 ALP [Catalytic activity/Vol] 62 U/L 34-104 [facility] Aspartate aminotransferase [ Enzymatic activity/volume] in Serum or PlasmaOrdered By: Elena dimella on 10-17-2023 AST [Catalytic activity/Vol] 13 U/L 13-39 [facility] Basophils Auto (Bld) [#/Vol] Ordered By: Elena Gudila on 10-17-2023 Basophils (Bld) [#/Vol] 0.0 10*3/uL 0.0-0.2 [facility] Basophils/100 WBC Auto (Bld) Ordered By: Elena Gudimella on 10-17-2023 Basophils/100 WBC (Bld) 0.5 % . [facility] Bilirubin.total [Mass/volume ] in Serum or PlasmaOrdered By: Elena on 10-17-2023 Bilirubin [Mass/Vol] 0.5 mg/dL 0.3-1.0 [facility] Calcium [Mass/volume] in Ser um or PlasmaOrdered By: Elena on 10-17-2023 Calcium [Mass/Vol] 9.3 mg/dL 8.6-10.3 [facility] Carbon dioxide, total [Moles /volume] in Serum or PlasmaOrdered By: Elena on 10-17-2023 CO2 [Moles/Vol] 27.7 mmol/L 21.0-31.0 [facility] Chloride [Moles/volume] in S vitor or PlasmaOrdered By: on 10-17-2023 Chloride [Moles/Vol] 107 mmol/L 98-107 [facility] Cholesterol [Mass/volume] in Serum or PlasmaOrdered By: Elena Gudi on 10-17-2023 Cholesterol [Mass/Vol] 155 mg/dL 140-200 [facility] Comment on above: Chol less than 200 m g/dl low riskChol 201-239 mg/dl borderline riskChol 240 mg/dl and greater high risk Cholesterol in LDL Calc [Mas s/Vol]Ordered By: Elena Gudila on 10-17-2023 Cholesterol in LDL [Mass/Vol] 72 mg/dL 0-100 [facility] Comment on above: LDL ATP III CLASSIFI CATIONLDL less than 100 mg/dL OptimalLDL 100-129 mg/dL Near or above optimalLDL 130-159 mg/dL Borderline highLDL 160-189 mg/dL HighLDL greater than 189 mg/dL Very high Cholesterol in VLDL Calc [Ma ss/Vol]Ordered By: Elena Brownmichelle on 10-17-2023 Cholesterol in VLDL [Mass/Vol] 6 mg/dL [facility] Creatinine [Mass/volume] in Serum or PlasmaOrdered By: on 10-17-2023 Creatinine [Mass/Vol] 0.66 mg/dL 0.60-1.20 [facility] Eosinophils Auto (Bld) [#/Vo l]Ordered By: Malcom on 10-17-2023 Eosinophils (Bld) [#/Vol] 0.1 10*3/uL 0.0-0.45 [facility] Eosinophils/100 WBC Auto (Bl d)Ordered By: Malcom on 10-17-2023 Eosinophils/100 WBC (Bld) 2.8 % . [facility] Erythrocyte distribution wid th Auto (RBC) [Ratio]Ordered By: Maclom on 10-17-2023 Erythrocyte distribution width (RBC) [Ratio] 13.3 % 11.9-15.3 [facility] Globulin Calc (S) [Mass/Vol] Ordered By: Malcom10-17-2023 Globulin (S) [Mass/Vol] 2.1 g/dL [facility] Glucose [Mass/volume] in Ser um or PlasmaOrdered By: Malcom10-17-2023 Glucose [Mass/Vol] 78 mg/dL 70-100 [facility] Comment on above: ADA recommended refe rence rangeRandom Glucose Reference Range is dependent on time and content of last meal. Glucose of more than 200 mg/dL in a nonstressed, ambulatory subject supports the diagnosis of Diabetes Mellitus. Hematocrit Auto (Bld) [Volum e fraction]Ordered By: Elena Burger on 10-17-2023 Hematocrit (Bld) [Volume fraction] 37.1 % 34.0-46.4 [facility] Hemoglobin [Mass/volume] in BloodOrdered By: Elena Kevin10-17-2023 Hemoglobin (Bld) [Mass/Vol] 12.1 g/dL 11.8-15.4 [facility] Leukocytes [#/volume] correc addie for nucleated erythrocytes in Blood by Automated counOrdered By: Elena Gudimella on 10-17-2023 WBC corrected for nucl RBC Auto (Bld) [#/Vol] 5.3 10*3/uL 3.8-11.6 [facility] Lymphocytes Auto (Bld) [#/Vo l]Ordered By: Elena Gudimella on 10-17-2023 Lymphocytes (Bld) [#/Vol] 1.6 10*3/uL 1.00-4.8 [facility] Lymphocytes/100 WBC Auto (Bl d)Ordered By: Elena Gudimella on 10-17-2023 Lymphocytes/100 WBC (Bld) 30.9 % . [facility] MCH Auto (RBC) [Entitic mass ]Ordered By: Elena Gudimella on 10-17-2023 MCH (RBC) [Entitic mass] 27.7 pg 24.7-34.3 [facility] MCHC Auto (RBC) [Mass/Vol]Or dered By: Elena Gudimella on 10-17-2023 MCHC (RBC) [Mass/Vol] 32.7 g/dL 32.0-35.0 [facility] MCV Auto (RBC) [Entitic vol] Ordered By: Elena Gudimella on 10-17-2023 MCV (RBC) [Entitic vol] 84.6 fL 80-100 [facility] Monocytes Auto (Bld) [#/Vol] Ordered By: Elena Gudimella on 10-17-2023 Monocytes (Bld) [#/Vol] 0.4 10*3/uL 0.0-0.8 [facility] Monocytes/100 WBC Auto (Bld) Ordered By: Elena Gudimella on 10-17-2023 Monocytes/100 WBC (Bld) 7.8 % . [facility] Neutrophils Auto (Bld) [#/Vo l]Ordered By: Elena Gudimella on 10-17-2023 Neutrophils (Bld) [#/Vol] 3.1 10*3/uL 1.8-7.7 [facility] Neutrophils/100 WBC Auto (Bl d)Ordered By: Elena Gudimella on 10-17-2023 Neutrophils/100 WBC (Bld) 58.0 % . [facility] No Panel InformationOrdered By: Elena Gudimella on 10-17-2023 Estimated GFR (CKD-EPI) > 60.0 mL/Min [facility] Creatinine Clearance (Chem N/A [facility] Nucleated erythrocytes [Pres ence] in Blood by Automated countOrdered By: Elena Gudimella on 10-17-2023 Nucleated RBC Auto Ql (Bld) 0.1 /100{WBC} 0-0.5 [facility] Platelet mean volume Auto (B ld) [Entitic vol]Ordered By: Elena Gudimella on 10-17-2023 Platelet mean volume (Bld) [Entitic vol] 9.5 fL 6.3-10.7 [facility] Platelets Auto (Bld) [#/Vol] Ordered By: Elena Gudimella on 10-17-2023 Platelets (Bld) [#/Vol] 146 10*3/uL 150-450 [facility] Potassium [Moles/volume] in Serum or PlasmaOrdered By: Elena Gudimella on 10-17-2023 Potassium [Moles/Vol] 4.2 mmol/L 3.5-5.1 [facility] Protein [Mass/volume] in Ser um or PlasmaOrdered By: Elena Gudimella on 10-17-2023 Protein [Mass/Vol] 6.6 g/dL 6.4-8.9 [facility] RBC Auto (Bld) [#/Vol]Ordere d By: Leena Gudimella on 10-17-2023 RBC (Bld) [#/Vol] 4.38 10*6/uL 3.60-5.00 [facility] Serum or plasma albumin/glob ulin mass ratioOrdered By: Elena Gudimella on 10-17-2023 Albumin/Globulin [Mass ratio] 2.1 {ratio} [facility] Serum or plasma anion gap de terminationOrdered By: Elena Gudimella on 10-17-2023 Anion gap [Moles/Vol] 10.5 mmol/L 6.0-15.0 [facility] Serum or plasma high density lipoprotein (HDL) cholesterol measurementOrdered By: on 10-17-2023 Cholesterol in HDL [Mass/Vol] 77 mg/dL 23-92 [facility] Comment on above: HDL CHOL ATP-III CLA SSIFICATION Cardiovascular RiskHDL > or equal to 60 mg/dL LOWHDL < 40 mg/dL HIGH Serum or plasma total choles terol/high density lipoprotein (HDL) cholesterol mass ratOrdered By: on 10-17-2023 Cholesterol.total/Chol esterol in HDL [Mass ratio] 2.0 {ratio} <5.0 [facility] Sodium [Moles/volume] in Ser um or PlasmaOrdered By: on 10-17-2023 Sodium [Moles/Vol] 141 mmol/L 136-145 [facility] Thyrotropin [Units/volume] i n Serum or PlasmaOrdered By: 10-17-2023 TSH Qn 0.68 m[IU]/L 0.45-5.33 [facility] Triglyceride [Mass/volume] i n Serum or PlasmaOrdered By: Malcom on 10-17-2023 Triglyceride [Mass/Vol] 31 mg/dL 0-149 [facility] Comment on above: TRIG ATP III CLASSIF ICATIONTRIG less than 150 mg/dL NormalTRIG 150-199 mg/dL Borderline highTRIG 200-500 mg/dL High TRIG greater than 500 mg/dL Very highStandard traceable to the Center for Disease Conrtrol and Prevention (CDC) test method. Urea nitrogen [Mass/volume] in Serum or PlasmaOrdered By: on 10-17-2023 Urea nitrogen [Mass/Vol] 21 mg/dL 7-25 [facility] WBC Auto (Bld) [#/Vol]Ordere d By: on 10-17-2023 WBC (Bld) [#/Vol] 5.3 10*3/uL 3.8-11.6 [facility] Physician Orderon 10-14-2023 Physician Order [id number] Normal [facility] CBC AUTO DIFFon 09-08-2022 BASO # 0.0 103/ul Normal 0.0-0.1 [facility] Comment on above: Performed By: #### G LU1HR #### [facility] [address] [place] [address] Dr. Christa Han Basophils/100 WBC (Bld) 0.2 % Normal 0.2-2.0 [facility] Comment on above: Performed By: #### G LU1HR #### [facility] [address] [place] [address] Dr. Christa Han EO # 0.1 103/ul Normal 0.0-0.7 [facility] Comment on above: Performed By: #### G LU1HR #### [facility] [address] [place] [address] Dr. Christa Han Eosinophils/100 WBC (Bld) 3.0 % Normal 0.9-7.0 [facility] Comment on above: Performed By: #### G LU1HR #### [facility] [address] [place] [address] Dr. Christa Han Erythrocyte distribution width (RBC) [Ratio] 14.1 % Normal 11.0-15.0 [facility] Comment on above: Performed By: #### G LU1HR #### [facility] [address] [place] [address] Dr. Christa Han Hematocrit (Bld) [Volume fraction] 39.2 % Normal 36.0-48.0 [facility] Comment on above: Performed By: #### G LU1HR #### [facility] [address] [place] [address] Dr. Christa Han Hemoglobin (Bld) [Mass/Vol] 12.5 g/dL Normal 12.0-16.0 [facility] Comment on above: Performed By: #### G LU1HR #### [facility] [address] [place] [address] Dr. Christa Han IG # 0.00 10e3/ul Normal 0.00-0.03 [facility] Comment on above: Performed By: #### G LU1HR #### [facility] [address] [place] [address] Dr. Christa Han IG % 0.0 % Normal 0.0-0.5 [facility] Comment on above: Performed By: #### G LU1HR #### [facility] [address] [place] [address] Dr. Christa Han LYMPH # 1.8 103/ul Normal 1.2-3.8 [facility] Comment on above: Performed By: #### G LU1HR #### [facility] [address] [place] [address] Dr. Christa Han Lymphocytes/100 WBC (Bld) 42.0 % Normal 20.5-60.0 [facility] Comment on above: Performed By: #### G LU1HR #### [facility] [address] [place] [address] Dr. Christa Han MANUAL DIFF REQ NO Normal [facility] Comment on above: Performed By: #### G LU1HR #### [facility] [address] [place] [address] Dr. Christa Han MCH (RBC) [Entitic mass] 26.7 pg Normal 26.7-34.0 [facility] Comment on above: Performed By: #### G LU1HR #### [facility] [address] [place] [address] Dr. Christa Han MCHC (RBC) [Mass/Vol] 31.9 g/dL Normal 29.9-35.2 [facility] Comment on above: Performed By: #### G LU1HR #### [facility] [address] [place] [address] Dr. Christa Han MCV (RBC) [Entitic vol] 83.8 fL Normal 81.0-99.0 [facility] Comment on above: Performed By: #### G LU1HR #### [facility] [address] [address] [address] Christa Han MONO # 0.3 103/ul Normal 0.3-0.8 [facility] Comment on above: Performed By: #### G LU1HR #### [facility] [address] [place] [address] Dr. Christa Han Monocytes/100 WBC (Bld) 7.0 % Normal 1.7-12.0 [facility] Comment on above: Performed By: #### G LU1HR #### [facility] [address] [place] [address] Dr. Christa Han NEUT # 2.1 103/ul Normal 1.4-6.5 [facility] Comment on above: Performed By: #### G LU1HR #### [facility] [address] [place] [address] Dr. Christa Han Neutrophils/100 WBC (Bld) 47.8 % Normal 43.0-75.0 [facility] Comment on above: Performed By: #### G LU1HR #### [facility] [address] [place] [address] Dr. Christa Han Platelet mean volume (Bld) [Entitic vol] 11.7 fL Normal 9.5-13.5 [facility] Comment on above: Performed By: #### G LU1HR #### [facility] [address] [place] [address] Dr. Christa Han PLT 172 103/ul Normal 150-450 [facility] Comment on above: Performed By: #### G LU1HR #### [facility] [address] [place] [address] Dr. Christa Han RBC 4.68 106/ul Normal 4.20-5.40 [facility] Comment on above: Performed By: #### G LU1HR #### [facility] [address] [place] [address] Dr. Christa Han WBC 4.3 103/ul Normal 4.0-11.0 [facility] Comment on above: Performed By: #### G LU1HR #### [facility] [address] [place] [address] Dr. Christa Han PREG QUANT HCGon 09-08-2022 HCG QUANT 1 mIU/mL Normal [facility] Comment on above: Performed By: #### G LU1HR #### [facility] [address] [place] [address] Dr. Christa Han HCG RANGE SEE BELOW Normal [facility] Comment on above: Result Comment: 5-50 0.2-1 WEEK 50-500 1-2 WEEKS 100-5,000 2-3 WEEKS 500-10,000 3-4 WEEKS 1,000-50,000 4-5 WEEKS 10,000-100,000 5-6 WEEKS 15,000-200,000 6-8 WEEKS 10,000-100,000 2-3 MONTHS Performed By: #### Eliecer LU1HR #### [facility] [address] [place] [address] Dr. Christa Han Covid-19 PCR (CVDTB)on 08-21 SARS-CoV-2 (COVID-19) RNA TRISTEN+probe Ql (Unsp spec) Not detected Normal NOT DETECTED [facility] Comment on above: Result Comment: This test is not yet approved or cleared by the [place] FDA. When there are no FDA-approved or cleared tests available, and other criteria are met, FDA can make tests available under an emergency access mechanism called an Emergency Use Authorization (EUA). The EUA for this test is supported by the [place] of Health and Human Service's (HHS's) declaration [...] SARS-CoV-2. Performed By: #### C VDTBH #### [facility] [address] [place] [address] Dr. Christa Han XR KUB 1 VIEWon [...] by: SHAHEEN RAMOS Date: 2022-08-17 18:14 Normal [facility] US PELVIS AND TRANSVAGon US PELVIS [...] by: CAROLYN SOW Date: 2022-07-30 16:54 Normal [facility] PAP ACOG PANEL 2: 21 to 29on 07-12-2022 . . Normal [facility] Comment on above: Performed By: #### G LU1HR #### [facility] [address] [address] [address] Christa Han Age Gdln ACOG Testing 21- Normal [facility] Comment on above: Performed By: #### G LU1HR #### [facility] [address] [place], [place] [address] Dr. Christa Han DIAGNOSIS: Comment Normal [facility] Comment on above: Result Comment: NEGA TIVE FOR INTRAEPITHELIAL LESION OR MALIGNANCY. CELLULAR CHANGES ASSOCIATED WITH INFLAMMATION ARE PRESENT. PREDOMINANCE OF COCCOBACILLI CONSISTENT WITH SHIFT IN VAGINAL MICHELLE IS PRESENT. THIS SPECIMEN WAS RESCREENED PART OF OUR [employer] PROGRAM. Performed By: #### G LU1HR #### [facility] [address] [address] [address] Christa Han Methodology: Comment Normal [facility] Comment on above: Result Comment: This liquid based ThinPrep(R) pap test was screened with the use of an image guided system. Performed By: #### G LU1HR #### [facility] [address] [address] [address] Christa Han Note: Comment Normal [facility] Comment on above: Result Comment: The Pap smear is a screening test designed to aid in the detection of premalignant and malignant conditions of the uterine cervix. It is not a diagnostic procedure and should not be used as the sole means of detecting cervical cancer. Both false-positive and false-negative reports do occur. . Performed By: #### G LU1HR #### [facility] [address] [address] [address] Christa Han Performed by: Comment Normal [facility] Comment on above: Result Comment: Josseline Koroma Manager User Interface (ASCP) Performed By: #### G LU1HR #### [facility] [address] [address] [address] Christa Han QC reviewed by: Comment Normal [facility] Comment on above: Result Comment: Madhavi Callejas, Manager User Interface (ASCP) Performed By: #### G LU1HR #### [facility] [address] [address] [address] Christa Han Reflex Criteria: Comment Normal [facility] Comment on above: Result Comment: The HPV DNA reflex criteria were not met with this specimen result therefore, no HPV testing was performed. . Performed By: #### G LU1HR #### [facility] [address] [address] [address] Christa Han Specimen adequacy: Comment Normal [facility] Comment on above: Result Comment: Sati sfactory for evaluation. Endocervical and/or squamous metaplastic cells (endocervical component) are present. Performed By: #### G LU1HR #### [facility] [address] [place] [address] Dr. Christa Han CBC AUTO DIFFon 04-28-2022 BASO # 0.0 103/ul Normal 0.0-0.1 [facility] Comment on above: Performed By: #### C BC #### [facility] [address] [place] [address] Dr. Christa Han Basophils/100 WBC (Bld) 0.3 % Normal 0.2-2.0 [facility] Comment on above: Performed By: #### C BC #### [facility] [address] [place] [address] Dr. Christa Han EO # 0.0 103/ul Normal 0.0-0.7 [facility] Comment on above: Performed By: #### C BC #### [facility] [address] [place] [address] Dr. Chrsita Han Eosinophils/100 WBC (Bld) 0.1 % Critically low 0.9-7.0 [facility] Comment on above: Performed By: #### C BC #### [facility] [address] [place] [address] Dr. Christa Han Erythrocyte distribution width (RBC) [Ratio] 13.5 % Normal 11.0-15.0 [facility] Comment on above: Performed By: #### C BC #### [facility] [address] [place] [address] Dr. Christa Han Hematocrit (Bld) [Volume fraction] 29.3 % Critically low 36.0-48.0 [facility] Comment on above: Performed By: #### C BC #### [facility] [address] [place] [address] Dr. Christa Han Hemoglobin (Bld) [Mass/Vol] 9.7 g/dL Critically low 12.0-16.0 [facility] Comment on above: Performed By: #### C BC #### [facility] [address] [address] [address] Christa Han IG # 0.09 10e3/ul Critically high 0.00-0.03 [facility] Comment on above: Performed By: #### C BC #### [facility] [address] [place] [address] Dr. Christa Han IG % 0.7 % Critically high 0.0-0.5 [facility] Comment on above: Performed By: #### C BC #### [facility] [address] [place] [address] Dr. Christa Han LYMPH # 1.1 103/ul Critically low 1.2-3.8 [facility] Comment on above: Performed By: #### C BC #### [facility] [address] [place] [address] Dr. Christa Han Lymphocytes/100 WBC (Bld) 8.3 % Critically low 20.5-60.0 [facility] Comment on above: Performed By: #### C BC #### [facility] [address] [place] [address] Dr. Christa Han MANUAL DIFF REQ NO Normal [facility] Comment on above: Performed By: #### C BC #### [facility] [address] [place] [address] Dr. Christa Han MCH (RBC) [Entitic mass] 27.6 pg Normal 26.7-34.0 [facility] Comment on above: Performed By: #### C BC #### [facility] [address] [place] [address] Dr. Christa Han MCHC (RBC) [Mass/Vol] 33.1 g/dL Normal 29.9-35.2 [facility] Comment on above: Performed By: #### C BC #### [facility] [address] [place] [address] Dr. Christa Han MCV (RBC) [Entitic vol] 83.2 fL Normal 81.0-99.0 [facility] Comment on above: Performed By: #### C BC #### [facility] [address] [place] [address] Dr. Christa Han MONO # 0.9 103/ul Critically high 0.3-0.8 [facility] Comment on above: Performed By: #### C BC #### [facility] [address] [place] [address] Dr. Christa Han Monocytes/100 WBC (Bld) 6.8 % Normal 1.7-12.0 [facility] Comment on above: Performed By: #### C BC #### [facility] [address] [place] [address] Dr. Christa Han NEUT # 11.5 103/ul Critically high 1.4-6.5 [facility] Comment on above: Performed By: #### C BC #### [facility] [address] [place] [address] Dr. Christa Han Neutrophils/100 WBC (Bld) 83.8 % Critically high 43.0-75.0 [facility] Comment on above: Performed By: #### C BC #### [facility] [address] [place] [address] Dr. Christa Han Platelet mean volume (Bld) [Entitic vol] 10.9 fL Normal 9.5-13.5 [facility] Comment on above: Performed By: #### C BC #### [facility] [address] [place] [address] Dr. Christa Han PLT 129 103/ul Critically low 150-450 [facility] Comment on above: Performed By: #### C BC #### [facility] [address] [place] [address] Dr. Christa Han RBC 3.52 106/ul Critically low 4.20-5.40 [facility] Comment on above: Performed By: #### C BC #### [facility] [address] [place] [address] Dr. Christa Han WBC 13.8 103/ul Critically high 4.0-11.0 [facility] Comment on above: Performed By: #### C BC #### [facility] [address] [place] [address] Dr. Christa Han CBC AUTO DIFFon 04-27-2022 BASO # 0.1 103/ul Normal 0.0-0.1 [facility] Comment on above: Performed By: #### C BC #### [facility] [address] [address] [address] Christa Han Basophils/100 WBC (Bld) 0.5 % Normal 0.2-2.0 [facility] Comment on above: Performed By: #### C BC #### [facility] [address] [address] [address] Christa Han EO # 0.1 103/ul Normal 0.0-0.7 [facility] Comment on above: Performed By: #### C BC #### [facility] [address] [place] [address] Dr. Christa Han Eosinophils/100 WBC (Bld) 0.8 % Critically low 0.9-7.0 [facility] Comment on above: Performed By: #### C BC #### [facility] [address] [place] [address] Dr. Christa Han Erythrocyte distribution width (RBC) [Ratio] 13.5 % Normal 11.0-15.0 [facility] Comment on above: Performed By: #### C BC #### [facility] [address] [place] [address] Dr. Christa Han Hematocrit (Bld) [Volume fraction] 32.2 % Critically low 36.0-48.0 [facility] Comment on above: Performed By: #### C BC #### [facility] [address] [place] [address] Dr. Christa Han Hemoglobin (Bld) [Mass/Vol] 10.5 g/dL Critically low 12.0-16.0 [facility] Comment on above: Performed By: #### C BC #### [facility] [address] [place] [address] Dr. Christa Han IG # 0.15 10e3/ul Critically high 0.00-0.03 [facility] Comment on above: Performed By: #### C BC #### [facility] [address] [place] [address] Dr. Christa Han IG % 1.6 % Critically high 0.0-0.5 [facility] Comment on above: Performed By: #### C BC #### [facility] [address] [place] [address] Dr. Christa Han LYMPH # 1.8 103/ul Normal 1.2-3.8 [facility] Comment on above: Performed By: #### C BC #### [facility] [address] [place] [address] Dr. Christa Han Lymphocytes/100 WBC (Bld) 18.3 % Critically low 20.5-60.0 [facility] Comment on above: Performed By: #### C BC #### [facility] [address] [place] [address] Dr. Christa Han MANUAL DIFF REQ NO Normal [facility] Comment on above: Performed By: #### C BC #### [facility] [address] [place] [address] Dr. Christa Han MCH (RBC) [Entitic mass] 27.2 pg Normal 26.7-34.0 [facility] Comment on above: Performed By: #### C BC #### [facility] [address] [place] [address] Dr. Christa Han MCHC (RBC) [Mass/Vol] 32.6 g/dL Normal 29.9-35.2 [facility] Comment on above: Performed By: #### C BC #### [facility] [address] [place] [address] Dr. Christa Han MCV (RBC) [Entitic vol] 83.4 fL Normal 81.0-99.0 [facility] Comment on above: Performed By: #### C BC #### [facility] [address] [place] [address] Dr. Christa Han MONO # 0.8 103/ul Normal 0.3-0.8 [facility] Comment on above: Performed By: #### C BC #### [facility] [address] [place] [address] Dr. Christa Han Monocytes/100 WBC (Bld) 7.8 % Normal 1.7-12.0 [facility] Comment on above: Performed By: #### C BC #### [facility] [address] [place] [address] Dr. Christa Han NEUT # 6.8 103/ul Critically high 1.4-6.5 [facility] Comment on above: Performed By: #### C BC #### [facility] [address] [place] [address] Dr. Christa Han Neutrophils/100 WBC (Bld) 71.0 % Normal 43.0-75.0 [facility] Comment on above: Performed By: #### C BC #### [facility] [address] [place] [address] Dr. Christa Han Platelet mean volume (Bld) [Entitic vol] 11.4 fL Normal 9.5-13.5 [facility] Comment on above: Performed By: #### C BC #### [facility] [address] [place] [address] Dr. Christa Han PLT 147 103/ul Critically low 150-450 [facility] Comment on above: Performed By: #### C BC #### [facility] [address] [place] [address] Dr. Christa Han RBC 3.86 106/ul Critically low 4.20-5.40 [facility] Comment on above: Performed By: #### C BC #### [facility] [address] [place], [place] [id number] Dr. Christa Han WBC 9.6 103/ul Normal 4.0-11.0 [facility] Comment on above: Performed By: #### C BC #### [facility] [address] [place] [address] Dr. Christa Han Covid-19 PCR ([facility])on SARS-CoV-2 (COVID-19) RNA TRISTEN+probe Ql (Unsp spec) Not detected Normal NOT DETECTED [facility] Comment on above: Result Comment: When [...] for this test is supported by the Manager Project Management of Health and Human Service's declaration that [...] used). Performed By: #### G LU1HR #### [facility] [address] [place] [address] Dr. Christa Han DRUG SCREEN RAPID (URINE)on 04-27-2022 AMP Negative Normal NEGATIVE [facility] Comment on above: Performed By: #### D RUGRPD #### [facility] [address] [place] [address] Dr. Christa Han BAR Negative Normal NEGATIVE [facility] Comment on above: Performed By: #### D RUGRPD #### [facility] [address] [place] [address] Dr. Christa Han BUP Negative Normal NEGATIVE [facility] Comment on above: Performed By: #### D RUGRPD #### [facility] [address] [place] [address] Dr. Christa Han BZO Negative Normal NEGATIVE [facility] Comment on above: Performed By: #### D RUGRPD #### [facility] [address] [place] [address] Dr. Christa Han SAMMI Negative Normal NEGATIVE [facility] Comment on above: Performed By: #### D RUGRPD #### [facility] [address] [place] [address] Dr. Christa Han CUT-OFFS SEE BELOW Normal [facility] Comment on above: Result Comment: AMP [...] ng/mL Performed By: #### D RUGRPD #### [facility] [address] [place] [address] Dr. Christa Han DRUG CUT HEADER DRUG CLASS TEST SYST EM CUT-OFF CONCENTRATIONS ARE FOLLOWS: Normal [facility] Comment on above: Performed By: #### D RUGRPD #### [facility] [address] [place] [address] Dr. Christa Han mAMP Negative Normal NEGATIVE [facility] Comment on above: Performed By: #### D RUGRPD #### [facility] [address] [place] [address] Dr. Christa Han MTD Negative Normal NEGATIVE [facility] Comment on above: Performed By: #### D RUGRPD #### [facility] [address] [place] [address] Dr. Christa Han OPI Negative Normal NEGATIVE [facility] Comment on above: Performed By: #### D RUGRPD #### [facility] [address] [place] [address] Dr. Christa Han OXY Negative Normal NEGATIVE [facility] Comment on above: Performed By: #### D RUGRPD #### [facility] [address] [place] [address] Dr. Christa Han PCP Negative Normal NEGATIVE [facility] Comment on above: Performed By: #### D RUGRPD #### [facility] [address] [place] [address] Dr. Christa Han PPX Negative Normal NEGATIVE [facility] Comment on above: Performed By: #### D RUGRPD #### [facility] [address] [address] [address] Christa Han TCA Negative Normal NEGATIVE [facility] Comment on above: Performed By: #### D RUGRPD #### [facility] [address] [place] [address] Dr. Christa Han THC Positive Abnormal NEGATIVE [facility] Comment on above: Performed By: #### D RUGRPD #### [facility] [address] [address] [address] Christa Han TYPE AND SCREENon 04-27-2022 TYPE AND SCREEN Negative Normal [facility] Comment on above: Performed By: #### C T/NGNA #### [facility] [address] [place] [address] Dr. Christa Han US PREG BIOPHY W [...] SHAHEEN RAMOS Date: 2022-04-26 13:34 Normal [facility] US PREG BIOPHY W NON STRESSo [...] by: CAROLYN SOW Date: 2022-04-22 17:08 Normal [facility] US PREG GROWTHon 04-22-2022 US PREG [...] CAROLYN SOW Date: 2022-04-22 17:06 Normal [facility] US PREG BIOPHY W NON STRESSo [...] SHAHEEN RAMOS Date: 2022-04-15 14:23 Normal [facility] CHLAMYDIA/GONOCOCCUS TRISTEN (SW AB/URINE/PAPon 04-08-2022 Chlamydia trachomatis, TRISTEN Negative Normal Negative [facility] Comment on above: Performed By: #### C T/NGNA #### [facility] [address] [place] [address] Dr. Christa Han Neisseria gonorrhoeae, TRISTEN Negative Normal Negative [facility] Comment on above: Performed By: #### C T/NGNA #### [facility] [address] [place] [address] Dr. Christa Han US PREG BIOPHY W [...] by: CAROLYN SOW Date: 2022-04-08 14:16 Normal [facility] GROUP B STREP CULTUREon 03-21 S. agalactiae Ag Ql (Unsp spec) Culture Observations: NEGATIVE FOR GROUP B STREPTOCOCCUS. Normal [facility] Comment on above: Performed By: #### C T/NGNA #### [facility] [address] [place] [address] Dr. Christa Han PREG BIOPHY W NON [...] CAROLYN SOW Date: 2022-04-01 13:31 Normal [facility] US PREG AMNIOTIC FLUID VOLUM Kyler [...] by: CAROLYN SOW Date: 2022-03-29 13:32 Normal [facility] TSHon 03-25-2022 TSH 1.336 uIU/mL Normal 0.358-3.740 [facility] Comment on above: Performed By: #### G LU1HR #### [facility] [address] [place] [address] Dr. Christa Han TSH RANGE SEE BELOW Normal [facility] Comment on above: Result Comment: <0.3 4 UIU/ml HYPERTHYROID 0.34-5.60 UIU/ml EUTHYROID >5.60 UIU/ml HYPOTHYROID Performed By: #### G LU1HR #### [facility] [address] [address] [address] Christa Han US PREG BIOPHY W [...] SHAHEEN RAMOS Date: 2022-03-25 16:41 Normal [facility] US PREG GROWTHon 03-25-2022 US PREG [...] SHAHEEN RAMOS Date: 2022-03-25 16:42 Normal [facility] CHLAMYDIA/GONOCOCCUS TRISTEN ( AB/URINE/PAPon 02-15-2022 Chlamydia trachomatis, TRISTEN Negative Normal Negative [facility] Comment on above: Performed By: #### C T/NGNA #### [facility] [address] [place] [address] Dr. Christa Han Neisseria gonorrhoeae, TRISTEN Negative Normal Negative [facility] Comment on above: Performed By: #### C T/NGNA #### [facility] [address] [place] [address] Dr. Christa Han VAGINITIS/VAGINOSIS DNA PROB Kyler 02-14-2022 Trevon species Negative Normal Negative [facility] Comment on above: Performed By: #### G LU1HR #### [facility] [address] [place] [address] Dr. Christa Han Gardnerella vaginalis Negative Normal Negative [facility] Comment on above: Performed By: #### G LU1HR #### [facility] [address] [place] [address] Dr. Christa Han Trichomonas vaginalis Negative Normal Negative [facility] Comment on above: Performed By: #### G LU1HR #### [facility] [address] [place] [address] Dr. Christa Han GLUCOSE - 1HRon 02-01-2022 Glucose [Mass/Vol] 105 mg/dL Normal 74-106 [facility] Comment on above: Performed By: #### G LU1HR #### [facility] [address] [place] [address] Dr. Christa Han HEMOGRAM AND PLATELon 2021 Hematocrit (Bld) [Volume fraction] 34.4 % Critically low 36.0-48.0 [facility] Comment on above: Performed By: #### C T/NGNA #### [facility] [address] [place] [address] Dr. Christa Han Hemoglobin (Bld) [Mass/Vol] 11.1 g/dL Critically low 12.0-16.0 [facility] Comment on above: Performed By: #### C T/NGNA #### [facility] [address] [place] [address] Dr. Christa Han MCH (RBC) [Entitic mass] 28.2 pg Normal 26.7-34.0 [facility] Comment on above: Performed By: #### C T/NGNA #### [facility] [address] [place] [address] Dr. Christa Han MCHC (RBC) [Mass/Vol] 32.3 g/dL Normal 29.9-35.2 [facility] Comment on above: Performed By: #### C T/NGNA #### [facility] [address] [place] [address] Dr. Christa Han MCV (RBC) [Entitic vol] 87.5 fL Normal 81.0-99.0 [facility] Comment on above: Performed By: #### C T/NGNA #### [facility] [address] [place] [address] Dr. Christa Han PLT 142 103/ul Critically low 150-450 [facility] Comment on above: Performed By: #### C T/NGNA #### [facility] [address] [place] [address] Dr. Christa Han RBC 3.93 106/ul Critically low 4.20-5.40 [facility] Comment on above: Performed By: #### C T/NGNA #### [facility] [address] [place] [address] Dr. Christa Han WBC 9.3 103/ul Normal 4.0-11.0 [facility] Comment on above: Performed By: #### C T/NGNA #### [facility] [address] [place] [address] Dr. Christa Han TSHon 02-01-2022 TSH 1.218 uIU/mL Normal 0.470-4.680 [facility] Comment on above: Performed By: #### T SH #### [facility] [address] [place] [address] Dr. Christa Han TSH RANGE SEE BELOW Normal [facility] Comment on above: Result Comment: <0.3 4 UIU/ml HYPERTHYROID 0.34-5.60 UIU/ml EUTHYROID >5.60 UIU/ml HYPOTHYROID Performed By: #### T SH #### [facility] [address] [place] [address] Dr. Christa Han TSHon 12-02-2021 TSH 0.851 uIU/mL Normal 0.470-4.680 [facility] Comment on above: Performed By: #### T SH #### [facility] [address] [place] [address] Dr. Christa Han TSH RANGE SEE BELOW Normal [facility] Comment on above: Result Comment: <0.3 4 UIU/ml HYPERTHYROID 0.34-5.60 UIU/ml EUTHYROID >5.60 UIU/ml HYPOTHYROID Performed By: #### T SH #### [facility] [address] [place] [address] Dr. Christa MUKHERJEE BOX TEST PT SEND OUTo n 11-04-2021 SENT TO REF LAB 11/04/2021 Normal [facility] Comment on above: Performed By: #### N BOX #### [facility] [address] [place] [address] Dr. Christa Han CNOVon 09-08-2021 CNOV Office Visit (EXPLOR ) -------- PAULA WHITAKER ([id number]) 1995 F Date Time Provider Department 09/08/21 5:50 PM ESTELLE SIMS During your visit today, we recorded the following information about you: Temperature Pulse Blood pressure Last Period 98.7 degrees 66/minute 128/58 07/27/21 Estelle Sims APRN.ANABEL 09/08/2021 7:10 PM Signed Please follow up with [facility] as soon as possible Estelle Sims APRN.CNP 09/08/2021 7:52 PM Signed This note was created using Secure Commandriter. Subjective Paula Whitaker is a 26 year old female. The history is provided by the patient. No speech language therapist was used. LMP 07/27/2021. Not on control. [...] with patient - Will f/u with her lightout examiner tomorrow. - HCG QUAL UR B/O Estelle Sims APRN.CNP Referring Provider: SELF [[id number]] Allergies As of Date: 09/08/2021 (No Known Allergies) Date Reviewed: 09/08/2021 Reviewed by: Nanda Campbell Ma - Fully Assessed Reason for Visit: Amenorrhea [276] Cmt: LMP 07/27/2021 Primary Visit Diagnosis:Encounter for test, result unknown [Z32.00] Order(s):HCG QUAL UR B/O [[id number]] Order #: [id number] Prescriptions as of 09/08/2021 - levothyroxine (SYNTHROID) 50 mcg tablet Take 50 mcg by mouth once daily. Problem List As Of Date: 09/08/2021 (None) Other instructions from your clinician: Please follow up with [facility] as soon as possible Encounter Status:Closed by ESTELLE SIMS on 09/08/21 Normal [facility] No Panel Informationon 09-08 status Positive neg - pos [facility] Quality Check Yes [facility] ALLIED HEALTHon 06-10-2017 ALLIED HEALTH HNO ID: [id number]: Angelo (Mingo Foxe: RadiologyAuthor Type: TechnicianType: Allied HealthFiled: 06/10/2017 5:11 PMNote Text: Radiology Service Progress NotePATIENT NAME: Paula WhitakerMRN: [id number] OF SERVICE: June 10, 2017TIME: 4:53 PMPATIENT IDENTITY VERIFICATION COMPLETED USING TWO (2) METHODS: Patientconfirmed name verbally and Date of .PATIENT GENDER DATA: Female. status: : NoBreastfeeding status: NO.PATIENT RELEVANT IMPLANT DATA REVIEWED: YesRADIOLOGY DEPARTMENT: MR; Exam(s) Completed: Head: Routine BrainSeizurePERIPHERAL IV DATA: Not applicableSIGNED BY: Magdalena Dodd-Andrea Lagos 2016 4:53 PM [facility] MRI BRAIN WO IVCONon 017 MRI [...] skull base. Patent flow voids.IMPRESSION: Normal brain MR.Clerical Support: MARIA TERESA Transcribe Date/Time: Jun 10 2017 5:34PDictated by : CHRYSTAL ALAN MDThis examination was interpreted and the report reviewed and electronically signed by: CHRYSTAL ALAN MD on Jun 10 2017 5:38PM [facility] Vital Signs Date Time Vital Sign Value Performing Clinician Facility 12-20-2024 13:27-0500 Body mass index (BMI) [Ratio] 26.76 kg/m2 Ruth JONES Work Phone: [facility] 12-20-2024 13:27-0500 Body weight 66.36 kg Ruth JONES Work Phone: [facility] 12-20-2024 13:27-0500 Diastolic blood pressure 66 mm[Hg] Ruth JONES Work Phone: [facility] 12-20-2024 13:27-0500 Systolic blood pressure 106 mm[Hg] Ruth JONES Work Phone: [facility] 11-23-2024 17:36-0500 Blood Pressure Location Elena Gudimella [facility] 11-23-2024 17:36-0500 Diastolic blood pressure 74 mm[Hg] Elena Gudimella [facility] 11-23-2024 17:36-0500 Heart rate 69 /min Elena Gudimella [facility] 11-23-2024 17:36-0500 SaO2% (BldA) [Mass fraction] 98 % Elena Gudimella [facility] 11-23-2024 17:36-0500 Systolic blood pressure 128 mm[Hg] Elena Gudimella [facility] 11-08-2024 13:24-0500 Body mass index (BMI) [Ratio] 26.78 kg/m2 Ruth JONES Work Phone: [facility] 11-08-2024 13:24-0500 Body weight 66.41 kg Ruth Pandey PA Work Phone: [facility] 10-08-2024 10:46-0500 Body mass index (BMI) [Ratio] 26.54 kg/m2 Grover Robert DO Work Phone: [facility] 10-08-2024 10:46-0500 Body weight 65.83 kg Grover Robert DO Work Phone: [facility] 10-08-2024 10:46-0500 Diastolic blood pressure 64 mm[Hg] Grover Robert DO Work Phone: [facility] 10-08-2024 10:46-0500 Systolic blood pressure 100 mm[Hg] Grover Robert DO Work Phone: [facility] 08-14-2024 10:55-0400 Body mass index (BMI) [Ratio] 25.81 kg/m2 Grover Robert DO Work Phone: [facility] 08-14-2024 10:55-0400 Body weight 64.01 kg Grover Robert DO Work Phone: [facility] 08-14-2024 10:55-0400 Diastolic blood pressure 60 mm[Hg] Grover Robert DO Work Phone: [facility] 08-14-2024 10:55-0400 Systolic blood pressure 110 mm[Hg] Grover Robert DO Work Phone: [facility] 08-09-2024 07:57-0400 Blood Pressure Location Elena Gudimella [facility] 08-09-2024 07:57-0400 Diastolic blood pressure 68 mm[Hg] Elena Gudimella [facility] 08-09-2024 07:57-0400 Heart rate 73 /min Elena Gudimella [facility] 08-09-2024 07:57-0400 SaO2% (BldA) [Mass fraction] 98 % Elena Gudimella [facility] 08-09-2024 07:57-0400 Systolic blood pressure 110 mm[Hg] Elena Gudimella [facility] 05-26-2023 10:07-0400 Blood Pressure Location Elena Gudimella [facility] 05-26-2023 10:07-0400 Diastolic blood pressure 70 mm[Hg] Elena Gudimella [facility] 05-26-2023 10:07-0400 Heart rate 78 /min Elena Gudimella [facility] 05-26-2023 10:07-0400 SaO2% (BldA) [Mass fraction] 95 % Elena Gudimella [facility] 05-26-2023 10:07-0400 Systolic blood pressure 110 mm[Hg] Elena Gudimella [facility] 09-01-2022 11:18-0400 Blood Pressure Location Elena Gudimella [facility] 09-01-2022 11:18-0400 Diastolic blood pressure 64 mm[Hg] Elena Gudimella [facility] 09-01-2022 11:18-0400 Heart rate 68 /min Elena Gudimella [facility] 09-01-2022 11:18-0400 SaO2% (BldA) [Mass fraction] 98 % Elena Gudimella [facility] 09-01-2022 11:18-0400 Systolic blood pressure 112 mm[Hg] Elena Gudimella [facility] 06-10-2022 19:32-0400 Body height 160.02 cm [facility] 06-10-2022 19:32-0400 Body temperature 98 [degF] [facility] 06-10-2022 19:32-0400 Body weight 69.53 kg [facility] 06-10-2022 19:32-0400 Diastolic blood pressure 57 mm[Hg] [facility] 06-10-2022 19:32-0400 Heart rate 65 /min [facility] 06-10-2022 19:32-0400 Respiratory rate 16 /min [facility] 06-10-2022 19:32-0400 SaO2% (BldA) [Mass fraction] 99 % [facility] 06-10-2022 19:32-0400 Systolic blood pressure 114 mm[Hg] [facility] 09-08-2021 18:57-0400 Body temperature 98.71 [degF] Estelle Votypka TYRE FITTER.[employer] Work Phone: [facility] 09-08-2021 18:57-0400 Diastolic blood pressure 58 mm[Hg] Estelle Votypka [employer]YRE FITTER.[employer] WORK[employer] Work Phone: [facility] 09-08-2021 18:57-0400 Heart rate 66 /min Estelle Votypka [employer]YRE FITTER.[employer] WORK[employer] Work Phone: [facility] 09-08-2021 18:57-0400 SaO2% (BldA) [Mass fraction] 100 % Estelle Sims [employer]YRE FITTER.[employer] WORK[employer] Work Phone: [facility] 09-08-2021 18:57-0400 Systolic blood pressure 128 mm[Hg] Estelle Sims [employer]YRE [employer]TER.[employer] WORK[employer] Work Phone: [facility] Encounters Encounter Date Encounter Type Care Provider Facility Start: 01-16-2025 ambulatory Jony Heredia acility:[facility] Start: 01-03-2025 End: 01-03-2025 ambulatory RUTH PANDEY Not Available Start: 01-03-2025 End: 01-03-2025 Bamboo flowsheet Ruth JONES Work Phone: [facility] Start: 01-03-2025 End: 01-03-2025 Bamboo flowsheet Ruth JONES Work Phone: [facility] Start: 01-03-2025 End: 01-03-2025 Online digital e/m svc est pt <7 d 5-10 minutes Ruth JONES Work Phone: [facility] Comment on above: depressio n (CMS/HCC) (Primary Dx) Start: 12-20-2024 End: 12-20-2024 Bamboo flowsheet Ruth JONES Work Phone: [facility] Start: 12-20-2024 End: 12-20-2024 Bamboo flowsheet Ruth JONES Work Phone: [facility] Start: 12-20-2024 End: 12-20-2024 Office outpatient visit 15 minutes Ruth JONES Work Phone: [facility] Comment on above: Depression, unspecif ied depression type (CMS/HCC) (Primary Dx) Start: 12-20-2024 End: 12-20-2024 ambulatory RUTH PANDEY Not Available Start: 12-05-2024 ambulatory Elena Gudimella [place] Start: 11-24-2024 End: 11-24-2024 ambulatory Elena Gudimella [place] Start: 11-24-2024 End: 11-24-2024 Patient encounter procedure Elena [facility] Start: 11-23-2024 End: 11-23-2024 ambulatory Elena Gudimella [facility] Start: 11-23-2024 End: 11-23-2024 [facility] Start: 11-08-2024 End: 11-08-2024 Bamboo flowsheet Ruth JONES Work Phone: [facility] Start: 11-08-2024 End: 11-08-2024 Bamboo flowsheet Ruth JONES Work Phone: [facility] Start: 11-08-2024 End: 11-08-2024 Postop follow up visit related to original px Ruth JONES Work Phone: [facility] Comment on above: Postoperative examin ation Start: 11-08-2024 End: 11-08-2024 ambulatory RUTH PANDEY Not Available Start: 11-02-2024 End: 11-02-2024 Clinisync Result Encounter Grover Robert DO Work Phone: [facility] Unsolicited Start: 11-02-2024 End: 11-02-2024 Clinisync Result Encounter Grover Robert DO Work Phone: [facility]solic[facility] Start: 11-02-2024 End: 11-02-2024 ambulatory Grover Robert Facility:[facility] Start: 10-08-2024 End: 10-08-2024 Office outpatient visit 15 minutes Grover Robert DO Work Phone: [facility] Comment on above: Pre-op examination; Request for sterilization Start: 10-08-2024 End: 10-08-2024 Preprocedural examination done Grover Robert DO Work Phone: [facility] Start: 10-08-2024 End: 10-08-2024 ambulatory GROVER ROBERT Not Available Start: 08-14-2024 End: 08-20-2024 Clinisync Result Encounter Grover Robert DO Work Phone: [facility] Unsolicited Start: 08-14-2024 End: 08-15-2024 External Result Encounter Grover Robert DO Work Phone: [facility] Unsolicited Start: 08-14-2024 End: 08-20-2024 External Result Encounter Grover Robert DO Work Phone: [facility]solic[facility] Start: 08-14-2024 End: 08-14-2024 Patient encounter procedure Grover Robert DO Work Phone: [facility] Work Phone: Start: 08-14-2024 End: 08-14-2024 Periodic preventive med est patient 18-39 yrs Grover Robert DO Work Phone: [facility] Comment on above: Well woman exam with routine gynecological exam; Pelvic pain in female Start: 08-14-2024 End: 08-14-2024 ambulatory GROVER ROBERT Not Available Start: 08-09-2024 End: 08-09-2024 Lab Drop off Elena Gudimella [facility] Start: 08-09-2024 End: 08-09-2024 ambulatory Elena Gudimella Facility:[facility] Start: 08-09-2024 End: 08-09-2024 Patient encounter procedure Elena Gudimella [facility] Start: 08-09-2024 End: 08-09-2024 Well adult monitoring check done Elena Gudimella [facility] Start: 03-27-2024 End: 03-27-2024 ambulatory MAXIM WATERS Not Available Start: 03-21-2024 End: 03-21-2024 ambulatory MAXIM WATERS Not Available Start: 10-17-2023 End: 10-17-2023 ambulatory MD Elena Burger Work Phone: [facility] Work Phone: Start: 10-17-2023 End: 10-17-2023 Patient encounter procedure MD Elena Burger Work Phone: [facility] [place] Work Phone: Start: 05-26-2023 End: 05-26-2023 Patient encounter procedure Elena Burger [facility] Start: 05-26-2023 End: 05-26-2023 Well adult monitoring check done Elena Burger [facility] Start: 09-08-2022 Encounter for preprocedural laboratory examination DR GROVER JONES [facility] Start: 09-08-2022 End: 09-08-[address] GROVER JONES Facility:[facility] Start: 09-06-2022 End: 09-07-[address] GROVER JONES Facility:[facility] Start: 09-06-2022 End: 09-07-2022 Encounter for preprocedural laboratory examination DR GROVER JONES Facility:[facility] Start: 09-01-2022 End: 09-01-2022 Patient encounter procedure Elenajason Burger [facility] Start: 08-17-2022 End: 08-18-[address] GROVER JONES Facility:[facility] Start: 07-30-2022 End: 07-31-[address] GROVER JONES Facility:[facility] Start: 07-06-2022 End: 07-06-[address] GROVER JONES Facility:[facility] Start: 06-10-2022 End: 06-10-2022 Emergency department patient visit [facility] Start: 05-07-2022 End: 05-12-[address] NONE LISTED REQUEST Facility:[facility] Start: 05-03-2022 End: 05-03-[address] NONE LISTED REQUEST Facility:[facility] Start: 04-27-2022 End: 04-29-2022 Evaluation and management of inpatient DR NONE LISTED REQUEST Facility:[facility] Start: 04-26-2022 End: 04-26-[address] HIRA RICH Facility:[facility] Start: 04-22-2022 End: 04-22-[address] GROVER JONES Facility:[facility] Start: 04-19-2022 End: 04-19-2022 ambulatory [...] Facility:[facility] Start: 03-25-2022 End: 03-26-[address] GROVER JONES Facility:[facility] Start: 03-22-2022 End: 03-22-[address] GROVER JONES Facility:[facility] Start: 02-11-2022 End: 02-11-[address] GROVER JONES Facility:[facility] Start: 02-01-2022 End: 02-02-[address] GROVER JONES Facility:[facility] Start: 12-02-2021 End: 12-03-[address] GROVER JONES Facility:[facility] Start: 11-04-2021 End: 11-05-[address] HIRA RICH Facility:[facility] Start: 09-30-[address] GROVER JONES Facility :[facility] Start: 09-08-2021 End: 09-08-2021 Patient encounter procedure Estelle Sims APRN.WHITING [employer] WORKER Work Phone: [facility] Comment on above: Encounter for pregna ncy test, result unknown (Primary Dx) Start: 06-10-2017 Ambulatory ELIOT Celeste MONTES [facility] Procedures Date Procedure Procedure Detail Performing Clinician Start: 11-02-2024 ALL CBC WITH AUTO DIFF [facility] DO Work Phone: Start: 08-14-2024 URETHRITIS/DISCHARGE PLUS VAGINITIS (HTRX) [facility] DO Work Phone: Start: 08-14-2024 End: 08-14-2024 Urnls dip stick/tablet rgnt non-auto w/o micrscp Grover travelfox DO Work Phone: Start: 08-14-2024 IGP,APTIMA HPV,AGE GDLN [employer] Work Phone: Start: 09-01-2022 Vaccine refused by patient Elena [...] test visual color cmprsn meths Estelle Sims APRN.[employer] WORKER Work Phone: Plan of Treatment Date Care Activity Detail Author Start: 01-03-2025 End: 01-03-2025 Patient encounter procedure 01/03/2025 1:50 PM EST Office Visit [facility] [address] [place] [phone] Ruth Pandey PA [address] [place] [address] [facility] Start: 12-20-2024 End: 12-20-2024 Patient encounter procedure 12/20/2024 1:30 PM EST Office Visit [facility] [address] [place] [phone] Ruth Pandey PA [address] [place], [place] [id number] Arrived [facility] Comment on above: Arrived Start: 11-08-2024 End: 11-08-2024 Patient encounter procedure 11/08/2024 1:00 PM EST Office Visit [facility] [address] [place] [phone] Ruth Pandey, PA [address] [place] [address] Arrived [facility] Comment on above: Arrived Start: 08-14-2024 End: 08-14-2025 US for US PELVIS-TRANSVAG IF INDICATED Imaging Routine Pelvic pain in female Expected: 08/14/2024 (Approximate), Expires: 08/14/2025 [facility] Comment on above: Expected: 08/14/2024 (Approximate), Expires: 08/14/2025 Start: 10-17-2023 [facility] Start: 06-10-2022 [facility] Work Phone: Start: 07-22-2021 Influenza vaccination INFLUENZA (#1) [facility] Start: 2016 PAP TESTING PAP TESTING [facility] Start: 2014 Urine microalbumin profile DTA P,TDAP,TD (1 - Tdap) [facility] Start: 2013 HEPATITIS C SCREENING HEPATITIS C SC PUNEET [facility] Start: 2013 HIV SCREENING HIV SCREENING [facility] Start: 2007 Adult depression scr eening assessment DEPRESSION SCREENING [facility] Start: 2007 COVID-19 VACCINE (1) COVID-19 VACCIN E (1) [facility] Start: 2006 HPV VACCINE (1 - 2-d ose series) HPV VACCINE (1 - 2-dose series) [facility] Bilirubin measuremen t, urine [facility] Work Phone: CHLAMYDIA TRACHOMATI S (GENITO/STI) CHLAMYDIA TRACHOMATIS (GENITO/STI) Lab Routine Pelvic pain in female Ordered: 08/14/2024 [facility] Comment on above: Ordered: 08/14/2024 Choriogonadotropin ( test) [Presence] in Urine [facility] Work Phone: Color of Urine [facility] Work Phone: Cytology Cervical or vaginal smear or scraping study Pap Smear Pathology and Cytology Routine Well woman exam with routine gynecological exam Ordered: 08/14/2024 [facility] Work Phone: Comment on above: Ordered: 08/14/2024 Detection of hemoglobin [facility] Work Phone: Glucose [Mass/volume ] in Urine by Test strip [facility] Work Phone: Glucose measurement estimated from glycated hemoglobin [facility] Measurement of keton es in urine using dipstick [facility] Work Phone: Neisseria gonorrhoea e DNA [Presence] in Unspecified specimen by TRISTEN with probe detection Neisseria gonorrhea DNA probe, direct Lab Routine Pelvic pain in female Ordered: 08/14/2024 [facility] Comment on above: Ordered: 08/14/2024 Patient referral [facility] Work Phone: Protein measurement, urine [facility] Work Phone: SURESWAB(R) ADVANCED VAGINITIS PLUS, TMA SURESWAB(R) ADVANCED VAGINITIS PLUS, TMA Pathology and Cytology Routine Pelvic pain in female Ordered: 08/14/2024 [facility] Comment on above: Ordered: 08/14/2024 Urinalysis, specific gravity measurement [facility] Work Phone: Urine dipstick for nitrite [facility] [place] [facility] Work Phone: Urine dipstick for s pecific gravity [facility] Work Phone: Urine pH test [facility] Work Phone: Urobilinogen concent ration, test strip measurement [facility] Work Phone: Immunizations Immunization Date Immunization Notes Care Provider Margarita han 07-15-2009 HPV, unspecified formulation Elena Gudimella [facility] 10-25-2007 HPV, unspecified formulation Elena Gudimella [facility] 08-25-2007 HPV, unspecified formulation Elena Gudimella [facility] 08-25-2007 meningococcal ACWY vaccine, unspecified formulation Elena Gudimella [facility] 08-25-2007 tetanus toxoid, unspecified formulation Elena Gudimella [facility] 03-22-2000 diphtheria, tetanus toxoids and acellular pertussis vaccine Elena Gudimella [facility] 03-22-2000 measles, mumps and rubella virus vaccine Elena Gudimella [facility] 03-22-2000 poliovirus vaccine, unspecified formulation Elena Gudimella [facility] 01-11-1996 measles, mumps and rubella virus vaccine Elena Gudimella [facility] 1995 diphtheria, tetanus toxoids and acellular pertussis vaccine Elena Gudimella [facility] 1995 haemophilus influenz ae type b vaccine, PRP-OMP conjugate Elena Gudimella [facility] 1995 hepatitis B vaccine, pediatric or pediatric/adolescent dosage Elena Gudimella [facility] 1995 poliovirus vaccine, unspecified formulation Elena Gudimella [facility] 1995 diphtheria, tetanus toxoids and acellular pertussis vaccine Elena Gudimella [facility] 1995 haemophilus influenz ae type b vaccine, PRP-OMP conjugate Elena Gudimella [facility] 1995 hepatitis B vaccine, pediatric or pediatric/adolescent dosage Elena Gudimella [facility] 1995 poliovirus vaccine, unspecified formulation Elena Gudimella [facility] 1995 diphtheria, tetanus toxoids and acellular pertussis vaccine Elena Gudimella [facility] 1995 haemophilus influenz ae type b vaccine, PRP-OMP conjugate Elena Gudimella [facility] 1995 hepatitis B vaccine, pediatric or pediatric/adolescent dosage Elena Gudimella [facility] 1995 poliovirus vaccine, unspecified formulation Elena Gudimella [facility] NEGATED: Highlighted row has not occurred!08-09-2024 influenza virus vaccine, unspecified formulation Elena Gudimella [facility] NEGATED: Highlighted row has not occurred!09-01-2022 influenza virus vaccine, unspecified formulation Elena Gudimella [facility] NEGATED: Highlighted row has not occurred!01-23-2020 influenza virus vaccine, live, attenuated, for intranasal use Elena Gudimella [facility] Payers Date Payer Category Payer Medicaid [id number] 2022 Medicaid [id number] 2021 Medicaid [employer] [id number] 2021-Present Medicaid [id number] 1995 Unknown [id number] 2.16.840.1.424200.3.579.2.593 1995 Unknown [id number] 2.16.840.1.032987.3.579.2.593 1995 Unknown [id number] 2.16.840.1.513908.3.579.2.593 1995 Unknown [id number] 2.16.840.1.619502.3.579.2.593 1995 Unknown [id number] 2.16.840.1.007709.3.579.2.593 1995 Unknown [id number] 2.16.840.1.493207.3.579.2.593 1995 Unknown [id number] 2.16.840.1.626736.3.579.2.593 1995 Unknown [id number] 2.16.840.1.696858.3.579.2.593 1995 Unknown [id number] 2.16.840.1.726823.3.579.2.593 1995 Unknown [id number] 2.16.840.1.446842.3.579.2.593 1995 Unknown [id number] 2.16.840.1.772388.3.579.2.593 1995 Unknown [id number] 2.16.840.1.125020.3.579.2.593 1995 Unknown [id number] 2.16.840.1.972765.3.579.2.593 1995 Unknown [id number] 2.16.840.1.198160.3.579.2.593 1995 Unknown [id number] 2.16.840.1.208966.3.579.2.593 1995 Unknown [id number] 2.16.840.1.533461.3.579.2.593 1995 Unknown [id number] 2.16.840.1.783574.3.579.2.593 1995 Unknown [id number] 2.16.840.1.219671.3.579.2.593 1995 Unknown [id number] 2.16.840.1.576849.3.579.2.593 1995 Unknown [id number] 2.16.840.1.667430.3.579.2.593 1995 Unknown [id number] 2.16.840.1.007000.3.579.2.593 1995 Unknown [id number] 2.16.840.1.694526.3.579.2.593 1995 Unknown [id number] 2.16.840.1.889341.3.579.2.593 1995 Unknown [id number] 2.16.840.1.752624.3.579.2.593 1995 Unknown [id number] 2.16.840.1.224897.3.579.2.593 1995 Unknown [id number] 2.16.840.1.206073.3.579.2.727 1995 Unknown [id number] 2.16.840.1.044016.3.579.2.727 1995 Unknown [id number] 2.16.840.1.233112.3.579.2.1259 1995 Unknown [id number] 2.16.840.1.442230.3.579.2.1259 1995 Unknown [id number] 2.16.840.1.022744.3.579.2.1259 1995 Unknown [id number] 2.16.840.1.600358.3.579.2.1259 1995 Unknown [id number] 2.16.840.1.783720.3.579.2.9 1995 Unknown [id number] 2.16.840.1.102212.3.579.2.1259 1995 Unknown [id number] 2.16.840.1.043906.3.579.2.1259 1995 Unknown [id number] 2.16.840.1.534701.3.579.2.727 1995 Unknown [id number] 2.16.840.1.714310.3.579.2.727 1995 Unknown [id number] 2.16.840.1.747310.3.579.2.727 1959 Medicaid [id number] Self-pay [id number] 1959 Unknown [id number] Unknown [id number] 2.16.840.1.297281.3.579.2.593 Unknown [id number] 2.16.840.1.392404.3.579.2.531 Unknown [id number] 2.16.840.1.813648.3.579.2.531 Social History Date Type Detail Facility Tobacco smoking stat us NDIS Unknown if ever smoked [facility] Start: 1995 Sex Assigned At Not on file [facility] Exposure to SARS-CoV -2 (event) Not sure [facility] Start: 06-10-2022 End: 07-06-2023 Tobacco smoking status NHIS Never smoked tobacco (finding) [facility] Comment on above: denies Start: 1995 Sex Assigned At Female [facility] Tobacco smoking status Never [facility] Comment on above: denies Start: 03-21-2024 Sex Assigned At Female F [facility] Start: 07-06-2023 Tobacco use and exposure Smokeless tobacco non-user [facility] Start: 10-08-2024 End: 12-20-2024 Alcoholic beverage intake Current drinker of alcohol [...] Healthcare Functional Status Date Assessment Result Facility 11-23-2024 Functional Status N/A [facility] 08-09-2024 Functional Status N/A [facility] 05-26-2023 Functional Status N/A [facility] 09-01-2022 Functional Status N/A [facility] Clinical Notes 09-08-2021 to 01-03-2025 KAREN Larson - 01/03/2025 1:50 PM KAREN Blandon - 12/20/2024 1:30 PM KAREN Blandon - 11/08/2024 1:00 PM Zohra Welsh - 10/08/2024 10:40 AM Conchis Juares LPN - 08/14/2024 11:00 AM EDT Note Date & Type Note Facility 01-03-2025 History of Present illness Narrative Reason for Appointment: Patient ID: Paula Whitaker is a 29 y.o. female who presents for No chief complaint on file. Patient presents today via telephone call for a telehealth appointment. Patients Phone #: [phone] (mobile) Current Medications: has a current medication list which includes the following prescription(s): citalopram. Medical History: Active Ambulatory Problems Diagnosis Date Noted Hypersomnia 03/21/2024 Insomnia 03/21/2024 Resolved Ambulatory Problems Diagnosis Date Noted No Resolved Ambulatory Problems Past Medical History: Diagnosis Date Anxiety Bipolar depression ([facility]/HCC) Depression ([facility]) Headache 05/31/2012 History of abnormal cervical Pap smear 11/22/2016 History of chlamydia History of HPV infection Hypothyroidism ([facility]) Intrauterine device surveillance Nonsmoker Overweight (BMI 25.0-29.9) Papanicolaou smear 10/09/2019 PCOS (polycystic ovarian syndrome) Seizure disorder (CMS/HCC) Thyroid disease ([facility]/HCC) Family History Problem Relation Name Age of Onset Asthma Mother Thyroid disease Other strong family history Ovarian cancer Other Depression Other Mental illness Other Social History Tobacco Use Smoking status: Never Smokeless tobacco: Never Substance Use Topics Alcohol use: Yes Comment: Caffeine: occasional tea Drug use: Not on file Past Surgical History: Procedure Laterality Date COLPOSCOPY 11/29/2017 negaive, abnormal pap ascus hpv positive DILATION AND CURETTAGE IUD REMOVAL 2012 Mirena PAP SMEAR 04/07/2020 NILM TUBAL LIGATION Bilateral 11/02/2024 robotic Allergies Allergen Reactions Amitriptyline Hcl [Amitriptyline] Escitalopram Unknown Lorazepam Other Reaction(s): Seizure Vitals: Estimated body mass index is 26.76 kg/m as calculated from the following: Height as of 03/21/24: 5' 2 . Weight as of 12/20/24: 146 lb 4.8 oz. BP: Patient's last menstrual period was 12/09/2024. Assessment/Plan No diagnosis found. Today's telehealth visit consisted of spending 5 minutes talking to patient on the phone.patient is doing much better with celexa, she will notify us if anything changes Documented by KAREN Larson on behalf of: KAREN Larson documented in this encounter [facility] 12-20-2024 History of Present illness Narrative Reason for Appointment: Patient ID: Paula Whitaker is a 29 y.o. female who presents for Discuss PMDD Patient presents today for Acute Visit. MEDICATIONS Current Outpatient Medications Medication Instructions citalopram (CELEXA) 20 mg, Oral, Daily ALLERGIES Allergies Allergen Reactions Amitriptyline Hcl [Amitriptyline] [...] hpv positive DILATION AND CURETTAGE IUD REMOVAL 2012 Mirena PAP SMEAR 04/07/2020 NILM TUBAL LIGATION Bilateral 11/02/2024 robotic REVIEW OF SYSTEMS Review of Systems: Review of Systems Constitutional: Negative. HENT: Negative. Eyes: Negative. Respiratory: Negative. Cardiovascular: Negative. Gastrointestinal: Negative. Genitourinary: Negative. Musculoskeletal: Negative. Skin: Negative. Neurological: Negative. All other systems reviewed and are negative. Hematological: Negative. Endocrine: Negative. Allergic/Immunologic: Negative. OBJECTIVE Objective: Physical Exam Constitutional: Appearance: Normal appearance. She is normal weight. HENT: Head: Normocephalic. Cardiovascular: Rate and Rhythm: Normal rate. Pulses: Normal pulses. Pulmonary: Effort: Pulmonary effort is normal. Breath sounds: Normal breath sounds. Abdominal: Palpations: Abdomen is soft. Musculoskeletal: General: Normal range of motion. Neurological: General: No focal deficit present. Mental Status: She is alert and oriented to person, place, and time. Skin: General: Skin is warm. Psychiatric: Mood and Affect: Mood normal. Behavior: Behavior normal. Thought Content: Thought content normal. Judgment: Judgment normal. Comments: Irritable, describes irritation Vitals and nursing note reviewed. Vitals: Estimated body mass index is 26.76 kg/m as calculated from the following: Height as of 03/21/24: 5' 2 . Weight as of this encounter: 146 lb 4.8 oz. BP: 106/66 Patient's last menstrual period was 12/09/2024. ASSESSMENT & PLAN ICD-10-CM 1. Depression, unspecified depression type (CMS/HCC) F32.A citalopram (CeleXA) 20 MG tablet Patient presents for mood swings and anger outbursts. Patient states works stressful job and had toddler at home. Notices irritability and mood swings with menstration. We discussed several ways to try to help with symptoms. Patient has had salpingectomy. She states she has been going to anger management and wanted to be seen here in office for our opinion. Patient is not suicidal or homicidal. We are going to send in celexa and touch base in 2 weeks via telehealth Documented by KAREN Larson on behalf of: KAREN Larson documented in this encounter [facility] 12-03-2024 Note Nonvisit Note - PT Pt cancelled PT evaluation and rescheduled to 12/05/24. Chart was prepped. GRAYSON [facility] 11-23-2024 Hospital Discharge instructions Patient Education 11/23/2024 17:57:17 Back Exercises Back Exercises The following exercises strengthen the muscles that help to support the trunk (torso) and back. They also help to keep the lower back flexible. Doing these exercises can help to prevent or lessen existing low back pain. If you have back pain or discomfort, try doing these exercises 2 3 times each day or as told by your health care provider. As your pain improves, do them once each day, but increase the number of times that you repeat the steps for each exercise (do more repetitions). To prevent the recurrence of back pain, continue to do these exercises once each day or as told by your health care provider. Do exercises exactly as told by your health care provider and adjust them as directed. It is normal to feel mild stretching, pulling, tightness, or discomfort as you do these exercises, but you should stop right away if you feel sudden pain or your pain gets worse. Exercises Single knee to chest Repeat these steps 3 5 times for each le.Lie on your back on a firm bed or the floor with your legs extended. 2.Bring one knee to your chest. Your other leg should stay extended and in contact with the floor. 3.Hold your knee in place by grabbing your knee or thigh with both hands and hold. 4.Pull on your knee until you feel a gentle stretch in your lower back or buttocks. 5.Hold the stretch for 10 30 seconds. 6.Slowly release and straighten your leg. Pelvic tilt Repeat these steps 5 10 times: 1.Lie on your back on a firm bed or the floor with your legs extended. 2.Bend your knees so they are pointing toward the ceiling and your feet are flat on the floor. 3.Tighten your lower abdominal muscles to press your lower back against the floor. This motion will tilt your pelvis so your tailbone points up toward the ceiling instead of pointing to your feet or the floor. 4.With gentle tension and even breathing, hold this position for 5 10 seconds. Cat-cow Repeat these steps until your lower back becomes more flexible: 1.Get into a [id number] position on a firm bed or the floor. Keep your hands under your shoulders, and keep your knees under your hips. You may place padding under your knees for comfort. 2.Let your head hang down toward your chest. Contract your abdominal muscles and point your tailbone toward the floor so your lower back becomes rounded like the back of a cat. 3.Hold this position for 5 seconds. 4.Slowly lift your head, let your abdominal muscles relax, and point your tailbone up toward the ceiling so your back forms a sagging arch like the back of a cow. 5.Hold this position for 5 seconds. Press-ups Repeat these steps 5 10 times: 1.Lie on your abdomen (face-down) on a firm bed or the floor. 2.Place your palms near your head, about shoulder-width apart. 3.Keeping your back as relaxed as possible and keeping your hips on the floor, slowly straighten your arms to raise the top half of your body and lift your shoulders. Do not use your back muscles to raise your upper torso. You may adjust the placement of your hands to make yourself more comfortable. 4.Hold this position for 5 seconds while you keep your back relaxed. 5.Slowly return to lying flat on the floor. Bridges Repeat these steps 10 times: 1.Lie on your back on a firm bed or the floor. 2.Bend your knees so they are pointing toward the ceiling and your feet are flat on the floor. Your arms should be flat at your sides, next to your body. 3.Tighten your buttocks muscles and lift your buttocks off the floor until your waist is at almost the same height as your knees. You should feel the muscles working in your buttocks and the back of your thighs. If you do not feel these muscles, slide your feet 1 2 inches (2.5 5 cm) farther away from your buttocks. 4.Hold this position for 3 5 seconds. 5.Slowly lower your hips to the starting position, and allow your buttocks muscles to relax completely. If this exercise is too easy, try doing it with your arms crossed over your chest. Abdominal crunches Repeat these steps 5 10 times: 1.Lie on your back on a firm bed or the floor with your legs extended. 2.Bend your knees so they are pointing toward the ceiling and your feet are flat on the floor. 3.Cross your arms over your chest. 4.Tip your chin slightly toward your chest without bending your neck. 5.Tighten your abdominal muscles and slowly raise your torso high enough to lift your shoulder blades a tiny bit off the floor. Avoid raising your torso higher than that because it can put too much stress on your lower back and does not help to strengthen your abdominal muscles. 6.Slowly return to your starting position. Back lifts Repeat these steps 5 10 times: 1.Lie on your abdomen (face-down) with your arms at your sides, and rest your forehead on the floor. 2.Tighten the muscles in your legs and your buttocks. 3.Slowly lift your chest off the floor while you keep your hips pressed to the floor. Keep the back of your head in line with the curve in your back. Your eyes should be looking at the floor. 4.Hold this position for 3 5 seconds. 5.Slowly return to your starting position. Contact a health care provider if: Your back pain or discomfort gets much worse when you do an exercise. Your worsening back pain or discomfort does not lessen within 2 hours after you exercise. If you have any of these problems, stop doing these exercises right away. Do not do them again unless your health care provider says that you can. Get help right away if: You develop sudden, severe back pain. If this happens, stop doing the exercises right away. Do not do them again unless your health care provider says that you can. This information is not intended to replace advice given to you by your health care provider. Make sure you discuss any questions you have with your health care provider. Document Revised: 12/11/2023 Document Reviewed: 01/20/2022 RoomClip Patient Education 2023 [employer]. Follow Up Care 11/19/2024 12:14:22 With:Elena Burger MD, [facility], [facility] Address: [address] [place], [place] [id number]- [phone] When: only if needed [facility] [place] 11-08-2024 History of Present illness Narrative Reason for Appointment: Patient ID: Paula Whitaker is a 29 y.o. female who presents for Post-op Visit Patient presents today for 1 Week Post Op Follow Up appointment. MEDICATIONS No current outpatient medications ALLERGIES Allergies [...] hpv positive DILATION AND CURETTAGE IUD REMOVAL 2012 Mirena PAP SMEAR 04/07/2020 NILM TUBAL LIGATION Bilateral 11/02/2024 robotic REVIEW OF SYSTEMS Review of Systems: Review of Systems Constitutional: Negative. HENT: Negative. Eyes: Negative. Respiratory: Negative. Cardiovascular: Negative. Gastrointestinal: Negative. Genitourinary: Negative. Musculoskeletal: Negative. Skin: Negative. Neurological: Negative. All other systems reviewed and are negative. Hematological: Negative. Endocrine: Negative. Allergic/Immunologic: Negative. OBJECTIVE Objective: Physical Exam Constitutional: Appearance: Normal appearance. She is normal weight. HENT: Head: Normocephalic. Cardiovascular: Rate and Rhythm: Normal rate. Pulses: Normal pulses. Pulmonary: Effort: Pulmonary effort is normal. Breath sounds: Normal breath sounds. Abdominal: Palpations: Abdomen is soft. Musculoskeletal: General: Normal range of motion. Neurological: General: No focal deficit present. Mental Status: She is alert and oriented to person, place, and time. Psychiatric: Mood and Affect: Mood normal. Behavior: Behavior normal. Thought Content: Thought content normal. Judgment: Judgment normal. Vitals and nursing note reviewed. Vitals: Estimated body mass index is 26.78 kg/m as calculated from the following: Height as of 24: 5' 2 . Weight as of this encounter: 146 lb 6.4 oz. BP: No LMP recorded. ASSESSMENT & PLAN ICD-10-CM 1. Postoperative examination Z09 Post Op Follow Up: Patient presents today for a postop follow up after having a Bilateral Laparoscopic Salpingectomy performed at [facility] with Dr. Jones. Patient is healing well and shows no signs or symptoms of infection. Pathology results was reviewed with the patient in great detail and all restrictions have been lifted. Follow Up: Patient is to return to the office for annual exam unless needed otherwise. Documented by KAREN Larson on behalf of: KAREN Larson documented in this encounter [facility] 10-08-2024 History of Present illness Narrative Reason for Appointment: Patient ID: Paula Whitaker is a 29 y.o. female who presents for Pre-op Visit Patient presents today for Pre Op appointment. Patient is scheduled to undergo Da Silvano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
== END 2025-01-31 10:24 | disposition home or self-care (01) ==
LOC: US 10:23
PROVIDERS: PCP Family Medicine; Visit Provider Obstetrics & Gynecology
DX: N94.10 Unspecified dyspareunia (principal)
CPT/HCPCS: 76830; 76856

== ENCOUNTER 2025-08-21 20:24 | Outpatient (REF) | payer MEDICAID, SELFPAY ==
--- OUTSIDE RECORDS SUMMARY | 2022-10-18 09:30 | XMS_ITS | Continuity of Care Document ---
Author Organization [facility] Address [address] [place] [phone] Phone Care Team Providers Care Electrical Cad Technician Name Role Phone Guillermina Hernandez DDS Unavailable Unavailable Medications Medication Instructions Dosage Effective Dates (start - stop) Status Comments levothyroxine 50 mcg capsule take 1 capsule by oral route every day 50 MCG - Active Procedures Procedure Date Oral Hygiene Instruction Moderate Risk Resin Composite 1s; Posterior 2 Treatment Completed Prophylaxis Adult Nutrit Couns For Control Of [place] Dis Jul Oral Hygiene Instruction Panoramic Film Bitewings Four Films Oral Hygiene Instruction Comp Oral Eval New/estab Patient 2021 Advance Directives Directive Yes / No Effective Date File Name No Information Encounters Encounter Description Practice Location Reason(s) For Visit Diagnoses Date Provider Providers Copied on Encounter [facility], [address] [place] [address], [id number], [place] tel:[phone] Dental Clinic Fill (chief complaint) Encounter for screening for dental disorders David GONZALEZ Guillermina. . tel:[phone] [facility], [address] [place] [address], [id number], [place] tel:[phone] Dental Clinic Adult Prophy (chief complaint) Encounter for screening for dental disorders David GONZALEZ Guillermina. . tel:[phone] [facility], [address] [place] [address], [place], [place], [id number], tel:[phone] Dental Clinic dn (chief complaint) Encounter for screening for dental disorders David Michaels . tel:[phone] Family History Family Member Type Diagnosis Age At Onset No Information Payers Payer name Insurance type Covered constitution party ID Anai desir(s) D Medicaid [facility] [id number] Social History Type Description Quantity Date Captured Comments Alcohol Use Details Unknown Caffeine Use Details Unknown Tobacco Use Status No Information Smoking Status No Information Sex Female Sexual Orientation Straight or heterosexual Gender Identity Female Vital Signs Date / Time: Height Weight BMI Pulse Rate Blood Pressure Temperature Respiratory Rate Body Surface Area Head Circumference Head Circ. Percentile Wt./Tamir. Percentile BMI percentile Pulse Ox Inhaled Ox 1:41 PM 75 /min 105/70 mm[Hg] 99.00 F Chief Complaint And Reason For Visit From encounter dated '10/18/2022 13:30'. Fill (chief complaint) Reason For Referral Reason For Referral No Information Plan Of Treatment Date Type Action Status Goal PRAPARE ASSESSMENT. Due on N due Goal PAP. Due on due Goal RLP. Due on due Goal Depression screening. Due on due Goal Influenza vaccine. Due on No due Goal Tdap. Due on due Goal Influenza vaccine. Due on Se p due Goal Tdap. Due on due Goal Depression screening. Due on due Goal PRAPARE ASSESSMENT. Due on S ep due Goal PAP. Due on due Goal RLP. Due on due Goal Depression screening. Due on due Goal PRAPARE ASSESSMENT. Due on S ep due Goal PAP. Due on due Goal Influenza vaccine. Due on Se p due Goal RLP. Due on due Goal Tdap. Due on due History Of Present Illness Encounter Date Complaint History Of Prese nt Illness Fill Adult Prophy Adult Prophy dn dn Functional Status Date Functional Assessmen t No Information Instructions Date Instruction Additional Infor mation No Information Assessments Type Assessment Date assessment Encounter for screening for dent al disorders Patient Care Teams Name Effective Dates (start - stop) Status Members No Information
--- OUTSIDE RECORDS SUMMARY | 2025-08-12 13:30 | XMS_ITS | Encounter Summary ---
Author Organization [facility] Address [address] [place] [address] Care Team Providers Care Physician Vice President Name Role Phone Elena Burger MD Primary Care Provider Wai Mclaughlin MD Unavailable [phone] Reason for Visit * Reason Comments Follow-up Pt present today to discuss US results. Pt was seen on 07/04/2025 for pelvic pain/discomfort. Pt was given pelvic US to obtain. Encounter Details Date Type Department Care Team (Late st Contact Info) Description 08/12/2025 1:30 PM EDT Office Visit ENIO KILPATRICK [address] [facility] [place] [address] Grover Jones DO [address] [facility] [address] [place], [place] [phone] Encounter to discuss test results; Pelvic pain [...] on 09-06-[address] Jones at The . MEDICATIONS Current Outpatient Medications Medication Instructions citalopram [...] reviewed, and patient is to proceed to [facility] OR. Follow Up: Patient is to follow up between 1-2 weeks post operative to assess proper healing and recovery fromprocedure. Documented by Jo Dillon LPN on behalf of: Grover Jones DO documented in this encounter Plan of Treatment Upcoming Encounters Date Type Department Care Team (Late st Contact Info) Description 09/12/2025 2:30 PM EDT Office Visit [facility]OM[facility] KILPATRICK [address] [facility] [place] [address] Ruth Marshall PA [address] [facility] [place] [address] documented as of this encounter Visit Diagnoses Diagnosis Encounter to discuss test results Other specified counseling Pelvic pain in female Unspecified symptom associated with female genital organs Right ovarian cyst Other and unspecified ovarian cyst documented in this encounter Care Teams Physician Vice President Relationship Specialty Start Date End Date Elena Burger MD [address] [place] [phone] PCP - General 07/04/23 Wai Mclaughlin MD [address] [place] [address] Referring Physician Neurology 02/22/24 documented as of this encounter
--- OUTSIDE RECORDS SUMMARY | 2025-08-21 10:54 | XMS_ITS ---
Author Name Auto Generated Organization [facility] Care Team Providers Care Property Staff Accountant Name Role Phone Mukesh Jones Attending Unavailable Mukesh Jones Admitting Unavailable Jony Gamboa Attending Unavailab Jony Rodriguez Admitting Unavailab Elena Turk Primary Care Unavailable MD Jennyfer Elena Referring Unavailable MD Jennyfer Elena Attending Unavailable MD Jennyfer Elena Attending Unavailable MD Jennyfer Elena Admitting Unavailable MD Jennyfer Elena Attending Unavailable JIL PANDEY Attending Unavailable JIL PANDEY Attending Unavailable NESTOR GONZALEZ Attending Unavailable MUKESH JONES Referring Unavailable MUKESH JONES Attending Unavailable MUKESH JONES Attending Unavailable JIL PANDEY Attending Unavailable NESTOR GONZALEZ Attending Unavailable PROBLEMS No Problem Records Found PROCEDURES No Procedure Records Found RESULTS US PELVIC COMPLETE W/ TV Observed: 08/06 10:26 AM Status: F Source: [facility] EPIC Order Comment: US PELVIS-TRA NSVAG IF INDICATED No LMP recorded. FINDINGS: Uterus 8.5 x 3.7 x 5.9 cm Endometrium 7 mm Right ovary 6.6 x 3.5 x 5.4 cm (volume 78 cc) Left ovary 3.3 x 1.7 x 2.6 cm Normal uterine orientation and morphology. Normal endometrium. Normal left ovary. Right ovarian complex cyst 6.0 x 5.6 x 3.4 cm, no significant soft tissue component, shadowing, or increase in vascularity IMPRESSION: Right ovarian complex cyst, benign appearance TRANSCRIBED BY: ELECTRONICALLY SIGNED BY: Jarret Gregory MD NONVISIT NOTE - PT Observed: 01/07/2025 12:02 PM Status: F Source: [facility] Nonvisit Note - PT Pt no showed to PT reassessment. [facility] NONVISIT NOTE - PT Observed: 01/01/2025 9:04 AM Status: F Source: [facility] Nonvisit Note - PT Pt cancelled reassessment and rescheduled to 01/07/25. [facility] NONVISIT NOTE - PT Observed: 12/20/2024 8:53 AM Status: F Source: [facility] Nonvisit Note - PT Pt called to cancel as pt has another appointment at this time. NONVISIT NOTE - PT Observed: 12/03/2024 8:44 AM Status: F Source: [facility] Nonvisit Note - PT Pt cancelled PT evaluation and rescheduled to 12/05/24. Chart was prepped. [facility]K XR SPINE LUMBOSACRAL 2 OR 3 VIEWS Observed: 11/24/2024 10:43 AM Status: F Source: [facility] Exam Date/Time: 11/24/2024 10:51 EST Reason for [...] CARMELA Technologist: BRANDIE Technical Comments Radiation Dose: Kaanh in mGy = . DAP = . FAMILY MEDICINE OFFICE/CLINI C NOTE Observed: 11/23/2024 5:59 PM Status: F Source: [facility] Medicine Office/Clini c Note Chief Complaint Lower back pain HPI [...] Urnls Dip Stick Auto w/o Microscopy POC 09814 XR Spine Lumbosacral 2 or 3 Views [...] stomach, # 30 tab(s), Refills(s) 11, Pharmacy: [facility], 157, cm, 05/26/23 10:09:00 EDT, Height/Length Dosing, 64.4, kg, 05/26/23 10:09:00 EDT, Weight Dosing Follow-up With When Contact Information Elena Burger MD, FAM, MED Only if needed [address] [place] [phone] Additional Instructions: Patient Education Back Exercises Problem [...] 17:47:00) Ketones Urine Dipstick: Negative (11/23/24 17:47:00) Leukocytes Urine Dipstick: Negative (11/23/24 17:47:00) Nitrite Urine Dipstick: Negative (11/23/24 17:47:00) Protein Urine Dipstick: 2+ (100 mg/dl) (11/23/24 17:47:00) Specific Willard Urine Dipstick: 1.015 (11/23/24 17:47:00) Urine Appearance Urine Dipstick: Turbid (11/23/24 17:47:00) Urine Color Urine Dipstick: Yellow (11/23/24 17:47:00) Urobilinogen Urine Dipstick: Normal 0.2-1 EU/dl (11/23/24 17:47:00) pH Urine Dipstick: 8.5 (11/23/24 17:47:00) Result Comment: Electronical ly Signed By: Elena Burger MD\.br\Date and Time Signed: 11/23/24 18:00 EST L Observed: 11/02/2024 11:42 AM Status: Giovanna Source: [facility] ----- ------- Specimen: [id number] Received: 11/05/24 Status: JULIANA Birch Num: [id number] Spec Type: Surgical Subm Dr: Mukesh Jones Tissues: A Fallopian Tube - Sterilization (BILAT FAL TUBES) Procedures: HE/2, Fabiana/Isadora L2 ----- ------- Age/ Patient Sex Location Account Attending Physician ----- ------- Paula Whitaker 29/ LABELL [id number] Mukesh Jones ----- ------- SPEC NUM: [id number] RECD: 11/05/24 STATUS: JULIANA BIRCH NUM: [id number] DANIELLE: 11/02/24 [facility] DR: Mukesh Jones ENTERED: 11/05/[address] [facility] [address]: Caitlyn,Lab SPEC TYPE: Surgical DEPT: [facility] LEIVA ENTERED BY: [id number] RECV BY: [id number] ORDERED: HE/2, Gross/Micro L2 ORDERED: HE/2, Gross/Micro [...] A1 Entirety of trisected fimbriated end and branch sales and service representative cross-sections of shorter fallopian tube A2 Entirety of trisected fimbriated and and branch sales and service representative cross-sections of longer fallopian tube (2, ss, ME40-936 A)JG ----- ------- Specimen: [id number] Received: 11/05/24 Status: JULIANA Birch Num: [id number] Spec Type: Surgical Subm Dr: Mukesh Jones Tissues: A Fallopian Tube - Sterilization (BILAT FAL TUBES) Procedures: HE/2, Gross/Micro L2 ----- ------- Patient: Paula Whitaker [id number] (Continued) ----- ------- Specimen: [id number] Received: 11/05/24 (Continued) Signed (signature on file) Sheila Han MD 11/06/24 1633 ----- ------- Specimen: [id number] Received: 11/05/24 Status: JULIANA Birch Num: [id number] Spec Type: Surgical Subm Dr: Mukesh Jones Tissues: A Fallopian Tube - Sterilization (BILAT FAL TUBES) Procedures: RUBINA/Fabiana Muller/Isadora L2 ----- ------- Patient: Paula Whitaker [id number] (Continued) ----- ------- Specimen: [id number] Received: 11/05/24 (Continued) Microscopic Description Microscopic examinations are performed supporting the above interpretation CPT Codes 33933 ----- ------- ----- ------- Specimen: [id number] Received: 11/05/24 Status: JULIANA Birch Num: [id number] Spec Type: Surgical Subm Dr: Mukesh Jones Tissues: A Fallopian Tube - Sterilization (BILAT FAL TUBES) Procedures: HE/Renzo, Fabiana/Isadora L2 ----- ------- Patient: Paula Whitaker [id number] (Continued) ----- ------- Signed (signature on file) Salazar-Yousuf Han MD 11/06/24 1633 ALLERGIES DATE TYPE / CODE NAME / CODE REACTION SEVERITY SOURCE 06/06/2020 Drug Allergy/12305753 2(SNOMED CT) No Known Allergies/Y57010243 8(RXNORM) Unknown [facility] /[id number](SNO MED CT) Lexapro [id number] [facility] ENCOUNTERS ADMIT/DISCHARGE ACCOUNT NUMBER ADMITTING ENCOUNTER CLASS LOCATION SOURCE 08/21/2025/08/21/20 [id number] Ambulatory Building:[facility] 08/12/2025/08/12/20 [id number] Ambulatory Building:[facility] 08/06/2025/08/06/20 [id number] Ambulatory Building:[facility] 07/04/2025/07/04/20 [id number] Ambulatory Building:[facility] 04/24/2025 [id number] Jony Gamboa [facility] 02/21/2025/02/22/20 [id number] Ambulatory Building:[facility] 01/03/2025/01/03/20 [id number] Ambulatory Building:[facility] 12/20/2024/12/20/19 [id number] Ambulatory Building:[facility] 12/05/2024/02/19/20 25 [id number] Ambulatory [facility]Justin Leung [facility] 11/24/2024/11/24/19 [id number] MD Jennyfer Elena Ambulatory [facility] :BRENDON NELSON [facility] 11/23/2024/11/23/19 25 [id number] Ambulatory [place] [facility] 11/08/2024/11/08/20 24 [id number] Ambulatory Building:[facility] EPIC 11/02/2024/11/02/20 24 [id number] Mukesh Jones [facility] [facility] 10/08/2024/10/08/20 [id number] Ambulatory Building:[facility] EPIC PAYERS ENCOUNTER GUARANTOR PAYER SUBSCRIBER SOURCE 08/21/2025 PAULA CORONA: [address], [place] [address]Ghq: (HP) Primary Insurance:[facility] MEDICAID [place] Number: [id number] ve Date:2022-12-22 PAULA KELLERB: [id number], [place] [address] [facility] EPIC 08/12/2025 PAULA KELLERB: [address], [place] [address]Nrb: (HP) Primary Insurance:[facility] MEDICAID [place]APolicy Number: [id number] ve Date:2022-12-22 PAULA CORONA: [id number], [place] [address] [facility] EPIC 08/06/2025 PAULA KELLERB: [address], [place] [address]Awu: (HP) Primary Insurance:[facility] MEDICAID [place]APolicy Number: [id number] ve Date:2022-12-22 PAULA KELLERB: [id number], [place] [address] [facility] EPIC 07/04/2025 PAULA KELLERB: [address], [place] [address]Omw: (HP) Primary Insurance:[facility] MEDICAID [place]APolicy Number: [id number] ve Date:2022-12-22 PAULA KELLERB: [id number], [place] [address] [facility] EPIC 04/24/2025 Paula Whitaker[address] [address]Emr: (HP) Primary Insurance:Self PayPolicy Number: Effective Date:2024-09-06 [facility] 02/21/2025 PAULA WHITAKERB: [address], [place] [address]Gjr: (HP) Primary Insurance:[facility] MEDICAID [place]GIAPolicy Number: [id number] ve Date:2022-12-22 PAULA WHITAKERB: [id number] [address], [place] [address] [facility] EPIC 01/03/2025 PAULA Rodriguez ARIANNAB: [address], [place] [address]Qbj: (HP) Primary Insurance:[facility] MEDICAID [place]GIAPolicy Number: [id number] ve Date:2022-12-22 PAULA WHITAKERB: [id number] [address], [place] [address] [facility] EPIC 12/20/2024 PAULA WHITAKERB: [address], [place] [address]Anf: (HP) Primary Insurance:[facility] MEDICAID GEORGIAPolicy Number: [id number] ve Date:2022-12-22 PAULA WHITAKERB: [id number] [address], [place] [address] [facility] EPIC 12/05/2024 PAULA WHITAKERDOB: [address]CTel: ~ ~(41 (HP) Primary Insurance:Medicaid olicy Number: [id number] Date:[id number] [address]ZX: PAULA MONTAGUE [facility] 11/24/2024 PAULA WHITAKERDOB: [address]CTel: ~ ~(41 (HP) Primary Insurance:MedicaidP olicy Number: [id number] Date:[id number] [address] [address]DZ: PAULA MONTAGUE [facility] 11/23/2024 PAULA WHITAKERDOB: [address]CTel: ~ ~(41 (HP) Primary Insurance:MedicaidP olicy Number: [id number] ve Date:[id number] [address] [address]SX: PAULA MONTAGUE [facility] 11/08/2024 PAULA WHITAKERB: [address], [place] [address]Wrl: (HP) Primary Insurance:[facility] MEDICAID GEORGIAPolicy Number: [id number] ve Date:2022-12-22 PAULA WHITAKERB: [id number], [place] [address] [facility] 11/02/2024 Paula [address]aker[address] [address]Gjk: (HP) Primary Insurance:Self PayPolicy Number: Effective Date:2024-11-02 NOT [facility]EN[facility] 10/08/2024 PAULA WHITAKERB: [address], [place] [address]Sqc: (HP) Primary Insurance:[facility] MEDICAID GEORGIAPolicy Number: [id number] ve Date:2022-12-22 PAULA Rodriguez ARIANNAB: [id number] [place] [address] [facility] EPIC
--- OUTSIDE RECORDS SUMMARY | 2025-08-21 11:00 | XMS_ITS | Encounter Summary ---
Author Organization [facility] Address [address] [place] [address] Care Team Providers Care Bed And Breakfast Operator Name Role Phone Elena Burger MD Primary Care Provider Wai Mclaughlin MD Unavailable [phone] Reason for Visit * Reason Comments Well Women Visit Encounter Details Date Type Department Care Team (Latest Contact Info) Description 08/21/2025 11:00 AM EDT Procedure [facility] [address] [place] [address] Sol Sanchez, DALY [address] [place] [address] Well woman exam with routine gynecological exam Social History Tobacco Use Types Packs/Day Years [...] Sign Reading Time Taken Comments Blood Pressure 100/60 08/21/2025 11:04 AM EDT Pulse - - Temperature - - Respiratory Rate - - Oxygen Saturation - - Inhaled Oxygen Concentration - - Weight 68.5 kg (151 lb) 08/21/2025 11:04 AM EDT Height - - Body Mass Index 27.62 03/21/2024 8:56 AM EDT documented in this encounter Progress Notes * Sharmila Angle, RICO - 08/21/2025 11:00 AM EDT Reason for Appointment: Patient ID: Paula Whitaker is a 30 y.o. female who presents for Well Women Visit Patient presents today for Annual Exam. MEDICATIONS Current Outpatient Medications Medication Instructions citalopram [...] REMOVAL 2013 Mirena PAP SMEAR 04/07/2020 NILM TUBAL LIGATION Bilateral 11/02/2024 robotic REVIEW OF SYSTEMS Review of Systems: Review of Systems All other systems reviewed and are negative. OBJECTIVE Objective: Physical Exam Constitutional: Appearance: Normal appearance. She is well-developed. Genitourinary: Vulva normal. Cardiovascular: Rate and Rhythm: Normal rate and [...] nursing note reviewed. Exam conducted with a provider service representative present. Vitals: Estimated body mass index is 27.62 kg/m?? as calculated from the following: Height as of 03/21/24: 5' 2 . Weight as of this encounter: 151 lb. BP: 100/60 Patient's last menstrual period was 08/21/2025 (approximate). ASSESSMENT & PLAN ICD-10-CM 1. Well woman exam with routine gynecological exam Z01.419 Pap Smear HPV DNA probe, amplified Annual Exam: Patient presents today for an annual exam. Patient states she is doing well and has no complaints. Pap was obtained without difficulty. Orders Placed This Encounter Procedures HPV DNA probe, amplified Follow Up: Patient is to return in one year for annual unless needed otherwise. Documented by Sharmila Barbour LPN on behalf of: Sol Sanchez NP * Sol Sanchez NP - 08/21/2025 11:00 AM EDT Reason for Appointment: Patient ID: Paula Whitaker is a 30 y.o. female who presents for Well Women Visit Patient presents today for Annual Exam. MEDICATIONS Current Outpatient Medications Medication Instructions citalopram [...] Cardiovascular: Negative. Gastrointestinal: Negative. Genitourinary: Positive for pelvic pain and vaginal bleeding. Musculoskeletal: Negative. Skin: Negative. Neurological: Negative. All other systems reviewed and are negative. Hematological: Negative. Endocrine: Negative. Allergic/Immunologic: Negative. OBJECTIVE Objective: Physical Exam Constitutional: Appearance: Normal appearance. She is well-developed. Genitourinary: Vulva normal. Right Adnexa: tender. Left Adnexa: tender. Breasts: Breasts are soft. Right: Normal. Left: [...] nursing note reviewed. Exam conducted with a provider service representative present. Vitals: Estimated body mass index is 27.62 kg/m?? as calculated from the following: Height as of 03/21/24: 5' 2 . Weight as of this encounter: 151 lb. BP: 100/60 Patient's last menstrual period was 08/21/2025 (approximate). ASSESSMENT & PLAN ICD-10-CM 1. Well woman exam with routine gynecological exam Z01.419 Pap Smear HPV DNA probe, amplified Annual Exam: Patient presents today for an annual exam. Patient states she is doing well and has complaints of pelvic pain. She has completed an ultrasound TRANSABDOMINAL: Estimated uterine size is approximately 9.2 x 3.9 x 4.4 cm. No focal myometrial abnormalities are noted. The endometrial lining is estimated at 5 - 6 mm. The right ovary is identified however the left is not seen. TRANSVAGINAL: Transvaginal scans were performed to better evaluate the uterus and adnexa. By this approach, no focal myometrial abnormalities are identified. The endometrial lining is estimated at 9 - 10 mm., Both ovaries are visualized. The right measures 3.5 x 2.4 x 2.3 cm. There is a complex cystic area with debris and a slightly thickened wall within the right ovary. It measures 12 x 12 x 13 mm. The left ovary measures 2.3 x 1.5 x 1.6 cm. Tiny follicles are seen. There is documentation of bilateral ovarian blood flow. No free fluid is present. US/US pelvis w/ transvaginal IMPRESSION: DOMINANT COMPLICATED FOLLICLE ON THE RIGHT. NO OTHER SIGNIFICANT ABNORMALITIES. Pap was obtained without difficulty. Orders Placed This Encounter Procedures HPV DNA probe, amplified Follow Up: Patient is for Diagnostic lap on 09/16/25 and will follow up post op. Documented by Sol Sanchez NP on behalf of: Sol Sanchez NP documented in this encounter Plan of Treatment Upcoming Encounters Date Type Department Care Team (Late st Contact Info) Description 09/12/2025 2:30 PM EDT Office Visit [facility] [address] [place] [address] Ruth Marshall PA [address] [place] [address] Scheduled Orders Name Type Priority Associated Diagnoses Orde r Schedule Pap Smear Pathology and Cytology Routine Well woman exam with routine gynecological exam Ordered: 08/21/2025 HPV DNA probe, amplified Microbiology Routine Well woman exam with routine gynecological exam Ordered: 08/21/2025 documented as of this encounter Visit Diagnoses Diagnosis Well woman exam with routine gynecological exam Routine gynecological examination documented in this encounter Care Teams Bed And Breakfast Operator Relationship Specialty Start Date End Date Elena Burger MD [address] [place] [phone] PCP - General 07/04/23 Wai Mclaughlin MD [address] [place] [phone] Referring Physician Neurology 02/22/24 documented as of this encounter
--- OUTSIDE RECORDS SUMMARY | 2025-08-21 20:27 | XMS_ITS | Encounter Summary ---
Author Organization [facility] Address [address] [place] [address] Care Team Providers Care Track Man Name Role Phone Elena Burger MD Primary Care Provider Wai Mclaughlin MD Unavailable Encounter Details Date Type Department Care Team (Late st Contact Info) Description 07/22/2023 Abstract [facility] [address] [facility] [place] [address] Ruth Marshall PA [address] [place] [address] Social History Tobacco Use Types Packs/Day Years Used Date Smoking Tobacco: Never Smokeless Tobacco: Never Alcohol Use Standard Drinks/Week Comments Never 0 (1 standard drink = 0.6 oz pur e alcohol) Caffeine: occasional tea Comments Unknown Sex and Gender Information Value Date Recorded Sex Assigned at Female 10/13/2023 10:08 PM EST Legal Sex Female 7:19 PM EDT Gender Identity Female 02/02/2023 7:19 PM EDT Sexual Orientation Choose not to disclose 2022 7:19 PM EDT COVID-19 Exposure Response Date Recorded In the last 10 days, have yo u been in contact with someone who was confirmed or suspected to have Coronavirus/COVID-19? No / Unsure 07/04/2023 3:57 PM EDT documented as of this encounter Plan of Treatment Upcoming Encounters Date Type Department Care Team (Late st Contact Info) Description 09/12/2025 2:30 PM EDT Office Visit [facility] [address] [facility] [place] [address] Ruth Marshall PA [address] [place] [address] documented as of this encounter Visit Diagnoses Not on filedocumented in this encounter Care Teams Track Man Relationship Specialty Start Date End Date Elena Burger MD [address] [place] [phone] PCP - General 07/04/23 Wai Mclaughlin MD [address] [place] [phone] Referring Physician Neurology 02/22/24 documented as of this encounter
--- OUTSIDE RECORDS SUMMARY | 2025-08-21 20:27 | XMS_ITS | Encounter Summary ---
Author Organization [facility] Address [address] [place] [address] Care Team Providers Care Kinesiology Professor Name Role Phone Elena Burger MD Primary Care Provider Wai Mclaughlin MD Unavailable Encounter Details Date Type Department Care Team (Late st Contact Info) Description 09/08/2023 Clinisync Result Encounter [facility] External Department Unsolicited Mukesh Jones DO [address] [facility] [address] Adonis [place], [facility] Social History Tobacco Use Types Packs/Day Years [...] 2:30 PM EDT Office Visit [facility] Cait[facility] KILPATRICK [address] [facility] [place] [phone] Ruth Marshall PA [address] [facility] [address] [place], [place] [phone] (work) documented as of this encounter Procedures Procedure Name Priority Date/Time Associated Diagnosis Comments US OB TRANSVAGINAL 09/08/2023 10 :04 AM EDT documented in this encounter Results * US OB TRANSVAGINAL (09/08/2023 10:04 AM EDT) Anatomical Region Laterality Modality Other 09/08/2023 10:0 4 AM EDT Narrative 09/08/2023 10:04 [place] [address] Ultrasound Report Signed Patient: KEVEN WHITAKER MR#: [id number] : 1995 Acct:[id number] Age/Sex: 28 / F ADM Date: 09/07/23 Loc: US Attending Dr: Mukesh Jones D.O. Ordering Physician: Mukesh Jones D.O. Date of Service: 09/07/23 Procedure(s): US OB transvaginal Accession Number(s): [id number] cc: Mukesh Jones D.O.; Physician,Non-Staff Lester [address] [address] Patient Name: KEVEN WHITAKER MRN: [id number] date: 1995 Sex: F Assigned Patient Location: US Current Patient Location: Accession/Order Number: [id number] Exam Date: 09/07/2023 10:44 Report Date: 09/08/2023 10:04 At the request of: MUKESH JONES Procedure: US OB transvaginal EXAMINATION: US OB transvaginal HISTORY: Missed Menses N92.6 COMPARISON: No relevant comparison available. FINDINGS: Roblero intrauterine gestation Gestational sac: 1.74 cm, 6 weeks 1 day CRL: 4.8 mm, 6 weeks 1 day Yolk sac: 1.4 mm Heart rate: 113 beats minute Cervix: Closed 3.8 cm The uterus is normal, anteverted The ovaries are normal. Right corpus luteal cyst Clinical age: Unknown Ultrasound age: 6 weeks 1 day Ultrasound GET: 05/01/2024 US/US OB transvaginal IMPRESSION: Viable roblero intrauterine gestation measuring 6 weeks 1 day Electronically authenticated by: SHAHEEN RAMOS Date: 09/08/2023 10:04 Dictated By: Shaheen Ramos M.D. Signed By: 09/08/236 DD/ 03 TD/TT: Transitions Rn Care Coordinator: Procedure Note Radiology, Radiologist, MD - 09/08/2023 [place] [address] Ultrasound Report Signed Patient: KEVEN WHITAKER MMR#: [id number] : 1995Acct:[id number] Age/Sex: 28 FADM Date: 09/07/23 Loc: US Attending Dr: Mukesh Jones D.O. Ordering Physician: Mukesh Jones D.O. Date of Service: 09/07/23 Procedure(s): US OB transvaginal Accession Number(s): [id number] cc: Mukesh Jones D.O.; Physician,Non-Staff Lester [address] [place] [id number] Patient Name: KEVEN WHITAKER MRN: [id number] date: 1995 Sex: F Assigned Patient Location: US Current Patient Location: Accession/Order Number: [id number] Exam Date: 09/07/2023 10:44 Report Date: 09/08/2023 10:04 At the request of: MUKESH JONES Procedure: US OB transvaginal EXAMINATION: US OB transvaginal HISTORY: Missed Menses N92.6 COMPARISON: No relevant comparison available. FINDINGS: Roblero intrauterine gestation Gestational sac: 1.74 cm, 6 weeks 1 day CRL: 4.8 mm, 6 weeks 1 day Yolk sac: 1.4 mm Heart rate: 113 beats minute Cervix: Closed 3.8 cm The uterus is normal, anteverted The ovaries are normal. Right corpus luteal cyst Clinical age: Unknown Ultrasound age: 6 weeks 1 day Ultrasound GET: 05/01/2024 US/US OB transvaginal IMPRESSION: Viable roblero intrauterine gestation measuring 6 weeks 1 day Electronically authenticated by: SHAHEEN RAMOS Date: 09/08/2023 10:04 Dictated By: Shaheen Ramos M.D. Signed By:09/08/23 1006 DD/ 1004 TD/TT: Transitions Rn Care Coordinator: us Mukesh Robert DO [facility] Final Result documented in this encounter Visit Diagnoses Not on filedocumented in this encounter Care Teams Kinesiology Professor Relationship Specialty Start Date End Date Elena Burger MD [address] [place] [address] PCP - General 07/04/23 Wai Mclaughlin MD [address] [place] [address] Referring Physician Neurology 02/22/24 documented as of this encounter
--- OUTSIDE RECORDS SUMMARY | 2025-08-21 20:27 | XMS_ITS | Encounter Summary ---
Author Organization [facility] Address [address] [place] [address] Care Team Providers Care Environmental Conflict Manager Name Role Phone Elena Burger MD Primary Care Provider [phone] Carolyn Mclaughlin MD Unavailable [phone] Encounter Details Date Type Department Care Team (Late st Contact Info) Description 02/22/2024 Clinisync Result Encounter [facility]OMS External Department Unsolicited Mukesh Jones DO [address] [facility] [address] Adonis [place], [facility]11 Social History Tobacco Use Types Packs/Day Years [...] EDT Office Visit [facility] Caitlyn KILPATRICK [address] [facility] [place] [phone] Ruth Marshall PA [address] [facility] [address] [place], [place] [phone] documented as of this encounter Procedures Procedure Name Priority Date/Time Associated Diagnosis Comments US PELVIS W/ TRANSVAGINAL 02/22/2024 12:51 PM EDT documented in this encounter Results * US PELVIS W/ TRANSVAGINAL (02/22/2024 12:51 PM EDT) Anatomical Region Laterality Modality Other 02/22/2024 12:5 1 PM EDT Narrative 02/22/2024 12:54 [place] [address] Ultrasound Report Signed Patient: KEVEN WHITAKER MR#: [id number] : 1995 Acct:[id number] Age/Sex: 29 / F ADM Date: 02/22/24 Loc: US Attending Dr: Mukesh Jones D.O. Ordering Physician: Mukesh Jones D.O. Date of Service: 02/22/24 Procedure(s): US pelvis w/ transvaginal Accession Number(s): [id number] cc: Mukesh Jones D.O.; Physician,Non-Staff MConsuelo [address] [address] Patient Name: KEVEN WHITAKER MRN: [id number] date: 1995 Sex: F Assigned Patient Location: US Current Patient Location: US Accession/Order Number: [id number] Exam Date: 02/22/2024 11:09 Report Date: 02/22/2024 12:51 At the request of: MUKESH JONES Procedure: US pelvis w/ transvaginal EXAMINATION: US pelvis w/ transvaginal HISTORY: right ovarian cyst N83.201 COMPARISON: Ultrasound pelvis 01/06/2024 TECHNIQUE: Transabdominal and/or transvaginal sonographic examination was performed as indicated by examination type. FINDINGS: UTERUS: Normal size and appearance. Uterus size: 7.2 x 3.2 x 4.7 cm ENDOMETRIUM: Normal homogeneous appearance. Endometrial thickness: 3 mm RIGHT OVARY: Normal size and appearance. Duplex Doppler demonstrates normal waveform and flow; resistive index 0.6. Ovary size: 3.5 x 2.2 x 2.2 cm LEFT OVARY: Normal size and appearance, and contains several follicles. Duplex Doppler demonstrates normal waveform and flow; resistive index 0.6. Ovary size: 2.9 x 1.9 x 2.5 cm CUL-DE-SAC: Unremarkable. No significant free fluid. BLADDER: Unremarkable. OTHER: None. US/US pelvis w/ transvaginal IMPRESSION: 1. Normal appearance of uterus and ovaries. 2. Resolution of previously seen large right ovarian cyst. Electronically authenticated by: CAROLYN REESE Date: 02/22/2024 12:51 Dictated By: Carolyn Reese M.D. Signed By: 02/22/24 1254 DD/ 1251 TD/TT: Conservation Policy Analyst: Procedure Note Radiology, Radiologist, MD - 02/22/2024 [place] [address] Ultrasound Report Signed Patient: KEVEN WHTIAKER MMR#: [id number] : 1995Acct:[id number] Age/Sex: 29 / FADM Date: 02/22/24 Loc: US Attending Dr: Mukesh Jones D.O. Ordering Physician: Mukesh Jones D.O. Date of Service: 02/22/24 Procedure(s): US pelvis w/ transvaginal Accession Number(s): [id number] cc: Mukesh Jones D.O.; Physician,Non-Staff Lester [address] [place] [address] Patient Name: KEVEN WHITAKER MRN: [id number] date: 1995 Sex: F Assigned Patient Location: US Current Patient Location: US Accession/Order Number: [id number] Exam Date: 02/22/2024 11:09 Report Date: 02/22/2024 12:51 At the request of: MUKESH JONES Procedure: US pelvis w/ transvaginal EXAMINATION: US pelvis w/ transvaginal HISTORY: right ovarian cyst N83.201 COMPARISON: Ultrasound pelvis 01/06/2024 TECHNIQUE: Transabdominal and/or transvaginal sonographic examination was performed as indicated by examination type. FINDINGS: UTERUS: Normal size and appearance. Uterus size: 7.2 x 3.2 x 4.7 cm ENDOMETRIUM: Normal homogeneous appearance. Endometrial thickness: 3 mm RIGHT OVARY: Normal size and appearance. Duplex Doppler demonstratesnormal waveform and flow; resistive index 0.6. Ovary size: 3.5 x 2.2 x 2.2 cm LEFT OVARY: Normal size and appearance, and contains several follicles.Duplex Doppler demonstrates normal waveform and flow; resistive index 0.6. Ovary size: 2.9 x 1.9 x 2.5 cm CUL-DE-SAC: Unremarkable. No significant free fluid. BLADDER: Unremarkable. OTHER: None. US/US pelvis w/ transvaginal IMPRESSION: 1. Normal appearance of uterus and ovaries. 2. Resolution of previously seen large right ovarian cyst. Electronically authenticated by: CAROLYN REESE Date: 02/22/2024 12:51 Dictated By: Carolyn Reese M.D. Signed By:02/22/24 1254 DD/ 1251 TD/TT: Conservation Policy Analyst: us Mukesh Robert DO [facility] Final Result documented in this encounter Visit Diagnoses Not on filedocumented in this encounter Care Teams Environmental Conflict Manager Relationship Specialty Start Date End Date Elena Burger MD [address] [place] [address] PCP - General 07/04/23 Carolyn Mclaughlin MD [address] [place] [address] Referring Physician Neurology 02/22/24 documented as of this encounter
--- OUTSIDE RECORDS SUMMARY | 2025-08-21 20:27 | XMS_ITS | Encounter Summary ---
Author Organization [facility] Address [address] [address] Care Team Providers Care Tablet Making Machine Operator Helper Name Role Phone Elena Burger MD Primary Care Provider Wai Mclaughlin MD Unavailable Encounter Details Date Type Department Care Team (Late st Contact Info) Description 08/20/2024 Orders Only [facility] [address] [place] [address] Sharmila Barbour LPN [address] [place] [address] [place] [address] Social History Tobacco Use Types Packs/Day Years [...] drinks on one occasion? Never 03/21/2024 Comments Unknown Sex and Gender Information Value [...] EDT Office Visit [facility] [address] [facility] [place] [address] Ruth Marshall PA [address] [facility] [place] [address] documented as of this encounter Procedures Procedure Name Priority Date/Time Associated Diagnosis Comments PAP SMEAR Routine 08/14/2024 12:00 AM EDT documented in this encounter Results * Pap Smear (08/14/2024 12:00 AM EDT) Swab Cervical swab / Unknown us Robert Nurse [facility] Ob LAB CYTOLOGY ORDERABLES Final Result EXTERNAL LAB documented in this encounter Visit Diagnoses Not on filedocumented in this encounter Care Teams Tablet Making Machine Operator Helper Relationship Specialty Start Date End Date Elena Burger MD [address] [place] [address] PCP - General 07/04/23 Wai Mclaughlin MD [address] [place] [address] Referring Physician Neurology 02/22/24 documented as of this encounter
--- OUTSIDE RECORDS SUMMARY | 2025-08-21 20:28 | XMS_ITS | Encounter Summary ---
Author Organization [facility] Address [address] [place] [address] Care Team Providers Care Engraver Block Name Role Phone Elena Burger MD Primary Care Provider Wai Mclaughlin MD Unavailable Encounter Details Date Type Department Care Team (Late st Contact Info) Description 08/21/2025 Raduboo flowsheet [facility] [address] [facility] [place] [address] Sol Sanchez, DALY [address] [facility] [place] [address] Social History Tobacco Use Types Packs/Day Years [...] Office Visit ENIO KILPATRICK [address] [facility] [place] [address] Ruth Marshall PA [address] [facility] [address] documented as of this encounter Visit Diagnoses Not on filedocumented in this encounter Care Teams Engraver Block Relationship Specialty Start Date End Date Elena Burger MD [address] [place] [address] PCP - General 07/04/23 Wai Mclaughlin MD [address] [place] [address] Referring Physician Neurology 02/22/24 documented as of this encounter
--- OUTSIDE RECORDS SUMMARY | 2025-08-21 20:28 | XMS_ITS | Encounter Summary ---
Author Organization [facility] Address [address] [place] [address] Care Team Providers Care Proofing Machine Operator Name Role Phone Elena Burger MD Primary Care Provider [phone] Wai Mclaughlin MD Unavailable [phone] Encounter Details Date Type Department Care Team (Latest Contact Info) Description 08/07/2025 Travel Social History Tobacco Use Types Packs/Day Years [...] PM EDT Office Visit [facility] KILPATRICK [address] [place] [address] [place] [address] Ruth Marshall PA [address] [place] [address] [place] [address] documented as of this encounter Visit Diagnoses Not on filedocumented in this encounter Care Teams Proofing Machine Operator Relationship Specialty Start Date End Date Elena Burger MD [address] [place] [address] PCP - General 07/04/23 Wai Mclaughlin MD [address] [place] [address] Referring Physician Neurology 02/22/24 documented as of this encounter
--- OUTSIDE RECORDS SUMMARY | 2025-08-21 20:28 | XMS_ITS | Clinical Summary ---
Author Organization [facility] Address [address] [place] [address] Care Team Providers Care Body Team Member Name Role Phone Elena Burger MD Primary Care Provider [phone] Wai Mclaughlin MD Unavailable [phone] Allergies Active Allergy Reactions Criticality Noted Date Comments Amitriptyline 03/21/2024 Lorazepam 10/22/2021 Other Reaction(s): Seizure Medications citalopram (CeleXA) 20 MG tabletIndication s:Depression, unspecified depression type Take 1.5 tablets (30 mg) by mouth Daily 45 tablet 11 07/04/2025 07/04/20 26 Active Active Problems Problem Noted Date Diagnosed Date Hypersomnia 03/21/2024 Overview (03/27/2024): Patient has been having increase in fatigue as she is having trouble falling asleep and staying asleep. This likely led to sleep deprivation. She has tried melatonin, which she found little benefit. She reports an allergy to amitriptyline. Sleep study 04/2021 was normal. She did not trial trazodone. Patient has interrupted sleep due to her toddler. Insomnia 03/21/2024 Encounters Date Type Department Care Team Description 08/21/2025 11:00 AM EDT Procedure Visit [facility] [address] [place] [address] [place] [phone] Sol Sanchez NP Well woman exam with routine gynecological exam 08/21/2025 Bamboo flowsheet [facility] [address] [facility] [place] [address] Sol Sanchez NP 08/21/2025 Travel 08/13/2025 Telephone [facility] [address] [facility] [place] [address] Ruth Marshall PA 08/12/2025 1:30 PM EDT Office Visit [facility] [address] [facility] [place] [address] Grover Jones DO Encounter to discuss test results; Pelvic pain in female; Right ovarian cyst 08/12/2025 Bamboo flowsheet [facility] [address] [facility] [place] [address] Grover Jones DO 08/07/2025 Travel 08/06/2025 10:30 AM EDT Ancillary Procedure [facility] [address] [facility] [place] [address] Complex cyst of right ovary 07/05/2025 Telephone [facility] [address] [facility] [address] Suzy Howard LPN 07/04/2025 1:20 PM EDT Office Visit [facility] [address] [facility] [address] Sol Sanchez NP Vaginal bleeding; Vaginal irritation; Yeast infection 07/04/2025 Telephone [facility] [address] [facility] [place] [address] Suzy Howard LPN 07/04/2025 Bamboo flowsheet [facility] [address] [facility] [place] [address] Sol Sanchez NP 07/04/2025 Travel from Last 3 Months Family History Medical History Relation Name Comments Asthma Mother Depression Other Mental illness Other Ovarian cancer Other Thyroid disease Other strong famil y history Relation Name Status Comments Brother (2) Father Alive Mother Alive Other Sister (3) Social History Tobacco Use Types Packs/Day Years Used Date Smoking Tobacco: Never Smokeless Tobacco: Never Tobacco Cessation:Counseling Given: Not Answered Alcohol Use Standard Drinks/Week Comments Yes 0 [...] not to disclose 2022 7:19 PM EDT Last Filed Vital Signs Vital Sign Reading Time Taken Comments Blood Pressure 100/60 08/21/2025 11:04 AM EDT Pulse - - Temperature - - Respiratory Rate - - Oxygen Saturation - - Inhaled Oxygen Concentration - - Weight 68.5 kg (151 lb) 08/21/2025 11:04 AM EDT Height 157.5 cm (5' 2 ) 03/21/2024 8:56 AM EDT Body Mass Index 27.62 03/21/2024 8:56 AM EDT Plan of Treatment Upcoming Encounters Date Type Department Care Team (Late st Contact Info) Description 09/12/2025 2:30 PM EDT Office Visit [facility] [address] [facility] [place] [address] Ruth Marshall PA [address] [place], [place] [id number] Procedures Procedure Name Priority Date/Time Associated Diagnosis Comments US PELVIC COMPLETE W/ TV Routine 08/06/2025 10:53 AM EDT Complex cyst of right ovary RECURRENT VAGINITIS (HTRX) Routine 07/04/2025 3:13 PM EDT POCT URINALYSIS DIPSTICK Routine 07/04/2025 1:36 PM EDT Vaginal bleeding Vaginal irritation from Last 3 Months Results * US Pelvis w/ TV (08/06/2025 10:53 AM EDT) Anatomical Region Laterality Modality Pelvis Ultrasound 08/06/2025 1:25 PM EDT Impressions 08/06/2025 1:36 PM EDT Right ovarian complex cyst, benign appearance TRANSCRIBED BY: ELECTRONICALLY SIGNED BY: Jarret Gregory MD [facility] 08/06/2025 1:36 PM EDT FINDINGS: Uterus 8.5 x 3.7 x 5.9 cm Endometrium 7 mm Right ovary 6.6 x 3.5 x 5.4 cm (volume 78 cc) Left ovary 3.3 x 1.7 x 2.6 cm Normal uterine orientation and morphology. Normal endometrium. Normal left ovary. Right ovarian complex cyst 6.0 x 5.6 x 3.4 cm, no significant soft tissue component, shadowing, or increase in vascularity Procedure Note Jarret Gregory MD - 08/06/2025 FINDINGS: Uterus 8.5 x 3.7 x 5.9 cm Endometrium 7 mm Right ovary 6.6 x 3.5 x 5.4 cm (volume 78 cc) Left ovary 3.3 x 1.7 x 2.6 cm Normal uterine orientation and morphology. Normal endometrium. Normal left ovary. Right ovarian complex cyst 6.0 x 5.6 x 3.4 cm, no significant soft tissuecomponent, shadowing, or increase in vascularity IMPRESSION: Right ovarian complex cyst, benign appearance TRANSCRIBED BY: ELECTRONICALLY SIGNED BY: Jarret Gregory MD us [facility] US PROCEDURES Final Result * (ABNORMAL) RECURRENT VAGINITIS (HTRX) (07/04/2025 3:13 PM EDT) ATOPOBIUM VAGINAE 26.548(A) 19.961 - 24.689 ppm 07/05/2025 7:26 AM EDT [facility] ATOPOBIUM VAGINAE Detected(A) 19.961 - 24.689 ppm 07/05/2025 7:26 AM EDT [facility] BVAB 2,3 (BACTERIAL VAGINOSIS ASSOCIATED BACTERIA 2, 3); MOBILUNCUS SPP 12.501(A) 19.961 - 24.689 ppm 07/05/2025 7:26 AM EDT [facility] BVAB 2,3 (BACTERIAL VAGINOSIS ASSOCIATED BACTERIA 2, 3); MOBILUNCUS SPP Detected(A) 19.961 - 24.689 ppm 07/05/2025 7:26 AM EDT [facility] TREVON ALBICANS, PARAPSILOSIS, TROPICALIS 0 23.000 - 30.347 ppm 07/05/2025 7:26 AM EDT [facility] TREVON ALBICANS, PARAPSILOSIS, TROPICALIS Not Detected 23.000 - 30.347 ppm 07/05/2025 7:26 AM EDT [facility] TREVON GLABRATA 0 23.000 - 31.618 ppm 07/05/2025 7:26 AM EDT [facility] TREVON GLABRATA Not Detected 23.000 - 31.618 ppm 07/05/2025 7:26 AM EDT [facility] TREVON KRUSEI 0 23.000 - 30.873 ppm 07/05/2025 7:26 AM EDT [facility] TREVON KRUSEI Not Detected 23.000 - 30.873 ppm 07/05/2025 7:26 AM EDT [facility] CHLAMYDIA TRACHOMATIS 0 23.000 - 31.586 ppm 07/05/2025 7:26 AM EDT [facility] CHLAMYDIA TRACHOMATIS Not Detected 23.000 - 31.586 ppm 07/05/2025 7:26 AM EDT [facility] GARDNERELLA VAGINALIS 21.022(A) 19.961 - 24.689 ppm 07/05/2025 7:26 AM EDT [facility] GARDNERELLA VAGINALIS Detected(A) 19.961 - 24.689 ppm 07/05/2025 7:26 AM EDT [facility] MEGASPHAERA (TYPES 1, 2) 14.749(A) 19.961 - 24.689 ppm 07/05/2025 7:26 AM EDT [facility] OBIEHAERA (TYPES 1, 2) Detected(A) 19.961 - 24.689 ppm 07/05/2025 7:26 AM EDT [facility] NEISSERIA GONORRHOEAE 0 23.000 - 32.587 ppm 07/05/2025 7:26 AM EDT [facility] NEISSERIA GONORRHOEAE Not Detected 23.000 - 32.587 ppm 07/05/2025 7:26 AM EDT [facility] TRICHOMONAS VAGINALIS 0 23.000 - 31.995 ppm 07/05/2025 7:26 AM EDT [facility] TRICHOMONAS VAGINALIS Not Detected 23.000 - 31.995 ppm 07/05/2025 7:26 AM EDT [facility] MYCOPLASMA GENITALIUM 0 19.961 - 24.689 ppm 07/05/2025 7:26 AM EDT [facility] MYCOPLASMA GENITALIUM Not Detected 19.961 - 24.689 ppm 07/05/2025 7:26 AM EDT [facility] ERMB, C; MEFA 17.503(A) 23.000 - 27.500 ppm 07/05/2025 7:26 AM EDT [facility] ERMB, C; MEFA Detected(A) 23.000 - 27.500 ppm 07/05/2025 7:26 AM EDT [facility] TET B, TET M 20.67(A) 23.000 - 27.500 ppm 07/05/2025 7:26 AM EDT [facility] TET B, TET M Detected(A) 23.000 - 27.500 ppm 07/05/2025 7:26 AM EDT [facility] Tissue 07/04/2025 3:13 PM EDT 07/05/2025 2:18 AM EDT Sol Sanchez NP LAB BLOOD ORDERABLES Final Re sult [facility] [address] [id number] * POCT urinalysis dipstick manually resulted (07/04/2025 1:36 PM EDT) Color, UA Yellow Clarity, UA Clear Glucose, UA Negative Negative - 2000(110) ++++ mg/dL Bilirubin, UA Negative Negative - 4(70) +++ mg/dL Ketones, UA Negative Negative - 160(16) ++++ mg/dL Spec Grav, UA 1.010 1 - 1.03 Blood, UA Negative Negative - 50 Jonah/mcL pH, UA 6.0 5 - 9 Protein, UA Negative Negative - 1999(20) ++++ mg/dL Urobilinogen, UA 0.2 0.2 - 12 mg/dL Leukocytes, UA Negative Negative - 500+++ Leo/mcL Nitrite, UA Negative Negative - Positive Urine 07/04/2025 1:36 PM EDT Sol Sanchez NP POINT OF CARE TEST ENTER/EDIT ORDERABLES Final Result from Last 3 Months Insurance [facility] MEDICAID [place] Care Teams Body Team Member Relationship Specialty Start Date End Date Elena Burger MD [address] [place] [address] PCP - General 07/04/23 Wai Mclaughlin MD [address] [place] [address] Referring Physician Neurology 02/22/24
--- OUTSIDE RECORDS SUMMARY | 2025-08-21 20:28 | XMS_ITS | Clinical Summary ---
Author Organization [facility] Address [address] [place] [address] Care Team Providers Care Mixing And Dispensing Supervisor Name Role Phone Khushboo Hollis MD Primary Care Provider + Allergies No known active allergies Medications levothyroxine (SYNTHROID) 50 mcg tablet Take 50 mcg by mouth once daily. 09/08/2021 Active Social History Tobacco Use Types Packs/Day Years Used Date Smoking Tobacco: Never Assessed Area Deprivation Index Answer Date Balbir rded National Score (1-100), lower number is lower ri sk Not on file 09/08/2021 State Score (1-10), lower number is lower risk N ot on file 09/08/2021 Data from: https://www.neighborhoodatlas.medicine.[facility].edu/. Last address used for calculation Not on file 09/08/2021 Comments Unknown Sex and Gender Information Value Date Recorded Sex Assigned at Not on file Legal Sex Female 10:08 AM EST Gender Identity Not on file Sexual Orientation Not on file Last Filed Vital Signs Vital Sign Reading Time Taken Comments Blood Pressure 128/58 09/08/2021 6:57 PM EDT Pulse 66 09/08/2021 6:57 PM EDT Temperature 37.1 C (98.7 F) 09/08/2021 6:57 PM EDT Respiratory Rate - - Oxygen Saturation 100% 09/08/2021 6:57 PM EDT RA Inhaled Oxygen Concentration - - Weight - - Height - - Body Mass Index - - Plan of Treatment Health Maintenance Due Date Last Done Comments Anxiety Screening 2013 Depression Screening 2013 HIV Screening 2013 Hepatitis C Screening 2013 DTaP,Tdap,Td Vaccine (1 - Tdap) 2014 Hepatitis B Vaccine (1 of 3 - 19+ 3-dose series) 01/08 Cervical Cancer Screening 2016 HPV Vaccine (1 - 3-dose SCDM series) 2022 Influenza Vaccine (#1) 2025 Insurance [employer] MEDICAID OF [place] Care Teams Mixing And Dispensing Supervisor Relationship Specialty Start Date End Date Khushboo Hollis MD [address] [place] [address] PCP - General 02/12/20
--- OUTSIDE RECORDS SUMMARY | 2025-08-21 20:28 | XMS_ITS | Clinical Summary ---
Author Organization [employer] Address [id number] [address] [place] [address] Care Team Providers Care Epic Trainer Name Role Phone No Pcp, No Pcp Primary Care Provider Unavailabl e Allergies Active Allergy Reactions Criticality Noted Date Comments Lorazepam 10/22/2021 Medications levothyroxine (SYNTHROID, LEVOTHROID) 50 MCG tablet Take 50 mcg by mouth daily. Active omeprazole (PriLOSEC) 20 mg capsule Take 20 mg by mouth daily. Active PNV no.153/FA/om3/d goldstein/epa/fish ( GUMMIES ORAL) Take 2 tablets by mouth daily. Active Active Problems Problem Noted Date Diagnosed Date History of self injurious behavior 10/26/2021 Eczema 10/26/2021 Bipolar I disorder 10/26/2021 Hypothyroidism affecting 10/26/2021 Seizure disorder during 10/26/2021 Family History Medical History Relation Name Comments Thyroid Issues Maternal Grandfather Thyroid Issues Mother Relation Name Status Comments Maternal Grandfather Mother Social History Tobacco Use Types Packs/Day Years Used Date Smoking Tobacco: Never Smokeless Tobacco: Never Comments No Sex and Gender Information Value Date Recorded Sex Assigned at Not on file Legal Sex Female 12:10 PM EST Gender Identity Not on file Sexual Orientation Not on file Last Filed Vital Signs Vital Sign Reading Time Taken Comments Blood Pressure 112/62 10/26/2021 11:17 AM EST Pulse 68 10/26/2021 11:17 AM EST Temperature - - Respiratory Rate - - Oxygen Saturation - - Inhaled Oxygen Concentration - - Weight 64.5 kg (142 lb 3.2 oz) 10/26/2021 11:17 AM EST Height 157.5 cm (5' 2 ) 10/26/2021 11:17 AM EST Body Mass Index 26.01 10/26/2021 11:17 AM EST Plan of Treatment Health Maintenance Due Date Last Done Comments DTaP,Tdap and Td Vaccines (5 - Tdap) 2006 03/22/2000, 1995, 1995, Additional history exists Depression Screening 2007 Tobacco Screening 2007 Adult BMI Screening 2013 Pap Smear 2016 Influenza Vaccine 07/22/2025 Medical Devices Not on file Insurance [facility] MEDICAID Care Teams Epic Trainer Relationship Specialty Start Date End Date No Pcp, No Pcp BUD [place] [id number] PCP - General Family Medicine 10/26/21
--- OUTSIDE RECORDS SUMMARY | 2025-08-21 20:28 | XMS_ITS | Encounter Summary ---
Author Organization [facility] Address [address] [place] [address] Care Team Providers Care Pricing Clerk Name Role Phone Elena Burger MD Primary Care Provider Carolyn Mclaughlin MD Unavailable Encounter Details Date Type Department Care Team (Late st Contact Info) Description 08/16/2024 Clinisync Result Encounter [facility] External Department Unsolicited Mukesh Jones, DO [address] [facility] [place] [address] Social History Tobacco Use Types Packs/Day Years [...] EDT Office Visit [facility] [address] [facility] [place] [address] Ruth Marshall PA [address] [facility] [address] [place], [facility] documented as of this encounter Procedures Procedure Name Priority Date/Time Associated Diagnosis Comments US PELVIS W/ TRANSVAGINAL 08/16/2024 12:07 PM EDT documented in this encounter Results * US PELVIS W/ TRANSVAGINAL (08/16/2024 12:07 PM EDT) Anatomical Region Laterality Modality Other 08/16/2024 12:0 7 PM EDT Narrative 08/16/2024 12:09 PM EDT The [place] [id number] Ultrasound Report Signed Patient: KEVEN WHITAKER MR#: [id number] : 1995 Acct:[id number] Age/Sex: 29 / F ADM Date: 08/16/24 Loc: US Attending Dr: Mukesh Jones D.O. Ordering Physician: Mukesh Jones D.O. Date of Service: 08/16/24 Procedure(s): US pelvis w/ transvaginal Accession Number(s): [id number] cc: Mukesh Jones D.O.; Physician,Non-Staff M.DCrow The [address] [address] Patient Name: KEVEN WHITAKER MRN: [id number] date: 1995 Sex: F Assigned Patient Location: US Current Patient Location: US Accession/Order Number: [id number] Exam Date: 08/16/2024 10:55 Report Date: 08/16/2024 12:07 At the request of: MUKESH JONES Procedure: US pelvis w/ transvaginal EXAMINATION: US pelvis w/ transvaginal HISTORY: Pelvic Pain COMPARISON: Ultrasound pelvis 02/22/2024 TECHNIQUE: Transabdominal and/or transvaginal sonographic examination was performed as indicated by examination type. FINDINGS: UTERUS: Normal size and appearance. Uterus size: 7.7 x 3.9 x 3.7 cm ENDOMETRIUM: Normal homogeneous appearance. Endometrial thickness: 7 mm RIGHT OVARY: Contains several different size follicles. Duplex Doppler demonstrates normal waveform and flow; resistive index 0.5. Ovary size: 3.5 x 2.6 x 2.0 cm LEFT OVARY: Contains several different size follicles. Duplex Doppler demonstrates normal waveform and flow; resistive index 0.6. Ovary size: 2.8 x 2.8 x 2.2 cm CUL-DE-SAC: Unremarkable. No significant free fluid. BLADDER: Unremarkable. OTHER: None. US/US pelvis w/ transvaginal IMPRESSION: 1. Normal pelvic ultrasound. No suspicious findings. Electronically authenticated by: CAROLYN REESE Date: 08/16/2024 12:07 Dictated By: Carolyn Reese M.D. Signed By: 08/16/24 1209 DD/ 1207 TD/TT: Gas Plant Specialist: Procedure Note Radiology, Radiologist, MD - 08/16/2024 [place] [address] Ultrasound Report Signed Patient: KEVEN WHITAKER MMR#: [id number] : 1995Acct:[id number] Age/Sex: 29 / FADM Date: 08/16/24 Loc: US Attending Dr: Mukesh Jones D.O. Ordering Physician: Mukesh Jones D.O. Date of Service: 08/16/24 Procedure(s): US pelvis w/ transvaginal Accession Number(s): [id number] cc: Mukesh Jones D.O.; Physician,Non-Staff [place] The [address] [address] Patient Name: KEVEN WHITAKER MRN: [id number] date: 1995 Sex: F Assigned Patient Location: US Current Patient Location: US Accession/Order Number: [id number] Exam Date: 08/16/2024 10:55 Report Date: 08/16/2024 12:07 At the request of: MUKESH JONES Procedure: US pelvis w/ transvaginal EXAMINATION: US pelvis w/ transvaginal HISTORY: Pelvic Pain COMPARISON: Ultrasound pelvis 02/22/2024 TECHNIQUE: Transabdominal and/or transvaginal sonographic examination was performed as indicated by examination type. FINDINGS: UTERUS: Normal size and appearance. Uterus size: 7.7 x 3.9 x 3.7 cm ENDOMETRIUM: Normal homogeneous appearance. Endometrial thickness: 7 mm RIGHT OVARY: Contains several different size follicles. Duplex Doppler demonstrates normal waveform and flow; resistive index 0.5. Ovary size:3.5 x 2.6 x 2.0 cm LEFT OVARY: Contains several different size follicles. Duplex Doppler demonstrates normal waveform and flow; resistive index 0.6. Ovary size:2.8 x 2.8 x 2.2 cm CUL-DE-SAC: Unremarkable. No significant free fluid. BLADDER: Unremarkable. OTHER: None. US/US pelvis w/ transvaginal IMPRESSION: 1. Normal pelvic ultrasound. No suspicious findings. Electronically authenticated by: CAROLYN REESE Date: 08/16/2024 12:07 Dictated By: Carolyn Reese M.D. Signed By:08/16/24 1209 DD/ 1207 TD/TT: Gas Plant Specialist: us Mukesh Jones DO [facility] Final Result documented in this encounter Visit Diagnoses Not on filedocumented in this encounter Care Teams Pricing Clerk Relationship Specialty Start Date End Date Elena Burger MD [address] [place] [address] PCP - General 07/04/23 Carolyn Mclaughlin MD [address] [place] [address] Referring Physician Neurology 02/22/24 documented as of this encounter
--- OUTSIDE RECORDS SUMMARY | 2025-08-21 20:28 | XMS_ITS | Encounter Summary ---
Author Organization [facility] Address [address] [place] [address] Care Team Providers Care Technical Maintenance Specialist Name Role Phone Elena Burger MD Primary Care Provider [phone] Wai Mclaughlin MD Unavailable [phone] Reason for Visit * Reason Onset Date Comments Med Refill 09/04/2024 Encounter Details Date Type Department Care Team (Late st Contact Info) Description 09/04/2024 Refill [facility] [address] [place] [phone] Grover Joens DO [address] [facility] [address] [place], [place] [id number] BV (bacterial vaginosis) Social History Tobacco Use Types Packs/Day Years [...] PM EDT documented as of this encounter Miscellaneous Notes * Telephone Encounter - Akua Pemberton MA - 09/07/2024 8:46 AM EDT Patient needs to call office so we can find out what is going on for the reason for the medication. documented in this encounter Plan of Treatment Upcoming Encounters Date Type Department Care Team (Late st Contact Info) Description 09/12/2025 2:30 PM EDT Office Visit [facility] [address] [place] [address] Ruth Marshall PA [address] [facility] [place] [address] documented as of this encounter Visit Diagnoses Diagnosis BV (bacterial vaginosis) Unspecified vaginitis and vulvovaginitis documented in this encounter Care Teams Technical Maintenance Specialist Relationship Specialty Start Date End Date Elena Burger MD [address] [place], [place] [phone] PCP - General 07/04/23 Wai Mclaughlin MD [address] [place] [address] Referring Physician Neurology 02/22/24 documented as of this encounter
--- OUTSIDE RECORDS SUMMARY | 2025-08-21 20:28 | XMS_ITS | Encounter Summary ---
Author Organization [facility] Address [address] [place] [address] Care Team Providers Care Electron Beam Machine Welder Setter Name Role Phone Elena Burger MD Primary Care Provider [phone] Wai Mclaughlin MD Unavailable [phone] Encounter Details Date Type Department Care Team (Latest Contact Info) Description 08/21/2025 Travel Social History Tobacco Use Types Packs/Day [...] PM EDT Office Visit [facility] [address] [place] [address] [place] [address] Ruth Marshall PA [address] [place] [address] [place] [address] documented as of this encounter Visit Diagnoses Not on filedocumented in this encounter Care Teams Electron Beam Machine Welder Setter Relationship Specialty Start Date End Date Elena Burger MD [address] [place] [address] PCP - General 07/04/23 Wai Mclaughlin MD [address] [place] [address] Referring Physician Neurology 02/22/24 documented as of this encounter
--- OUTSIDE RECORDS SUMMARY | 2025-08-21 20:28 | XMS_ITS | Encounter Summary ---
Author Organization [facility] Address [address] [place] [address] Care Team Providers Care Precision Printing Worker Name Role Phone Elena Burger MD Primary Care Provider Wai Mclaughlin MD Unavailable Encounter Details Date Type Department Care Team (Late st Contact Info) Description 08/13/2025 Telephone [facility] [address] [place] [address] Ruth Marshall PA [address] [place], [facility] Social History Tobacco Use Types Packs/Day Years [...] encounter Miscellaneous Notes * Telephone Encounter - Sharmila Barbour LPN - 08/13/2025 1:01 PM EDT Patient states that she would like to go to a Fertility Dr to see about preserving eggs if she is having to have ovaries out with the surgery from Dr. Patient was advised we will start working on this referral and we will send letter through [facility] and mail with information on who referral was sent to. documented in this encounter Plan of Treatment Upcoming Encounters Date Type Department Care Team (Late st Contact Info) Description 09/12/2025 2:30 PM EDT Office Visit [facility] [address] [facility] [place] [address] Ruth Marshall PA [address] [place] [address] documented as of this encounter Visit Diagnoses Not on filedocumented in this encounter Care Teams Precision Printing Worker Relationship Specialty Start Date End Date Elena Burger MD [address] [place] [address] PCP - General 07/04/23 Wai Mclaughlin MD [address] [place] [address] Referring Physician Neurology 02/22/24 documented as of this encounter
--- OUTSIDE RECORDS SUMMARY | 2025-08-21 20:28 | XMS_ITS | Encounter Summary ---
Author Organization [facility] Address [address] [place] [address] Care Team Providers Care Sack Department Supervisor Name Role Phone Elena Burger MD Primary Care Provider [phone] Wai Mclaughlin MD Unavailable Encounter Details Date Type Department Care Team (Late st Contact Info) Description 11/02/2024 Abstract [facility] [address] [facility] [place] [address] Grover Jones DO [address] [facility] [address] [place] [place], [place] [phone] Social History Tobacco Use Types Packs/Day Years [...] PM EDT Office Visit [facility] [address] [facility] [place] [address] Ruth Marshall PA [address] [facility] [place] [address] documented as of this encounter Visit Diagnoses Not on filedocumented in this encounter Care Teams Sack Department Supervisor Relationship Specialty Start Date End Date Elena Burger MD [address] [place] [address] PCP - General 07/04/23 Wai Mclaughlin MD [address] [place] [address] Referring Physician Neurology 02/22/24 documented as of this encounter
--- OUTSIDE RECORDS SUMMARY | 2025-08-21 20:28 | XMS_ITS | Encounter Summary ---
Author Organization [facility] Address [address] [place] [address] Care Team Providers Care Tour Agent Name Role Phone Elena Burger MD Primary Care Provider Wai Mclauglhin MD Unavailable Encounter Details Date Type Department Care Team (Late st Contact Info) Description 08/12/2025 Bamboo flowsheet [facility] [address] [facility] [place] [phone] Grover Jones DO [address] [facility] [address] [place] [phone] Social History Tobacco Use Types Packs/Day Years [...] EDT Office Visit [facility] [address] [facility] [place] [address] Ruth Marshall PA [address] [facility] [place] [address] documented as of this encounter Visit Diagnoses Not on filedocumented in this encounter Care Teams Tour Agent Relationship Specialty Start Date End Date Elena Burger MD [address] [place] [address] PCP - General 07/04/23 Wai Mclaughlin MD [address] [place] [address] Referring Physician Neurology 02/22/24 documented as of this encounter
== END 2025-08-21 20:25 | disposition home or self-care (01) ==
LOC: LAB 20:24
PROVIDERS: PCP Family Medicine; Visit Provider Nurse Practitioner Family
DX: Z01.419 Encounter for gynecological examination (general) (routine) without abnormal findings (principal)
CPT/HCPCS: 87624; 88175

== ENCOUNTER 2025-08-22 10:35 | Outpatient (OUT) | payer MEDICAID, SELFPAY ==
--- OUTSIDE RECORDS SUMMARY | 2022-10-18 09:30 | XMS_ITS | Continuity of Care Document ---
Author Organization [facility] Address [address] [place] [phone] Phone Care Team Providers Care Senior Data Warehouse Developer Name Role Phone Guillermina Hernandez DDS Unavailable Unavailable Medications Medication Instructions Dosage Effective Dates (start - stop) Status Comments levothyroxine 50 mcg capsule take 1 capsule by oral route every day 50 MCG - Active Procedures Procedure Date Oral Hygiene Instruction Moderate Risk Resin Composite 1s; Posterior 2 Treatment Completed Prophylaxis Adult Nutrit Couns For Control Of [place] Dis Jul Oral Hygiene Instruction Panoramic Film Bitewings Four Films Oral Hygiene Instruction Comp Oral Eval New/estab Patient 2021 Advance Directives Directive Yes / No Effective Date File Name No Information Encounters Encounter Description Practice Location Reason(s) For Visit Diagnoses Date Provider Providers Copied on Encounter [facility], [address] [place] [address], [id number], [place] tel:[phone] Dental Clinic Fill (chief complaint) Encounter for screening for dental disorders David GONZALEZ Guillermina. . tel:[phone] [facility], [address] [place] [address], [id number], [place] tel:[phone] Dental Clinic Adult Prophy (chief complaint) Encounter for screening for dental disorders David GONZALEZ Guillermina. . tel:[phone] [facility], [address] [place] [address], [place], [place], [id number], tel:[phone] Dental Clinic dn (chief complaint) Encounter for screening for dental disorders David Michaels . tel:[phone] Family History Family Member Type Diagnosis Age At Onset No Information Payers Payer name Insurance type Covered constitution party ID Anai desir(s) D Medicaid [facility] [id number] Social History Type Description Quantity Date Captured [...] Of Treatment Date Type Action Status Goal Depression screening. Due on due Goal PRAPARE ASSESSMENT. Due on N due Goal PAP. Due on due Goal RLP. Due on due Goal Influenza vaccine. Due on No due Goal Tdap. Due on due Goal Depression screening. Due on due Goal PRAPARE ASSESSMENT. Due on S ep due Goal PAP. Due on due Goal Influenza vaccine. Due on Se p due Goal RLP. Due on due Goal Tdap. Due on due Goal [...]
--- OUTSIDE RECORDS SUMMARY | 2025-08-12 13:30 | XMS_ITS | Encounter Summary ---
Author Organization [facility] Address [address] [place] [address] Care Team Providers Care Drilling Engineering Manager Name Role Phone Elena Burger MD Primary Care Provider Wai Mclaughlin MD Unavailable [phone] Reason for Visit * Reason Comments Follow-up Pt present today to discuss US results. Pt was seen on 07/04/2025 for pelvic pain/discomfort. Pt was given pelvic US to obtain. Encounter Details Date Type Department Care Team (Late st Contact Info) Description 08/12/2025 1:30 PM EDT Office Visit ENIO KILPATRICK [address] [facility] [place] [address] Grover Jones DO [address] [facility] [address] [place], [place] [phone] Encounter to discuss test results; Pelvic pain in female; Right ovarian cyst Social History Tobacco Use Types Packs/Day Years Used Date Smoking Tobacco: Never Smokeless Tobacco: Never Alcohol Use Standard Drinks/Week Comments Yes 0 (1 standard drink = 0.6 oz pur e alcohol) Caffeine: occasional tea AUDIT-C Answer Date Recorded Q1: How often do you have a drink containing alc ohol? Monthly or less 03/21/2024 Q2: How many drinks containi ng alcohol do you have on a typical day when you are drinking? 1 or 2 03/21/2024 Q3: How often do you have si x or more drinks on one occasion? Never 03/21/2024 Comments No Sex and Gender Information Value Date Recorded Sex Assigned at Female 10/13/2023 10:08 PM EST Legal Sex Female 7:19 PM EDT Gender Identity Female 02/02/2023 7:19 PM EDT Sexual Orientation Choose not to disclose 2022 7:19 PM EDT documented as of this encounter Last Filed Vital Signs Vital Sign Reading Time Taken Comments Blood Pressure 110/74 08/12/2025 1:42 PM EDT Pulse - - Temperature - - Respiratory Rate - - Oxygen Saturation - - Inhaled Oxygen Concentration - - Weight 68 kg (150 lb) 08/12/2025 1:42 PM EDT Height - - Body Mass Index 27.44 03/21/2024 8:56 AM EDT documented in this encounter Progress Notes * Grover Jones, - 08/12/2025 1:30 PM EDT Reason for Appointment: Patient ID: Paula Whitaker is a 30 y.o. female who presents for Follow-up (Pt present today to discuss US results. Pt was seen on 07/04/2025 for pelvic pain/discomfort. Pt was given pelvic US to obtain.) Patient presents today for Pre Op appointment. Patient is scheduled to undergo Da Silvano assisted Diagnostic Laparoscopy, possible WANDA, possible FOE, possible BSO on 09-06-[address] Jones at [facility]. MEDICATIONS Current Outpatient Medications Medication Instructions citalopram (CELEXA) 30 mg, Oral, Daily ALLERGIES Allergies Allergen Reactions Amitriptyline Hcl [Amitriptyline] Lorazepam Other Reaction(s): Seizure PROBLEMS Active Ambulatory Problems Diagnosis Date Noted Hypersomnia 03/21/2024 Insomnia 03/21/2024 Resolved Ambulatory Problems Diagnosis Date Noted No Resolved Ambulatory Problems Past Medical History: Diagnosis Date Anxiety Bipolar depression (HCC) Depression Headache 05/31/2012 History of abnormal cervical Pap smear 11/22/2016 History of chlamydia History of HPV infection Hypothyroidism Intrauterine device surveillance Nonsmoker Overweight (BMI 25.0-29.9) Papanicolaou smear 10/09/2019 PCOS (polycystic ovarian syndrome) Seizure disorder (HCC) Thyroid disease HISTORY PAST MEDICAL HISTORY SOCIAL HISTORY Past Medical History: Diagnosis Date Anxiety Bipolar depression (HCC) Depression Headache 05/31/2012 History of abnormal cervical Pap smear 11/22/2016 ASCUS HPV positive History of chlamydia History of HPV infection Hypothyroidism Intrauterine device surveillance Nonsmoker Overweight (BMI 25.0-29.9) Papanicolaou smear 10/09/2019 PCOS (polycystic ovarian syndrome) Seizure disorder (HCC) Thyroid disease Social History Tobacco Use Smoking status: Never [...] Negative. Endocrine: Negative. Allergic/Immunologic: Negative. OBJECTIVE Objective: OBGyn Exam Vitals: Estimated body mass index is 27.44 kg/m?? as calculated from the following: Height as of 03/21/24: 5' 2 . Weight as of this encounter: 150 lb. BP: 110/74 Patient's last menstrual period was 07/27/2025 (approximate). ASSESSMENT & PLAN ICD-10-CM 1. Encounter to discuss test results Z71.2 2. Pelvic pain in female R10.2 3. Right ovarian cyst N83.201 Pre Op: Patient is doing well but has complaints of pelvic pain and right ovarian cyst. I have discussed conservative management vs. surgical management with the patient in detail and patient desires surgical management at this time. Patient will undergo Da Silvano assisted Diagnostic Laparoscopy, possible WANDA, possible FOE, possible BSO on 09-06-25. Surgical consents were signed, mmc was reviewed, and patient is to proceed to [facility] OR. Follow Up: Patient is to follow up between 1-2 weeks post operative to assess proper healing and recovery fromprocedure. Documented by Jo Dillon LPN on behalf of: Grover Jones DO documented in this encounter Plan of Treatment Upcoming Encounters Date Type Department Care Team (Late st Contact Info) Description 09/12/2025 2:30 PM EDT Office Visit NOM[facility] KILPATRICK [address] [facility] [address] Ruth Marshall PA [address] [facility] [place] [address] documented as of this encounter Visit Diagnoses Diagnosis Encounter to discuss test results Other specified counseling Pelvic pain in female Unspecified symptom associated with female genital organs Right ovarian cyst Other and unspecified ovarian cyst documented in this encounter Care Teams Drilling Engineering Manager Relationship Specialty Start Date End Date Elena Burger MD [address] [place] [phone] PCP - General 07/04/23 Wai Mclaughlin MD [address] [place] [address] Referring Physician Neurology 02/22/24 documented as of this encounter
--- OUTSIDE RECORDS SUMMARY | 2025-08-21 10:54 | XMS_ITS ---
Author Name Auto Generated Organization OHIP Care Team Providers Care Nursery Worker Name Role Phone Mukesh Jones Admitting Unavailable Mukesh Jones Attending Unavailable Gudimella, Elena Primary Care Unavailable Cooper, Jony Admitting Unavailab le Cooper, Jony Attending Unavailab le Gudimella, Elena Referring Unavailable Gudimella, Elena Attending Unavailable Gudimella, Elena Attending Unavailable Gudimella, Elena Admitting Unavailable Gudimella, Elena Attending Unavailable JIL PANDEY Attending Unavailable JIL PANDEY Attending Unavailable NESTOR GONZALEZ Attending Unavailable DHIRAJ JONESY Referring Unavailable MUKESH JONES Attending Unavailable MUKESH JONES Attending Unavailable JIL PANDEY Attending Unavailable NESTOR GONZALEZ Attending Unavailable PROBLEMS No Problem Records Found PROCEDURES No Procedure Records Found RESULTS US PELVIC COMPLETE W/ TV Observed: 08/06 10:26 AM Status: F Source: [facility] EPIC Order Comment: US PELVIS-TRA NSVAG [...] Observed: 01/07/2025 12:02 PM Status: F Source: [facility] Nonvisit Note - PT Pt no showed to PT reassessment. [facility] NONVISIT NOTE - PT Observed: 01/01/2025 9:04 AM Status: F Source: [facility] Nonvisit Note - PT Pt cancelled reassessment and rescheduled to 01/07/25. [facility] NONVISIT NOTE - PT Observed: 12/20/2024 8:53 AM Status: F Source: [facility] Nonvisit Note - PT Pt called to cancel as pt has another appointment at this time. NONVISIT NOTE - PT Observed: 12/03/2024 8:44 AM Status: F Source: [facility] Nonvisit Note - PT Pt cancelled PT evaluation and rescheduled to 12/05/24. Chart was prepped. [facility] XR SPINE LUMBOSACRAL 2 OR 3 VIEWS Observed: 11/24/2024 10:43 AM Status: F Source: [facility] Exam Date/Time: 11/24/2024 10:51 EST Reason for [...] REPORT Dictated: 11/24/2024 12:40 pm Mars Shin MD. Signed (Electronic Signature): 11/24/2024 12:40 pm Signed by: Mars Shin MD Transcribed by: CARMELA Technologist: BRANDIE Technical Comments Radiation Dose: Kar in mGy = . DAP = . FAMILY MEDICINE OFFICE/CLINI C NOTE Observed: 11/23/2024 5:59 PM Status: F Source: [facility] Medicine Office/Clini c Note Chief Complaint Lower [...] Urnls Dip Stick Auto w/o Microscopy POC 38072 XR Spine Lumbosacral 2 or 3 Views [...] stomach, # 30 tab(s), Refills(s) 11, Pharmacy: [facility] #14, 157, cm, 05/26/23 10:09:00 EDT, Height/Length Dosing, 64.4, kg, 05/26/23 10:09:00 EDT, Weight Dosing Follow-up With When Contact Information Elena Burger MD, FAM, MED Only if needed [address] [place] [phone] Additional Instructions: Patient Education Back Exercises Problem [...] Dipstick: 2+ (100 mg/dl) (11/23/24 17:47:00) Specific [place] Urine Dipstick: 1.015 (11/23/24 17:47:00) Urine Appearance Urine Dipstick: Turbid (11/23/24 17:47:00) Urine Color Urine Dipstick: Yellow (11/23/24 17:47:00) Urobilinogen Urine Dipstick: Normal 0.2-1 EU/dl (11/23/24 17:47:00) pH Urine Dipstick: 8.5 (11/23/24 17:47:00) Result Comment: Electronical ly Signed By: Elena Burger MD\.br\Date and Time Signed: 11/23/24 18:00 PONCHO Flaquito Observed: 11/02/2024 11:42 AM Status: Giovanna Source: [facility] ----- ------- Specimen: [id number] Received: 11/05/24 Status: JULIANA Birch Num: [id number] Spec Type: Surgical Subm Dr: Mukesh Jones Tissues: A Fallopian Tube - Sterilization (BILAT FAL TUBES) Procedures: HE/2Fabiana/Isadora L2 ----- ------- Age/ Patient Sex Location Account Attending Physician ----- ------- Paula Whitaker / LABELL [id number] Mukesh Jones ----- ------- SPEC NUM: [id number] RECD: 11/05/24 STATUS: JULIANA LAWRENCE NUM: [id number] DANIELLE: 11/02/[address] [facility] [address]: Mukesh Jones ENTERED: 11/05/[address] [facility] [address]: Caitlyn,Lesley SPEC TYPE: Surgical DEPT: THEODORE LEIVA ENTERED BY: [id number] RECV BY: [id number] ORDERED: HE/2, Gross/Micro L2 ORDERED: HE/2, Gross/Micro [...] A1 Entirety of trisected fimbriated end and mechanical service representative cross-sections of shorter fallopian tube A2 Entirety of trisected fimbriated and and mechanical service representative cross-sections of longer fallopian tube (2, ss, HO38-443 A)JG ----- ------- Specimen: [id number] Received: 11/05/24 Status: JULIANA Queta Num: [id number] Spec Type: Surgical Subm Dr: Mukesh Jones Tissues: A Fallopian Tube - Sterilization (BILAT FAL TUBES) Procedures: HE/2, Gross/Micro L2 ----- ------- Patient: Paula Whitaker [id number] (Continued) ----- ------- Specimen: [id number] Received: 11/05/24 (Continued) Signed (signature on file) Sheila Han MD 11/06/24 1633 ----- ------- Specimen: [id number] Received: 11/05/24 Status: JULIANA Birch Num: [id number] Spec Type: Surgical Subm Dr: Mukesh Jones Tissues: A Fallopian Tube - Sterilization (BILAT FAL TUBES) Procedures: Fabiana BROOKE/Isadora L2 ----- ------- Patient: Paula Whitaker [id number] (Continued) ----- ------- Specimen: [id number] Received: 11/05/24 (Continued) Microscopic Description Microscopic examinations are performed supporting the above interpretation CPT Codes 05196 ----- ------- ----- ------- Specimen: [id number] Received: 11/05/24 Status: STEFANIGuerita Birch Num: [id number] Spec Type: Surgical Subm Dr: Mukesh Jones Tissues: A Fallopian Tube - Sterilization (BILAT FAL TUBES) Procedures: HE/Renzo, Gross/Micro L2 ----- ------- Patient: Paula Whitaker [id number] (Continued) ----- ------- Signed (signature on file) Salazar-Yousuf Han MD 11/06/24 1633 ALLERGIES DATE TYPE / CODE NAME / CODE REACTION SEVERITY SOURCE 06/06/2020 Drug Allergy/[id number] 2(SNOMED CT) No Known Allergies/[id number] 8(RXNORM) Unknown [facility] /[id number](SNO MED CT) Lexapro [id number] [facility] ENCOUNTERS ADMIT/DISCHARGE ACCOUNT NUMBER ADMITTING ENCOUNTER CLASS LOCATION SOURCE 08/21/2025/08/21/20 [id number] Ambulatory Building:[facility] 08/12/2025/08/12/20 [id number] Ambulatory Building:[facility] 08/06/2025/08/06/20 [id number] Ambulatory Building:[facility] 07/04/2025/07/04/20 [id number] Ambulatory Building:[facility] 04/24/2025 [id number] Jony Gamboa [facility] 02/21/2025/02/22/20 [id number] Ambulatory Building:[facility] 01/03/2025/01/03/20 [id number] Ambulatory Building:[facility] 12/20/2024/12/20/19 [id number] Ambulatory Building:[facility] 12/05/2024/02/19/20 [id number] Ambulatory [facility] Physical Tx [facility] 11/24/2024/11/24/19 [id number] Elena Burger Ambulatory [facility]FT XR [facility] 11/23/2024/11/23/19 [id number] Ambulatory FM [place]:FM Arel[place] [facility] 11/08/2024/11/08/20 24 [id number] Ambulatory Building:[facility] EPIC 11/02/2024/11/02/20 24 [id number] Mukesh Jones [facility]AY[place] [facility] 10/08/2024/10/08/20 [id number] Ambulatory Building:[facility] EPIC PAYERS ENCOUNTER GUARANTOR PAYER SUBSCRIBER SOURCE 08/21/2025 PAULA CORONA: [address], [place] [address]Viw: (HP) Primary Insurance:[facility] [place]ICA[facility] [place] Number: [id number] ve Date:2022-12-22 PAULA KELLERB: [id number], [place] [address] [facility] EPIC 08/12/2025 PAULA KELLERB: [address], [place] [address]Npy: (HP) Primary Insurance:[facility] [place]ICA[facility] [place] Number: [id number] ve Date:2022-12-22 PAULA KELLERB: [id number], [place] [address] [facility] EPIC 08/06/2025 PAULA KELLERB: [address], [place] [address]Akx: (HP) Primary Insurance:[facility] [place]ICA[facility] [place] Number: [id number] ve Date:2022-12-22 PAULA KELLERB: [id number], [place] [address] [facility] EPIC 07/04/2025 PAULA KELLERB: [address], [place] [address]Zta: (HP) Primary Insurance:[facility] [place]ICA[facility] [place] Number: [id number] ve Date:2022-12-22 PAULA KELLERB: [id number], [place] [address] [facility] EPIC 04/24/2025 Paula Whitaker[address], [place] [address]Lhz: (HP) Primary Insurance:Self PayPolicy Number: Effective Date:2024-09-06 [facility]/21/2025 PAULA WHITAKERB: [address], [place] [address]Spa: (HP) Primary Insurance:[facility] [place]ICA[facility] [place] Number: [id number] ve Date:2022-12-22 PAULA WHITAKERB: [id number] [address], [place] [address] [facility] EPIC 01/03/2025 PAULA WHITAKERB: [address], [place] [address]Ivh: (HP) Primary Insurance:[employer] [place] Number: [id number] ve Date:2022-12-22 PAULA WHITAKERB: [id number] [address], [place] [address] [facility] EPIC 12/20/2024 PAULA WHITAKERB: [address], [place] [address]Gok: (HP) Primary Insurance:[facility] [place]ICA[facility] [place] Number: [id number] ve Date:2022-12-22 PAULA WHITAKERDOB: [id number] [address], [place] [address] [facility] EPIC 12/05/2024 PAULA WHITAKERDOB: [address]CTel: ~ ~(41 (HP) Primary Insurance:Medicaid olicy Number: [id number] ve Date:[id number] [phone]: PAULA MONTAGUE [facility] 11/24/2024 PAULA WHITAKERDOB: [address]CTel: ~ ~(41 (HP) Primary Insurance:MedicaidP olicy Number: [id number] ve Date:[id number] [address] [place] [phone]: PAULA MONTAGUE [facility] 11/23/2024 PAULA WHITAKERDOB: [address]CTel: ~ ~(41 (HP) Primary Insurance:MedicaidP olicy Number: [id number] Date:[id number] [address] [place] [phone]: PAULA MONTAGUE [facility] 11/08/2024 PAULA WHITAKERB: [address], [place] [address]Ljk: (HP) Primary Insurance:[facility] MEDICAID [place] Number: [id number] ve Date:2022-12-22 PAULA WHITAKERB: [id number], [place] [address] [facility] 11/02/2024 Paula [address]aker[address] [address]Mls: (HP) Primary Insurance:Self PayPolicy Number: Effective Date:2024-11-02 [facility] 10/08/2024 PAULA WHITAKERB: [address], [place] [address]Ncc: (HP) Primary Insurance:[facility] MEDICAID [place] Number: [id number] ve Date:2022-12-22 PAULA WHITAKERB: [id number], [place] [address] [facility] EPIC
--- OUTSIDE RECORDS SUMMARY | 2025-08-21 11:00 | XMS_ITS | Encounter Summary ---
Author Organization [facility] Address [address] [place] [address] Care Team Providers Care Educational Assistant Teacher Name Role Phone Elena Burger MD Primary Care Provider Wai Mclaughlin MD Unavailable [phone] Reason for Visit * Reason Comments Well Women Visit Encounter Details Date Type Department Care Team (Latest Contact Info) Description 08/21/2025 11:00 AM EDT Procedure Visit [facility] [address] [place] [address] Sol Sanchez, DALY [address] [place] [address] Well woman exam with routine gynecological [...] nursing note reviewed. Exam conducted with a social worker aide present. Vitals: Estimated body mass index is [...] nursing note reviewed. Exam conducted with a social worker aide present. Vitals: Estimated body mass index is [...] EDT Office Visit [facility] [address] [place] [address] Ruth Marshall PA [address] [place] [address] Scheduled Orders Name Type Priority Associated Diagnoses [...] examination documented in this encounter Care Teams Educational Assistant Teacher Relationship Specialty Start Date End Date Elena Burger MD [address] [place] [phone] PCP - General 07/04/23 Wai Mclaughlin MD [address] [place] [phone] Referring Physician Neurology 02/22/24 documented as of this encounter
--- OUTSIDE RECORDS SUMMARY | 2025-08-22 10:38 | XMS_ITS | Clinical Summary ---
Author Organization [facility] Address [address] [place] [address] Care Team Providers Care Chief Nuclear Medicine Technologist Name Role Phone Elena Burger MD Primary Care Provider Wai Mclaughlin MD Unavailable [phone] Allergies Active Allergy Reactions Criticality Noted [...] AM EDT Procedure Visit [facility] [address] [place] [address] [place] [phone] Sol Sanchez NP Well woman exam with routine gynecological exam 08/21/2025 Bamboo flowsheet [facility] [address] [facility] [place] [address] Sol Sanchez NP 08/21/2025 Travel 08/13/2025 Telephone [facility] [address] [facility] [place] [address] Ruth Marshall PA 08/12/2025 1:30 PM EDT Office Visit [facility] [address] [facility] [place] [address] Grover Jones DO Encounter to discuss test results; Pelvic pain in female; Right ovarian cyst 08/12/2025 Bamboo flowsheet [facility] [address] [facility] [place] [address] Grover Jones DO 08/07/2025 Travel 08/06/2025 10:30 AM EDT Ancillary Procedure [facility] [address] [facility] [place] [address] Complex cyst of right ovary 07/05/2025 Telephone [facility] [address] [facility] [place] [address] Suzy Howard LPN 07/04/2025 1:20 PM EDT Office Visit [facility] [address] [facility] [place] [address] Sol Sanchez NP Vaginal bleeding; Vaginal irritation; Yeast infection 07/04/2025 Telephone [facility] [address] [facility] [place] [address] Suzy Howard LPN 07/04/2025 Bamboo flowsheet [facility] [address] [facility] [place] [address] Sol Sanchez NP 07/04/2025 Travel from Last [...] EDT Office Visit [facility] [address] [facility] [place] [address] Ruth Marshall PA [address] [place], [place] [phone] Procedures Procedure Name Priority Date/Time Associated Diagnosis [...] BY: ELECTRONICALLY SIGNED BY: Jarret Gregory MD [facility] 08/06/2025 1:36 PM EDT FINDINGS: Uterus 8.5 [...] ELECTRONICALLY SIGNED BY: Jarret Gregory MD us [facility] US PROCEDURES Final Result * (ABNORMAL) RECURRENT VAGINITIS (HTRX) (07/04/2025 3:13 PM EDT) ATOPOBIUM VAGINAE 26.548(A) 19.961 - 24.689 ppm 07/05/2025 7:26 AM EDT [facility] ATOPOBIUM VAGINAE Detected(A) 19.961 - 24.689 ppm 07/05/2025 7:26 AM EDT [facility] BVAB 2,3 (BACTERIAL VAGINOSIS ASSOCIATED BACTERIA 2, 3); MOBILUNCUS SPP 12.501(A) 19.961 - 24.689 ppm 07/05/2025 7:26 AM EDT [facility] BVAB 2,3 (BACTERIAL VAGINOSIS ASSOCIATED BACTERIA 2, 3); MOBILUNCUS SPP Detected(A) 19.961 - 24.689 ppm 07/05/2025 7:26 AM EDT [facility] TREVON ALBICANS, PARAPSILOSIS, TROPICALIS 0 23.000 - 30.347 ppm 07/05/2025 7:26 AM EDT [facility] TREVON ALBICANS, PARAPSILOSIS, TROPICALIS Not Detected 23.000 - 30.347 ppm 07/05/2025 7:26 AM EDT [facility] TREVON GLABRATA 0 23.000 - 31.618 ppm 07/05/2025 7:26 AM EDT [facility] TREVON GLABRATA Not Detected 23.000 - 31.618 ppm 07/05/2025 7:26 AM EDT [facility] TREVON KRUSEI 0 23.000 - 30.873 ppm 07/05/2025 7:26 AM EDT [facility] TREVON KRUSEI Not Detected 23.000 - 30.873 ppm 07/05/2025 7:26 AM EDT [facility] CHLAMYDIA TRACHOMATIS 0 23.000 - 31.586 ppm 07/05/2025 7:26 AM EDT [facility] CHLAMYDIA TRACHOMATIS Not Detected 23.000 - 31.586 ppm 07/05/2025 7:26 AM EDT [facility] GARDNERELLA VAGINALIS 21.022(A) 19.961 - 24.689 ppm 07/05/2025 7:26 AM EDT [facility] GARDNERELLA VAGINALIS Detected(A) 19.961 - 24.689 ppm 07/05/2025 7:26 AM EDT [facility] MEGASPHAERA (TYPES 1, 2) 14.749(A) 19.961 - 24.689 ppm 07/05/2025 7:26 AM EDT [facility] OBIEHAERA (TYPES 1, 2) Detected(A) 19.961 - 24.689 ppm 07/05/2025 7:26 AM EDT [facility] NEISSERIA GONORRHOEAE 0 23.000 - 32.587 ppm 07/05/2025 7:26 AM EDT [facility] NEISSERIA GONORRHOEAE Not Detected 23.000 - 32.587 ppm 07/05/2025 7:26 AM EDT [facility] TRICHOMONAS VAGINALIS 0 23.000 - 31.995 ppm 07/05/2025 7:26 AM EDT [facility] TRICHOMONAS VAGINALIS Not Detected 23.000 - 31.995 ppm 07/05/2025 7:26 AM EDT [facility] MYCOPLASMA GENITALIUM 0 19.961 - 24.689 ppm 07/05/2025 7:26 AM EDT [facility] MYCOPLASMA GENITALIUM Not Detected 19.961 - 24.689 ppm 07/05/2025 7:26 AM EDT [facility] ERMB, C; MEFA 17.503(A) 23.000 - 27.500 ppm 07/05/2025 7:26 AM EDT [facility] ERMB, C; MEFA Detected(A) 23.000 - 27.500 ppm 07/05/2025 7:26 AM EDT [facility] TET B, TET M 20.67(A) 23.000 - 27.500 ppm 07/05/2025 7:26 AM EDT [facility] TET B, TET M Detected(A) 23.000 - 27.500 ppm 07/05/2025 7:26 AM EDT [facility] Tissue 07/04/2025 3:13 PM EDT 07/05/2025 2:18 AM EDT Sol Sanchez NP LAB BLOOD ORDERABLES Final Re sult [facility] [address] [place] [id number] * POCT urinalysis dipstick manually resulted (07/04/2025 [...] Final Result from Last 3 Months Insurance [facility] MEDICAID [place] Care Teams Chief Nuclear Medicine Technologist Relationship Specialty Start Date End Date Elena Burger MD [address] [place] [address] PCP - General 07/04/23 Wai Mclaughlin MD [address] [place] [address] Referring Physician Neurology 02/22/24
--- OUTSIDE RECORDS SUMMARY | 2025-08-22 10:38 | XMS_ITS | Encounter Summary ---
Author Organization [facility] Address [address] [place] [address] Care Team Providers Care Maintenance Painter Apprentice Name Role Phone Elena Burger MD Primary Care Provider [phone] Wai Mclaughlin MD Unavailable Encounter Details Date Type Department Care Team (Late st Contact Info) Description 07/22/2023 Abstract [facility] Caitlyn KILPATRICK [address] [facility] [place] [place] [address] Ruth Marshall PA [address] [facility] [place] [address] Social History Tobacco Use Types Packs/Day Years [...] Office Visit ENIO KILPATRICK [address] [facility] [address] Ruth Marshall PA [address] [facility] [place] [address] documented as of this encounter Visit Diagnoses Not on filedocumented in this encounter Care Teams Maintenance Painter Apprentice Relationship Specialty Start Date End Date Elena Burger MD [address] [place] [phone] PCP - General 07/04/23 Wai Mclaughlin MD [address] [place] [address] Referring Physician Neurology 02/22/24 documented as of this encounter
--- OUTSIDE RECORDS SUMMARY | 2025-08-22 10:38 | XMS_ITS | Clinical Summary ---
Author Organization [employer] Address [id number] [address] [place] [address] Care Team Providers Care Drop Wirer Name Role Phone No Pcp, No Pcp [...] 07/22/2025 Medical Devices Not on file Insurance [facility] MEDICAID Care Teams Drop Wirer Relationship Specialty Start Date End Date No Pcp, No Pcp BUD Navarrete [phone] PCP - General Family Medicine 10/26/21
--- OUTSIDE RECORDS SUMMARY | 2025-08-22 10:38 | XMS_ITS | Encounter Summary ---
Author Organization [facility] Address [address] [place] [address] Care Team Providers Care Alarm Operator Name Role Phone Elena Burger MD Primary Care Provider [phone] Wai Mclaughlin MD Unavailable Encounter Details Date Type Department Care Team (Late st Contact Info) Description 11/02/2024 Abstract [facility] Caitlyn KILPATRICK [address] [facility] [place] [address] Grover Jones DO [address] [facility] [address] [place], [place] [phone] Social History Tobacco Use Types Packs/Day Years [...] PM EDT Office Visit ENIO KILPATRICK [address] [facility] [place] [address] Ruth Marshall PA [address] [facility] [place] [address] documented as of this encounter Visit Diagnoses Not on filedocumented in this encounter Care Teams Alarm Operator Relationship Specialty Start Date End Date Elena Burger MD [address] [place] [address] PCP - General 07/04/23 Wai Mclaughlin MD [address] [place] [address] Referring Physician Neurology 02/22/24 documented as of this encounter
--- OUTSIDE RECORDS SUMMARY | 2025-08-22 10:38 | XMS_ITS | Encounter Summary ---
Author Organization [facility] Address [address] [place] [address] Care Team Providers Care Final Assembly Worker Name Role Phone Elena Burger MD Primary Care Provider Carolyn Mclaughlin MD Unavailable Encounter Details Date Type Department Care Team (Late st Contact Info) Description 02/22/2024 Clinisync Result Encounter [facility] External Department Unsolicited Mukesh Jones DO [address] [facility] [address] [place], [facility] Social History Tobacco Use Types [...] [address] [facility] [place] [phone] Ruth Marshall PA [address] [facility] [address] [place], [place] [address] documented as of this encounter Procedures Procedure Name Priority Date/Time Associated Diagnosis Comments US PELVIS W/ TRANSVAGINAL 02/22/2024 12:51 PM EDT documented in this encounter Results * US PELVIS W/ TRANSVAGINAL (02/22/2024 12:51 PM EDT) Anatomical Region Laterality Modality Other 02/22/2024 12:5 1 PM EDT Narrative 02/22/2024 12:54 [place] [address] Ultrasound Report Signed Patient: KEVEN WHITAKER MR#: [id number] : 1995 Acct:[id number] Age/Sex: 29 / F ADM Date: 02/22/24 Loc: US Attending Dr: Mukesh Jones D.O. Ordering Physician: Mukesh Jones D.O. Date of Service: 02/22/24 Procedure(s): US pelvis w/ transvaginal Accession Number(s): [id number] cc: Mukesh Jones D.O.; Physician,Non-Staff MConsuelo [address] [address] Patient Name: KEVEN WHITAKER MRN: [id number] date: 1995 Sex: F Assigned Patient Location: US Current Patient Location: US Accession/Order Number: [id number] Exam Date: 02/22/2024 11:09 Report Date: 02/22/2024 [...] large right ovarian cyst. Electronically authenticated by: ACROLYN REESE Date: 02/22/2024 12:51 Dictated By: Carolyn Reese M.D. Signed By: 02/22/24 1254 DD/ 1251 TD/TT: Assembly Adjuster: Procedure Note Radiology, Radiologist, MD - 02/22/2024 [place] [address] Ultrasound Report Signed Patient: KEVEN WHITAKER MMR#: [id number] : 1995Acct:[id number] Age/Sex: 29 / FADM Date: 02/22/24 Loc: US Attending Dr: Mukesh Jones D.O. Ordering Physician: Mukesh Jones D.O. Date of Service: 02/22/24 Procedure(s): US pelvis w/ transvaginal Accession Number(s): [id number] cc: Mukesh Jones D.O.; Physician,Non-Staff Lester The [place] [address] Patient Name: KEVEN WHITAKER MRN: [id number] date: 1995 Sex: F Assigned Patient Location: US Current Patient Location: US Accession/Order Number: [id number] Exam Date: 02/22/2024 11:09 Report Date: 02/22/2024 [...] M.D. Signed By:02/22/24 1254 DD/ 1251 TD/TT: Assembly Adjuster: us Mukesh Robert DO [facility] Final Result documented in this encounter Visit Diagnoses Not on filedocumented in this encounter Care Teams Final Assembly Worker Relationship Specialty Start Date End Date Elena Burger MD [address] [place] [address] PCP - General 07/04/23 Carolyn Mclaughlin MD [address] [place] [address] Referring Physician Neurology 02/22/24 documented as of this encounter
--- OUTSIDE RECORDS SUMMARY | 2025-08-22 10:38 | XMS_ITS | Clinical Summary ---
Author Organization [facility] Address [address] [place] [address] Care Team Providers Care Acid Maker Name Role Phone Khushboo Hollis MD Primary [...] N ot on file 09/08/2021 Data from: [email or web address].[email or web address] Last address used for calculation Not on [...] ANTHEM [employer] [place] Care Teams Acid Maker Relationship Specialty Start Date End Date Khushboo Hollis MD [address] [place] [address] PCP - General 02/12/20
--- OUTSIDE RECORDS SUMMARY | 2025-08-22 10:38 | XMS_ITS | Encounter Summary ---
Author Organization [facility] Address [address] [place] [address] Care Team Providers Care Police Department Secretary Name Role Phone Elena Burger MD Primary Care Provider Carolyn Mclaughlin MD Unavailable Encounter Details Date Type Department Care Team (Late st Contact Info) Description 01/06/2024 Clinisync Result Encounter [facility] External Department Unsolicited Mukesh Jones DO [address] [facility] [address] [place], [facility] Social History Tobacco Use Types Packs/Day [...] EDT Office Visit [facility] Caitlyn KILPATRICK [address] [facility] [place] [phone] Ruth Marshall PA [address] [facility] [address] [place], [place] [phone] (work) documented as of this encounter Procedures Procedure Name Priority Date/Time Associated Diagnosis Comments US PELVIS W/ TRANSVAGINAL 01/06/2024 12:38 PM EST documented in this encounter Results * US PELVIS W/ TRANSVAGINAL (01/06/2024 12:38 PM EST) Anatomical Region Laterality Modality Other 01/06/2024 12:3 8 PM EST Narrative 01/06/2024 12:40 [place] [address] Ultrasound Report Signed Patient: KEVEN WHITAKER MR#: [id number] : 1995 Acct:[id number] Age/Sex: 28 / F ADM Date: 01/06/24 Loc: US Attending Dr: Mukesh Jones D.O. Ordering Physician: Mukesh Jones D.O. Date of Service: 01/06/24 Procedure(s): US pelvis w/ transvaginal Accession Number(s): [id number] cc: Mukesh Jones D.O.; Physician,Non-Staff Lester [address] [address] Patient Name: KEVEN WHITAKER MRN: [id number] date: 1995 Sex: F Assigned Patient Location: US Current Patient Location: US Accession/Order Number: [id number] Exam Date: 01/06/2024 11:18 Report Date: 01/06/2024 12:38 At the request of: MUKESH JONES Procedure: US pelvis w/ transvaginal EXAMINATION: US pelvis w/ transvaginal HISTORY: pelvic pain in female R10.2 COMPARISON: Ultrasound pelvis 07/07/2023 TECHNIQUE: Transabdominal and/or transvaginal sonographic examination was performed as indicated by examination type. FINDINGS: UTERUS: Normal size and appearance. Uterus size: 7.1 x 4.2 x 5.0 cm ENDOMETRIUM: Normal homogeneous appearance. Endometrial thickness: 4 mm RIGHT OVARY: Contains a 4.3 cm anechoic, thin-walled, benign-appearing cyst. Duplex Doppler demonstrates normal waveform and flow; resistive index 0.68. Ovary size: 4.3 x 3.6 x 4.6 cm LEFT OVARY: Normal size and appearance. Duplex Doppler demonstrates normal waveform and flow; resistive index 0.48. Ovary size: 2.3 x 1.1 x 2.4 cm CUL-DE-SAC: Unremarkable. No significant free fluid. BLADDER: Unremarkable. OTHER: None. US/US pelvis w/ transvaginal IMPRESSION: 1. Right ovary contains a large 4.3 cm benign-appearing cyst. This is larger than seen on patient's 07/07/2023 study and may represent enlargement of previously seen cyst or a new cyst since that time. Consider follow-up ultrasound evaluation in 6 weeks to document regression. Electronically authenticated by: CAROLYN REESE Date: 01/06/2024 12:38 Dictated By: Carolyn Reese M.D. Signed By: 01/06/24 1240 DD/ 1238 TD/TT: Conveyor Worker: Procedure Note Radiology, Radiologist, MD - 01/06/2024 [place] [address] Ultrasound Report Signed Patient: KEVEN WHITAKER MMR#: [id number] : 1995Acct:[id number] Age/Sex: 28 / FADM Date: 01/06/24 Loc: US Attending Dr: Mukesh Jones D.O. Ordering Physician: Mukesh Jones D.O. Date of Service: 01/06/24 Procedure(s): US pelvis w/ transvaginal Accession Number(s): [id number] cc: Mukesh Jones D.O.; Physician,Non-Staff Lester The [address] [address] Patient Name: KEVEN WHITAKER MRN: [id number] date: 1995 Sex: F Assigned Patient Location: US Current Patient Location: US Accession/Order Number: [id number] Exam Date: 01/06/2024 11:18 Report Date: 01/06/2024 12:38 At the request of: MUKESH JONES Procedure: US pelvis w/ transvaginal EXAMINATION: US pelvis w/ transvaginal HISTORY: pelvic pain in female R10.2 COMPARISON: Ultrasound pelvis 07/07/2023 TECHNIQUE: Transabdominal and/or transvaginal sonographic examination was performed as indicated by examination type. FINDINGS: UTERUS: Normal size and appearance. Uterus size: 7.1 x 4.2 x 5.0 cm ENDOMETRIUM: Normal homogeneous appearance. Endometrial thickness: 4 mm RIGHT OVARY: Contains a 4.3 cm anechoic, thin-walled, benign-appearingcyst. Duplex Doppler demonstrates normal waveform and flow; resistive index0.68. Ovary size: 4.3 x 3.6 x 4.6 cm LEFT OVARY: Normal size and appearance. Duplex Doppler demonstrates normal waveform and flow; resistive index 0.48. Ovary size: 2.3 x 1.1 x 2.4 cm CUL-DE-SAC: Unremarkable. No significant free fluid. BLADDER: Unremarkable. OTHER: None. US/US pelvis w/ transvaginal IMPRESSION: 1. Right ovary contains a large 4.3 cm benign-appearing cyst. This islarger than seen on patient's 07/07/2023 study and may represent enlargement of previously seen cyst or a new cyst since that time. Consider follow-up ultrasound evaluation in 6 weeks to document regression. Electronically authenticated by: CAROLYN REESE Date: 01/06/2024 12:38 Dictated By: Carolyn Reese M.D. Signed By:01/06/24 1240 DD/ 1238 TD/TT: Conveyor Worker: us Mukesh Jones DO [facility] Final Result documented in this encounter Visit Diagnoses Not on filedocumented in this encounter Care Teams Police Department Secretary Relationship Specialty Start Date End Date Elena Burger MD [address] [place] [address] PCP - General 07/04/23 Caorlyn Mclaughlin MD [address] [place] [address] Referring Physician Neurology 02/22/24 documented as of this encounter
--- OUTSIDE RECORDS SUMMARY | 2025-08-22 10:38 | XMS_ITS | Encounter Summary ---
Author Organization [facility] Address [address] [address] Care Team Providers Care Aids Social Worker Name Role Phone Elena Burger MD Primary Care Provider Wai Mclaughlin MD Unavailable Encounter Details Date Type Department Care Team (Late st Contact Info) Description 08/21/2025 Raduboo flowsheet [facility] Caitlyn OBGYN [address] [facility] [place] [address] Sol Sanchez, DALY [address] [facility] [place] [address] Social History Tobacco Use Types Packs/Day [...] PM EDT Office Visit ENIO KILPATRICK [address] [facility] [place] [address] Ruth Marshall PA [address] [facility] [place] [address] documented as of this encounter Visit Diagnoses Not on filedocumented in this encounter Care Teams Aids Social Worker Relationship Specialty Start Date End Date Elena Burger MD [address] [place] [address] PCP - General 07/04/23 Wai Mclaughlin MD [address] [place] [address] Referring Physician Neurology 02/22/24 documented as of this encounter
--- OUTSIDE RECORDS SUMMARY | 2025-08-22 10:38 | XMS_ITS | Encounter Summary ---
Author Organization [facility] Address [address] [place] [address] Care Team Providers Care Shed Boss Name Role Phone Elena Burger MD Primary Care Provider Wai Mclaughlin MD Unavailable [phone] Encounter Details Date Type Department Care [...] PM EDT Office Visit [facility] Caitlyn KILPATRICK [address] [place] [address] [place] [address] Ruth Marshall PA [address] [place] [address] [place] [address] documented as of this encounter Visit Diagnoses Not on filedocumented in this encounter Care Teams Shed Boss Relationship Specialty Start Date End Date Elena Burger MD [address] [place] [address] PCP - General 07/04/23 Wai Mclaughlin MD [address] [place] [address] Referring Physician Neurology 02/22/24 documented as of this encounter
--- OUTSIDE RECORDS SUMMARY | 2025-08-22 10:38 | XMS_ITS | Encounter Summary ---
Author Organization [facility] Address [address] [place] [address] Care Team Providers Care Adjunct Faculty Name Role Phone Elena Burger MD Primary Care Provider Wai Mclaughlin MD Unavailable [phone] Encounter Details Date Type Department Care Team (Late st Contact Info) Description 08/12/2025 Bamboo flowsheet [facility] Caitlyn OBGYN [address] [facility] [place] [address] Grover Jones DO [address] [facility] [address] [place] [id number] Social History Tobacco Use Types Packs/Day Years [...] EDT Office Visit [facility] Caitlyn KILPATRICK [address] [facility] [place] [address] Ruth Marshall PA [address] [facility] [place] [address] documented as of this encounter Visit Diagnoses Not on filedocumented in this encounter Care Teams Adjunct Faculty Relationship Specialty Start Date End Date Elena Burger MD [address] [place] [address] PCP - General 07/04/23 Wai Mclaughlin MD [address] [place] [address] Referring Physician Neurology 02/22/24 documented as of this encounter
--- OUTSIDE RECORDS SUMMARY | 2025-08-22 10:38 | XMS_ITS | Encounter Summary ---
Author Organization [facility] Address [address] [place] [address] Care Team Providers Care 8Th Grade Mathematics Teacher Name Role Phone Elena Burger MD Primary Care Provider Wai Mclaughlin MD Unavailable [phone] Encounter Details Date Type Department Care Team (Late st Contact Info) Description 08/20/2024 Orders Only [facility] Caitlyn OBGYN [address] [place] [address] Sharmila Barbour LPN [address] [address] [place] [address] Social History Tobacco Use Types [...] EDT Office Visit [facility] Caitlyn OBGYN [address] [facility] [place] [address] Ruth Marshall PA [address] [facility] [place] [address] documented as of this encounter Procedures Procedure [...] on filedocumented in this encounter Care Teams 8Th Grade Mathematics Teacher Relationship Specialty Start Date End Date Elena Burger MD [address] [place] [address] PCP - General 07/04/23 Wai Mclaughlin MD [address] [place] [address] Referring Physician Neurology 02/22/24 documented as of this encounter
--- OUTSIDE RECORDS SUMMARY | 2025-08-22 10:38 | XMS_ITS | Encounter Summary ---
Author Organization [facility] Address [address] [place] [address] Care Team Providers Care Denial Management Representative Name Role Phone Elena Burger MD Primary Care Provider Wai Mclaughlin MD Unavailable [phone] Reason for Visit * Reason Onset Date Comments Med Refill 09/04/2024 Encounter Details Date Type Department Care Team (Late st Contact Info) Description 09/04/2024 Refill [facility] Caitlyn OBGYN [address] [facility] [phone] Grover Jones DO [address] [facility] [address] [place] [place], [place] [address] BV (bacterial vaginosis) Social History Tobacco Use [...] EDT Office Visit [facility] Caitlyn KILPATRICK [address] [facility] [place] [address] Ruth Marshall PA [address] [facility] [place] [address] documented as of this encounter Visit Diagnoses Diagnosis BV (bacterial vaginosis) Unspecified vaginitis and vulvovaginitis documented in this encounter Care Teams Denial Management Representative Relationship Specialty Start Date End Date Elena Burger MD [address] [place], [place] [address] PCP - General 07/04/23 Wai Mclaughlin MD [address] [place] [address] Referring Physician Neurology 02/22/24 documented as of this encounter
--- OUTSIDE RECORDS SUMMARY | 2025-08-22 10:38 | XMS_ITS | Encounter Summary ---
Author Organization [facility] Address [address] [place] [address] Care Team Providers Care Grain Cleaner Name Role Phone Elena Burger MD Primary Care Provider Wai Mclaughlin MD Unavailable Encounter Details Date Type Department Care Team (Late st Contact Info) Description 08/13/2025 Telephone [facility] Caitlyn KILPATRICK [address] [place] [address] Ruth Marshall PA [address] [place], [facility]11 Social History Tobacco Use Types Packs/Day [...] referral and we will send letter through [employer] and mail with information on who referral was sent to. documented in this encounter Plan of Treatment Upcoming Encounters Date Type Department Care Team (Late st Contact Info) Description 09/12/2025 2:30 PM EDT Office Visit [facility] Caitlyn KILPATRICK [address] [place] [address] Ruth Marshall PA [address] [facility] [place] [address] documented as of this encounter Visit Diagnoses Not on filedocumented in this encounter Care Teams Grain Cleaner Relationship Specialty Start Date End Date Elena Burger MD [address] [place] [address] PCP - General 07/04/23 Wai Mclaughlin MD [address] [place] [address] Referring Physician Neurology 02/22/24 documented as of this encounter
--- OUTSIDE RECORDS SUMMARY | 2025-08-22 10:38 | XMS_ITS | Encounter Summary ---
Author Organization [facility] Address [address] [place] [address] Care Team Providers Care Cardiopulmonary Specialist Name Role Phone Elena Burger MD Primary Care Provider Carolyn Mclaughlin MD Unavailable Encounter Details Date Type Department Care Team (Late st Contact Info) Description 08/16/2024 Clinisync Result Encounter [facility]S External Department Unsolicited Mukesh Jones, DO [address] [facility] [place] [address] Social History Tobacco Use Types Packs/Day Years [...] [address] [facility] [place] [address] Ruth Marshall PA [address] [facility] [address] [place], [facility]11 documented as of this encounter Procedures Procedure Name Priority Date/Time Associated Diagnosis Comments US PELVIS W/ TRANSVAGINAL 08/16/2024 12:07 PM EDT documented in this encounter Results * US PELVIS W/ TRANSVAGINAL (08/16/2024 12:07 PM EDT) Anatomical Region Laterality Modality Other 08/16/2024 12:0 7 PM EDT Narrative 08/16/2024 12:09 PM EDT The [place] [phone] Ultrasound Report Signed Patient: KEVEN WHITAKER MR#: [id number] : 1995 Acct:[id number] Age/Sex: 29 / F ADM Date: 08/16/24 Loc: US Attending Dr: Mukesh Jones D.O. Ordering Physician: Mukesh Jones D.O. Date of Service: 08/16/24 Procedure(s): US pelvis w/ transvaginal Accession Number(s): [id number] cc: Mukesh Jones D.O.; Physician,Non-Staff M.DCrow The [address] [address] Patient Name: KEVEN WHITAKER MRN: [id number] date: 1995 Sex: F Assigned Patient Location: US Current Patient Location: US Accession/Order Number: [id number] Exam Date: 08/16/2024 10:55 Report Date: 08/16/2024 [...] Signed By: 08/16/24 1209 DD/ 1207 TD/TT: Color Repairer: Procedure Note Radiology, Radiologist, MD - 08/16/2024 [place] [address] Ultrasound Report Signed Patient: KEVEN WHITAKER MMR#: [id number] : 1995Acct:[id number] Age/Sex: 29 / FADM Date: 08/16/24 Loc: US Attending Dr: Mukesh Jones D.O. Ordering Physician: Mukesh Jones D.O. Date of Service: 08/16/24 Procedure(s): US pelvis w/ transvaginal Accession Number(s): [id number] cc: Mukesh Jones D.O.; Physician,Non-Staff Lester The [address] [address] Patient Name: KEVEN WHITAKER MRN: [id number] date: 1995 Sex: F Assigned Patient Location: US Current Patient Location: US Accession/Order Number: [id number] Exam Date: 08/16/2024 10:55 Report Date: 08/16/2024 [...] M.D. Signed By:08/16/24 1209 DD/ 1207 TD/TT: Color Repairer: us Mukesh Jones DO [facility] Final Result documented in this encounter Visit Diagnoses Not on filedocumented in this encounter Care Teams Cardiopulmonary Specialist Relationship Specialty Start Date End Date Elena Burger MD [address] [place] [address] PCP - General 07/04/23 Carolyn Mclaughlin MD [address] [place] [address] Referring Physician Neurology 02/22/24 documented as of this encounter
--- OUTSIDE RECORDS SUMMARY | 2025-08-22 10:38 | XMS_ITS | Encounter Summary ---
Author Organization [facility] Address [address] [place] [address] Care Team Providers Care Hydrometallurgical Engineer Name Role Phone Elena Burger MD Primary Care Provider Wai Mclaughlin MD Unavailable [phone] Encounter Details Date Type Department Care Team (Late st Contact Info) Description 09/08/2023 Clinisync Result Encounter [facility] External Department Unsolicited Mukesh Jones DO [address] [facility] [address] Adonis Brady, [facility] Social History Tobacco Use Types Packs/Day Years [...] EDT Office Visit [facility]ait[facility] KILPATRICK [address] [place] [id number] Ruth Marshall PA [address] [facility] [address] [place], [place] [id number] (work) documented as of this encounter Procedures Procedure Name Priority Date/Time Associated Diagnosis Comments US OB TRANSVAGINAL 09/08/2023 10 :04 AM EDT documented in this encounter Results * US OB TRANSVAGINAL (09/08/2023 10:04 AM EDT) Anatomical Region Laterality Modality Other 09/08/2023 10:0 4 AM EDT Narrative 09/08/2023 10:04 [place] [address] Ultrasound Report Signed Patient: KEVEN WHITAKER MR#: [id number] : 1995 Acct:[id number] Age/Sex: 28 / F ADM Date: 09/07/23 Loc: US Attending Dr: Mukesh Jones D.O. Ordering Physician: Mukesh Jones D.O. Date of Service: 09/07/23 Procedure(s): US OB transvaginal Accession Number(s): [id number] cc: Mukesh Jones D.O.; Physician,Non-Staff [place]ester [address] [address] Patient Name: KEVEN WHITAKER MRN: [id number] date: 1995 Sex: F Assigned Patient Location: US Current Patient Location: Accession/Order Number: [id number] Exam Date: 09/07/2023 10:44 Report Date: 09/08/2023 [...] M.D. Signed By: 09/08/236 DD/ 03 TD/TT: Double End Sewer: Procedure Note Radiology, Radiologist, MD - 09/08/2023 [place] [address] Ultrasound Report Signed Patient: KEVEN WHITAKER MMR#: [id number] : 1995Acct:[id number] Age/Sex: 28 FADM Date: 09/07/23 Loc: US Attending Dr: Mukesh Jones D.O. Ordering Physician: Mukesh Jones D.O. Date of Service: 09/07/23 Procedure(s): US OB transvaginal Accession Number(s): [id number] cc: Mukesh Jones D.O.; Physician,Non-Staff [place] [facility] [place] [id number] Patient Name: KEVEN WHITAKER MRN: [id number] date: 1995 Sex: F Assigned Patient Location: US Current Patient Location: Accession/Order Number: [id number] Exam Date: 09/07/2023 10:44 Report Date: 09/08/2023 [...] M.D. Signed By:09/08/23 1006 DD/ 1004 TD/TT: Double End Sewer: us Mukesh Robert DO [facility] Final Result documented in this encounter Visit Diagnoses Not on filedocumented in this encounter Care Teams Hydrometallurgical Engineer Relationship Specialty Start Date End Date Elena Burger MD [address] [place] [address] PCP - General 07/04/23 Wai Mclaughlin MD [address] [place] [address] Referring Physician Neurology 02/22/24 documented as of this encounter
== END 2025-08-22 10:36 | disposition home or self-care (01) ==
PROVIDERS: Visit Provider Obstetrics & Gynecology
DX: Z01.818 Encounter for other preprocedural examination (principal); N83.201 Unspecified ovarian cyst, right side